=== PATIENT | male | born 1940 | race Caucasian/White ===

== ENCOUNTER → 2017-01-03 | Outpatient (CLI) | payer MEDICARE ==
[2017-01-03 15:43] LABS: ALT 28 U/L (21-72); AST 29 U/L (17-59); Cholesterol 123 mg/dL (<200); HDL Cholesterol 46 mg/dL (40-60); Triglycerides 71 mg/dL (<150)
== END | disposition home or self-care (01) ==
LOC: LABWHC1 15:09
PROVIDERS: ATTEND Internal Medicine Interventional Cardiology
DX: E78.2 Mixed hyperlipidemia (principal)
CPT/HCPCS: 36415; 80061; 84450; 84460

== ENCOUNTER → 2017-07-02 | Outpatient (CLI) | payer MEDICARE ==
[2017-07-02 08:41] LABS: ALT 19 U/L (21-72); AST 21 U/L (17-59); Alkaline Phosphatase 59 U/L (38-126); Anion Gap 7 mmol/L; Blood Urea Nitrogen 7 mg/dL (9-20); Calcium 9.1 mg/dL (8.4-10.2); Carbon Dioxide 28 mmol/L (22-30); Chloride 110 mmol/L (98-107); Cholesterol 116 mg/dL (<200); Glucose 86 mg/dL (74-99); HDL Cholesterol 41 mg/dL (40-60); Non-African American GFR(MDRD) >60 (>60 ml/min/1.73 sqM); Potassium 4.3 mmol/L (3.5-5.1); Sodium 145 mmol/L (137-145); Total Bilirubin 0.9 mg/dL (0.2-1.3); Total Protein 6.5 g/dL (6.3-8.2)
== END | disposition home or self-care (01) ==
LOC: LABWHC1 07:26
PROVIDERS: ATTEND Internal Medicine Interventional Cardiology
DX: E78.2 Mixed hyperlipidemia (principal)
CPT/HCPCS: 36415; 80053; 80061

== ENCOUNTER 2018-05-16 19:11 | Inpatient (IN) | payer MEDICARE ==
[2018-05-16] MEDS ORDERED: SODIUM CHLORIDE 0.9% 1,000 ML IV STA (19:52)
[2018-05-16 20:13] LABS: Basophils # (A) 0.1 k/uL (0-0.2); Basophils % (A) 1 %; Eosinophils # (A) 0.2 k/uL (0-0.7); Eosinophils % (A) 2 %; HCT 48.7 % (39.0-53.0); HGB 16.9 gm/dL (13.0-17.5); Lymphocytes # (A) 1.8 k/uL (1.0-4.8); Lymphocytes % (A) 24 %; MCH 34.2 pg (25.0-35.0); MCHC 34.7 g/dL (31.0-37.0); MCV 98.7 fL (80.0-100.0); Mean Platelet Volume 8.8; Monocytes # (A) 0.3 k/uL (0-1.0); Monocytes % (A) 4 %; Neutrophils # (A) 5.1 k/uL (1.3-7.7); Neutrophils % (A) 68 %; Platelet Count 114 k/uL (150-450); RBC 4.94 m/uL (4.30-5.90); RDW 13.6 % (11.5-15.5); WBC 7.5 k/uL (3.8-10.6)
[2018-05-16 20:22] LABS: Albumin 4.4 g/dL (3.5-5.0); Calcium 9.4 mg/dL (8.4-10.2); Potassium 4.3 mmol/L (3.5-5.1); Total Bilirubin 0.6 mg/dL (0.2-1.3); Total Protein 6.8 g/dL (6.3-8.2)
[2018-05-16 20:25] LABS: Creatine Kinase 65 U/L (55-170)
[2018-05-16 20:27] LABS: INR 1.1 (<1.2); Partial Thromboplastin Time 23.6 sec (22.0-30.0); Prothrombin Time 10.5 sec (9.0-12.0)
[2018-05-16 20:38] LABS: Troponin I <0.012 ng/mL (0.000-0.034)
--- NOTE | 2018-05-16 20:51 | XR ---
EXAMINATION TYPE: XR chest 2V DATE OF EXAM: 05/16/2018 COMPARISON: 07/20/2016 HISTORY: Difficulty breathing TECHNIQUE: Frontal and lateral views of the chest are obtained. FINDINGS: Heart and mediastinum are normal. Lungs are clear. Diaphragm is normal. There is left axil roberto pacemaker with the lead tips in the right ventricle. IMPRESSION: Normal chest. No change.
--- NOTE | 2018-05-16 20:53 | CT ---
EXAMINATION TYPE: CT brain wo con DATE OF EXAM: 05/16/2018 COMPARISON: NONE HISTORY: Headache and dizziness. CT DLP: 1130 mGycm Automated exposure control for dose reduction was used. FINDINGS: There is cerebral cortical atrophy. There is no mass effect nor midline shift. There is no sign of in tracranial hemorrhage. The calvarium is intact. IMPRESSION: CEREBRAL ATROPHY. NO ACUTE INTRACRANIAL ABNORMALITY.
[2018-05-16] MEDS ORDERED: NITROGLYCERIN SL TABS 0.4 MG TAB SUBLINGUAL PRN (23:38)
[2018-05-16] MEDS ORDERED: MORPHINE SULFATE 2 MG/ML SYRINGE IVP PRN (23:38)
--- NOTE | 2018-05-16 23:38 | ED ---
General Adult HPI - General Chief complaint: Shortness of Breath Stated complaint: pacemaker issue Time Seen by Provider: 05/16/18 19:28 Source: patient Mode of arrival: wheelchair Limitations: no limitations - History of Present Illness Initial comments: 27 years old male has a history of heart disease has a pacemaker in place he presents with the low pulse rate 20 and he said he states he fell couple times over the last week he denies any head injury or loss of consciousness or any injury from the fall but he added that he is unable to walk straight line and very dizzy. He denies any headaches right now no neck stiffness no chest pain has some shortness of breath no abdominal pain no frequency urgency dysuria no symptoms of TIA or CVA - Related Data Home Medications Medication Instructions Recorded Confirmed Carvedilol [Coreg] 3.125 mg PO BID 07/15/16 05/16/18 LORazepam [Ativan] 1 mg PO TID 07/15/16 05/16/18 Lisinopril [Zestril] 10 mg PO HS 07/15/16 05/16/18 Mometasone/Formoterol [Dulera 200 2 puff INHALATION RT-BID 07/15/16 05/16/18 Mcg/5 Mcg Inhaler] Pantoprazole Sodium [Protonix] 40 mg PO BID 07/15/16 05/16/18 Simvastatin [Zocor] 80 mg PO HS 07/15/16 05/16/18 traZODone HCL [Desyrel] 100 mg PO HS 07/15/16 05/16/18 Aspirin 325 mg PO DAILY 11/07/17 05/16/18 Allergies Allergy/AdvReac Type Severity Reaction Status Date / Time No Known Allergies Allergy Verified 05/16/18 19:46 Review of Systems ROS Statement: Those systems with pertinent positive or pertinent negative responses have been documented in the HPI. ROS Other: All systems not noted in ROS Statement are negative. Past Medical History Past Medical History: COPD, Hearing Disorder / Deafness, Hyperlipidemia, Hypertension, Myocardial Infarction ([place]) Last Myocardial Infarction Date:: 2005 History of Any Multi-Drug Resistant Organisms: None Reported Past Surgical History: Heart Catheterization With Stent, Orthopedic Surgery, Pacemaker Additional Past Surgical History / Comment(s): RIGHT SHOULDER Past Anesthesia/Blood Transfusion Reactions: No Reported Reaction Date of Last Stent Placement:: 11/2005 Type of Cardiac Device: Permanent Pacemaker Device Placement Date:: 11/2005 Past Psychological History: Anxiety Smoking Status: Former smoker Past Alcohol Use History: Rare Past Drug Use History: None Reported - Past Family History Sister(s) Family Medical History: Cancer Mother Family Medical History: No Reported History General Exam - General Exam Comments Initial Comments: General: The patient is awake and alert, in no distress, and does not appear acutely ill. Skin: Skin is warm and dry and no rashes or lesions are noted. Eye: Pupils are equal, round and reactive to light, extra-ocular movements are intact; there is normal conjunctiva bilaterally. Ears, nose, mouth and throat: There are moist mucous membranes and no oral lesions. Neck: The neck is supple, there is no tenderness or JVD. Cardiovascular: There is a regular rate and rhythm. No murmur, rub or gallop is appreciated. Respiratory: To auscultation bilateral, no wheezing no rhonchi no distress respiratory dewey noticed Gastrointestinal: Soft, non-distended, non-tender abdomen without masses or organomegaly noted. There is no rebound or guarding present. Bowel sounds are unremarkable. Back: There is no tenderness to palpation in the midline. There is no obvious deformity. Musculoskeletal: Normal ROM, no tenderness, There is no pedal edema. There is no calf tenderness or swelling. No cords were appreciated. Neurological: CN II-XII intact, Cranial nerves III through XII are intact. There are no obvious motor or sensory deficits. Coordination appears grossly intact. Speech is normal. Psychiatric: Cooperative, appropriate mood & affect, normal judgment. Limitations: no limitations Course Vital Signs 05/16/18 05/16/18 19:14 21:59 Temperature 98.6 F Pulse Rate 65 65 Respiratory 16 19 Rate Blood Pressure 134/73 129/60 O2 Sat by Pulse 97 95 Oximetry Review of labs and imaging revealed normal CBC normal INR, compressive metabolic panel is remarkable EKG is paced troponin is negative head CT is normal chest x-ray ruled out any infiltrate or congestive heart failure. Patient still continued to be dizzy and especially when he ambulates he gets very dizzy considering that and also noticed that his heart rate dropped some acute high 40s and low 50s considering that I plan to admit the patient also cardiology I believe maybe bradycardia is making him dizzy EKG Findings - EKG Comments: EKG Findings:: I am EKG is ventricular paced rhythm with occasional premature ventricular complexes ventricular rate is 68 QRS duration is 162 QT/QTc is 452/ 480 Medical Decision Making - Lab Data Result diagrams: 05/16/18 19:40 05/16/18 19:40 Lab Results 05/16/18 05/16/18 05/16/18 Range/Units 19:40 19:40 19:40 WBC 7.5 (3.8-10.6) k/uL RBC 4.94 (4.30-5.90) m/uL Hgb 16.9 (13.0-17.5) gm/dL Hct 48.7 (39.0-53.0) % MCV 98.7 (80.0-100.0) fL MCH 34.2 (25.0-35.0) pg MCHC 34.7 (31.0-37.0) g/dL RDW 13.6 (11.5-15.5) % Plt Count 114 L (150-450) k/uL Neutrophils % 68 % Lymphocytes % 24 % Monocytes % 4 % Eosinophils % 2 % Basophils % 1 % Neutrophils # 5.1 (1.3-7.7) k/uL Lymphocytes # 1.8 (1.0-4.8) k/uL Monocytes # 0.3 (0-1.0) k/uL Eosinophils # 0.2 (0-0.7) k/uL Basophils # 0.1 (0-0.2) k/uL PT (9.0-12.0) sec INR (<1.2) APTT (22.0-30.0) sec Sodium 143 (137-145) mmol/L Potassium 4.3 (3.5-5.1) mmol/L Chloride 109 H (98-107) mmol/L Carbon Dioxide 21 L (22-30) mmol/L Anion Gap 13 mmol/L BUN 9 (9-20) mg/dL Creatinine 1.10 (0.66-1.25) mg/dL Est GFR (CKD-EPI)AfAm 74 (>60 ml/min/1.73 sqM) Est GFR (CKD-EPI)NonAf 64 (>60 ml/min/1.73 sqM) Glucose 100 H (74-99) mg/dL Calcium 9.4 (8.4-10.2) mg/dL Total Bilirubin 0.6 (0.2-1.3) mg/dL AST 23 (17-59) U/L ALT 25 (21-72) U/L Alkaline Phosphatase 58 (38-126) U/L Total Creatine Kinase 65 (55-170) U/L CK-MB (CK-2) 1.0 (0.0-2.4) ng/mL CK-MB (CK-2) Rel Index 1.5 Troponin I <0.012 (0.000-0.034) ng/mL NT-Pro-B Natriuret Pep pg/mL Total Protein 6.8 (6.3-8.2) g/dL Albumin 4.4 (3.5-5.0) g/dL 05/16/18 05/16/18 Range/Units 19:40 19:40 WBC (3.8-10.6) k/uL RBC (4.30-5.90) m/uL Hgb (13.0-17.5) gm/dL Hct (39.0-53.0) % MCV (80.0-100.0) fL MCH (25.0-35.0) pg MCHC (31.0-37.0) g/dL RDW (11.5-15.5) % Plt Count (150-450) k/uL Neutrophils % % Lymphocytes % % Monocytes % % Eosinophils % % Basophils % % Neutrophils # (1.3-7.7) k/uL Lymphocytes # (1.0-4.8) k/uL Monocytes # (0-1.0) k/uL Eosinophils # (0-0.7) k/uL Basophils # (0-0.2) k/uL PT 10.5 (9.0-12.0) sec INR 1.1 (<1.2) APTT 23.6 (22.0-30.0) sec Sodium (137-145) mmol/L Potassium (3.5-5.1) mmol/L Chloride (98-107) mmol/L Carbon Dioxide (22-30) mmol/L Anion Gap mmol/L BUN (9-20) mg/dL Creatinine (0.66-1.25) mg/dL Est GFR (CKD-EPI)AfAm (>60 ml/min/1.73 sqM) Est GFR (CKD-EPI)NonAf (>60 ml/min/1.73 sqM) Glucose (74-99) mg/dL Calcium (8.4-10.2) mg/dL Total Bilirubin (0.2-1.3) mg/dL AST (17-59) U/L ALT (21-72) U/L Alkaline Phosphatase (38-126) U/L Total Creatine Kinase (55-170) U/L CK-MB (CK-2) (0.0-2.4) ng/mL CK-MB (CK-2) Rel Index Troponin I (0.000-0.034) ng/mL NT-Pro-B Natriuret Pep 542 pg/mL Total Protein (6.3-8.2) g/dL Albumin (3.5-5.0) g/dL Disposition Clinical Impression: Dizziness Disposition: ADMITTED IP TO THIS HOSP Condition: Good Referrals: Alexey Chen MD [Primary Care Provider] - 1-2 days
[2018-05-17 01:01] VITALS: BMI 26.9
[2018-05-17 03:13] LABS: Cholesterol 93 mg/dL (<200); HDL Cholesterol 31 mg/dL (40-60); LDL Cholesterol,Calculated 45 mg/dL (0-99); Triglycerides 84 mg/dL (<150)
[2018-05-17 03:21] LABS: Creatine Kinase 44 U/L (55-170)
[2018-05-17 03:34] LABS: Creatine Kinase MB 0.7 ng/mL (0.0-2.4); Troponin I <0.012 ng/mL (0.000-0.034)
--- NOTE | 2018-05-17 09:03 | P.HPIM ---
History of Present Illness H&P Date: 05/17/18 Chief Complaint: dizziness Patient is a 77-year-old past medical history of artery disease, hypertension, dyslipidemia who presented to the emergency department complaints of dizziness and shortness of breath. In the ER he underwent extensive evaluation. His vital signs on presentation were within normal limits. Initial laboratory analysis was unremarkable. CT head showed age-related atrophy but no acute process, chest x-ray showed no acute process, an EKG showed a paced rhythm. He was minimally as observation with concern for possible pacemaker malfunction versus symptomatic bradycardia. Patient seen and examined at bedside. He states that his symptoms started approximately 10 days ago. Initially he was having dizziness when ambulating, and it was better with rest. It has progressed to the point that he gets dizzy when up and moving around, and then gets dizziness again when lying flat. This is associated with shortness of breath on exertion and a persistent feeling of nausea and upset stomach. 4 days ago he started having a headache. He has fallen twice. He denies any syncopal episodes but states that his head was going in one direction his feet and another. He denies any lower extremity weakness or numbness. He denies any abdominal pain, diarrhea, constipation, or dysuria. He has not had any fever or chills. He has not had any wheezing or coughing. He feels as though his COPD is well controlled at this point. He typically sees Dr. Whitaker and has been in contact with Hien who checked his pacemaker. He went and saw her in the office last week and was told he didn't need his pacemaker adjusted at that point in time. He has been checking his pulse at home and has been maintaining around 65 per patient. He was attempting to seen in the cardiology office but his symptoms progressed and he presented to the emergency department. He states that it has been months since any of his medications have been changed. Review of Systems Positives: dizziness, shortness of breath on exertion, Falls Pertinent positives and negatives as discussed in HPI, a complete review of systems was performed and all other systems are negative. Past Medical History Past Medical History: COPD, GERD/Reflux, Hearing Disorder / Deafness, Hyperlipidemia, Hypertension, Myocardial Infarction ([place]) Additional Past Medical History / Comment(s): B 12 deficiency, hx of neuropathy Last Myocardial Infarction Date:: 2005 History of Any Multi-Drug Resistant Organisms: None Reported Past Surgical History: Heart Catheterization With Stent, Orthopedic Surgery, Pacemaker Additional Past Surgical History / Comment(s): RIGHT SHOULDER scope, left knee scope, cardiac stent X 3, PPM 2005 Past Anesthesia/Blood Transfusion Reactions: No Reported Reaction Date of Last Stent Placement:: 11/2005 Type of Cardiac Device: Permanent Pacemaker Device Placement Date:: 11/2005 Past Psychological History: Anxiety Smoking Status: Former smoker Past Alcohol Use History: Rare Additional Past Alcohol Use History / Comment(s): STARTED SMOKING AT AGE 16 QUIT SMOKING IN 2001 (QUIT FOR 5 YEARS) PRIOR ON AND OFF -SMOKED 1 11/29 PPD Past Drug Use History: None Reported Additional History: Lives with his , no assistive devices - Past Family History Sister(s) Family Medical History: Cancer Mother Family Medical History: No Reported History Medications and Allergies Home Medications Medication Instructions Recorded Confirmed Type Carvedilol [Coreg] 3.125 mg PO BID 07/15/16 05/16/18 History LORazepam [Ativan] 1 mg PO TID 07/15/16 05/16/18 History Lisinopril [Zestril] 10 mg PO HS 07/15/16 05/16/18 History Mometasone/Formoterol [Dulera 200 2 puff INHALATION RT-BID 07/15/16 05/16/18 History Mcg/5 Mcg Inhaler] Pantoprazole Sodium [Protonix] 40 mg PO BID 07/15/16 05/16/18 History Simvastatin [Zocor] 80 mg PO HS 07/15/16 05/16/18 History traZODone HCL [Desyrel] 100 mg PO HS 07/15/16 05/16/18 History Aspirin 325 mg PO DAILY 11/07/17 05/16/18 History Allergies Allergy/AdvReac Type Severity Reaction Status Date / Time No Known Allergies Allergy Verified 05/16/18 19:46 Physical Exam Osteopathic Statement: *. No significant issues noted on an osteopathic structural exam other than those noted in the History and Physical/Consult. Vitals: Vital Signs Temp Pulse Pulse Resp BP BP BP 05/17/18 07:25 97.4 F L 64 18 86/67 05/17/18 04:34 97.5 F L 59 L 16 108/55 05/17/18 02:00 16 05/17/18 00:41 97.8 F 65 16 142/74 05/17/18 00:27 97.7 F 65 16 156/69 05/16/18 21:59 65 19 129/60 05/16/18 19:14 98.6 F 65 16 134/73 Pulse Ox 05/17/18 07:25 98 05/17/18 04:34 94 L 05/17/18 02:00 05/17/18 00:41 96 05/17/18 00:27 97 05/16/18 21:59 95 05/16/18 19:14 97 Intake and Output 05/16/18 05/17/18 05/17/18 22:59 06:59 14:59 Other: # Voids 1 Weight 80.286 kg 80.286 kg General: non toxic, no distress, appears at stated age, normal weight Derm: no unusual rashes/lesions no unusual ecchymoses, warm, dry Head: atraumatic, normocephalic, symmetric Eyes: EOMI, no lid lag, anicteric sclera, pupils equal round reactive to light ENT: Nose and ears atraumatic, no thrush, no pharyngeal erythema, negative [place]- [place], heart of hearing Neck: No thyromegaly, no cervical lymphadenopathy, trachea midline, supple Mouth: no lip lesion, mucus membranes moist Cardiovascular: S1S2 reg, no murmur, positive posterior tibial pulse bilateral, no edema, capillary refill less than 2 seconds Lungs: CTA bilateral, no rhonchi, no rales , no accessory muscle use Abdominal: soft, nontender to palpation, no guarding, no appreciable organomegaly, normal bowel sounds Ext: no gross muscle atrophy, muscle strength 5 out of 5 in all 4 extremities grossly, no contractures, Neuro: CN II-XI grossly intact, light touch intact all 4 extremities, finger to nose within normal limits, Psych: Alert, oriented, appropriate affect Results CBC & Chem 7: 05/16/18 19:40 05/16/18 19:40 Labs: Abnormal Lab Results - Last 24 Hours (Table) 05/16/18 05/16/18 05/17/18 Range/Units 19:40 19:40 02:34 Plt Count 114 L (150-450) k/uL Chloride 109 H (98-107) mmol/L Carbon Dioxide 21 L (22-30) mmol/L Glucose 100 H (74-99) mg/dL Total Creatine Kinase 44 L (55-170) U/L HDL Cholesterol (40-60) mg/dL 05/17/18 Range/Units 02:34 Plt Count (150-450) k/uL Chloride (98-107) mmol/L Carbon Dioxide (22-30) mmol/L Glucose (74-99) mg/dL Total Creatine Kinase (55-170) U/L HDL Cholesterol 31 L (40-60) mg/dL Comments: EKG is reviewed by myself reveals a paced rhythm at 68 bpm, QTC 480, QRS 162. Thrombosis Risk Factor Assmnt - DVT/VTE Prophylaxis DVT/VTE Prophylaxis: Low risk, early ambulation encouraged - Choose All That Apply Each Risk Factor Represents 3 Points: Age 75 years or older Thrombosis Risk Factor Assessment Total Risk Factor Score: 3 Thrombosis Risk Factor Assessment Level: Moderate Risk Assessment and Plan Assessment: Dizziness with associated exertional dyspnea -Possible anginal equivalent, troponin cycled and negative 2 -Check orthostatic vital signs, repeat morning blood pressure as it was low -Add parameters to blood pressure medications -Telemetry -Cardiology consultation -Check B12 and TSH -Negative [place]-Hallpike 2 recent falls -PT consultation -Assessment of dizziness as outlined above Hypertension, now with borderline low blood pressures -Parameters added to his Coreg and lisinopril. Wondering if patient needs to discontinue lisinopril at night as they appears that his morning blood pressures are low. Coronary artery disease -Continue with aspirin, statin, and beta bandar Dyslipidemia -Cholesterol profile within normal limits -Continue statin Thrombocytopenia, chronic -Appears at or near baseline -Continue outpatient follow-up Surrogate decision-maker: -Mayte CODE STATUS: Full DVT prophylaxis: Early ambulation Discussed with: Patient, nursing, granddaughter Anticipated discharge: [address]: Home A total of 65 minutes was spent on the care of this complex patient more than 50 % of the time was spent in counseling and care coordination.
[2018-05-17 09:21] LABS: Creatine Kinase 40 U/L (55-170)
[2018-05-17 09:33] LABS: Creatine Kinase MB 0.6 ng/mL (0.0-2.4); Troponin I <0.012 ng/mL (0.000-0.034)
[2018-05-17] MEDS ORDERED: MECLIZINE 25 MG TAB PO PRN (10:37)
--- NOTE | 2018-05-17 11:16 | P.CRDCN ---
History of Present Illness History of present illness: Mr. Fierro is a pleasant 77-year-old male past medical history significant for coronary artery disease s/p angioplasty of the mid RCA and proximal OM in 2005, COPD, dyslipidemia, hypertension and complete heart block s /p permanent pacemaker implantation. He follows with Dr. Whitaker in the office. We have been asked to see him in consultation for dizziness. He states for the previous couple of weeks he has been feeling symptoms of dizziness. When he lays down it feels like the room is spinning. If he sits up his symptoms are resolved. Then when he stands up he starts to feel lightheaded and unsteady on his feet. He states it feels as though his legs aren't doing what he wants them to do. CT of the brain was performed on admission reveals cerebral atrophy with no acute intracranial abnormality. He went to the office last week on and had his pacemaker interrogated and was unremarkable for an acute event. His symptoms have persisted over the weekend so he came in for evaluation. Blood pressures have been low and he is orthostatic positive with blood pressure supine 109/64, sitting 101/61 and standing 95/61. He denies any symptoms of chest pain, shortness of breath, palpitations, diaphoresis, PND or orthopnea. EKG reveals paced rhythm. Chest x-ray is negative for an acute cardiopulmonary process. Laboratory data reviewed, hemoglobin 16.9, platelets 114, sodium 143, potassium 4.3, creatinine 1.1, cardiac enzymes negative 3, TSH 2.31, LDL 45, HDL 31, proBNP 542. Current cardiac medications include simvastatin 80 mg daily, lisinopril 10 mg at bedtime, carvedilol 3.125 mg daily and aspirin 325 mg daily. He also takes Singulair, Ativan, Protonix and Desyrel. Most recent echocardiogram done 05/2017 reveals preserved LV systolic function with EF 50%. Review of Systems At the time of my exam: CONSTITUTIONAL: Denies fever. Denies chills. EYES: Denies blurred vision. Denies vision changes. Denies eye pain. EARS, NOSE, MOUTH & THROAT: Denies headache. Denies sore throat. Denies ear pain. CARDIOVASCULAR: Denies chest pain. Denies shortness of breath. Denies orthopnea. Denies PND. Denies palpitations. RESPIRATORY: Denies cough. GASTROINTESTINAL: Denies abdominal pain. Denies diarrhea. Denies constipation. Denies nausea. Denies vomiting. MUSCULOSKELETAL: Denies myalgias. INTEGUMENTARY: Denies pruitis. Denies rash. NEUROLOGIC: Denies numbness. Denies tingling. Denies weakness. Complains of dizziness with position changes. PSYCHIATRIC: Denies anxiety. Denies depression. ENDOCRINE: Denies fatigue. Denies weight change. Denies polydipsia. Denies polyurina. GENITOURINARY: Denies burning, hematuria or urgency with micturation. HEMATOLOGIC: Denies history of anemia. Denies bleeding. Past Medical History Past Medical History: COPD, GERD/Reflux, Hearing Disorder / Deafness, Hyperlipidemia, Hypertension, Myocardial Infarction (CO) Additional Past Medical History / Comment(s): B 12 deficiency, hx of neuropathy Last Myocardial Infarction Date:: 2005 History of Any Multi-Drug Resistant Organisms: None Reported Past Surgical History: Heart Catheterization With Stent, Orthopedic Surgery, Pacemaker Additional Past Surgical History / Comment(s): RIGHT SHOULDER scope, left knee scope, cardiac stent X 3, PPM 2005 Past Anesthesia/Blood Transfusion Reactions: No Reported Reaction Date of Last Stent Placement:: 11/2005 Type of Cardiac Device: Permanent Pacemaker Device Placement Date:: 11/2005 Past Psychological History: Anxiety Smoking Status: Former smoker Past Alcohol Use History: Rare Additional Past Alcohol Use History / Comment(s): STARTED SMOKING AT AGE 16 QUIT SMOKING IN 2001 (QUIT FOR 5 YEARS) PRIOR ON AND OFF -SMOKED 1 1/2 PPD Past Drug Use History: None Reported - Past Family History Sister(s) Family Medical History: Cancer Mother Family Medical History: No Reported History Medications and Allergies Home Medications Medication Instructions Recorded Confirmed Type Carvedilol [Coreg] 3.125 mg PO BID 07/15/16 05/16/18 History LORazepam [Ativan] 1 mg PO TID 07/15/16 05/16/18 History Lisinopril [Zestril] 10 mg PO HS 07/15/16 05/16/18 History Mometasone/Formoterol [Dulera 200 2 puff INHALATION RT-BID 07/15/16 05/16/18 History Mcg/5 Mcg Inhaler] Pantoprazole Sodium [Protonix] 40 mg PO BID 07/15/16 05/16/18 History Simvastatin [Zocor] 80 mg PO HS 07/15/16 05/16/18 History traZODone HCL [Desyrel] 100 mg PO HS 07/15/16 05/16/18 History Aspirin 325 mg PO DAILY 11/07/17 05/16/18 History Allergies Allergy/AdvReac Type Severity Reaction Status Date / Time No Known Allergies Allergy Verified 05/16/18 19:46 Physical Exam Vitals: Vital Signs Temp Pulse Pulse Pulse Pulse Pulse Resp 05/17/18 08:45 65 65 67 18 05/17/18 08:00 64 65 65 67 18 05/17/18 07:25 97.4 F L 64 18 05/17/18 04:34 97.5 F L 59 L 16 05/17/18 02:00 16 05/17/18 00:41 97.8 F 65 16 05/17/18 00:27 97.7 F 65 16 05/16/18 21:59 65 19 05/16/18 19:14 98.6 F 65 16 BP BP BP BP BP BP Pulse Ox 05/17/18 08:45 101/61 95/61 109/64 96 05/17/18 08:00 05/17/18 07:25 86/67 98 05/17/18 04:34 108/55 94 L 05/17/18 02:00 05/17/18 00:41 142/74 96 05/17/18 00:27 156/69 97 05/16/18 21:59 129/60 95 05/16/18 19:14 134/73 97 Intake and Output 05/16/18 05/17/18 05/17/18 22:59 06:59 14:59 Other: Voiding Method Toilet # Voids 1 Weight 80.286 kg 80.286 kg Blood pressure 86/67 heart rate 64 afebrile maintaining oxygen saturation on room air GENERAL: This is a 77-year-old occasion male in no apparent distress at the time of my examination. HEENT: Head is atraumatic, normocephalic. Pupils are equal, round. Sclerae anicteric. Conjunctivae are clear. Mucous membranes of the mouth are moist. Neck is supple. There is no jugular venous distention. No carotid bruit is heard. LUNGS: Clear to auscultation no wheezes, rales or rhonchi. No chest wall tenderness is noted on palpation or with deep breathing. HEART: Regular rate and rhythm without murmurs, rubs or gallops. S1 and S2 heard. ABDOMEN: Soft, nontender. Bowel sounds are heard. No organomegaly noted. EXTREMITIES: No evidence of peripheral edema and no calf tenderness noted. VASCULAR: Radial and dorsalis pedis pulses palpated, no evidence of clubbing. NEUROLOGIC: Patient is awake, alert and oriented x3. Results 05/16/18 19:40 05/16/18 19:40 Cardiac Enzymes 05/16/18 05/16/18 05/17/18 Range/Units 19:40 19:40 02:34 AST 23 (17-59) U/L CK-MB (CK-2) 1.0 0.7 (0.0-2.4) ng/mL Troponin I <0.012 <0.012 (0.000-0.034) ng/mL 05/17/18 Range/Units 07:51 AST (17-59) U/L CK-MB (CK-2) 0.6 (0.0-2.4) ng/mL Troponin I <0.012 (0.000-0.034) ng/mL Coagulation 05/16/18 Range/Units 19:40 PT 10.5 (9.0-12.0) sec APTT 23.6 (22.0-30.0) sec Lipids 05/17/18 Range/Units 02:34 Triglycerides 84 (<150) mg/dL Cholesterol 93 (<200) mg/dL HDL Cholesterol 31 L (40-60) mg/dL CBC 05/16/18 Range/Units 19:40 WBC 7.5 (3.8-10.6) k/uL RBC 4.94 (4.30-5.90) m/uL Hgb 16.9 (13.0-17.5) gm/dL Hct 48.7 (39.0-53.0) % Plt Count 114 L (150-450) k/uL Comprehensive Metabolic Panel 05/16/18 Range/Units 19:40 Sodium 143 (137-145) mmol/L Potassium 4.3 (3.5-5.1) mmol/L Chloride 109 H (98-107) mmol/L Carbon Dioxide 21 L (22-30) mmol/L BUN 9 (9-20) mg/dL Creatinine 1.10 (0.66-1.25) mg/dL Glucose 100 H (74-99) mg/dL Calcium 9.4 (8.4-10.2) mg/dL AST 23 (17-59) U/L ALT 25 (21-72) U/L Alkaline Phosphatase 58 (38-126) U/L Total Protein 6.8 (6.3-8.2) g/dL Albumin 4.4 (3.5-5.0) g/dL Current Medications Generic Name Dose Route Start Last Admin Trade Name Freq PRN Reason Stop Dose Admin Aspirin 325 mg 05/17/18 09:00 Aspirin PO DAILY ON LICENSE OF [facility] Atorvastatin Calcium 40 mg 05/17/18 21:00 Lipitor PO HS ON LICENSE OF [facility] Budesonide/Formoterol Fumarate 2 puff 05/17/18 08:00 Symbicort 160-4.5 Mcg Inhaler INHALATION RT-BID ON LICENSE OF [facility] Carvedilol 3.125 mg 05/17/18 07:30 Coreg PO BID-W/MEALS ON LICENSE OF [facility] Sodium Chloride 1,000 mls @ 50 mls/hr 05/16/18 19:52 05/16/18 20:13 Saline 0.9% IV 05/17/18 15:51 50 mls/hr .Q20H STA Administration Lisinopril 5 mg 05/17/18 21:00 Zestril PO HS ON LICENSE OF [facility] Lorazepam 1 mg 05/17/18 09:00 Ativan PO TID ON LICENSE OF [facility] Meclizine HCl 25 mg 05/17/18 10:37 Antivert PO BID PRN Vertigo Morphine Sulfate 2 mg 05/16/18 23:38 Morphine Sulfate (Inj) IVP Q5M PRN Chest Pain Nitroglycerin 0.4 mg 05/16/18 23:38 Nitrostat SUBLINGUAL Q5M PRN Chest Pain Pantoprazole Sodium 40 mg 05/17/18 09:00 Protonix PO BID ON LICENSE OF [facility] Trazodone HCl 100 mg 05/17/18 21:00 Desyrel PO HS ON LICENSE OF [facility] Intake and Output 05/16/18 05/17/18 05/17/18 22:59 06:59 14:59 Other: Voiding Method Toilet # Voids 1 Weight 80.286 kg 80.286 kg 05/16/18 19:40 05/16/18 19:40 Assessment and Plan Assessment: ASSESSMENT 1. Dizziness with positive orthostatic changes and vertigo like presentation. An acute coronary event has been ruled out. 2. Hypertension with recent orthostatic hypotension 3. History of coronary artery disease s/p angioplasty in 2005 4. Dyslipidemia 5. History of complete heart block s/p permanent pacemaker implantation 6. COPD PLAN Obtain 2D echocardiogram and doppler study to assess cardiac structure and function. Interrogate pacemaker. Decrease lisinopril to 5 mg daily at HS. Add antivert 25 mg BID PRN. Thank you kindly for this consultation. Nurse Practitioner note has been reviewed, I agree with a documented findings and plan of care. Patient was seen and examined.
[2018-05-17] MEDS: PANTOPRAZOLE 40 MG TABLET PO SCH ×2 (11:31→20:22)
[2018-05-17] MEDS: ASPIRIN 325 MG TAB PO SCH (11:31)
[2018-05-17] MEDS: LORazepam 1 MG TAB PO SCH ×3 (11:32→23:27)
--- NOTE | 2018-05-17 12:05 | ECHOF ---
Referral Reason:sob MEASUREMENTS -------- HEIGHT: 172.7 cm WEIGHT: 80.3 kg BP: 108/55 RVIDd: 3.4 cm (< 3.3) IVSd: 1.3 cm (0.6 - 1.1) LVIDd: 4.3 cm (3.9 - 5.3) LVPWd: 1.4 cm (0.6 - 1.1) IVSs: 1.6 cm LVIDs: 4.2 cm LVPWs: 1.2 cm LA Diam: 3.2 cm (2.7 - 3.8) LAESV Index (A-L): 22.36 ml/m Ao Diam: 3.4 cm (2.0 - 3.7) AV Cusp: 1.2 cm (1.5 - 2.6) LA Diam: 3.4 cm (2.7 - 3.8) MV EXCURSION: 20.824 mm (> 18.000) MV EF SLOPE: 77 mm/s (70 - 150) EPSS: 0.8 cm MV E Jett: 1.02 m/s MV DecT: 157 ms MV A Jett: 0.37 m/s MV E/A Ratio: 2.76 RAP: 5.00 mmHg RVSP: 25.78 mmHg FINDINGS -------- Paced rhythm. This was a technically adequate study. There is mild concentric left ventricular hypertrophy. Overall left ventricular systolic function i s moderate-severely impaired with, an EF between 30 - 35 %. Septal wall motion is delayed, and cons istent with ventricular pacing. Mid anterior LV wall motion is hypokinetic. Apical anterior LV w all motion is normal. Apical lateral LV wall motion is normal. Apical inferior LV wall motion is normal. Apical septum LV wall motion is normal. The right ventricle is mildly enlarged. The left atrial size is normal. Normal LA size by volume 22+/-6 ml/m2. The right atrial size is normal. There is mild aortic valve sclerosis. There is no evidence of aortic regurgitation. Mild mitral annular calcification present. Mild mitral regurgitation is present. Mild tricuspid regurgitation present. There is no evidence of pulmonary hypertension. The right v entricular systolic pressure, as measured by Doppler, is 25.78mmHg. There is no pulmonic regurgitation present. The aortic root size is normal. Echo free space represents a pericardial fat pad. CONCLUSIONS -------- 1. There is mild concentric left ventricular hypertrophy. 2. Overall left ventricular systolic function is moderate-severely impaired with, an EF between 30 - 35 %. 3. Septal wall motion is delayed, and consistent with ventricular pacing. 4. Apical anterior LV wall motion is normal. 5. Apical lateral LV wall motion is normal. 6. Apical inferior LV wall motion is normal. 7. Apical septum LV wall motion is normal. 8. The right ventricle is mildly enlarged. 9. The left atrial size is normal. 10. There is mild aortic valve sclerosis. 11. Mild mitral annular calcification present. 12. Mild mitral regurgitation is present. 13. Mild tricuspid regurgitation present. 14. There is no evidence of pulmonary hypertension. 15. The right ventricular systolic pressure, as measured by Doppler, is 25.78mmHg. 16. There is no pulmonic regurgitation present. 17. The aortic root size is normal. 18. Echo free space represents a pericardial fat pad. DRONE PILOT: Mckayla Infante RDCS
[2018-05-17] MEDS: CARVEDILOL 3.125 MG TAB PO SCH ×2 (12:27→18:49)
[2018-05-17] MEDS: SYMBICORT 160-4.5 MCG INHALER INHALATION SCH ×2 (19:45→23:23)
[2018-05-17] MEDS: traZODone HCL 100 MG TAB PO SCH (20:22)
[2018-05-17] MEDS: ATORVASTATIN 40 MG TAB PO SCH (20:22)
[2018-05-17] MEDS: LISINOPRIL 5 MG TAB PO SCH (20:22)
[2018-05-17] MEDS ORDERED: LISINOPRIL 10 MG TAB PO SCH (21:00)
[2018-05-18] MEDS: MECLIZINE 25 MG TAB PO SCH (11:47)
[2018-05-18] MEDS: CARVEDILOL 3.125 MG TAB PO SCH ×2 (11:47→16:50)
[2018-05-18] MEDS: PANTOPRAZOLE 40 MG TABLET PO SCH ×2 (11:47→19:57)
[2018-05-18] MEDS: ASPIRIN 325 MG TAB PO SCH (11:47)
[2018-05-18] MEDS: LORazepam 1 MG TAB PO SCH ×3 (11:47→19:57)
--- NOTE | 2018-05-18 13:12 | P.PN ---
Subjective Progress Note Date: 05/18/18 Patient is feeling better today, denies any lightheadedness or dizziness or chest pain. Patient hasn't ambulated much today. No acute events Objective - Vital Signs Vital signs: Vital Signs Temp 97.6 F 05/18/18 12:00 Pulse 63 05/18/18 12:00 Resp 16 05/18/18 12:00 BP 119/60 05/18/18 12:00 Pulse Ox 98 05/18/18 12:00 Intake & Output 05/17/18 05/18/18 05/18/18 18:59 06:59 18:59 Intake Total 400 200 Balance 400 200 Intake: Oral 400 200 Other: Voiding Method Toilet Toilet Toilet # Voids 3 1 - Exam Constitutional: No acute distress, conversant, pleasant Eyes: Anicteric sclerae, moist conjunctiva, no lid-lag, PERRLA ENMT: NC/AT,Oropharynx clear, no erythema, exudates Neck:Supple, FROM, no masses, or JVD, No carotid bruits; No thyromegaly Lungs: Clear to auscultation, Clear to percussion, Normal respiratory effort, no accessory muscle use Cardiovascular: Heart regular in rate and rhythm, No murmurs, gallops, or rubs no peripheral edema Abdominal: Soft Nontender, nom distended, no guarding, no rebound or rigidity, Normoactive bowel sounds No hepatomegaly, No splenomegaly, No palpable mass No abdominal wall hernia noted Skin: Normal temperature, tone, texture, turgor, No induration No subcutaneous nodules, No rash, lesions, No ulcers Extremities:No digital cyanosis No clubbing, Pedal pulses intact and symmetrical Radial pulses intact and symmetrical Normal gait and station, No calf tenderness Psychiatric: Alert and oriented to person, place and time, Appropriate affect Intact judgement Neuro: Muscles Strength 5/5 in all 4 extremities, Sensation to light touch grossly present throughout, Cranial nerves II-XII grossly intact. 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 Irene plans to interrogate pacemaker * Continue lisinopril 5 mg by mouth daily and Coreg * Consider a heart cath Dizziness with associated exertional dyspnea -Possible anginal equivalent, troponin cycled and negative 2 -Orthostatics vitals negative -Negative Tricia-Hallpike unlikely to be Vertigo 2 recent falls -PT consultation -Assessment of dizziness as outlined above Hypertension, now with borderline low blood pressures -Parameters added to his Coreg and lisinopril. Wondering if patient needs to discontinue lisinopril at night as they appears that his morning blood pressures are low. Coronary artery disease -Continue with aspirin, statin, and beta bandar Dyslipidemia -Cholesterol profile within normal limits -Continue statin Thrombocytopenia, chronic -Appears at or near baseline -Continue outpatient follow-up Surrogate decision-maker: -Mayte CODE STATUS: Full DVT prophylaxis: Early ambulation Discussed with: Patient, nursing, granddaughter Anticipated discharge: [address]: Home A total of 65 minutes was spent on the care of this complex patient more than 50 % of the time was spent in counseling and care coordination.
--- NOTE | 2018-05-18 14:52 | P.PN ---
Subjective Mr. Fierro is a pleasant 77-year-old male past medical history significant for coronary artery disease s/p angioplasty of the mid RCA and proximal OM in 2005, COPD, dyslipidemia, hypertension and complete heart block s /p permanent pacemaker implantation. He follows with Dr. Whitaker in the office. We have been asked to see him in consultation for dizziness. He states for the previous couple of weeks he has been feeling symptoms of dizziness. When he lays down it feels like the room is spinning. If he sits up his symptoms are resolved. Then when he stands up he starts to feel lightheaded and unsteady on his feet. He states it feels as though his legs aren't doing what he wants them to do. CT of the brain was performed on admission reveals cerebral atrophy with no acute intracranial abnormality. He went to the office last week on and had his pacemaker interrogated and was unremarkable for an acute event. His symptoms have persisted over the weekend so he came in for evaluation. Blood pressures have been low and he is orthostatic positive with blood pressure supine 109/64, sitting 101/61 and standing 95/61. He denies any symptoms of chest pain, shortness of breath, palpitations, diaphoresis, PND or orthopnea. EKG reveals paced rhythm. Chest x-ray is negative for an acute cardiopulmonary process. Laboratory data reviewed, hemoglobin 16.9, platelets 114, sodium 143, potassium 4.3, creatinine 1.1, cardiac enzymes negative 3, TSH 2.31, LDL 45, HDL 31, proBNP 542. Current cardiac medications include simvastatin 80 mg daily, lisinopril 10 mg at bedtime, carvedilol 3.125 mg daily and aspirin 325 mg daily. He also takes Singulair, Ativan, Protonix and Desyrel. Most recent echocardiogram done 05/2017 reveals preserved LV systolic function with EF 50%. 05/18/2018 Patient was seen and examined sitting up in bed. He continues to complain of similar symptoms of dizziness with exertion. Blood pressure this morning 102/71 heart rate 60 6 repeat this afternoon 119/60 heart rate 63. Lisinopril was decreased yesterday and blood pressures have improved. No Antivert was given yesterday. Repeat echocardiogram done yesterday reveals moderate to severely impaired ejection fraction 30-35%, septal wall motion delay. 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 We will repeat the echocardiogram is in contrast to further assess. The plan of care has been discussed with the patient in detail as well as his was at the bedside. Questions have been answered appropriately. Pacemaker interrogation reveals 100 % paced with no acute events noted. Objective - Vital Signs Vital signs: Vital Signs Temp 97.6 F 05/18/18 12:00 Pulse 63 05/18/18 12:00 Resp 16 05/18/18 12:00 BP 119/60 05/18/18 12:00 Pulse Ox 98 05/18/18 12:00 Intake & Output 05/17/18 05/18/18 05/18/18 18:59 06:59 18:59 Intake Total 400 200 Balance 400 200 Intake: Oral 400 200 Other: Voiding Method Toilet Toilet Toilet # Voids 3 1 3 - Exam GENERAL: Well-appearing, well-nourished and in no acute distress. NECK: Supple without JVD or thyromegaly. LUNGS: Breath sounds clear to auscultation bilaterally. Respiration equal and unlabored. No wheezes, rales or rhonchi. HEART: Regular rate and rhythm without murmurs, rubs or gallops. S1 and S2 heard. EXTREMITIES: Normal range of motion, no edema. No clubbing or cyanosis. Peripheral pulses intact and strong. - Labs CBC & Chem 7: 05/16/18 19:40 05/16/18 19:40 Assessment and Plan Assessment: ASSESSMENT 1. Dizziness with positive orthostatic changes and vertigo like presentation. An acute coronary event has been ruled out. Blood pressures have stabilized with decreasing dose of lisinopril. He continues to be dizzy with exertion. Suggest neurology evaluation. 2. Hypertension with recent orthostatic hypotension 3. History of coronary artery disease s/p angioplasty in 2005 4. Dyslipidemia 5. History of complete heart block s/p permanent pacemaker implantation 6. COPD PLAN Change antivert to daily dosing instead of PRN. Recommend neurology evaluation. Repeat echocardiogram using contrast. We will discuss this with Dr. Robertson for possible upgrade to biventricular pacemaker. Continue with MICHAEL inhibitor and beta blockers for systolic heart failure as tolerated. We can decrease lisinopril more if needed although he seems to be tolerating this decreased dose. Further recommendations to follow based on clinical course. Patient and family have been updated as to plan of care thus far. Nurse Practitioner note has been reviewed, I agree with a documented findings and plan of care. Patient was seen and examined.
[2018-05-18] MEDS: SYMBICORT 160-4.5 MCG INHALER INHALATION SCH (19:31)
[2018-05-18] MEDS: LISINOPRIL 5 MG TAB PO SCH (19:57)
[2018-05-18] MEDS: traZODone HCL 100 MG TAB PO SCH (19:57)
[2018-05-18] MEDS: ATORVASTATIN 40 MG TAB PO SCH (19:57)
[2018-05-19] MEDS: SYMBICORT 160-4.5 MCG INHALER INHALATION SCH (00:27)
[2018-05-19] MEDS: MECLIZINE 25 MG TAB PO SCH (08:31)
[2018-05-19] MEDS: PANTOPRAZOLE 40 MG TABLET PO SCH ×2 (08:31→20:55)
[2018-05-19] MEDS: ASPIRIN 325 MG TAB PO SCH (08:31)
[2018-05-19] MEDS: LORazepam 1 MG TAB PO SCH ×3 (08:32→20:55)
[2018-05-19] MEDS ORDERED: SODIUM CHLORIDE 0.9% 1,000 ML in EMPTY BAG 1 BAG IV ONE (08:47)
[2018-05-19] MEDS ORDERED: HEPARIN SODIUM 1,000 UN/ML (10ML VL) ONE (10:02)
[2018-05-19] MEDS ORDERED: fentaNYL (PF) 50 MCG/ML 2 ML AMP ONE (10:02)
[2018-05-19] MEDS ORDERED: VERAPAMIL 2.5 MG/ML 2 ML AMP ONE (10:02)
[2018-05-19] MEDS ORDERED: SODIUM CHLORIDE 0.9% 1,000 ML IV ONE (10:18)
[2018-05-19] MEDS ORDERED: fentaNYL (PF) 50 MCG/ML 2 ML AMP IVP ONE (10:23)
[2018-05-19] MEDS ORDERED: LIDOCAINE 2% INJ 20 MG/ML SQ ONE (10:27)
[2018-05-19] MEDS ORDERED: HEPARIN SODIUM 1,000 UN/ML (10ML VL) IV ONE ×2 (10:40)
[2018-05-19] MEDS ORDERED: NITROGLYCERIN 1000MCG/10ML SYRINGE INTRACORON ONE (10:54)
[2018-05-19] MEDS ORDERED: ADENOSINE 90 MG in SODIUM CHLORIDE 0.9% 60 ML IVP ONE (10:58)
--- NOTE | 2018-05-19 11:06 | P.PN ---
Subjective Progress Note Date: 05/19/18 Patient is feeling better today, denies any lightheadedness or dizziness or chest pain. Patient scheduled for left heart cath today. Objective - Vital Signs Vital signs: Vital Signs Temp 97.7 F 05/19/18 07:30 Pulse 64 05/19/18 07:30 Resp 18 05/19/18 07:40 BP 90/60 05/19/18 07:30 Pulse Ox 96 05/19/18 07:30 Intake & Output 05/18/18 05/19/18 05/19/18 18:59 06:59 18:59 Intake Total 200 263.5 Balance 200 263.5 Intake: IV 23.5 Oral 200 240 Other: Voiding Method Toilet Toilet Toilet # Voids 3 1 - Exam Constitutional: No acute distress, conversant, pleasant Eyes: Anicteric sclerae, moist conjunctiva, no lid-lag, PERRLA ENMT: NC/AT,Oropharynx clear, no erythema, exudates Neck:Supple, FROM, no masses, or JVD, No carotid bruits; No thyromegaly Lungs: Clear to auscultation, Clear to percussion, Normal respiratory effort, no accessory muscle use Cardiovascular: Heart regular in rate and rhythm, No murmurs, gallops, or rubs no peripheral edema Abdominal: Soft Nontender, nom distended, no guarding, no rebound or rigidity, Normoactive bowel sounds No hepatomegaly, No splenomegaly, No palpable mass No abdominal wall hernia noted Skin: Normal temperature, tone, texture, turgor, No induration No subcutaneous nodules, No rash, lesions, No ulcers Extremities:No digital cyanosis No clubbing, Pedal pulses intact and symmetrical Radial pulses intact and symmetrical Normal gait and station, No calf tenderness Psychiatric: Alert and oriented to person, place and time, Appropriate affect Intact judgement Neuro: Muscles Strength 5/5 in all 4 extremities, Sensation to light touch grossly present throughout, Cranial nerves II-XII grossly intact. 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 Irene plans to interrogate pacemaker * Continue lisinopril 5 mg by mouth daily and Coreg * Patient scheduled to have a heart cath today if there is no coronary disease patient will likely have a biventricular pacer placed Dizziness with associated exertional dyspnea -Possible anginal equivalent, troponin cycled and negative 2 -Orthostatics vitals negative -Negative Edison-Hallpike unlikely to be Vertigo 2 recent falls -PT consultation -Assessment of dizziness as outlined above Hypertension, now with borderline low blood pressures -Parameters added to his Coreg and lisinopril. Wondering if patient needs to discontinue lisinopril at night as they appears that his morning blood pressures are low. Coronary artery disease -Continue with aspirin, statin, and beta bandar Dyslipidemia -Cholesterol profile within normal limits -Continue statin Thrombocytopenia, chronic -Appears at or near baseline -Continue outpatient follow-up Surrogate decision-maker: -Mayte CODE STATUS: Full DVT prophylaxis: Early ambulation Discussed with: Patient, nursing, granddaughter Anticipated discharge: [address]: Home A total of 65 minutes was spent on the care of this complex patient more than 50 % of the time was spent in counseling and care coordination.
[2018-05-19] MEDS ORDERED: IOPAMIDOL-370 50ML BTL INJ ONE (11:12)
[2018-05-19] MEDS ORDERED: IOPAMIDOL-370 125ML BTL INJ ONE (11:12)
[2018-05-19] MEDS: CARVEDILOL 3.125 MG TAB PO SCH ×2 (11:41→17:14)
[2018-05-19] MEDS ORDERED: RX INFO: IV CONTRAST WAS GIVEN 1 EACH MISC MISCELLANE PRN (11:42)
[2018-05-19] MEDS ORDERED: SODIUM CHLORIDE 0.9% 1,000 ML IV SCH (11:45)
--- NOTE | 2018-05-19 13:47 | CC ---
CARDIAC CATHETERIZATION REPORT Mr. Fierro is a 77-year-old male with known history of coronary artery disease, status post stenting of the left circumflex and right coronary artery in 2005, history of permanent pacemaker implantation who presented with symptoms of dizziness and was found to have end of life generator. He had an echocardiogram that revealed a drop in his ejection fraction and because of that and to further evaluate his status recommendation was made regarding cardiac catheterization. The procedure as well as the risks and the complications were discussed with the patient and in full understanding and agreement. 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 Using Xylocaine anesthesia in the Seldinger technique, a a 6-Bermudian sheath was introduced right radial artery. Selective right and left coronary angiography performed using 5-Bermudian 3.5 bend right and left Sam catheter. Multiple views of the coronary artery including hemiaxial views were obtained. Following that a Doppler flow wire volcano was advanced through the left Sam catheter and iFR and FFR were measured in the LAD per protocol and after infusion of adenosine. After that catheters were removed and a 6-Bermudian tight pigtail catheter was introduced in the left ventricle and a 30-degree PRETTY view of the left ventricle was obtained. Following that, a left subclavian venous angiogram was performed for placement of a new pacemaker wire. At the end procedure, the right radial sheath was removed. Hemostasis was obtained with deployment of a TR band. There was no immediate complication. The patient was returned to his room in stable condition. Of note, the patient received 5000 units of intravenous heparin as well as intra-arterial verapamil. FINDINGS: FLUOROSCOPY: There was severe calcification involving the left main, left anterior descending artery and the right coronary artery. LEFT MAIN: This is a large-sized vessel bifurcating into left circumflex, left anterior descending artery. Left main coronary artery has a calcified segment distally with area of stenosis of about 30%. The rest of the vessel has no high-grade stenosis. LEFT ANTERIOR DESCENDING ARTERY: This is a large-sized vessel reaching toward the apex, janine down in distal third, gives rise to a diagonal branch in the mid segment of moderate caliber. The takeoff of the diagonal branch has 70% to 80% stenosis. The LAD in the ostium has an area of stenosis visualized on 2 views up to 60% to 70% eccentric. There is a 30% plaque in the mid LAD. LEFT CIRCUMFLEX: This is a nondominant vessel giving rise to 3 obtuse marginal branches. The stented segment in the second obtuse marginal branch is patent. There is intimal disease throughout the course of the AV groove left circumflex and the third obtuse marginal branch with no high-grade stenosis. RIGHT CORONARY ARTERY: This is a dominant vessel large in caliber bifurcating distally PDA and posterolateral segment and branches. The right coronary artery in the mid segment has an area of stenosis of 40% to 50% without any high-grade stenosis. The rest of the vessel has no high-grade stenosis. The right PDA reaches toward the inferoapical wall. LEFT VENTRICULOGRAM: Left ventriculogram is performed in 30-degree PRETTY view and revealed an anteroapical hypokinesis. The estimated ejection fraction is 45% with no significant mitral regurgitation. HEMODYNAMICS: There was no gradient across the aortic valve. The ventricular end - diastolic pressure is 8 to 10 mmHg. FRACTIONAL FLOW RESERVE: Fractional flow reserve into the LAD is 0.87% and iFR is 90%. LEFT venous angiogram: Revealed no obstruction. RESULTS: 1. Calcified coronary arteries. 2. Mild to moderate disease in the right coronary artery and the left circumflex. 3. Mild disease in the distal left main. 4. Angiographically borderline significant disease in the ostium of the left anterior descending artery and non-hemodynamically significant on the fraction flow reserve and the iFR. 5. Mildly impaired left ventricular systolic function. RECOMMENDATION: In view of finding anatomy, I will continue medical therapy. We will re- evaluate the proximal left anterior descending artery and obtain a surgical opinion. He will undergo a replacement of his generator and depending on his progress, further recommendation will be made. Those findings and recommendation were discussed with the patient and his family and are in full understanding and agreement. Duration of procedure is 47 minutes. MMODL / IJN: [id number] / MARICARMEN
[2018-05-19] MEDS: traZODone HCL 100 MG TAB PO SCH (20:55)
[2018-05-19] MEDS: ATORVASTATIN 40 MG TAB PO SCH (20:55)
[2018-05-19] MEDS: LISINOPRIL 5 MG TAB PO SCH (20:55)
[2018-05-20] MEDS: SYMBICORT 160-4.5 MCG INHALER INHALATION SCH (06:07)
[2018-05-20 06:41] LABS: Calcium 8.6 mg/dL (8.4-10.2); Potassium 4.3 mmol/L (3.5-5.1)
[2018-05-20] MEDS: CARVEDILOL 3.125 MG TAB PO SCH ×2 (06:47→16:42)
[2018-05-20] MEDS: MECLIZINE 25 MG TAB PO SCH (07:50)
[2018-05-20] MEDS: PANTOPRAZOLE 40 MG TABLET PO SCH ×2 (07:50→21:35)
[2018-05-20] MEDS: ASPIRIN 325 MG TAB PO SCH (07:50)
[2018-05-20] MEDS: LORazepam 1 MG TAB PO SCH ×3 (07:52→21:36)
--- NOTE | 2018-05-20 10:45 | P.PN ---
Subjective Progress Note Date: 05/20/18 Patient is feeling better today resting comfortably in bed, denies any lightheadedness or dizziness or chest pain. he Had heart cath yesterday. Objective - Vital Signs Vital signs: Vital Signs Temp 96.8 F L 05/20/18 07:59 Pulse 64 05/20/18 07:59 Resp 18 05/20/18 07:59 BP 113/59 05/20/18 07:59 Pulse Ox 96 05/20/18 07:59 Intake & Output 05/19/18 05/20/18 05/20/18 18:59 06:59 18:59 Intake Total 1403.5 240 Output Total 300 Balance 1403.5 -300 240 Weight 80.2 kg Intake: IV 323.5 Intake, IV Titration 300 Amount Sodium Chloride 0.9% 1, 300 000 ml @ 100 mls/hr IV . Q10H [facility], [facility] Rx#:[id number] Oral 780 240 Output: Urine 300 Other: Voiding Method Urinal Urinal # Voids 1 - Exam Constitutional: No acute distress, conversant, pleasant Eyes: Anicteric sclerae, moist conjunctiva, no lid-lag, PERRLA ENMT: NC/AT,Oropharynx clear, no erythema, exudates Neck:Supple, FROM, no masses, or JVD, No carotid bruits; No thyromegaly Lungs: Clear to auscultation, Clear to percussion, Normal respiratory effort, no accessory muscle use Cardiovascular: Heart regular in rate and rhythm, No murmurs, gallops, or rubs no peripheral edema Abdominal: Soft Nontender, nom distended, no guarding, no rebound or rigidity, Normoactive bowel sounds No hepatomegaly, No splenomegaly, No palpable mass No abdominal wall hernia noted Skin: Normal temperature, tone, texture, turgor, No induration No subcutaneous nodules, No rash, lesions, No ulcers Extremities:No digital cyanosis No clubbing, Pedal pulses intact and symmetrical Radial pulses intact and symmetrical Normal gait and station, No calf tenderness Psychiatric: Alert and oriented to person, place and time, Appropriate affect Intact judgement Neuro: Muscles Strength 5/5 in all 4 extremities, Sensation to light touch grossly present throughout, Cranial nerves II-XII grossly intact. No focal sensory deficits - Labs CBC & Chem 7: 05/16/18 19:40 05/20/18 05:41 Labs: Abnormal Lab Results - Last 24 Hours (Table) 05/20/18 Range/Units 05:41 Chloride 109 H (98-107) mmol/L Assessment and Plan Plan: Cardiomyopathy * Possibly pacemaker induced ejection fraction 30-35% * Cardiology following Dr. Irene plans to interrogate pacemaker * Continue lisinopril 5 mg by mouth daily and Coreg * Possibly ischemic in nature, left heart cath consistent with moderate to severe coronary artery disease in the RCA and LAD * We'll also need replacement of his end-of-life generator Coronary artery disease * left heart cath consistent with mild to moderate coronary artery disease in the RCA and left circumflex and borderline severe disease in the proximal LAD * Patient may need stenting versus bypass Dizziness with associated exertional dyspnea -Possible anginal equivalent, troponin cycled and negative 2 -Orthostatics vitals negative -Negative [place]-Hallpike unlikely to be Vertigo will discontinue Antivert 2 recent falls -PT consultation -Assessment of dizziness as outlined above Hypertension, now with borderline low blood pressures -Parameters added to his Coreg and lisinopril. Wondering if patient needs to discontinue lisinopril at night as they appears that his morning blood pressures are low. Coronary artery disease -Continue with aspirin, statin, and beta bandar Dyslipidemia -Cholesterol profile within normal limits -Continue statin Thrombocytopenia, chronic -Appears at or near baseline -Continue outpatient follow-up Surrogate decision-maker: -Mayte CODE STATUS: Full DVT prophylaxis: Early ambulation Discussed with: Patient, nursing, granddaughter Anticipated discharge: 2-3 days
--- NOTE | 2018-05-20 13:36 | CONS ---
CONSULTATION Mr. Fierro is a patient of Dr. Whitaker who has complete heart block status post permanent pacemaker implantation. He is tired, weak and dizzy but no clear-cut neurologic abnormalities were noted. However, he has permanent pacemaker which is now at [employer] and this was switched to the VVI mode and therefore there is AV dissociation. His 2D echo suggested reduced LV systolic function. He underwent coronary angiography EST with Dr. Whitaker and on the LV. I spoke to Dr. Whitaker. According to Dr. Whitaker, the LV function is about 45%, which it was many years back when his pacemaker was implanted. There was no significant progression of coronary artery disease. He did have a LAD lesion and but the FFR did not suggest intervention. He is doing well. He is lying flat in bed and he is comfortable. Vitals are stable. Afebrile,97 degrees Fahrenheit, pulse rate in the 60s, respirations normal, blood pressure 113/59 mmHg. Head and neck examination normal. Heart sounds S1, S2 normal. No murmurs or gallops no rub. Abdomen is soft, nontender. Extremities are warm. No edema. IMPRESSION: 1. Complete heart block status post permanent pacemaker implantation. The pacemaker is at [employer] and has switched to VVI mode at 65 beats per minute with AV dissociation, which is most likely the cause of his symptoms. 2. Known coronary artery disease. 3. 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 SUGGEST: Dual chamber pacemaker generator change on Tuesday to restore AV synchrony. MMODL / IJN: [id number] /
[2018-05-20] MEDS: LISINOPRIL 5 MG TAB PO SCH (21:35)
[2018-05-20] MEDS: ATORVASTATIN 40 MG TAB PO SCH (21:35)
[2018-05-20] MEDS: traZODone HCL 100 MG TAB PO SCH (21:36)
[2018-05-21] MEDS: CARVEDILOL 3.125 MG TAB PO SCH ×2 (06:24→15:32)
[2018-05-21] MEDS: SYMBICORT 160-4.5 MCG INHALER INHALATION SCH ×3 (07:30→21:30)
[2018-05-21] MEDS: ASPIRIN 325 MG TAB PO SCH (07:40)
[2018-05-21] MEDS: PANTOPRAZOLE 40 MG TABLET PO SCH ×2 (07:40→19:45)
[2018-05-21] MEDS: LORazepam 1 MG TAB PO SCH ×3 (07:42→21:29)
--- NOTE | 2018-05-21 11:08 | P.PN ---
Subjective Progress Note Date: 05/21/18 Patient is feeling better today resting comfortably in bed, denies any lightheadedness or dizziness or chest pain. Denies any blurry vision, no acute events overnight Objective - Vital Signs Vital signs: Vital Signs Temp 97 F L 05/21/18 10:52 Pulse 62 05/21/18 10:53 Resp 18 05/21/18 10:52 BP 91/54 05/21/18 10:52 Pulse Ox 94 L 05/21/18 10:52 Intake & Output 05/20/18 05/21/18 05/21/18 18:59 06:59 18:59 Intake Total 340 240 Output Total 500 Balance -160 240 Weight 80.8 kg Intake: Oral 340 240 Output: Urine 500 Other: Voiding Method Urinal # Voids 1 - Exam Constitutional: No acute distress, conversant, pleasant Eyes: Anicteric sclerae, moist conjunctiva, no lid-lag, PERRLA ENMT: NC/AT,Oropharynx clear, no erythema, exudates Neck:Supple, FROM, no masses, or JVD, No carotid bruits; No thyromegaly Lungs: Clear to auscultation, Clear to percussion, Normal respiratory effort, no accessory muscle use Cardiovascular: Heart regular in rate and rhythm, No murmurs, gallops, or rubs no peripheral edema Abdominal: Soft Nontender, nom distended, no guarding, no rebound or rigidity, Normoactive bowel sounds No hepatomegaly, No splenomegaly, No palpable mass No abdominal wall hernia noted Skin: Normal temperature, tone, texture, turgor, No induration No subcutaneous nodules, No rash, lesions, No ulcers Extremities:No digital cyanosis No clubbing, Pedal pulses intact and symmetrical Radial pulses intact and symmetrical Normal gait and station, No calf tenderness Psychiatric: Alert and oriented to person, place and time, Appropriate affect Intact judgement Neuro: Muscles Strength 5/5 in all 4 extremities, Sensation to light touch grossly present throughout, Cranial nerves II-XII grossly intact. No focal sensory deficits - Labs CBC & Chem 7: 05/16/18 19:40 05/20/18 05:41 Assessment and Plan Plan: Cardiomyopathy * Possibly pacemaker induced ejection fraction 30-35% * Cardiology following Dr. Irene plans to interrogate pacemaker * Continue lisinopril 5 mg by mouth daily and Coreg * Possibly ischemic in nature, left heart cath consistent with moderate to severe coronary artery disease in the RCA and LAD * We'll also need replacement of his end-of-life generator Coronary artery disease * left heart cath consistent with mild to moderate coronary artery disease in the RCA and left circumflex and borderline severe disease in the proximal LAD * Patient may need stenting versus bypass Dizziness with associated exertional dyspnea -Possible anginal equivalent, troponin cycled and negative 2 -Orthostatics vitals negative -Negative [place]-Hallpike unlikely to be Vertigo will discontinue Antivert 2 recent falls -PT consultation -Assessment of dizziness as outlined above Hypertension, now with borderline low blood pressures -Parameters added to his Coreg and lisinopril. Wondering if patient needs to discontinue lisinopril at night as they appears that his morning blood pressures are low. Coronary artery disease -Continue with aspirin, statin, and beta bandar Dyslipidemia -Cholesterol profile within normal limits -Continue statin Thrombocytopenia, chronic -Appears at or near baseline -Continue outpatient follow-up Surrogate decision-maker: -Mayte CODE STATUS: Full DVT prophylaxis: Early ambulation Discussed with: Patient, nursing, granddaughter Anticipated discharge: 2-3 days
--- NOTE | 2018-05-21 11:28 | P.PN ---
Subjective Progress Note Date: 05/21/18 Mr. Fierro is a pleasant 77-year-old male past medical history significant for coronary artery disease s/p angioplasty of the mid RCA and proximal OM in 2005, COPD, dyslipidemia, hypertension and complete heart block s /p permanent pacemaker implantation. He follows with Dr. Whitaker in the office. We have been asked to see him in consultation for dizziness. He states for the previous couple of weeks he has been feeling symptoms of dizziness. When he lays down it feels like the room is spinning. If he sits up his symptoms are resolved. Then when he stands up he starts to feel lightheaded and unsteady on his feet. He states it feels as though his legs aren't doing what he wants them to do. CT of the brain was performed on admission reveals cerebral atrophy with no acute intracranial abnormality. He went to the office last week on and had his pacemaker interrogated and was unremarkable for an acute event. His symptoms have persisted over the weekend so he came in for evaluation. Blood pressures have been low and he is orthostatic positive with blood pressure supine 109/64, sitting 101/61 and standing 95/61. He denies any symptoms of chest pain, shortness of breath, palpitations, diaphoresis, PND or orthopnea. EKG reveals paced rhythm. Chest x-ray is negative for an acute cardiopulmonary process.Laboratory data reviewed, hemoglobin 16.9, platelets 114, sodium 143, potassium 4.3, creatinine 1.1, cardiac enzymes negative 3, TSH 2.31, LDL 45, HDL 31, proBNP 542.Current cardiac medications include simvastatin 80 mg daily, lisinopril 10 mg at bedtime , carvedilol 3.125 mg daily and aspirin 325 mg daily. He also takes Singulair, Ativan, Protonix and Desyrel.Most recent echocardiogram done 05/2017 reveals preserved LV systolic function with EF 50%. 05/21/2018 Patient was seen and examined this morning, feels well overall, no complaints. He is scheduled for a generator change tomorrow. Blood pressure 106/43 with heart rate in the 60s, afebrile. Objective - Vital Signs Vital signs: Vital Signs Temp 97 F L 05/21/18 10:52 Pulse 62 05/21/18 10:53 Resp 18 05/21/18 10:52 BP 91/54 05/21/18 10:52 Pulse Ox 94 L 05/21/18 10:52 Intake & Output 05/20/18 05/21/18 05/21/18 18:59 06:59 18:59 Intake Total 340 240 Output Total 500 Balance -160 240 Weight 80.8 kg Intake: Oral 340 240 Output: Urine 500 Other: Voiding Method Urinal # Voids 1 - Exam Blood pressure 86/67 heart rate 64 afebrile maintaining oxygen saturation on room air GENERAL: This is a 77-year-old occasion male in no apparent distress at the time of my examination. HEENT: Head is atraumatic, normocephalic. Pupils are equal, round. Sclerae anicteric. Conjunctivae are clear. Mucous membranes of the mouth are moist. Neck is supple. There is no jugular venous distention. No carotid bruit is heard. LUNGS: Clear to auscultation no wheezes, rales or rhonchi. No chest wall tenderness is noted on palpation or with deep breathing. HEART: Regular rate and rhythm without murmurs, rubs or gallops. S1 and S2 heard. ABDOMEN: Soft, nontender. Bowel sounds are heard. No organomegaly noted. EXTREMITIES: No evidence of peripheral edema and no calf tenderness noted. VASCULAR: Radial and dorsalis pedis pulses palpated, no evidence of clubbing. NEUROLOGIC: Patient is awake, alert and oriented x3. - Labs CBC & Chem 7: 05/16/18 19:40 05/20/18 05:41 Assessment and Plan Plan: ASSESSMENT 1. Dizziness with positive orthostatic changes and vertigo like presentation. An acute coronary event has been ruled out. Patient did undergo cardiac catheterization which revealed calcified coronary arteries, mild to moderate disease in the right coronary artery and left circumflex. Mild disease in the distal left main. Angiographically border line significant disease in the ostium of the LAD and nonhemodynamically significant on FFR. Mildly impaired left ventricular systolic function. Medical therapy advised. 2. Hypertension with recent orthostatic hypotension 3. History of coronary artery disease s/p angioplasty in 2005 4. Dyslipidemia 5. History of complete heart block s/p permanent pacemaker implantation 6. COPD Plan Patient is scheduled to undergo generator change tomorrow with implantation of a temporary pacemaker. The risks and benefits were explained to the patient in detail and he is willing to proceed. DNP note has been reviewed, I agree with a documented findings and plan of care. Patient was seen and examined.
[2018-05-21] MEDS: LISINOPRIL 5 MG TAB PO SCH (19:45)
[2018-05-21] MEDS: ATORVASTATIN 40 MG TAB PO SCH (19:45)
[2018-05-21] MEDS: traZODone HCL 100 MG TAB PO SCH (21:29)
[2018-05-22] MEDS: SYMBICORT 160-4.5 MCG INHALER INHALATION SCH (04:49)
[2018-05-22] MEDS ORDERED: ceFAZolin 1,000 MG in SODIUM CHLORIDE 0.9% IRRIGATIO 250 ML IRRIGATION ONE (05:00)
[2018-05-22] MEDS ORDERED: ceFAZolin IN SWFI 2 GM/20 ML SYRINGE IVP ONE (05:00)
[2018-05-22] MEDS: SODIUM CHLORIDE 0.9% 1,000 ML IV SCH ×2 (05:41)
[2018-05-22] MEDS: CARVEDILOL 3.125 MG TAB PO SCH ×2 (06:42→17:37)
[2018-05-22] MEDS: PANTOPRAZOLE 40 MG TABLET PO SCH ×2 (06:42→22:40)
[2018-05-22] MEDS: ASPIRIN 325 MG TAB PO SCH (06:42)
[2018-05-22] MEDS: LORazepam 1 MG TAB PO SCH ×3 (06:43→22:47)
--- NOTE | 2018-05-22 09:25 | P.PN ---
Subjective Progress Note Date: 05/22/18 Principal diagnosis: dizziness Patient is a 77-year-old past medical history of artery disease, hypertension, dyslipidemia who presented to the emergency department complaints of dizziness and shortness of breath. In the ER he underwent extensive evaluation. His vital signs on presentation were within normal limits. Initial laboratory analysis was unremarkable. CT head showed age-related atrophy but no acute process, chest x-ray showed no acute process, an EKG showed a paced rhythm. He was placed in observation with concern for possible pacemaker malfunction versus symptomatic bradycardia. He was seen by cardiology and echocardiogram was ordered. His ejection fraction was felt to this 30-35% and he was transitioned to inpatient for further evaluation of his newly discovered systolic cardiomyopathy. They recommended cardiac catheterization which was completed on to have diffuse coronary artery disease. His EF on cath was 45% Cardiology recommended medical management and possible surgical opinion. They also recommended replacement of his pacemaker generator. He was seen by electrophysiology who noted complete heart block status post permanent pacemaker it was noted that his pacer had switched to ventricle ventricle pacing with AV disassociation which was felt to be the likely cause of his symptoms. They recommended pacemaker generator changed to restore AV synchrony. Patient seen and examined at bedside. He denies any chest pain or shortness of breath. He states that his dizzy episodes are less frequent. She denies any nausea or vomiting. He is anxious to get his pacemaker change. Objective - Vital Signs Vital signs: Vital Signs Temp 96.7 F L 05/22/18 08:00 Pulse 65 05/22/18 08:00 Resp 17 05/22/18 04:00 BP 94/61 05/22/18 08:00 Pulse Ox 97 05/22/18 08:00 Intake & Output 05/21/18 05/22/18 05/22/18 18:59 06:59 18:59 Intake Total 470 10 Output Total 200 Balance 470 -190 Weight 79.4 kg Intake: IV 10 Invasive Line 2 10 Oral 470 0 Output: Urine 200 Other: Voiding Method Urinal - Exam General: non toxic, no distress, appears generally than stated age, normal weight Derm: warm, dry, multiple ecchymoses in various stages of healing Head: atraumatic, normocephalic, symmetric, hard of hearing Eyes: EOMI, no lid lag, anicteric sclera Mouth: no lip lesion, mucus membranes moist Cardiovascular: S1S2 reg, no murmur, positive posterior tibial pulse bilateral, Lungs: CTA bilateral, no rhonchi, no rales , no accessory muscle use Abdominal: soft, nontender to palpation, no guarding, no appreciable organomegaly Ext: no gross muscle atrophy, ice edema bilateral lower extremities, no contractures Neuro: CN II-XI grossly intact, no focal neuro deficits Psych: Alert, oriented, appropriate affect - Labs CBC & Chem 7: 05/16/18 19:40 05/20/18 05:41 Assessment and Plan Assessment: Dizziness with positive orthostatics - acute coronary event ruled out - Lisinopril decreased 05/17 appears improved - 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 Mild coroncary atery disease - conitnue medication therapy with coreg and lisinopril, ASA, Statin - continued follow-up Complete heart block with PPM - felt to be the cause of his symptoms be EP - plan if for generator change today 2 recent falls -PT consultation -Assessment of dizziness as outlined above Hypertension, now with borderline low blood pressures -Coreg - lisinopril dose descresed 05/17 Dyslipidemia -Cholesterol profile within normal limits -Continue statin Thrombocytopenia, chronic -Appears at or near baseline -Continue outpatient follow-up Surrogate decision-maker: -Mayte CODE STATUS: Full DVT prophylaxis: SCDs Discussed with: Patient, nursing Anticipated discharge: [address]: Home A total of 35 minutes was spent on the care of this complex patient more than 50 % of the time was spent in counseling and care coordination.
[2018-05-22] MEDS ORDERED: LIDOCAINE 1% INJ 10MG/ML (20 ML MDV) ONE (18:08)
[2018-05-22] MEDS ORDERED: MIDAZOLAM 2 MG/2 ML VIAL ONE (18:08)
[2018-05-22] MEDS ORDERED: fentaNYL (PF) 50 MCG/ML 2 ML AMP ONE (18:08)
[2018-05-22] MEDS ORDERED: MIDAZOLAM 2 MG/2 ML VIAL IVP ONE (18:35)
[2018-05-22] MEDS ORDERED: fentaNYL (PF) 50 MCG/ML 2 ML AMP IV ONE (18:35)
[2018-05-22] MEDS ORDERED: IV FLUID CONTINUATION 800 ML IV ONE (18:42)
[2018-05-22] MEDS ORDERED: IV FLUID CONTINUATION 450 ML IV ONE (18:42)
[2018-05-22] MEDS ORDERED: LIDOCAINE 1% INJ 10MG/ML (20 ML MDV) SQ ONE (18:45)
[2018-05-22] MEDS ORDERED: IOPAMIDOL-250 50ML BTL IV ONE (18:53)
[2018-05-22] MEDS ORDERED: LIDOCAINE 1% INJ 10MG/ML (10 ML MDV) SQ ONE ×2 (19:06)
[2018-05-22] MEDS: ATORVASTATIN 40 MG TAB PO SCH (22:40)
[2018-05-22] MEDS: LISINOPRIL 5 MG TAB PO SCH (22:40)
[2018-05-22] MEDS: traZODone HCL 100 MG TAB PO SCH (22:41)
[2018-05-23 01:17] VITALS: RESP 18
[2018-05-23] MEDS: SODIUM CHLORIDE 0.9% 1,000 ML IV SCH ×2 (06:09)
[2018-05-23] MEDS: CARVEDILOL 3.125 MG TAB PO SCH (06:10)
[2018-05-23 08:15] LABS: HCT 41.9 % (39.0-53.0); HGB 14.8 gm/dL (13.0-17.5); MCH 35.7 pg (25.0-35.0); MCHC 35.3 g/dL (31.0-37.0); MCV 101.1 fL (80.0-100.0); Macrocytosis Slight; Mean Platelet Volume 8.5; RBC 4.15 m/uL (4.30-5.90); RDW 14.1 % (11.5-15.5); WBC 5.7 k/uL (3.8-10.6)
[2018-05-23 08:30] LABS: Platelet Count 93 k/uL (150-450)
[2018-05-23 08:34] LABS: Calcium 8.6 mg/dL (8.4-10.2); Potassium 4.1 mmol/L (3.5-5.1)
[2018-05-23] MEDS: PANTOPRAZOLE 40 MG TABLET PO SCH (09:00)
[2018-05-23] MEDS: LORazepam 1 MG TAB PO SCH (09:00)
[2018-05-23] MEDS: ASPIRIN 325 MG TAB PO SCH (09:01)
--- NOTE | 2018-05-23 11:00 | P.PN ---
Subjective Progress Note Date: 05/23/18 Mr. Fierro is a pleasant 77-year-old male past medical history significant for coronary artery disease s/p angioplasty of the mid RCA and proximal OM in 2005, COPD, dyslipidemia, hypertension and complete heart block s /p permanent pacemaker implantation. He follows with Dr. Whitaker in the office. We have been asked to see him in consultation for dizziness. He states for the previous couple of weeks he has been feeling symptoms of dizziness. When he lays down it feels like the room is spinning. If he sits up his symptoms are resolved. Then when he stands up he starts to feel lightheaded and unsteady on his feet. He states it feels as though his legs aren't doing what he wants them to do. CT of the brain was performed on admission reveals cerebral atrophy with no acute intracranial abnormality. He went to the office last week on and had his pacemaker interrogated and was unremarkable for an acute event. His symptoms have persisted over the weekend so he came in for evaluation. Blood pressures have been low and he is orthostatic positive with blood pressure supine 109/64, sitting 101/61 and standing 95/61. He denies any symptoms of chest pain, shortness of breath, palpitations, diaphoresis, PND or orthopnea. EKG reveals paced rhythm. Chest x-ray is negative for an acute cardiopulmonary process.Laboratory data reviewed, hemoglobin 16.9, platelets 114, sodium 143, potassium 4.3, creatinine 1.1, cardiac enzymes negative 3, TSH 2.31, LDL 45, HDL 31, proBNP 542.Current cardiac medications include simvastatin 80 mg daily, lisinopril 10 mg at bedtime , carvedilol 3.125 mg daily and aspirin 325 mg daily. He also takes Singulair, Ativan, Protonix and Desyrel.Most recent echocardiogram done 05/2017 reveals preserved LV systolic function with EF 50%. 05/21/2018 Patient was seen and examined this morning, feels well overall, no complaints. He is scheduled for a generator change tomorrow. Blood pressure 106/43 with heart rate in the 60s, afebrile. 05/23/2018 Patient seen and examined this morning, status post generator change of yesterday. He feels well, denies any dizziness or lightheadedness, he's been up ambulating without any difficulty. White blood cell count 5.7, hemoglobin 14.8, platelet count 93. Sodium 141, potassium 4.1, BUN 11, creatinine 1.1. Objective - Vital Signs Vital signs: Vital Signs Temp 97.8 F 05/23/18 03:53 Pulse 62 05/23/18 03:53 Resp 18 05/23/18 03:53 BP 114/60 05/23/18 03:53 Pulse Ox 94 L 05/23/18 03:53 Intake & Output 05/22/18 05/23/18 05/23/18 18:59 06:59 18:59 Intake Total 600 250 Output Total 400 Balance 600 -150 Weight 80.7 kg Intake: IV 450 Intake, IV Titration 150 Amount Sodium Chloride 0.9% 1, 150 000 ml @ 50 mls/hr IV . Q20H MITA Rx#:[id number] Oral 250 Output: Urine 400 Other: Voiding Method Urinal # Voids 1 - Exam Blood pressure 86/67 heart rate 64 afebrile maintaining oxygen saturation on room air GENERAL: This is a 77-year-old occasion male in no apparent distress at the time of my examination. HEENT: Head is atraumatic, normocephalic. Pupils are equal, round. Sclerae anicteric. Conjunctivae are clear. Mucous membranes of the mouth are moist. Neck is supple. There is no jugular venous distention. No carotid bruit is heard. LUNGS: Clear to auscultation no wheezes, rales or rhonchi. No chest wall tenderness is noted on palpation or with deep breathing. HEART: Regular rate and rhythm without murmurs, rubs or gallops. S1 and S2 heard. ABDOMEN: Soft, nontender. Bowel sounds are heard. No organomegaly noted. EXTREMITIES: No evidence of peripheral edema and no calf tenderness noted. VASCULAR: Radial and dorsalis pedis pulses palpated, no evidence of clubbing. NEUROLOGIC: Patient is awake, alert and oriented x3. - Labs CBC & Chem 7: 05/23/18 07:47 05/23/18 07:47 Labs: Abnormal Lab Results - Last 24 Hours (Table) 05/23/18 05/23/18 Range/Units 07:47 07:47 RBC 4.15 L (4.30-5.90) m/uL MCV 101.1 H (80.0-100.0) fL MCH 35.7 H (25.0-35.0) pg Plt Count 93 L (150-450) k/uL Chloride 109 H (98-107) mmol/L Assessment and Plan Plan: ASSESSMENT 1. Dizziness with positive orthostatic changes and vertigo like presentation. An acute coronary event has been ruled out. Patient did undergo cardiac catheterization which revealed calcified coronary arteries, mild to moderate disease in the right coronary artery and left circumflex. Mild disease in the distal left main. Angiographically borderline significant disease in the ostium of the LAD and nonhemodynamically significant on FFR. Mildly impaired left ventricular systolic function. Medical therapy advised. 2. Hypertension with recent orthostatic hypotension 3. History of coronary artery disease s/p angioplasty in 2005 4. Dyslipidemia 5. History of complete heart block s/p permanent pacemaker implantation 6. COPD Plan Patient is status post a generator change of yesterday. From cardiology's perspective, he may be able to be discharged home once cleared by primary. We will make him a follow-up appointment with the device clinic and with Dr. Whitaker post discharge. DNP note has been reviewed, I agree with a documented findings and plan of care. Patient was seen and examined.
--- NOTE | 2018-05-23 11:13 | P.DS ---
Providers Date of admission: 05/19/18 16:45 Expected date of discharge: 05/23/18 Attending physician: Jimena Martinez DO Consults: 05/16/18 23:38 Consult Physician Urgent Consulting Provider: Thomas Madera Consult Reason/Comments: dizziness Do you want consulting provider notified?: Yes Primary care physician: Alexey Chen - Discharge Diagnosis(es) (1) Pacemaker at end of battery life Status: Acute (2) Orthostatic dizziness Status: Acute (3) Cardiomyopathy Status: Acute (4) CAD (coronary artery disease) Status: Acute (5) History of recent fall Status: Acute (6) HTN (hypertension) Status: Acute (7) HLD (hyperlipidemia) Status: Acute (8) Complete heart block as underlying rhythm when pacemaker interrogated Status: Acute (9) Thrombocytopenia Status: Chronic Hospital Course: Patient is a 77-year-old male with a past medical history of artery disease, hypertension, and dyslipidemia who presented to the emergency department with complaints of dizziness and shortness of breath. In the ER he underwent extensive evaluation. His vital signs on presentation were within normal limits. Initial laboratory analysis was unremarkable. CT head showed age-related atrophy but no acute process, chest x-ray showed no acute process, an EKG showed a paced rhythm. He was placed in observation with concern for possible pacemaker malfunction versus symptomatic bradycardia. He was seen by cardiology and echocardiogram was ordered. His ejection fraction was found to be 30-35% and he was transitioned to inpatient for further evaluation of his newly discovered systolic cardiomyopathy. They recommended cardiac catheterization which was completed on 05/19 minutes to have diffuse coronary artery disease. He was also foun d t havemildly positive orthostatic vital signs and his lisinopril was decreased. He underwent cardiac cath on 05/19. His EF on cath was 45% Cardiology recommended medical management and possible surgical opinion. He was seen by electrophysiology who noted complete heart block status post permanent pacemaker it was noted that his pacer had switched to ventricle ventricle pacing with AV disassociation which was felt to be the likely cause of his symptoms. They recommended pacemaker generator changed to restore AV synchrony. He had a generator changed completed on 05/22. THe next morning his dizziness was almost completely resolved. He was determined stable for discharge home. He will contonie on coreg and his decreased dose of Lisinopril 5 mg at night. He will follow in the device clinic on 05/[address] Whitaker on 06/15. e will see Dr. Chen on 05/26. He was determined stable for discharge home. Patient seen and examined at bedside. Dizziness is improving daily. No chest pain or shortness of breath. Minimal chest wall pain after pacemaker insertion. No other complaints currently. Vital signs reviewed and stable. General: non toxic, no distress, appears at stated age Derm: warm, dry Head: atraumatic, normocephalic, symmetric, heart of hearing Eyes: EOMI, no lid lag, anicteric sclera Mouth: no lip lesion, mucus membranes moist Cardiovascular: S1S2 reg, no murmur, positive posterior tibial pulse bilateral, Lungs: CTA bilateral, no rhonchi, no rales , no accessory muscle use Abdominal: soft, nontender to palpation, no guarding, no appreciable organomegaly Ext: no gross muscle atrophy, no edema, no contractures Neuro: CN II-XI grossly intact, no focal neuro deficits Psych: Alert, oriented, appropriate affect A total of 35 minutes of time were spent preparing this complex discharge summary . Pertinent Studies: Echocardiogram-ejection fraction 30-35%, mild concentric LVH, LV wall motion normal, mild mitral radiated regurg and tricuspid regurg Procedures: Cardiac catheterization-ejection fraction 45% with no CVA significant mitral regurgitation, mild to moderate disease in the RCA and left circumflex, angiographically borderline significant disease in the ostium of the LAD and nonhemodynamically significant on the fraction flow reversed and the IiFR Patient Condition at Discharge: Good Plan - Discharge Summary New Discharge Prescriptions: New Lisinopril [Zestril] 5 mg PO HS #30 tab Continue Simvastatin [Zocor] 80 mg PO HS LORazepam [Ativan] 1 mg PO TID Mometasone/Formoterol [Dulera 200 Mcg/5 Mcg Inhaler] 2 puff INHALATION RT-BID Carvedilol [Coreg] 3.125 mg PO BID traZODone HCL [Desyrel] 100 mg PO HS Pantoprazole Sodium [Protonix] 40 mg PO BID Aspirin 325 mg PO DAILY Discontinued Lisinopril [Zestril] 10 mg PO HS Discharge Medication List Carvedilol [Coreg] 3.125 mg PO BID 07/15/16 [History] LORazepam [Ativan] 1 mg PO TID 07/15/16 [History] Mometasone/Formoterol [Dulera 200 Mcg/5 Mcg Inhaler] 2 puff INHALATION RT-BID [History] Pantoprazole Sodium [Protonix] 40 mg PO BID 07/15/16 [History] Simvastatin [Zocor] 80 mg PO HS 07/15/16 [History] traZODone HCL [Desyrel] 100 mg PO HS 07/15/16 [History] Aspirin 325 mg PO DAILY 11/07/17 [History] Lisinopril [Zestril] 5 mg PO HS #30 tab 05/23/18 [Rx] Follow up Appointment(s)/Referral(s): [facility] [Provider Group] - 05/29/18 3:30 pm (Device clinic) Chrissie Whitaker MD [STAFF PHYSICIAN] - 06/15/18 8:30 am Alexey Chen MD [Primary Care Provider] - 05/26/18 4:30 pm Patient Instructions/Handouts: Left Heart Catheterization (DC), Heart Healthy Diet (DC), Pacemaker Generator Change (DC) Activity/Diet/Wound Care/Special Instructions: heart healthy diet, activity as tolerated Discharge Disposition: HOME SELF-CARE
[2018-05-23 12:36] VITALS: BP 122/57; PULSE 60; TEMP 97.5
--- NOTE | 2018-05-25 12:49 | ECHOF ---
Referral Reason:repeat MEASUREMENTS -------- HEIGHT: 172.7 cm WEIGHT: 80.3 kg BP: FINDINGS -------- Paced rhythm. Limited Study to Follow up with [facility]. There is mild concentric left ventricular hypertrophy. Overall left ventricular systolic function i s moderate-severely impaired with, an EF between 30 - 35 %. Anterseptal Hypokinesis Septal Hypoki nesis [place] Hypokinesis. CONCLUSIONS -------- 1. Paced rhythm. 2. Limited Study to Follow up with [facility]. 3. There is mild concentric left ventricular hypertrophy. 4. Overall left ventricular systolic function is moderate-severely impaired with, an EF between 30 - 35 %. 5. Anterseptal Hypokinesis 6. Septal Hypokinesis 7. [place] Hypokinesis. HYDROELECTRIC STATION CHIEF: Mckayla Infante RDCS
== END 2018-05-23 12:31 | disposition home or self-care (01) | DRG 259 ==
LOC: EC 19:11 → 3OBS 23:38 → 6SEL 05-19 11:30 → OBSVTOIN 05-19 16:45
PROVIDERS: ADMIT Internal Medicine; ATTEND Internal Medicine
PROC: 4A023N7 Measurement of Cardiac Sampling and Pressure, Left Heart, Percutaneous Approach (ICD-10-PCS; 2018-05-19)
PROC: B2111ZZ Fluoroscopy of Multiple Coronary Arteries using Low Osmolar Contrast (ICD-10-PCS; 2018-05-19)
PROC: B2151ZZ Fluoroscopy of Left Heart using Low Osmolar Contrast (ICD-10-PCS; 2018-05-19)
PROC: 4A033BC Measurement of Arterial Pressure, Coronary, Percutaneous Approach (ICD-10-PCS; 2018-05-19)
PROC: 0JH606Z Insertion of Pacemaker, Dual Chamber into Chest Subcutaneous Tissue and Fascia, Open Approach (ICD-10-PCS; principal; 2018-05-22 18:10)
PROC: 0JPT0PZ Removal of Cardiac Rhythm Related Device from Trunk Subcutaneous Tissue and Fascia, Open Approach (ICD-10-PCS; 2018-05-22 18:10)
DX: I95.1 Orthostatic hypotension (principal); D69.6 Thrombocytopenia, unspecified; J44.9 Chronic obstructive pulmonary disease, unspecified; I25.5 Ischemic cardiomyopathy; I11.9 Hypertensive heart disease without heart failure; H91.90 Unspecified hearing loss, unspecified ear; F41.9 Anxiety disorder, unspecified; I25.10 Atherosclerotic heart disease of native coronary artery without angina pectoris; I25.2 Old myocardial infarction; E78.5 Hyperlipidemia, unspecified; Z45.010 Encounter for checking and testing of cardiac pacemaker pulse generator [battery]; K21.9 Gastro-esophageal reflux disease without esophagitis; R29.6 Repeated falls; E53.8 Deficiency of other specified B group vitamins; Z79.82 Long term (current) use of aspirin; Z79.899 Other long term (current) drug therapy; Z87.891 Personal history of nicotine dependence; Z95.5 Presence of coronary angioplasty implant and graft; Z45.018 Encounter for adjustment and management of other part of cardiac pacemaker
CPT/HCPCS: 33228; 36415; 70450; 71046; 80048; 80053; 80061; 82550; 82553; 82607; 83735; 83880; 84443; 84484; 85025; 85027; 85610; 85730; 93005; 93306; 93308; 93458; 93571; 99285

== ENCOUNTER → 2018-11-17 | Outpatient (CLI) | payer MEDICARE ==
[2018-11-17 16:11] LABS: Albumin 4.3 g/dL (3.80-4.90); Albumin/Globulin Ratio 2.26 (1.20-2.10); Anion Gap 4.7 mmol/L (4.00-12.00); Calcium 9.3 mg/dL (8.7-10.3); Carbon Dioxide 29.3 mmol/L (21.6-31.8); Globulin 1.9 g/dL (1.6-3.3); LDL Cholesterol,Calculated 63.8 mg/dL (0.0-131.0); Potassium 4.2 mmol/L (3.5-5.5); Total Protein 6.2 g/dL (6.2-8.2); VLDL Calculation 19.2 mg/dL (5.00-40.00)
== END | disposition home or self-care (01) ==
LOC: LABWHC1 07:17
PROVIDERS: ATTEND Internal Medicine Interventional Cardiology
DX: E78.2 Mixed hyperlipidemia (principal)
CPT/HCPCS: 36415; 80053; 80061

== ENCOUNTER → 2019-03-13 | Outpatient (CLI) | payer MEDICARE ==
[2019-03-13 10:50] LABS: LDL Cholesterol,Calculated 56.6 mg/dL (0.0-131.0); VLDL Calculation 21.4 mg/dL (5.00-40.00)
== END | disposition home or self-care (01) ==
LOC: LABWHC1 06:52
PROVIDERS: ATTEND Nurse Practitioner Adult Health
DX: E78.2 Mixed hyperlipidemia (principal)
CPT/HCPCS: 36415; 80061; 84450; 84460

== ENCOUNTER → 2019-03-27 | Outpatient (CLI) | payer MEDICARE ==
--- NOTE | 2019-03-27 16:39 | CT ---
EXAMINATION TYPE: CT brain w con DATE OF EXAM: 03/27/2019 COMPARISON: 05/16/2018 HISTORY: Dizziness x [address] DLP: 1094.1 mGycm Automated exposure control for dose reduction was used. CONTRAST: CT scan of the head is performed with IV Contrast, patient injected with 100 mL of Isovue M300. FINDINGS: There is no abnormal enhancing mass or midline shift identified. Generalized degenerative change is s table relative to the previous exam. Calvarium remains intact. Low-attenuation the white matter is no nspecific but suggestive of remote microvascular ischemia. IMPRESSION: Degenerative and nonspecific white matter changes most typical remote microvascular ischemia. Correla te with MRI as clinically warranted.
== END ==
LOC: RADCTMAIN 12:46
PROVIDERS: ATTEND Internal Medicine
DX: R90.89 Other abnormal findings on diagnostic imaging of central nervous system (principal)
CPT/HCPCS: 82565; 84520; 70460; 36415; Q9967

== ENCOUNTER 2019-11-26 16:29 | Observation (INO) | payer MEDICARE ==
--- NOTE | 2019-11-26 17:17 | ED ---
Chest Pain HPI - General Source: patient Mode of arrival: wheelchair Limitations: physical limitation <Mayte Sweet - Last Filed: 11/26/19 17:18> - General Source: RN notes reviewed <Armin Carr - Last Filed: 11/26/19 21:51> - General Stated Complaint: Abn Ekg/sob/ high blood pressure Time Seen by Provider: 11/26/19 17:04 - History of Present Illness Initial Comments: Briefly seen in triage, CP, SOB x 1 day chest pain orders in (Mayte Sweet) 79-year-old male presents emergency Department with chief complaint of chest pain, shortness of breath, generalized not feeling well. Patient states pain started 2 days ago she is to the right side of his chest was very sharp intense pain. Since that he's felt very weak, he said increasing shortness of breath and difficulty controlling his blood pressure. Patient states his blood pressures been extremely elevated. Patient states that he had a heart cath 18 months ago which showed 75% blockage. Patient was seen by her PCP today and which she contacted cardiology recommended to the emergency department for evaluation. Patient denies any fevers or chills denies any current abdominal pain. (Armin Carr) - Related Data Home Medications Medication Instructions Recorded Confirmed Carvedilol [Coreg] 3.125 mg PO BID 07/15/16 11/26/19 LORazepam [Ativan] 1 puff INHALATION RT-BID 07/15/16 11/26/19 Mometasone/Formoterol [Dulera 200 2 puff INHALATION RT-BID 07/15/16 11/26/19 Mcg/5 Mcg Inhaler] Pantoprazole Sodium [Protonix] 40 mg PO BID 07/15/16 11/26/19 Simvastatin [Zocor] 80 mg PO HS 07/15/16 11/26/19 traZODone HCL [Desyrel] 100 mg PO HS 07/15/16 11/26/19 Aspirin 325 mg PO DAILY 11/07/17 11/26/19 Cephalexin [Keflex] 500 mg PO BID 11/26/19 11/26/19 Ipratropium/Albuterol Sulfate 1 puff INHALATION QID 11/26/19 11/26/19 [Combivent Respimat Inhaler] Guggbrhd-Sibdqpllw-Ewqdnshn 1 applic LEFT EYE BID 11/26/19 11/26/19 [Maxitrol Ophth Oint] Nitroglycerin Sl Tabs [Nitrostat] 0.4 mg SUBLINGUAL DIRECTED 11/26/19 11/26/19 Sertraline HCl [Zoloft] 25 mg PO DAILY 11/26/19 11/26/19 Previous Rx's Medication Instructions Recorded Lisinopril [Zestril] 5 mg PO HS #30 tab 05/23/18 Allergies Allergy/AdvReac Type Severity Reaction Status Date / Time No Known Allergies Allergy Verified 11/26/19 21:08 Review of Systems ROS Other: All systems not noted in ROS Statement are negative. <Mayte Sweet - Last Filed: 11/26/19 17:18> ROS Other: All systems not noted in ROS Statement are negative. <Armin Carr - Last Filed: 11/26/19 21:51> ROS Statement: Those systems with pertinent positive or pertinent negative responses have been documented in the HPI. EKG Findings - EKG Comments: EKG Findings:: EKG shows ventricular paced rhythm rate of 67 QRS 180 QTC is QTC 42/509 <Armin Carr - Last Filed: 11/26/19 21:51> Past Medical History Past Medical History: COPD, GERD/Reflux, Hearing Disorder / Deafness, Hyperlipidemia, Hypertension, Myocardial Infarction (NH) Additional Past Medical History / Comment(s): B 12 deficiency, hx of neuropathy Last Myocardial Infarction Date:: 2005 History of Any Multi-Drug Resistant Organisms: None Reported Past Surgical History: Heart Catheterization With Stent, Orthopedic Surgery, Pacemaker Additional Past Surgical History / Comment(s): RIGHT SHOULDER scope, left knee scope, cardiac stent X 3, PPM 2005 Past Anesthesia/Blood Transfusion Reactions: No Reported Reaction Date of Last Stent Placement:: 11/2005 Type of Cardiac Device: Permanent Pacemaker Device Placement Date:: 11/2005 Past Psychological History: Anxiety Smoking Status: Former smoker Past Alcohol Use History: Rare Past Drug Use History: None Reported - Past Family History Sister(s) Family Medical History: Cancer Mother Family Medical History: No Reported History <Mayte Sweet - Last Filed: 11/26/19 17:18> General Exam Limitations: physical limitation <Mayte Sweet - Last Filed: 11/26/19 17:18> General appearance: alert, in no apparent distress Head exam: Present: atraumatic, normocephalic, normal inspection Eye exam: Present: normal appearance, PERRL, EOMI. Absent: scleral icterus, conjunctival injection, periorbital swelling ENT exam: Present: normal exam, normal oropharynx, mucous membranes moist Neck exam: Present: normal inspection, full ROM. Absent: tenderness, meningismus, lymphadenopathy Respiratory exam: Present: normal lung sounds bilaterally. Absent: respiratory distress, wheezes, rales, rhonchi, stridor, chest wall tenderness Cardiovascular Exam: Present: regular rate, normal rhythm, normal heart sounds. Absent: systolic murmur, diastolic murmur, rubs, gallop, clicks GI/Abdominal exam: Present: soft, normal bowel sounds. Absent: distended, tenderness, guarding, rebound, rigid <Armin Carr - Last Filed: 11/26/19 21:51> Course Vital Signs 11/26/19 17:02 Temperature 97.7 F Pulse Rate 67 Respiratory 18 Rate Blood Pressure 149/80 O2 Sat by Pulse 96 Oximetry Disposition <Mayte Sweet - Last Filed: 11/26/19 17:18> <Armin Carr - Last Filed: 11/26/19 21:51> Clinical Impression: CAD (coronary artery disease), Chest pain, Dyspnea Disposition: ADMITTED IP TO THIS [facility] Condition: Fair Referrals: Alexey Chen MD [Primary Care Provider] - 1-2 days
[2019-11-26 17:47] LABS: Basophils # (A) 0.1 k/uL (0-0.2); Basophils % (A) 1 %; Eosinophils # (A) 0.2 k/uL (0-0.7); Eosinophils % (A) 2 %; HCT 47.7 % (39.0-53.0); HGB 15.9 gm/dL (13.0-17.5); Lymphocytes # (A) 1.4 k/uL (1.0-4.8); Lymphocytes % (A) 21 %; MCH 33.5 pg (25.0-35.0); MCHC 33.2 g/dL (31.0-37.0); MCV 100.8 fL (80.0-100.0); Mean Platelet Volume 8.3; Monocytes # (A) 0.4 k/uL (0-1.0); Monocytes % (A) 5 %; Neutrophils # (A) 4.6 k/uL (1.3-7.7); Neutrophils % (A) 69 %; Platelet Count 131 k/uL (150-450); RBC 4.73 m/uL (4.30-5.90); RDW 13.1 % (11.5-15.5); WBC 6.6 k/uL (3.8-10.6)
[2019-11-26 17:53] LABS: Appearance,Urine Clear (Clear); Bilirubin,Urine Negative (Negative); Blood,Urine Trace (Negative); Color,Urine Yellow; Glucose,Urine (UA) Negative (Negative); Ketones,Urine Negative (Negative); Leukocyte Esterase,Urine Negative (Negative); Nitrite,Urine Negative (Negative); PH, Urine 5.5 (5.0-8.0); Protein,Urine Negative (Negative); RBC,Urine 2 /hpf (0-5); Specific Gravity,Urine 1.011 (1.001-1.035); Squamous Epithelial Cell,Urine <1 /hpf (0-4); WBC,Urine <1 /hpf (0-5)
[2019-11-26 17:54] LABS: Partial Thromboplastin Time 25.5 sec (22.0-30.0); Prothrombin Time 10.8 sec (9.0-12.0)
[2019-11-26 18:11] LABS: Albumin 4.4 g/dL (3.5-5.0); Calcium 9.3 mg/dL (8.4-10.2); Total Bilirubin 1.6 mg/dL (0.2-1.3); Total Protein 7.3 g/dL (6.3-8.2)
[2019-11-26 18:14] LABS: Potassium 5.4 mmol/L (3.5-5.1)
--- NOTE | 2019-11-26 19:08 | XR ---
EXAMINATION TYPE: XR chest 2V DATE OF EXAM: 11/26/2019 COMPARISON: 05/23/2018 HISTORY: Chest pain TECHNIQUE: FINDINGS: There is minimal linear density at the lung bases. Heart size is normal. There is a left ax illary pacemaker. There is no pleural effusion. Bony thorax is intact. IMPRESSION: There is mild subsegmental atelectasis at the lung bases that is new compared to old exam . Normal heart. No heart failure.
[2019-11-26] MEDS ORDERED: SODIUM CHLORIDE 0.9% 1,000 ML IV ONE (19:58)
--- NOTE | 2019-11-26 20:48 | CT ---
EXAMINATION TYPE: CT chest angio for PE DATE OF EXAM: 11/26/2019 COMPARISON: None HISTORY: chest pain SOB abd EKG CT DLP: 507 mGycm Automated exposure control for dose reduction was used. CONTRAST: Performed with IV Contrast, patient injected with 100 mL of Isovue 370. Multiple axial sections were obtained from the thoracic inlet to the diaphragm with intravenous contr ast and 3-D post processed images. There is mild pulmonary emphysema. There is increased interstitial density at the posterior lung base s consistent with scarring and subsegmental atelectasis. There is no pericardial effusion. There is normal contrast opacification of the pulmonary arteries. There is no mediastinal adenopathy. There are no hilar masses. There is normal contrast opacification of the thoracic aorta. There is no aneurysm or dissection. Thoracic spine is intact. Bony thorax is intact. IMPRESSION: No evidence of pulmonary embolism. Mild pulmonary emphysema.
[2019-11-26] MEDS ORDERED: ASPIRIN 81 MG PO STA (21:51)
[2019-11-26] MEDS ORDERED: NITROGLYCERIN SL TABS 0.4 MG TAB SUBLINGUAL PRN (21:51)
[2019-11-26] MEDS ORDERED: HEPARIN SODIUM,PORCINE 5,000 UNIT/ML 1 ML VIAL SQ STA (22:45)
[2019-11-26] MEDS ORDERED: amLODIPine 10 MG TAB PO STA (22:45)
--- NOTE | 2019-11-26 22:46 | P.HPIM ---
History of Present Illness H&P Date: 11/26/19 The patient is an 79 yo M with a PMH of coronary artery disease (s/p 3 stents), heart block s/p pacemaker, HTN, and hyperlipidemia presented to the ED with complaints of shortness of breath. The patient notes that 2 days ago, he had a sudden onset of sharp right lower chest pain, which lasted a few seconds, was 10 out of 10, and resolved spontaneously. He reports never having such pain in the past and that it has not recurred since then. He notes that since that time, he has been feeling more winded and has a significantly decreased exercise tolerance. This was what prompted him to come to the emergency room since he was concerned about his previous catheterization which revealed multiple borderline vessels. He reports that his BP had also been uncontrolled at home. At time of the interview, he reported feeling well and denied any active complaints. He reports only exertional dyspnea and no complaints at rest. He denied chest pain, nausea, vomiting, diaphoresis, dizziness, palpitations, abdominal pain, fever, chills, cough. The patient underwent an extensive evaluation in the emergency room with chest CTA showing mild pulmonary emphysema with no pulmonary embolism and a chest x-ray showing no heart failure. EKG revealed a V-paced rhythm at 67 bpm. Laboratory evaluation revealed a troponin level of less than 0.012, WBC 6.6, hemoglobin 15.9, platelets 131, sodium 143, p otassium 5.4 (hemolyzed), chloride 112, CO2 22, BUN 9, creatinine 1.07, and glucose 94. Review of Systems Pertinent positives and negatives as discussed in HPI, a complete review of systems was performed and all other systems are negative. Past Medical History Past Medical History: COPD, GERD/Reflux, Hearing Disorder / Deafness, H yperlipidemia, Hypertension, Myocardial Infarction ([place]) Additional Past Medical History / Comment(s): B 12 deficiency, hx of neuropathy Last Myocardial Infarction Date:: 2005 History of Any Multi-Drug Resistant Organisms: None Reported Past Surgical History: Heart Catheterization With Stent, Orthopedic Surgery, Pacemaker Additional Past Surgical History / Comment(s): RIGHT SHOULDER scope, left knee scope, cardiac stent X 3, PPM 2005 Past Anesthesia/Blood Transfusion Reactions: No Reported Reaction Date of Last Stent Placement:: 11/2005 Type of Cardiac Device: Permanent Pacemaker Device Placement Date:: 11/2005 Past Psychological History: Anxiety Smoking Status: Former smoker Past Alcohol Use History: Rare Past Drug Use History: None Reported - Past Family History Sister(s) Family Medical History: Cancer Mother Family Medical History: No Reported History Medications and Allergies Home Medications Medication Instructions Recorded Confirmed Type Carvedilol [Coreg] 3.125 mg PO BID 07/15/16 11/26/19 History LORazepam [Ativan] 1 puff INHALATION RT-BID 07/15/16 11/26/19 History Mometasone/Formoterol [Dulera 200 2 puff INHALATION RT-BID 07/15/16 11/26/19 History Mcg/5 Mcg Inhaler] Pantoprazole Sodium [Protonix] 40 mg PO BID 07/15/16 11/26/19 History Simvastatin [Zocor] 80 mg PO HS 07/15/16 11/26/19 History traZODone HCL [Desyrel] 100 mg PO HS 07/15/16 11/26/19 History Aspirin 325 mg PO DAILY 11/07/17 11/26/19 History Lisinopril [Zestril] 5 mg PO HS #30 tab 05/23/18 11/26/19 Rx Cephalexin [Keflex] 500 mg PO BID 11/26/19 11/26/19 History Ipratropium/Albuterol Sulfate 1 puff INHALATION QID 11/26/19 11/26/19 History [Combivent Respimat Inhaler] Mdtnnbzl-Xlcqrrfyr-Wbgcxrlb 1 applic LEFT EYE BID 11/26/19 11/26/19 History [Maxitrol Ophth Oint] Nitroglycerin Sl Tabs [Nitrostat] 0.4 mg SUBLINGUAL DIRECTED 11/26/19 11/26/19 History Sertraline HCl [Zoloft] 25 mg PO DAILY 11/26/19 11/26/19 History Allergies Allergy/AdvReac Type Severity Reaction Status Date / Time No Known Allergies Allergy Verified 11/26/19 21:08 Physical Exam Vitals: Vital Signs Temp Pulse Resp BP Pulse Ox 11/26/19 17:02 97.7 F 67 18 149/80 96 Intake and Output 11/26/19 11/26/19 11/26/19 06:59 14:59 22:59 Other: Weight 87.09 kg General: non toxic, no distress, appears at stated age, normal weight Derm: no unusual rashes/lesions no unusual ecchymoses, warm, dry Head: atraumatic, normocephalic, symmetric Eyes: EOMI, no lid lag, anicteric sclera, pupils equal round reactive to light ENT: Nose and ears atraumatic, no thrush, no pharyngeal erythema Neck: No thyromegaly, no cervical lymphadenopathy, trachea midline, supple Mouth: no lip lesion, mucus membranes moist Cardiovascular: S1S2 reg, no murmur, positive posterior tibial pulse bilateral, no edema, capillary refill less than 2 seconds Lungs: CTA bilateral, no rhonchi, no rales , no accessory muscle use Abdominal: soft, nontender to palpation, no guarding, no appreciable organomegaly, normal bowel sounds Ext: no gross muscle atrophy, muscle strength 5 out of 5 in all 4 extremities grossly, no contractures, Neuro: CN II-XI grossly intact, light touch intact all 4 extremities, finger to nose within normal limits, Psych: Alert, oriented, appropriate affect Results CBC & Chem 7: 11/26/19 17:16 11/26/19 17:16 Labs: Abnormal Lab Results - Last 24 Hours (Table) 11/26/19 11/26/19 11/26/19 Range/Units 17:16 17:16 17:18 MCV 100.8 H (80.0-100.0) fL Plt Count 131 L (150-450) k/uL Potassium 5.4 H (3.5-5.1) mmol/L Chloride 112 H (98-107) mmol/L Total Bilirubin 1.6 H (0.2-1.3) mg/dL Urine Blood Trace H (Negative) Assessment and Plan Plan: Shortness of breath, decreased exercise tolerance -Cardiology consulted by ED -Cardiac monitoring -Trend troponin -C/w ASA HTN, uncontrolled -C/w home meds Lisinopril and Coreg -Will add Norvasc 10 mg Chronic conditions: HLD -C/w home meds DVT prophylaxis -Heparin subq The patient is admitted with an anticipated less than 2 midnight stay for evaluation of SOB CODE STATUS: Full Code Discussed with: Patient Anticipated discharge date: 1-[address]: Home A total of 35 minutes was spent on the care of this complex patient more than 50% of the time was spent in counseling and care coordination.
[2019-11-27] MEDS: HEPARIN SODIUM,PORCINE 5,000 UNIT/ML 1 ML VIAL SQ SCH ×2 (00:26→08:25)
[2019-11-27 06:05] VITALS: TEMP 98.6
[2019-11-27 07:14] LABS: Cholesterol 108 mg/dL (<200); HDL Cholesterol 30 mg/dL (40-60); LDL Cholesterol,Calculated 48 mg/dL (0-99); Triglycerides 148 mg/dL (<150)
[2019-11-27] MEDS ORDERED: CARVEDILOL 3.125 MG TAB PO SCH (07:30)
[2019-11-27 07:33] VITALS: BP 144/80; PULSE 61; RESP 16
[2019-11-27] MEDS ORDERED: SYMBICORT 160-4.5 MCG INHALER INHALATION SCH (08:00)
[2019-11-27] MEDS ORDERED: amLODIPine 5 MG TAB PO SCH (09:00)
[2019-11-27] MEDS ORDERED: ASPIRIN 81 MG PO SCH (09:00)
[2019-11-27] MEDS ORDERED: SERTRALINE 25 MG TAB PO SCH (09:00)
[2019-11-27] MEDS ORDERED: amLODIPine 10 MG TAB PO SCH (09:00)
[2019-11-27] MEDS ORDERED: ASPIRIN 325 MG TAB PO SCH ×2 (09:00)
--- NOTE | 2019-11-27 09:05 | CONS ---
CONSULTATION Mr. Fierro is an 79-year-old male with a known history of coronary disease, status post stenting in 2006 of the RCA and the obtuse marginal branch, underwent repeat cardiac catheterization in 2018, was found to have moderate disease. He presented with an episode of discomfort that occurred the day before yesterday on the right side, sharp, lasting for a few seconds and he checked his blood pressure, it was mildly elevated and because of that, he went to the walk-in clinic and referred to the emergency room. The patient has mild dyspnea on exertion without any significant changes. He denies any dizziness or palpitation. No peripheral edema. No PND or orthopnea. He has been active physically without much difficulty. His coronary risk factors are remarkable for hypertension, hyperlipidemia. He is nondiabetic. MEDICATION: His medications at home include sertraline, Ativan, Desyrel, simvastatin, Protonix, Zestril 5 mg daily, Coreg 3.125 mg twice a day, and aspirin once a day. REVIEW OF SYSTEMS: RESPIRATORY SYSTEM: He has no documented history of asthma, emphysema, . GI SYSTEM: No recent GI bleeding. No peptic ulcer disease. SYSTEM: No dysuria or hematuria. NERVOUS SYSTEM: No stroke or seizure. Prior procedures are remarkable for the history of percutaneous revascularization, permanent pacemaker implantation. PHYSICAL EXAMINATION: He is an 79-year-old male, alert, oriented, in no apparent distress. Blood pressure running in the 130s to 140s with the heart rate in the 60s. HEAD: Normocephalic. EYES: Sclerae anicteric. NECK: Good carotid upstroke. No bruit. No jugular venous distention. LUNGS: Clear to auscultation. HEART: Regular rate and rhythm. S1, S2. No S3 with systolic murmur heard at the base. No diastolic murmur. No rub. ABDOMEN: Soft, nontender. Positive bowel sounds. No organomegaly. EXTREMITIES: No edema. Intact distal pulses. LAB DATA: Lab data revealed troponin of less than 0.012 for 3 samples. BUN and creatinine of 9 and 1.07. Hemoglobin of 15.9. Cholesterol 108, LDL of 48. EKG reveals sinus mechanism with paced rhythm. CT angiogram revealed no evidence of embolism. Chest x-ray revealed no evidence of heart failure. IMPRESSION: 1. Chest discomfort atypical for ischemic heart disease probably noncardiac. 2. History of coronary artery disease with no evidence of significant obstructive disease by cardiac catheterization in April 2018. 3. Hypertension. 4. Hyperlipidemia. 5. Permanent pacemaker implantation. RECOMMENDATION: From the cardiac standpoint, no further cardiac workup is needed at this time. Patient should be able to be discharged home today and follow up as an outpatient in 2 weeks. He will follow his blood pressure at home and depending on the trend, further recommendation will be made. Thank you for this consult. We will follow with you. BYRON / LOUISAN: [id number] /
--- NOTE | 2019-11-27 10:48 | ECHOF ---
Referral Reason:SOB MEASUREMENTS -------- HEIGHT: 172.7 cm WEIGHT: 87.1 kg BP: RVIDd: 3.8 cm (< 3.3) IVSd: 1.6 cm (0.6 - 1.1) LVIDd: 4.6 cm (3.9 - 5.3) LVPWd: 1.4 cm (0.6 - 1.1) IVSs: 2.1 cm LVIDs: 3.5 cm LVPWs: 1.7 cm LAESV Index (A-L): 18.73 ml/m Ao Diam: 3.7 cm (2.0 - 3.7) AV Cusp: 1.7 cm (1.5 - 2.6) LA Diam: 3.9 cm (2.7 - 3.8) MV EXCURSION: 18.807 mm (> 18.000) MV EF SLOPE: 60 mm/s (70 - 150) EPSS: 0.3 cm MV E Jett: 0.39 m/s MV DecT: 288 ms MV A Jett: 0.65 m/s MV E/A Ratio: 0.60 RAP: 5.00 mmHg FINDINGS -------- Sinus rhythm. Pacerwire seen in RV and RA. This was a technically adequate study. The left ventricular size is normal. There is moderate concentric left ventricular hypertrophy. O verall left ventricular systolic function is mildly impaired with, an EF between 45 - 50 %. The theresa stolic filling pattern is normal for the age of the patient 7.97. The right ventricle is normal in size. Normal LA size by volume 22+/-6 ml/m2. The right atrial size is normal. There is mild aortic valve sclerosis. There is no evidence of aortic regurgitation. Mild mitral annular calcification present. Mild mitral regurgitation is present. Mild tricuspid regurgitation present. Right ventricular systolic pressure is normal at < 35 mmHg. The right ventricular systolic pressure, as measured by Doppler, is {RVSP}. There is no pulmonic regurgitation present. The aortic root size is normal. There is no pericardial effusion. CONCLUSIONS -------- 1. Sinus rhythm. 2. Pacerwire seen in RV and RA. 3. This was a technically adequate study. 4. The left ventricular size is normal. 5. There is moderate concentric left ventricular hypertrophy. 6. Overall left ventricular systolic function is mildly impaired with, an EF between 45 - 50 %. 7. The diastolic filling pattern is normal for the age of the patient 7.97 8. Normal LA size by volume 22+/-6 ml/m2. 9. There is mild aortic valve sclerosis. 10. Mild mitral annular calcification present. 11. Mild mitral regurgitation is present. 12. Mild tricuspid regurgitation present. 13. Right ventricular systolic pressure is normal at < 35 mmHg. 14. There is no pulmonic regurgitation present. 15. There is no pericardial effusion. SURGERY ATTENDANT: Mckayla Infante RDCS
--- NOTE | 2019-11-27 13:11 | P.DS ---
Providers Date of admission: T Expected date of discharge: 11/27/19 Consults: 11/26/19 21:52 Consult Physician Urgent Consulting Provider: Chrissie Whitaker Consult Reason/Comments: chest pain Do you want consulting provider notified?: Yes, Notify in am [facility]: 79 yo M with a PMH of coronary artery disease (s/p 3 stents), heart block s/p pacemaker, HTN, and hyperlipidemia presented to the ED with complaints of shortness of breath. The patient notes that 2 days ago, he had a sudden onset of sharp right lower chest pain, which lasted a few seconds, was 10 out of 10, and resolved spontaneously. He reports never having such pain in the past and that it has not recurred since then. He notes that since that time, he has been feeling more winded and has a significantly decreased exercise tolerance. This was what prompted him to come to the emergency room since he was concerned about his previous catheterization which revealed multiple borderline vessels. Troponins was less than 0.0123 with EKG showing ventricular paced rhythm. Echocardiogram showed EF 45-50% with moderate concentric LVH which was actually improved from 2018 echocardiogram. CTA chest ruled out PE. Chest x-ray showed subsegmental atelectasis at the lung bases. Cardiology evaluated the patient and cleared the patient for discharge with outpatient follow-up. Patient was seen and examined. No acute events overnight. Patient reports complete resolution of his chest pain. He denies any chest pain, shortness of breath or palpitations. No nausea or vomiting. No fever or chills. General: [non toxic], [no distress], [appears at stated age] Derm: [warm], [dry] Head: [atraumatic], [normocephalic], [symmetric] Eyes: [EOMI], [no lid lag], [anicteric sclera] Mouth: [no lip lesion], [mucus membranes moist] Cardiovascular: [S1S2 reg], [no murmur], [positive DP pulse bilateral] Lungs: [CTA bilateral], [no rhonchi, no rales] , [no accessory muscle use] Ext: [no gross muscle atrophy], [no edema], [no contractures] Neuro: [no focal neuro deficits] Psych: [Alert], [oriented], [appropriate affect] Chest pain and shortness of breath with history of CAD Hypertension Macrocytosis Hyperkalemia Dyslipidemia Troponins have been less than 0.0123 with EKG showing ventricular paced rhythm. Acute coronary syndrome has been ruled out. Echocardiogram shows moderate concentric LVH with EF 45-50% which has improved from his 2018 echocardiogram. Plans: Cleared by cardiology for discharge with outpatient follow-up. Continue aspirin, beta bandar, statin. BP 144/80. Plans: Continue lisinopril, carvedilol. Monitor vitals, adjust medications as necessary. MCV 100.8. Plans: Unknown significance. Needs adequate follow-up in the outpatient setting. Potassium 5.4. Sample hemolyzed. Plans: Nothing further to do. Total cholesterol 108, LDL 48, HDL 30. Plans: Continue Lipitor. [Patient admitted for chest pain. ACS ruled out. Cardiology cleared. DC today.] Pertinent Studies: Chest x-ray, chest CTA, echocardiogram Patient Condition at Discharge: Stable Plan - Discharge Summary New Discharge Prescriptions: Continue Simvastatin [Zocor] 80 mg PO HS LORazepam [Ativan] 1 puff INHALATION RT-BID Mometasone/Formoterol [Dulera 200 Mcg/5 Mcg Inhaler] 2 puff INHALATION RT-BID Carvedilol [Coreg] 3.125 mg PO BID traZODone HCL [Desyrel] 100 mg PO HS Pantoprazole Sodium [Protonix] 40 mg PO BID Aspirin 325 mg PO DAILY Lisinopril [Zestril] 5 mg PO HS #30 tab Mbeubmbu-Zuabrpato-Cjwvcohr [Maxitrol Ophth Oint] 1 applic LEFT EYE BID Ipratropium/Albuterol Sulfate [Combivent Respimat Inhaler] 1 puff INHALATION QID Cephalexin [Keflex] 500 mg PO BID Sertraline HCl [Zoloft] 25 mg PO DAILY Nitroglycerin Sl Tabs [Nitrostat] 0.4 mg SUBLINGUAL DIRECTED Discharge Medication List Carvedilol [Coreg] 3.125 mg PO BID 07/15/16 [History] LORazepam [Ativan] 1 puff INHALATION RT-BID 07/15/16 [History] Mometasone/Formoterol [Dulera 200 Mcg/5 Mcg Inhaler] 2 puff INHALATION RT-BID 07/15/16 [History] Pantoprazole Sodium [Protonix] 40 mg PO BID 07/15/16 [History] Simvastatin [Zocor] 80 mg PO HS 07/15/16 [History] traZODone HCL [Desyrel] 100 mg PO HS 07/15/16 [History] Aspirin 325 mg PO DAILY 11/07/17 [History] Lisinopril [Zestril] 5 mg PO HS #30 tab 05/23/18 [Rx] Cephalexin [Keflex] 500 mg PO BID 11/26/19 [History] Ipratropium/Albuterol Sulfate [Combivent Respimat Inhaler] 1 puff INHALATION QID 11/26/19 [History] Orwpvtoo-Jbvffobav-Srvkyonm [Maxitrol Ophth Oint] 1 applic LEFT EYE BID 11/26/19 [History] Nitroglycerin Sl Tabs [Nitrostat] 0.4 mg SUBLINGUAL DIRECTED 11/26/19 [His tory] Sertraline HCl [Zoloft] 25 mg PO DAILY 11/26/19 [History] Follow up Appointment(s)/Referral(s): Chrissie Whitaker MD [STAFF PHYSICIAN] - 2 Weeks (appointment already made per family) Alexey Chen MD [Primary Care Provider] - 1-2 days (appointment already made per family) Activity/Diet/Wound Care/Special Instructions: Diet: Cardiac, low salt FU PCP within 3 days. FU Cardiology with the appointment given to you. Take all medications as advised.l Discharge Disposition: HOME SELF-CARE
[2019-11-27] MEDS ORDERED: LISINOPRIL 5 MG TAB PO SCH (21:00)
[2019-11-27] MEDS ORDERED: traZODone HCL 100 MG TAB PO SCH (21:00)
[2019-11-27] MEDS ORDERED: ATORVASTATIN 40 MG TAB PO SCH (21:00)
[2019-11-28] MEDS ORDERED: amLODIPine 5 MG TAB PO SCH (09:00)
[2019-11-28] MEDS ORDERED: ASPIRIN 81 MG PO SCH (09:00)
== END 2019-11-27 13:23 | disposition home or self-care (01) ==
LOC: EC 16:29 → 1SOBS 23:03 → UNDOADMOB 23:03 → 2CATHESU 11-27 09:15 → EC 11-27 09:24
PROVIDERS: ADMIT Internal Medicine; ATTEND Internal Medicine
DX: R07.9 Chest pain, unspecified (principal); R94.31 Abnormal electrocardiogram [ECG] [EKG]; I25.10 Atherosclerotic heart disease of native coronary artery without angina pectoris; J44.9 Chronic obstructive pulmonary disease, unspecified; I10 Essential (primary) hypertension; E78.5 Hyperlipidemia, unspecified; D75.89 Other specified diseases of blood and blood-forming organs; E87.5 Hyperkalemia; K21.9 Gastro-esophageal reflux disease without esophagitis; H91.90 Unspecified hearing loss, unspecified ear; F41.9 Anxiety disorder, unspecified; I25.2 Old myocardial infarction; Z95.0 Presence of cardiac pacemaker; Z95.5 Presence of coronary angioplasty implant and graft; Z79.899 Other long term (current) drug therapy; Z87.891 Personal history of nicotine dependence; Z79.82 Long term (current) use of aspirin; Z79.51 Long term (current) use of inhaled steroids
CPT/HCPCS: 96360; 96361; 96372 ×2; 99285; 36415; 94640; 93005 ×2; 93306; 80061; 80053; 84484 ×2; 85025; 85610; 85730; 81001; 71046; 71275; G0378 ×2; J1644 ×2; Q9967

== ENCOUNTER 2020-04-18 19:54 | Observation (INO) | payer MEDICARE ==
[2020-04-18] MEDS ORDERED: ASPIRIN 81 MG PO STA (20:42)
--- NOTE | 2020-04-18 20:44 | ED ---
General Adult HPI - General Chief complaint: Chest Pain Stated complaint: Chest Pain Time Seen by Provider: 04/18/20 20:00 Source: patient, family Mode of arrival: wheelchair Limitations: physical limitation - History of Present Illness Initial comments: Dictation was produced using [employer] dictation software. please excuse any grammatical, word or spelling errors. This patient was cared for during a federal and state declared state of emergency secondary to Covid 19 Chief Complaint: 79-year-old male past medical history of coronary artery disease presents with chest pain. History of Present Illness: Patient is an 79-year-old male presents today with chest pain. Approximate 4 hours prior to arrival he was mowing the lawn. He ended experiencing shooting pain to his substernal chest. Patient states that it was crushing. Denies any radiation to the jaw or shoulders. There was concern of some diaphoresis although he reports that perhaps it was maybe from mowing the lawn. Patient did take a nitroglycerin without significant improvement. Patient has history of coronary artery disease. He has multiple stents. He also has a pacemaker. Patient states that he feels much better now. Denies any point pain radiating to his back. No numbness or paresthesias to extremities. The ROS documented in this emergency department record has been reviewed and confirmed by me. Those systems with pertinent positive or negative responses have been documented in the HPI. All other systems are other negative and/or noncontributory. PHYSICAL EXAM: General Impression: Alert and oriented x3, not in acute distress HEENT: Normocephalic atraumatic, extra-ocular movements intact, pupils equal and reactive to light bilaterally, mucous membranes moist. Cardiovascular: Heart regular rate and rhythm, no murmurs Chest: Able to complete full sentences, no retractions, no tachypnea, clear to a uscultation bilaterally Abdomen: abdomen soft, non-tender, non-distended, no organomegaly Musculoskeletal: Pulses present and equal in all extremities, no peripheral edema Motor: no focal deficits noted Neurological: CN II-XII grossly intact, no focal motor or sensory deficits noted Skin: Intact with no visualized rashes Psych: Normal affect and mood ED course: 79 yo male presents with chest pain concerning for acute coronary syndrome. Vital signs upon arrival are within acceptable limits. EKG does not suggest infarction. EKG shows paced rhythm without criteria to meet Sgarbossa. Laboratory evaluation obtained. CBC, coag panel, metabolic panel is unremarkable. Troponin level is negative. Chest x-ray is nonacute. Patient reevaluated at bedside. He still does have some mild pain. He still describes it as atypical however he has multiple risk factors. Patient and family member agreeable for observation admission. Did receive an aspirin. Patient be admitted to [facility] under the care of Dr. Suazo. EKG interpretation: Ventricular rate 62, paced rhythm, ND interval 186, QRS 178, QTC 499. No ND prolongation, no QTC prolongation, no ST or T-wave changes noted. EKG compared to 11/26/2019 showing no changes. Overall, this EKG is unremarkable - Related Data Home Medications Medication Instructions Recorded Confirmed Carvedilol [Coreg] 3.125 mg PO BID 07/15/16 04/18/20 LORazepam [Ativan] 2 mg PO HS 07/15/16 04/18/20 Mometasone/Formoterol [Dulera 200 1 puff INHALATION RT-DAILY 07/15/16 04/18/20 Mcg/5 Mcg Inhaler] Pantoprazole Sodium [Protonix] 40 mg PO BID 07/15/16 04/18/20 Simvastatin [Zocor] 80 mg PO HS 07/15/16 04/18/20 traZODone HCL [Desyrel] 100 mg PO HS 07/15/16 04/18/20 Ipratropium/Albuterol Sulfate 1 puff INHALATION RT-DAILY 11/26/19 04/18/20 [Combivent Respimat Inhaler] Nitroglycerin Sl Tabs [Nitrostat] 0.4 mg SUBLINGUAL Q5M PRN 11/26/19 04/18/20 Aspirin EC [Ecotrin] 325 mg PO DAILY 04/18/20 04/18/20 LORazepam [Ativan] 1 mg PO DAILY PRN 04/18/20 04/18/20 Sertraline HCl [Zoloft] 50 mg PO DAILY 04/18/20 04/18/20 Allergies Allergy/AdvReac Type Severity Reaction Status Date / Time No Known Allergies Allergy Verified 04/18/20 20:38 Review of Systems ROS Statement: Those systems with pertinent positive or pertinent negative responses have been documented in the HPI. ROS Other: All systems not noted in ROS Statement are negative. Past Medical History Past Medical History: COPD, GERD/Reflux, Hearing Disorder / Deafness, Hyperlipidemia, Hypertension, Myocardial Infarction ([place]) Additional Past Medical History / Comment(s): B 12 deficiency, hx of neuropathy Last Myocardial Infarction Date:: 2005 History of Any Multi-Drug Resistant Organisms: None Reported Past Surgical History: Heart Catheterization With Stent, Orthopedic Surgery, Pacemaker Additional Past Surgical History / Comment(s): RIGHT SHOULDER scope, left knee scope, cardiac stent X 3, PPM 2005 Past Anesthesia/Blood Transfusion Reactions: No Reported Reaction Date of Last Stent Placement:: 11/2005 Type of Cardiac Device: Permanent Pacemaker Device Placement Date:: 11/2005 Past Psychological History: Anxiety Smoking Status: Former smoker Past Alcohol Use History: Rare Past Drug Use History: None Reported - Past Family History Sister(s) Family Medical History: Cancer Mother Family Medical History: No Reported History General Exam Limitations: physical limitation Course Vital Signs 04/18/20 04/18/20 19:57 20:54 Temperature 98.3 F Pulse Rate 72 63 Respiratory 20 18 Rate Blood Pressure 139/78 122/64 O2 Sat by Pulse 94 L 95 Oximetry Medical Decision Making - Lab Data Result diagrams: 04/18/20 20:40 04/18/20 20:40 Lab Results 04/18/20 04/18/20 04/18/20 Range/Units 20:40 20:40 20:40 WBC 8.2 (3.8-10.6) k/uL RBC 4.87 (4.30-5.90) m/uL Hgb 15.7 (13.0-17.5) gm/dL Hct 48.5 (39.0-53.0) % MCV 99.6 (80.0-100.0) fL MCH 32.2 (25.0-35.0) pg MCHC 32.3 (31.0-37.0) g/dL RDW 12.9 (11.5-15.5) % Plt Count 133 L (150-450) k/uL Neutrophils % 65 % Lymphocytes % 22 % Monocytes % 7 % Eosinophils % 3 % Basophils % 1 % Neutrophils # 5.4 (1.3-7.7) k/uL Lymphocytes # 1.8 (1.0-4.8) k/uL Monocytes # 0.6 (0-1.0) k/uL Eosinophils # 0.3 (0-0.7) k/uL Basophils # 0.1 (0-0.2) k/uL PT 10.5 (9.0-12.0) sec INR 1.0 (<1.2) APTT 23.8 (22.0-30.0) sec Sodium 140 (137-145) mmol/L Potassium 4.6 (3.5-5.1) mmol/L Chloride 108 H (98-107) mmol/L Carbon Dioxide 25 (22-30) mmol/L Anion Gap 7 mmol/L BUN 12 (9-20) mg/dL Creatinine 1.27 H (0.66-1.25) mg/dL Est GFR (CKD-EPI)AfAm 61 (>60 ml/min/1.73 sqM) Est GFR (CKD-EPI)NonAf 53 (>60 ml/min/1.73 sqM) Glucose 84 (74-99) mg/dL Calcium 9.3 (8.4-10.2) mg/dL Troponin I (0.000-0.034) ng/mL 04/18/20 Range/Units 20:40 WBC (3.8-10.6) k/uL RBC (4.30-5.90) m/uL Hgb (13.0-17.5) gm/dL Hct (39.0-53.0) % MCV (80.0-100.0) fL MCH (25.0-35.0) pg MCHC (31.0-37.0) g/dL RDW (11.5-15.5) % Plt Count (150-450) k/uL Neutrophils % % Lymphocytes % % Monocytes % % Eosinophils % % Basophils % % Neutrophils # (1.3-7.7) k/uL Lymphocytes # (1.0-4.8) k/uL Monocytes # (0-1.0) k/uL Eosinophils # (0-0.7) k/uL Basophils # (0-0.2) k/uL PT (9.0-12.0) sec INR (<1.2) APTT (22.0-30.0) sec Sodium (137-145) mmol/L Potassium (3.5-5.1) mmol/L Chloride (98-107) mmol/L Carbon Dioxide (22-30) mmol/L Anion Gap mmol/L BUN (9-20) mg/dL Creatinine (0.66-1.25) mg/dL Est GFR (CKD-EPI)AfAm (>60 ml/min/1.73 sqM) Est GFR (CKD-EPI)NonAf (>60 ml/min/1.73 sqM) Glucose (74-99) mg/dL Calcium (8.4-10.2) mg/dL Troponin I <0.012 (0.000-0.034) ng/mL Disposition Clinical Impression: Chest pain Disposition: ADMITTED IP TO THIS HOSP Condition: Fair Referrals: Alexey Chen MD [Primary Care Provider] - 1-2 days Decision Time: 22:11
[2020-04-18 20:55] LABS: Basophils # (A) 0.1 k/uL (0-0.2); Basophils % (A) 1 %; Eosinophils # (A) 0.3 k/uL (0-0.7); Eosinophils % (A) 3 %; HCT 48.5 % (39.0-53.0); HGB 15.7 gm/dL (13.0-17.5); Lymphocytes # (A) 1.8 k/uL (1.0-4.8); Lymphocytes % (A) 22 %; MCH 32.2 pg (25.0-35.0); MCHC 32.3 g/dL (31.0-37.0); MCV 99.6 fL (80.0-100.0); Mean Platelet Volume 8.4; Monocytes # (A) 0.6 k/uL (0-1.0); Monocytes % (A) 7 %; Neutrophils # (A) 5.4 k/uL (1.3-7.7); Neutrophils % (A) 65 %; Platelet Count 133 k/uL (150-450); RBC 4.87 m/uL (4.30-5.90); RDW 12.9 % (11.5-15.5); WBC 8.2 k/uL (3.8-10.6)
--- NOTE | 2020-04-18 20:58 | XR ---
EXAMINATION TYPE: XR chest 1V portable DATE OF EXAM: 04/18/2020 COMPARISON: 11/26/2019 HISTORY: Chest pain TECHNIQUE: Single frontal view of the chest is obtained. FINDINGS: Platelike atelectasis at the right lung base. There is no focal air space opacity, pleural effusion, or pneumothorax seen. The cardiac silhouette size is upper limits of normal with dual sheeba d left-sided cardiac device. The osseous structures are intact. IMPRESSION: Chronic right basilar atelectasis. No acute cardiopulmonary process.
[2020-04-18 21:03] LABS: Partial Thromboplastin Time 23.8 sec (22.0-30.0); Prothrombin Time 10.5 sec (9.0-12.0)
[2020-04-18 21:11] LABS: Calcium 9.3 mg/dL (8.4-10.2); Potassium 4.6 mmol/L (3.5-5.1)
[2020-04-18] MEDS ORDERED: MORPHINE SULFATE 4 MG/ML SYRINGE IV STA (21:16)
[2020-04-18] MEDS ORDERED: NITROGLYCERIN SL TABS 0.4 MG TAB SUBLINGUAL STA (21:16)
[2020-04-18] MEDS ORDERED: NITROGLYCERIN SL TABS 0.4 MG TAB SUBLINGUAL PRN (22:06)
[2020-04-18] MEDS ORDERED: KETOROLAC 30 MG/ML 1 ML VIAL IVP STA (22:26)
[2020-04-18] MEDS ORDERED: LIDOCAINE 5% PATCH TOPICAL STA (22:27)
--- NOTE | 2020-04-19 02:36 | P.HPIM ---
History of Present Illness H&P Date: 04/19/20 The patient is an 79-year-old male with a PMH of CAD status post multiple stents, pacemaker placement, hypertension, and hyperlipidemia who presented to the ED with a sudden onset of left sided sharp chest pain. The patient notes that he was in his usual state of health and was mowing his lawn when he developed a sharp, 7 out of 10 left sided intermittent chest pain. The pain was occurring for 5-6 seconds every few minutes, with no clear alleviating or exacerbating features, and was nonradiating. The patient notes that this pain was different from his previous MIs when he usually had substernal pressure-like discomfort. He reports no associated symptoms with this pain. He denied diaphoresis, palpitations, shortness of breath, cough, fever, chills, lower extremity swelling, lower extremity pain, or recent travel. He also denied any additional complaints including abdominal pain, diarrhea, headaches, or dizziness. At time of interview, he notes that his pain has gradually improved though continues to be a 4 out of 10. He underwent an extensive evaluation in the emergency room with troponin less than 0.012, sodium 140, potassium 4.6, chloride 108, BUN 12, creatinine 1.7, WBC count 8.2, hemoglobin 15.7, and platelets 133. Review of Systems Pertinent positives and negatives as discussed in HPI, a complete review of systems was performed and all other systems are negative. Past Medical History Past Medical History: COPD, GERD/Reflux, Hearing Disorder / Deafness, Hyperlipidemia, Hypertension, Myocardial Infarction ([place]) Additional Past Medical History / Comment(s): B 12 deficiency, hx of neuropathy Last Myocardial Infarction Date:: 2005 History of Any Multi-Drug Resistant Organisms: None Reported Past Surgical History: Heart Catheterization With Stent, Orthopedic Surgery, Pacemaker Additional Past Surgical History / Comment(s): RIGHT SHOULDER scope, left knee scope, cardiac stent X 3, PPM 2005 Past Anesthesia/Blood Transfusion Reactions: No Reported Reaction Date of Last Stent Placement:: 11/2005 Type of Cardiac Device: Permanent Pacemaker Device Placement Date:: 11/2005 Past Psychological History: Anxiety Smoking Status: Former smoker Past Alcohol Use History: Rare Past Drug Use History: None Reported - Past Family History Sister(s) Family Medical History: Cancer Mother Family Medical History: No Reported History Medications and Allergies Home Medications Medication Instructions Recorded Confirmed Type Carvedilol [Coreg] 3.125 mg PO BID 07/15/16 04/18/20 History LORazepam [Ativan] 2 mg PO HS 07/15/16 04/18/20 History Mometasone/Formoterol [Dulera 200 1 puff INHALATION RT-DAILY 07/15/16 04/18/20 History Mcg/5 Mcg Inhaler] Pantoprazole Sodium [Protonix] 40 mg PO BID 07/15/16 04/18/20 History Simvastatin [Zocor] 80 mg PO HS 07/15/16 04/18/20 History traZODone HCL [Desyrel] 100 mg PO HS 07/15/16 04/18/20 History Ipratropium/Albuterol Sulfate 1 puff INHALATION RT-DAILY 11/26/19 04/18/20 History [Combivent Respimat Inhaler] Nitroglycerin Sl Tabs [Nitrostat] 0.4 mg SUBLINGUAL Q5M PRN 11/26/19 04/18/20 History Aspirin EC [Ecotrin] 325 mg PO DAILY 04/18/20 04/18/20 History LORazepam [Ativan] 1 mg PO DAILY PRN 04/18/20 04/18/20 History Sertraline HCl [Zoloft] 50 mg PO DAILY 04/18/20 04/18/20 History Allergies Allergy/AdvReac Type Severity Reaction Status Date / Time No Known Allergies Allergy Verified 04/18/20 20:38 Physical Exam Vitals: Vital Signs Temp Pulse Resp BP Pulse Ox 04/18/20 22:24 60 18 121/72 96 04/18/20 20:54 63 18 122/64 95 04/18/20 19:57 98.3 F 72 20 139/78 94 L Intake and Output 04/18/20 04/18/20 04/19/20 14:59 22:59 06:59 Other: Weight 88.451 kg General: non toxic, no distress, appears at stated age, normal weight Derm: no unusual rashes/lesions no unusual ecchymoses, warm, dry Head: atraumatic, normocephalic, symmetric Eyes: EOMI, no lid lag, anicteric sclera, pupils equal round reactive to light ENT: Nose and ears atraumatic, no thrush, no pharyngeal erythema Neck: No thyromegaly, no cervical lymphadenopathy, trachea midline, supple Mouth: no lip lesion, mucus membranes moist Cardiovascular: S1S2 reg, no murmur, positive posterior tibial pulse bilateral, no edema, capillary refill less than 2 seconds Lungs: CTA bilateral, no rhonchi, no rales , no accessory muscle use Abdominal: soft, nontender to palpation, no guarding, no appreciable organomegaly, normal bowel sounds Ext: no gross muscle atrophy, muscle strength 5 out of 5 in all 4 extremities grossly, no contractures, Neuro: CN II-XI grossly intact, light touch intact all 4 extremities, finger to nose within normal limits, Psych: Alert, oriented, appropriate affect Results CBC & Chem 7: 04/18/20 20:40 04/18/20 20:40 Labs: Abnormal Lab Results - Last 24 Hours (Table) 04/18/20 04/18/20 Range/Units 20:40 20:40 Plt Count 133 L (150-450) k/uL Chloride 108 H (98-107) mmol/L Creatinine 1.27 H (0.66-1.25) mg/dL Assessment and Plan Plan: Atypical chest pain in setting of significant coronary artery disease history -Trend troponin -Cardiac monitoring -Continue with aspirin -Cardiology consult -Obtain d-dimer WANDA on chronic kidney disease -Monitor BMP Thrombocytopenia -At baseline -Monitor CBC Chronic conditions: Hypertension, hyperlipidemia -Continue with home meds DVT prophylaxis -IPCDs The patient is admitted with an anticipated less than 2 midnight stay for evaluation of chest pain CODE STATUS: Full Code Discussed with: Patient Anticipated discharge date: 1-[address]: Home A total of 40 minutes was spent on the care of this complex patient more than 50% of the time was spent in counseling and care coordination.
[2020-04-19 02:47] LABS: Cholesterol 115 mg/dL (<200); HDL Cholesterol 36 mg/dL (40-60); LDL Cholesterol,Calculated 57 mg/dL (0-99); Triglycerides 110 mg/dL (<150)
[2020-04-19] MEDS ORDERED: LORazepam 1 MG TAB PO PRN (03:07)
[2020-04-19 03:42] LABS: HCT 43.3 % (39.0-53.0); HGB 14.4 gm/dL (13.0-17.5); MCH 33.4 pg (25.0-35.0); MCHC 33.3 g/dL (31.0-37.0); MCV 100.2 fL (80.0-100.0); Mean Platelet Volume 8.9; Platelet Count 116 k/uL (150-450); RBC 4.32 m/uL (4.30-5.90)
[2020-04-19 04:03] VITALS: RESP 16
[2020-04-19 04:09] LABS: Calcium 8.6 mg/dL (8.4-10.2); Potassium 3.9 mmol/L (3.5-5.1)
[2020-04-19] MEDS ORDERED: CARVEDILOL 3.125 MG TAB PO SCH (07:30)
[2020-04-19] MEDS ORDERED: SYMBICORT 160-4.5 MCG INHALER INHALATION SCH (08:00)
[2020-04-19] MEDS ORDERED: IPRATROPIUM-ALBUTEROL 3 ML NEB INHALATION SCH (08:00)
[2020-04-19] MEDS ORDERED: SERTRALINE 50 MG TAB PO SCH (09:00)
[2020-04-19] MEDS ORDERED: ASPIRIN 325 MG TAB PO SCH (09:00)
--- NOTE | 2020-04-19 12:07 | P.CRDCN ---
History of Present Illness History of present illness: Patient Kike Fierro This is Dr. Robertosn dictating a consult on this patient The patient was interviewed and examined by me IMPRESSION / ASSESSMENT: Patient presents with chest discomfort, substernal with 3 normal cardiac and signs RV paced rhythm on ECG Known coronary artery disease status post coronary stenting LDL 57 on simvastatin The patient states that this is very atypical chest discomfort very different from his heart attack. This feels like a sharp shooting pain fairly localized (heart attack pain is more like a heaviness pressure and heaviness and arm Cardiac enzymes are normal PLAN: Ambulate in the room and she has no symptoms then she should go home He may eat today I would like him to see Dr. Whitaker on Tuesday next week in follow-up No changes in medications HPI 79-year-old male patient presenting with 4 hours of chest discomfort Substernal discomfort crushing. He was mowing the lawn prior to that. No radiation He took a nitroglycerin but it did not help He has a history of coronary artery disease and coronary stenting He is a permanent pacemaker His twelve-lead ECG shows normal RV paced rhythm His blood pressure has been well controlled ROS: No fever chills or rigors, no cough, phlegm or expectoration, no nausea, vomiting or diarrhea, no hematuria, dysuria, no musculoskeletal complaints, no strokes or seizures, no skin lesions. EXAMINATION: On examination he is afebrile 97.6, pulse rate in the 60s and 70s normal respirations nonlabored Blood pressure 126/70 mmHg REVIEW OF LABS, ECG & MEDICAL DATA White count 6, hemoglobin 14.4 Sodium 139, potassium 3.9, BUN 12 creatinine 1.2 3 troponins are normal LDL 57 Past Medical History Past Medical History: COPD, GERD/Reflux, Hearing Disorder / Deafness, Hyperlipidemia, Hypertension, Myocardial Infarction ([place]) Additional Past Medical History / Comment(s): B 12 deficiency, hx of neuropathy Last Myocardial Infarction Date:: 2005 History of Any Multi-Drug Resistant Organisms: None Reported Past Surgical History: Heart Catheterization With Stent, Orthopedic Surgery, Pacemaker Additional Past Surgical History / Comment(s): RIGHT SHOULDER scope, left knee scope, cardiac stent X 3, PPM 2005 Past Anesthesia/Blood Transfusion Reactions: No Reported Reaction Date of Last Stent Placement:: 11/2005 Type of Cardiac Device: Permanent Pacemaker Device Placement Date:: 11/2005 Past Psychological History: Anxiety Smoking Status: Former smoker Past Alcohol Use History: Rare Past Drug Use History: None Reported - Past Family History Sister(s) Family Medical History: Cancer Mother Family Medical History: No Reported History Medications and Allergies Home Medications Medication Instructions Recorded Confirmed Type Carvedilol [Coreg] 3.125 mg PO BID 07/15/16 04/18/20 History LORazepam [Ativan] 2 mg PO HS 07/15/16 04/18/20 History Mometasone/Formoterol [Dulera 200 1 puff INHALATION RT-DAILY 07/15/16 04/18/20 History Mcg/5 Mcg Inhaler] Pantoprazole Sodium [Protonix] 40 mg PO BID 07/15/16 04/18/20 History Simvastatin [Zocor] 80 mg PO HS 07/15/16 04/18/20 History traZODone HCL [Desyrel] 100 mg PO HS 07/15/16 04/18/20 History Ipratropium/Albuterol Sulfate 1 puff INHALATION RT-DAILY 11/26/19 04/18/20 History [Combivent Respimat Inhaler] Nitroglycerin Sl Tabs [Nitrostat] 0.4 mg SUBLINGUAL Q5M PRN 11/26/19 04/18/20 History Aspirin EC [Ecotrin] 325 mg PO DAILY 04/18/20 04/18/20 History LORazepam [Ativan] 1 mg PO DAILY PRN 04/18/20 04/18/20 History Sertraline HCl [Zoloft] 50 mg PO DAILY 04/18/20 04/18/20 History Allergies Allergy/AdvReac Type Severity Reaction Status Date / Time No Known Allergies Allergy Verified 04/18/20 20:38 Physical Exam Vitals: Vital Signs Temp Pulse Pulse Resp BP BP Pulse Ox 04/19/20 08:20 97.6 F 63 16 126/70 92 L 04/19/20 08:00 72 04/19/20 07:50 68 04/19/20 04:00 97.9 F 66 16 103/53 94 L 04/18/20 23:29 97.5 F L 95 18 129/65 95 04/18/20 22:24 60 18 121/72 96 04/18/20 20:54 63 18 122/64 95 04/18/20 19:57 98.3 F 72 20 139/78 94 L Intake and Output 04/18/20 04/19/20 04/19/20 22:59 06:59 14:59 Other: Voiding Method Toilet # Voids 1 Weight 88.451 kg 84.5 kg Results 04/19/20 03:25 04/19/20 03:25 Cardiac Enzymes 04/18/20 04/19/20 04/19/20 Range/Units 20:40 02:17 08:59 Troponin I <0.012 <0.012 <0.012 (0.000-0.034) ng/mL Coagulation 04/18/20 Range/Units 20:40 PT 10.5 (9.0-12.0) sec APTT 23.8 (22.0-30.0) sec Lipids 04/19/20 Range/Units 02:17 Triglycerides 110 (<150) mg/dL Cholesterol 115 (<200) mg/dL HDL Cholesterol 36 L (40-60) mg/dL CBC 04/18/20 04/19/20 Range/Units 20:40 03:25 WBC 8.2 6.0 (3.8-10.6) k/uL RBC 4.87 4.32 (4.30-5.90) m/uL Hgb 15.7 14.4 (13.0-17.5) gm/dL Hct 48.5 43.3 (39.0-53.0) % Plt Count 133 L 116 L (150-450) k/uL Comprehensive Metabolic Panel 04/18/20 04/19/20 Range/Units 20:40 03:25 Sodium 140 139 (137-145) mmol/L Potassium 4.6 3.9 (3.5-5.1) mmol/L Chloride 108 H 108 H (98-107) mmol/L Carbon Dioxide 25 26 (22-30) mmol/L BUN 12 12 (9-20) mg/dL Creatinine 1.27 H 1.20 (0.66-1.25) mg/dL Glucose 84 90 (74-99) mg/dL Calcium 9.3 8.6 (8.4-10.2) mg/dL Current Medications Generic Name Dose Route Start Last Admin Trade Name Freq PRN Reason Stop Dose Admin Albuterol/Ipratropium 3 ml 04/19/20 08:00 05/23/20 07:47 Duoneb 0.5 Mg-3 Mg/3 Ml Soln INHALATION 3 ml RT-DAILY MITA Administration Aspirin 325 mg 04/19/20 09:00 04/19/20 08:22 Aspirin PO 325 mg DAILY MITA Administration Atorvastatin Calcium 40 mg 04/19/20 21:00 Lipitor PO HS MITA Budesonide/Formoterol Fumarate 1 puff 04/19/20 08:00 04/19/20 07:47 Symbicort 160-4.5 Mcg Inhaler INHALATION 1 puff RT-DAILY MITA Administration Carvedilol 3.125 mg 04/19/20 07:30 04/19/20 06:31 Coreg PO 3.125 mg AC-BID MITA Administration Lorazepam 1 mg 04/19/20 03:07 Ativan PO DAILY PRN Anxiety Lorazepam 2 mg 04/19/20 21:00 Ativan PO HS MITA Nitroglycerin 0.4 mg 04/18/20 22:06 Nitrostat SUBLINGUAL Q5M PRN Chest Pain Sertraline HCl 50 mg 04/19/20 09:00 04/19/20 08:22 Zoloft PO 50 mg DAILY MITA Administration Trazodone HCl 100 mg 04/19/20 21:00 Desyrel PO HS [facility] Intake and Output 04/18/20 04/19/20 04/19/20 22:59 06:59 14:59 Other: Voiding Method Toilet # Voids 1 Weight 88.451 kg 84.5 kg 04/19/20 03:25 04/19/20 03:25
[2020-04-19 12:57] VITALS: BP 155/73; PULSE 60; TEMP 97.8
--- NOTE | 2020-04-19 14:33 | P.DS ---
Providers Date of admission: 04/18/20 22:06 Expected date of discharge: 04/19/20 Attending physician: Yessica Suazo MD Consults: 04/18/20 22:06 Consult Physician Urgent Consulting Provider: Arnulfo Dasilva Consult Reason/Comments: chest pain Do you want consulting provider notified?: Yes Primary care physician: [facility] Course: The patient is an 79-year-old male with a PMH of CAD status post multiple stents, pacemaker placement, hypertension, and hyperlipidemia who presented to the ED with a sudden onset of left sided sharp chest pain. The patient notes that he was in his usual state of health and was mowing his lawn when he developed a sharp, 7 out of 10 left sided intermittent chest pain. The pain was occurring for 5-6 seconds every few minutes, with no clear alleviating or exacerbating features, and was nonradiating. The patient notes that this pain was different from his previous MIs when he usually had substernal pressure-like discomfort. He reports no associated symptoms with this pain. He denied diaphoresis, palpitations, shortness of breath, cough, fever, chills, lower extremity swelling, lower extremity pain, or recent travel. He also denied any additional complaints including abdominal pain, diarrhea, headaches, or dizziness. At time of interview, he notes that his pain has gradually improved though continues to be a 4 out of 10. He underwent an extensive evaluation in the emergency room with troponin less than 0.012, sodium 140, potassium 4.6, chloride 108, BUN 12, creatinine 1.7, WBC count 8.2, hemoglobin 15.7, and platelets 133. His d-dimer was negative. His troponin was also 0.0123 with EKG showing AV dual paced rhythm. Cardiology was consulted and echocardiogram was obtained. Cardiology cleared the patient for discharge home with follow-up with Dr. Whitaker on Tuesday. Patient was seen and examined. No acute events overnight. Patient reports complete resolution of his chest pain this morning. He denies any chest pain, shortness breath or palpitations. No nausea or vomiting. No fever or chills. General: [non toxic], [no distress], [appears at stated age] Derm: [warm], [dry] Head: [atraumatic], [normocephalic], [symmetric] Eyes: [EOMI], [no lid lag], [anicteric sclera] Mouth: [no lip lesion], [mucus membranes moist] Cardiovascular: [S1S2 reg], [no murmur], [positive posterior tibial pulse bilateral], Lungs: [CTA bilateral], [no rhonchi, no rales] , [no accessory muscle use] Abdominal: [soft], [ nontender to palpation], [no guarding], [no appreciable organomegaly] Ext: [no gross muscle atrophy], [no edema], [no contractures] Neuro: [ CN II-XI grossly intact], [no focal neuro deficits] Psych: [Alert], [oriented], [appropriate affect] Atypical chest pain in setting of significant coronary artery disease history -Troponins have been negative 3 and ACS has been ruled out -Cardiac monitoring -Continue with aspirin -Cardiology consulted, echocardiogram obtained, cleared patient for discharge with follow-up Dr. Whitaker on Tuesday -D-dimer negative with low concerns for PE Thrombocytopenia -At baseline -Monitor CBC Chronic conditions: Hypertension, hyperlipidemia -Continue with home meds DVT prophylaxis -IPCDs [Patient admitted for chest pain. Symptoms have completely resolved. Troponins negative 3. ACS ruled out. Echocardiogram obtained and patient cleared for discharge from cardiology standpoint. DC today with close follow-up with Dr. Whitaker on Tuesday.] Pertinent Studies: Chest x-ray, echocardiogram Patient Condition at Discharge: Stable Plan - Discharge Summary Discharge Rx Participant: No New Discharge Prescriptions: Continue Simvastatin [Zocor] 80 mg PO HS LORazepam [Ativan] 2 mg PO HS Mometasone/Formoterol [Dulera 200 Mcg/5 Mcg Inhaler] 1 puff INHALATION RT- DAILY Carvedilol [Coreg] 3.125 mg PO BID traZODone HCL [Desyrel] 100 mg PO HS Pantoprazole Sodium [Protonix] 40 mg PO BID Ipratropium/Albuterol Sulfate [Combivent Respimat Inhaler] 1 puff INHALATION RT-DAILY Nitroglycerin Sl Tabs [Nitrostat] 0.4 mg SUBLINGUAL Q5M PRN PRN Reason: Chest Pain Aspirin EC [Ecotrin] 325 mg PO DAILY Sertraline HCl [Zoloft] 50 mg PO DAILY LORazepam [Ativan] 1 mg PO DAILY PRN PRN Reason: Anxiety Discharge Medication List Carvedilol [Coreg] 3.125 mg PO BID 07/15/16 [History] LORazepam [Ativan] 2 mg PO HS 07/15/16 [History] Mometasone/Formoterol [Dulera 200 Mcg/5 Mcg Inhaler] 1 puff INHALATION RT-DAILY 07/15/16 [History] Pantoprazole Sodium [Protonix] 40 mg PO BID 07/15/16 [History] Simvastatin [Zocor] 80 mg PO HS 07/15/16 [History] traZODone HCL [Desyrel] 100 mg PO HS 07/15/16 [History] Ipratropium/Albuterol Sulfate [Combivent Respimat Inhaler] 1 puff INHALATION RT- DAILY 11/26/19 [History] Nitroglycerin Sl Tabs [Nitrostat] 0.4 mg SUBLINGUAL Q5M PRN 11/26/19 [History] Aspirin EC [Ecotrin] 325 mg PO DAILY 04/18/20 [History] LORazepam [Ativan] 1 mg PO DAILY PRN 04/18/20 [History] Sertraline HCl [Zoloft] 50 mg PO DAILY 04/18/20 [History] Follow up Appointment(s)/Referral(s): Jacoby Robertson MD [STAFF PHYSICIAN] - 1 Week Alexey Chen MD [Primary Care Provider] - 1-2 days Patient Instructions/Handouts: Chest Pain (DC) Activity/Diet/Wound Care/Special Instructions: Diet: Cardiac FU PCP within 3 days. FU Cardiology within 1 week. Take all medications as advised. Come back to ED for worsening Chest pain, SOB, palpitations, dizziness Discharge Disposition: HOME SELF-CARE
[2020-04-19] MEDS ORDERED: LORazepam 1 MG TAB PO SCH (21:00)
[2020-04-19] MEDS ORDERED: traZODone HCL 100 MG TAB PO SCH (21:00)
[2020-04-19] MEDS ORDERED: ATORVASTATIN 40 MG TAB PO SCH (21:00)
--- NOTE | 2020-04-20 14:00 | ECHOF ---
Referral Reason: MEASUREMENTS -------- HEIGHT: 172.7 cm WEIGHT: 84.4 kg BP: 126/70 IVSd: 1.9 cm (0.6 - 1.1) LVIDd: 3.8 cm (3.9 - 5.3) LVPWd: 2.0 cm (0.6 - 1.1) IVSs: 2.0 cm LVIDs: 2.9 cm LVPWs: 2.5 cm RVIDd: 4.4 cm (< 3.3) LAESV Index (A-L): 18.56 ml/m Ao Diam: 3.7 cm (2.0 - 3.7) AV Cusp: 1.7 cm (1.5 - 2.6) EPSS: 1.1 cm MV E Jett: 0.50 m/s MV DecT: 226 ms MV A Jett: 0.59 m/s MV E/A Ratio: 0.85 RAP: 5.00 mmHg RVSP: 23.14 mmHg MV EF SLOPE: 62.23 mm/s (70 - 150) MV EXCURSION: 12.10 mm (> 18.000) FINDINGS -------- Sinus rhythm. This was a technically adequate study. The left ventricular size is normal. There is severe concentric left ventricular hypertrophy. Ove rall left ventricular systolic function is mildly impaired with, an EF between 45 - 50 %. Mitral Do ppler inflow pattern suggests diastolic filling abnormality 12.08. Mid Basal Septal Hypokinesis. The right ventricle is moderately enlarged. Normal LA size by volume 22+/-6 ml/m2. The right atrium was not well visualized. Interatrial and interventricular septum intact. There is no evidence of aortic regurgitation. There is no evidence of aortic stenosis. Mild mitral regurgitation is present. Mild tricuspid regurgitation present. There is no evidence of pulmonary hypertension. The right v entricular systolic pressure, as measured by Doppler, is 23.14mmHg. There is no pulmonic regurgitation present. The aortic root size is normal. IVC Not well visulized. There is no pericardial effusion. CONCLUSIONS -------- 1. Sinus rhythm. 2. This was a technically adequate study. 3. The left ventricular size is normal. 4. There is severe concentric left ventricular hypertrophy. 5. Overall left ventricular systolic function is mildly impaired with, an EF between 45 - 50 %. 6. Mitral Doppler inflow pattern suggest diastolic filling abnormality 12.08. 7. Mid Basal Septal Hypokinesis. 8. The right ventricle is moderately enlarged. 9. Normal LA size by volume 22+/-6 ml/m2. 10. The right atrium was not well visualized. 11. Interatrial and interventricular septum intact. 12. There is no evidence of aortic regurgitation. 13. There is no evidence of aortic stenosis. 14. Mild mitral regurgitation is present. 15. Mild tricuspid regurgitation present. 16. There is no evidence of pulmonary hypertension. 17. The right ventricular systolic pressure, as measured by Doppler, is 23.14mmHg. 18. There is no pulmonic regurgitation present. 19. The aortic root size is normal. 20. IVC Not well visulized. 21. There is no pericardial effusion. DOCUMENTATION BILLING CLERK: Jenelle Gotti RDCS
== END 2020-04-19 13:41 | disposition home or self-care (01) ==
LOC: EC 19:54 → 3SCARD 22:06
PROVIDERS: ADMIT Internal Medicine; ATTEND Internal Medicine
DX: R07.89 Other chest pain (principal); I25.10 Atherosclerotic heart disease of native coronary artery without angina pectoris; J44.9 Chronic obstructive pulmonary disease, unspecified; K21.9 Gastro-esophageal reflux disease without esophagitis; D69.6 Thrombocytopenia, unspecified; H91.90 Unspecified hearing loss, unspecified ear; E78.5 Hyperlipidemia, unspecified; I12.9 Hypertensive chronic kidney disease with stage 1 through stage 4 chronic kidney disease, or unspecified chronic kidney disease; N17.9 Acute kidney failure, unspecified; N18.9 Chronic kidney disease, unspecified; I25.2 Old myocardial infarction; G62.9 Polyneuropathy, unspecified; F41.9 Anxiety disorder, unspecified; E53.8 Deficiency of other specified B group vitamins; Z87.891 Personal history of nicotine dependence; Z95.5 Presence of coronary angioplasty implant and graft; Z98.890 Other specified postprocedural states; Z95.0 Presence of cardiac pacemaker; Z79.51 Long term (current) use of inhaled steroids; Z79.899 Other long term (current) drug therapy
CPT/HCPCS: 96374; 96375; 99285; 36415; 94640 ×2; 93005; 93306; 85379; 80061; 80048 ×2; 84484 ×2; 85025; 85027; 85610; 85730; 87635; 71045; G0378 ×2; J2270; J1885

== ENCOUNTER → 2020-05-19 | Outpatient (CLI) | payer MEDICARE | END | disposition home or self-care (01) | LOC: CPPFTMAIN 07:16 | PROVIDERS: ATTEND Internal Medicine | DX: J44.9 Chronic obstructive pulmonary disease, unspecified (principal); R94.2 Abnormal results of pulmonary function studies | CPT/HCPCS: 94060; 94726; 94729 ==

== ENCOUNTER 2020-07-09 12:14 | Emergency (ER) | payer MEDICARE ==
[2020-07-09 12:28] VITALS: RESP 16; TEMP 97.8
[2020-07-09] MEDS ORDERED: SODIUM CHLORIDE 0.9% 500 ML 500 ML IV STA (12:50)
[2020-07-09] MEDS ORDERED: SODIUM CHLORIDE 0.9% 1,000 ML IV STA (12:50)
[2020-07-09] MEDS ORDERED: DIPHENOX-ATROP 2.5-0.025 MG 1 EACH TAB PO STA (12:50)
--- NOTE | 2020-07-09 13:11 | ED ---
General Adult HPI - General Chief complaint: Nausea/Vomiting/Diarrhea Stated complaint: fall, diarrhea, wants covid test Time Seen by Provider: 07/09/20 12:25 Source: patient, RN notes reviewed, old records reviewed Mode of arrival: ambulatory Limitations: no limitations - History of Present Illness Initial comments: This is an 79-year-old male who presents to the emergency department stating that he has had a five-day history of diarrhea. Patient states she's had no recent antibiotic use. Patient denies any fever chills per patient denies any significant abdominal pain. Patient denies any nausea vomiting. Patient states she spoke with and the doctor wanted him to come in to the emergency department. Patient denies any chest pain difficulty breathing first breath. Patient has any back pain. Patient dysuria Hematuria urinary frequency. Patient has no other symptoms at this time. Patient states he also followed bed. Patient go hit the side of his head he did not lose consciousness she was not dazed be did have a headache that they. Patient states since then he's had no neurological deficit and no headache. - Related Data Home Medications Medication Instructions Recorded Confirmed LORazepam [Ativan] 2 mg PO HS 07/15/16 07/09/20 Pantoprazole Sodium [Protonix] 40 mg PO BID 07/15/16 07/09/20 Simvastatin [Zocor] 80 mg PO HS 07/15/16 07/09/20 carvediloL [Coreg] 3.125 mg PO BID 07/15/16 07/09/20 traZODone HCL [Desyrel] 200 mg PO HS 07/15/16 07/09/20 Nitroglycerin Sl Tabs [Nitrostat] 0.4 mg SUBLINGUAL Q5M PRN 11/26/19 07/09/20 Aspirin EC [Ecotrin] 325 mg PO DAILY 04/18/20 07/09/20 LORazepam [Ativan] 1 mg PO DAILY PRN 04/18/20 07/09/20 Sertraline HCl [Zoloft] 50 mg PO DAILY 04/18/20 07/09/20 Aclidinium [place] [Tudorza 1 puff INHALATION RT-BID 07/09/20 07/09/20 Pressair] Levalbuterol Tartrate 2 puff INHALATION RT-TID PRN 08/12/20 08/12/20 [Levalbuterol Tartrate 45 MCG Hfa] Tagqqpbl-Kmhdhmgip-Nhlqfbyi 1 applic BOTH EYES HS 07/09/20 07/09/20 [Maxitrol Ophth Oint] Allergies Allergy/AdvReac Type Severity Reaction Status Date / Time No Known Allergies Allergy Verified 07/09/20 14:10 Review of Systems ROS Statement: Those systems with pertinent positive or pertinent negative responses have been documented in the HPI. ROS Other: All systems not noted in ROS Statement are negative. Past Medical History Past Medical History: COPD, GERD/Reflux, Hearing Disorder / Deafness, Hyperlipidemia, Hypertension, Myocardial Infarction ([place]) Additional Past Medical History / Comment(s): B 12 deficiency, hx of neuropathy Last Myocardial Infarction Date:: 2005 History of Any Multi-Drug Resistant Organisms: None Reported Past Surgical History: Heart Catheterization With Stent, Orthopedic Surgery, Pacemaker Additional Past Surgical History / Comment(s): RIGHT SHOULDER scope, left knee scope, cardiac stent X 3, PPM 2005 Past Anesthesia/Blood Transfusion Reactions: No Reported Reaction Date of Last Stent Placement:: 11/2005 Type of Cardiac Device: Permanent Pacemaker Device Placement Date:: 11/2005 Past Psychological History: Anxiety Smoking Status: Light tobacco smoker Past Alcohol Use History: Rare Past Drug Use History: None Reported - Past Family History Sister(s) Family Medical History: Cancer Mother Family Medical History: No Reported History General Exam - General Exam Comments Initial Comments: GENERAL: Patient is well-developed and well-nourished. Patient is nontoxic and well- hydrated and is in mild distress. ENT: Neck is soft and supple. No significant lymphadenopathy is noted. Oropharynx is clear. Moist mucous membranes. Neck has full range of motion without eliciting any pain. EYES: The sclera were anicteric and conjunctiva were pink and moist. Extraocular movements were intact and pupils were equal round and reactive to light. Eyelids were unremarkable. PULMONARY: Unlabored respirations. Good breath sounds bilaterally. No audible rales rhonchi or wheezing was noted. CARDIOVASCULAR: There is a regular rate and rhythm without any murmurs gallops or rubs. ABDOMEN: Soft and nontender with normal bowel sounds. No palpable organomegaly was noted. There is no palpable pulsatile mass. SKIN: Skin is clear with no lesions or rashes and otherwise unremarkable. NEUROLOGIC: Patient is alert and oriented x3. Cranial nerves II through XII are grossly intact. Motor and sensory are also intact. Normal speech, volume and content. Symmetrical smile. MUSCULOSKELETAL: Normal extremities with adequate strength and full range of motion. No lower extremity swelling or edema. No calf tenderness. LYMPHATICS: No significant lymphadenopathy is noted PSYCHIATRIC: Normal psychiatric evaluation. Limitations: no limitations Course Vital Signs 07/09/20 07/09/20 12:24 14:38 Temperature 97.8 F Pulse Rate 66 62 Respiratory 16 16 Rate Blood Pressure 107/68 116/68 O2 Sat by Pulse 95 99 Oximetry Medical Decision Making - Medical Decision Making Patient received a liter and half of fluid. I went back into the room to reevaluate the patient he stated he felt much improved. Patient has had no diarrhea since she's been emergency department. Patient also had 2 Lomotil pills while he was here. - Lab Data Result diagrams: 07/09/20 12:53 07/09/20 12:53 Lab Results 07/09/20 07/09/20 07/09/20 Range/Units 12:53 12:53 12:53 WBC 5.2 (3.8-10.6) k/uL RBC 5.31 (4.30-5.90) m/uL Hgb 17.7 H (13.0-17.5) gm/dL Hct 53.2 H (39.0-53.0) % MCV 100.2 H (80.0-100.0) fL MCH 33.4 (25.0-35.0) pg MCHC 33.3 (31.0-37.0) g/dL RDW 13.1 (11.5-15.5) % Plt Count 111 L (150-450) k/uL Neutrophils % 61 % Lymphocytes % 22 % Monocytes % 9 % Eosinophils % 3 % Basophils % 1 % Neutrophils # 3.2 (1.3-7.7) k/uL Lymphocytes # 1.2 (1.0-4.8) k/uL Monocytes # 0.5 (0-1.0) k/uL Eosinophils # 0.1 (0-0.7) k/uL Basophils # 0.0 (0-0.2) k/uL Sodium 137 (137-145) mmol/L Potassium 4.4 (3.5-5.1) mmol/L Chloride 107 (98-107) mmol/L Carbon Dioxide 21 L (22-30) mmol/L Anion Gap 9 mmol/L BUN 12 (9-20) mg/dL Creatinine 1.44 H (0.66-1.25) mg/dL Est GFR (CKD-EPI)AfAm 53 (>60 ml/min/1.73 sqM) Est GFR (CKD-EPI)NonAf 46 (>60 ml/min/1.73 sqM) Glucose 113 H (74-99) mg/dL Plasma Lactic Acid Lucas 1.7 (0.7-2.0) mmol/L Calcium 8.9 (8.4-10.2) mg/dL Total Bilirubin 0.8 (0.2-1.3) mg/dL AST 31 (17-59) U/L ALT 12 (4-49) U/L Alkaline Phosphatase 73 (38-126) U/L Total Protein 6.5 (6.3-8.2) g/dL Albumin 3.9 (3.5-5.0) g/dL Amylase <30 L (30-110) U/L Lipase 219 (23-300) U/L Urine Color Urine Appearance (Clear) Urine pH (5.0-8.0) Ur Specific Mcintosh (1.001-1.035) Urine Protein (Negative) Urine Glucose (UA) (Negative) Urine Ketones (Negative) Urine Blood (Negative) Urine Nitrite (Negative) Urine Bilirubin (Negative) Urine Urobilinogen (<2.0) mg/dL Ur Leukocyte Esterase (Negative) Urine RBC (0-5) /hpf Urine WBC (0-5) /hpf Hyaline Casts (0-2) /lpf Urine Mucus (None) /hpf Coronavirus (PCR) (Not Detected) 07/09/20 07/09/20 Range/Units 13:58 14:42 WBC (3.8-10.6) k/uL RBC (4.30-5.90) m/uL Hgb (13.0-17.5) gm/dL Hct (39.0-53.0) % MCV (80.0-100.0) fL MCH (25.0-35.0) pg MCHC (31.0-37.0) g/dL RDW (11.5-15.5) % Plt Count (150-450) k/uL Neutrophils % % Lymphocytes % % Monocytes % % Eosinophils % % Basophils % % Neutrophils # (1.3-7.7) k/uL Lymphocytes # (1.0-4.8) k/uL Monocytes # (0-1.0) k/uL Eosinophils # (0-0.7) k/uL Basophils # (0-0.2) k/uL Sodium (137-145) mmol/L Potassium (3.5-5.1) mmol/L Chloride (98-107) mmol/L Carbon Dioxide (22-30) mmol/L Anion Gap mmol/L BUN (9-20) mg/dL Creatinine (0.66-1.25) mg/dL Est GFR (CKD-EPI)AfAm (>60 ml/min/1.73 sqM) Est GFR (CKD-EPI)NonAf (>60 ml/min/1.73 sqM) Glucose (74-99) mg/dL Plasma Lactic Acid Lucas (0.7-2.0) mmol/L Calcium (8.4-10.2) mg/dL Total Bilirubin (0.2-1.3) mg/dL AST (17-59) U/L ALT (4-49) U/L Alkaline Phosphatase (38-126) U/L Total Protein (6.3-8.2) g/dL Albumin (3.5-5.0) g/dL Amylase (30-110) U/L Lipase (23-300) U/L Urine Color Yellow Urine Appearance Clear (Clear) Urine pH 5.5 (5.0-8.0) Ur Specific Mcintosh 1.012 (1.001-1.035) Urine Protein Trace H (Negative) Urine Glucose (UA) Negative (Negative) Urine Ketones Negative (Negative) Urine Blood Trace H (Negative) Urine Nitrite Negative (Negative) Urine Bilirubin Negative (Negative) Urine Urobilinogen <2.0 (<2.0) mg/dL Ur Leukocyte Esterase Negative (Negative) Urine RBC 2 (0-5) /hpf Urine WBC 2 (0-5) /hpf Hyaline Casts 127 H (0-2) /lpf Urine Mucus Occasional H (None) /hpf Coronavirus (PCR) Not Detected (Not Detected) Disposition Clinical Impression: Acute diarrhea Disposition: HOME SELF-CARE Instructions (If sedation given, give patient instructions): Acute Diarrhea (ED) Is patient prescribed a controlled substance at d/c from ED?: No Referrals: Alexey Chen MD [Primary Care Provider] - 1-2 days Time of Disposition: 15:22
[2020-07-09 13:53] LABS: Basophils % (A) 1 %; Eosinophils # (A) 0.1 k/uL (0-0.7); Eosinophils % (A) 3 %; HCT 53.2 % (39.0-53.0); HGB 17.7 gm/dL (13.0-17.5); Lymphocytes # (A) 1.2 k/uL (1.0-4.8); Lymphocytes % (A) 22 %; MCH 33.4 pg (25.0-35.0); MCHC 33.3 g/dL (31.0-37.0); MCV 100.2 fL (80.0-100.0); Mean Platelet Volume 9.4; Monocytes # (A) 0.5 k/uL (0-1.0); Monocytes % (A) 9 %; Neutrophils # (A) 3.2 k/uL (1.3-7.7); Neutrophils % (A) 61 %; Platelet Count 111 k/uL (150-450); RBC 5.31 m/uL (4.30-5.90); RDW 13.1 % (11.5-15.5); WBC 5.2 k/uL (3.8-10.6)
[2020-07-09 13:59] LABS: ALT 12 U/L (4-49); AST 31 U/L (17-59); African American GFR (CKD) 53 (>60 ml/min/1.73 sqM); Albumin 3.9 g/dL (3.5-5.0); Alkaline Phosphatase 73 U/L (38-126); Amylase <30 U/L (30-110); Anion Gap 9 mmol/L; Blood Urea Nitrogen 12 mg/dL (9-20); Calcium 8.9 mg/dL (8.4-10.2); Carbon Dioxide 21 mmol/L (22-30); Chloride 107 mmol/L (98-107); Glucose 113 mg/dL (74-99); Non-African American GFR(CKD) 46 (>60 ml/min/1.73 sqM); Potassium 4.4 mmol/L (3.5-5.1); Sodium 137 mmol/L (137-145); Total Bilirubin 0.8 mg/dL (0.2-1.3); Total Protein 6.5 g/dL (6.3-8.2)
--- NOTE | 2020-07-09 14:06 | CT ---
EXAMINATION TYPE: CT brain wo con DATE OF EXAM: 07/09/2020 COMPARISON: Prior CT 03/27/2019 HISTORY: headache post fall CT DLP: 1099.4 mGycm Automated exposure control for dose reduction was used. Helical imaging through the brain. FINDINGS: There is cortical atrophy present. No hemorrhage or hydrocephalus. There are cerebral vascular calcif ications present. Periventricular white matter shows patchy low attenuation. Calvarium is intact. Par anasal sinuses and mastoid air cells as visualized are normal. IMPRESSION: NO ACUTE ABNORMALITY. AGE-RELATED CHANGES OF ATROPHY AND PROBABLE CHRONIC SMALL VESSEL ISCHEMIA.
[2020-07-09 14:38] VITALS: BP 116/68; PULSE 62
[2020-07-09 15:12] LABS: Appearance,Urine Clear (Clear); Bilirubin,Urine Negative (Negative); Blood,Urine Trace (Negative); Color,Urine Yellow; Glucose,Urine (UA) Negative (Negative); Hyaline Casts,Urine 127 /lpf (0-2); Ketones,Urine Negative (Negative); Leukocyte Esterase,Urine Negative (Negative); Mucus,Urine Occasional /hpf; Nitrite,Urine Negative (Negative); PH, Urine 5.5 (5.0-8.0); Protein,Urine Trace (Negative); RBC,Urine 2 /hpf (0-5); Specific Gravity,Urine 1.012 (1.001-1.035); Urobilinogen,Urine <2.0 mg/dL (<2.0); WBC,Urine 2 /hpf (0-5)
[2020-07-09] MEDS ORDERED: DIPHENOX-ATROP STARTER PACK 8 TAB BTL PO STA (15:23)
== END 2020-07-09 15:38 | disposition home or self-care (01) ==
LOC: EC 12:14
DX: Z03.818 Encounter for observation for suspected exposure to other biological agents ruled out (principal); R19.7 Diarrhea, unspecified; F41.9 Anxiety disorder, unspecified; J44.9 Chronic obstructive pulmonary disease, unspecified; K21.9 Gastro-esophageal reflux disease without esophagitis; E78.5 Hyperlipidemia, unspecified; I10 Essential (primary) hypertension; M54.9 Dorsalgia, unspecified; R30.0 Dysuria; R31.9 Hematuria, unspecified; R35.0 Frequency of micturition; F17.210 Nicotine dependence, cigarettes, uncomplicated; I25.2 Old myocardial infarction; E53.8 Deficiency of other specified B group vitamins; Z79.82 Long term (current) use of aspirin; Z79.899 Other long term (current) drug therapy; Z79.51 Long term (current) use of inhaled steroids; Z95.0 Presence of cardiac pacemaker; Z95.5 Presence of coronary angioplasty implant and graft
CPT/HCPCS: 51798; 36415; 80053; 82150; 83605; 83690; 85025; 81001; 70450; 99284; 96360; 96361 ×2; U0003; 96374; 96375

== ENCOUNTER → 2020-12-30 | Outpatient (CLI) | payer MEDICARE ==
[2020-12-30 10:53] LABS: African American GFR (CKD) 65.3 (60.0-200.0); Albumin 4.3 g/dL (3.80-4.90); Albumin/Globulin Ratio 2.26 (1.60-3.17); Anion Gap 7.7 mmol/L (4.00-12.00); BUN/Creat Ratio 7.5 Ratio (12.00-20.00); Calcium 9.2 mg/dL (8.7-10.3); Carbon Dioxide 28.3 mmol/L (21.6-31.8); Chol/HDL Ratio 2.95; Globulin 1.9 g/dL (1.6-3.3); LDL Cholesterol,Calculated 49.4 mg/dL (0.0-131.0); Non-African American GFR(CKD) 56.4 (60.0-200.0); Potassium 4.1 mmol/L (3.5-5.5); Total Bilirubin 0.8 mg/dL (0.3-1.2); Total Protein 6.2 g/dL (6.2-8.2); VLDL Calculation 22.6 mg/dL (5.00-40.00)
== END | disposition home or self-care (01) ==
LOC: LABWHC1 07:06
PROVIDERS: ATTEND Internal Medicine Interventional Cardiology
DX: E78.2 Mixed hyperlipidemia (principal)
CPT/HCPCS: 36415; 80053; 80061

== ENCOUNTER 2021-02-11 13:10 | Inpatient (IN) | payer MEDICARE ==
--- NOTE | 2021-02-11 13:50 | ED ---
Chest Pain HPI - General Chief Complaint: Chest Pain Stated Complaint: Chest Pain, SOB, Dizziness Time Seen by Provider: 02/11/21 13:10 Source: patient Mode of arrival: ambulatory Limitations: no limitations - History of Present Illness Initial Comments: Patient is an 80-year-old male with past history of coronary artery disease status post stent placement, COPD and high blood pressure presents emergency Department with reported chest pain. Reports she's had chest pain, exertional dyspnea for the past 2 days which is progressively getting worse. Pain is located over the left side of his chest and radiates to the right side as well as through to his back. Pain is intermittent and denies any provocative factors. No associated cough, fevers or chills. Does admit to nausea without vomiting. Last catheterization was 3 years ago. Reports that the patient did have some coronary disease which required stent placement however was never performed. [facility] were 12-lead EKG was performed. Pacemaker was capturing appropriately. He was sent in from their office for further evaluation. Patient denies taking any anticoagulants. No numbness or weakness. No other alleviating, precipitating or modifying factors - Related Data Home Medications Medication Instructions Recorded Confirmed Simvastatin [Zocor] 80 mg PO HS 07/15/16 02/11/21 carvediloL [Coreg] 3.125 mg PO BID 07/15/16 02/11/21 traZODone HCL [Desyrel] 200 mg PO HS 07/15/16 02/11/21 Nitroglycerin Sl Tabs [Nitrostat] 0.4 mg SUBLINGUAL Q5M PRN 11/26/19 02/11/21 LORazepam [Ativan] 1 mg PO TID PRN 04/18/20 02/11/21 Sertraline HCl [Zoloft] 50 mg PO DAILY 04/18/20 02/11/21 Aclidinium [place] [Tudorza 1 puff INHALATION RT-BID 07/09/20 02/11/21 Pressair] Auhzdzox-Ufkaibinr-Yukmaqio 1 applic BOTH EYES HS 07/09/20 02/11/21 [Maxitrol Ophth Oint] Acyclovir 5% Oint [Zovirax Oint] 1 applic TOPICAL TID 02/11/21 02/11/21 Isosorbide Mononitrate ER [Imdur] 15 mg PO DAILY 02/11/21 02/11/21 Previous Rx's Medication Instructions Recorded Aspirin 81 mg PO DAILY chew 02/14/21 Ipratropium-Albuterol Nebulize 3 ml INHALATION Q4HR PRN 30 Days 02/14/21 [Duoneb 0.5 mg-3 mg/3 ml Soln] #1 box predniSONE [Deltasone] 40 mg PO DAILY 3 Days #3 tab 02/14/21 Allergies Allergy/AdvReac Type Severity Reaction Status Date / Time No Known Allergies Allergy Verified 02/11/21 16:00 Review of Systems ROS Statement: Those systems with pertinent positive or pertinent negative responses have been documented in the HPI. ROS Other: All systems not noted in ROS Statement are negative. EKG Findings - EKG Comments: EKG Findings:: EKG demonstrates a paced rhythm with a ventricular rate of 66. ME interval 204. QRS 162. QTC of 496. Negative for Sgarbossa criteria. Past Medical History Past Medical History: COPD, GERD/Reflux, Hearing Disorder / Deafness, Hyperlipidemia, Hypertension, Myocardial Infarction ([place]) Additional Past Medical History / Comment(s): B 12 deficiency, hx of neuropathy, Last Myocardial Infarction Date:: 2005 History of Any Multi-Drug Resistant Organisms: None Reported Past Surgical History: Heart Catheterization With Stent, Orthopedic Surgery, Pacemaker Additional Past Surgical History / Comment(s): RIGHT SHOULDER scope, left knee scope, cardiac stent X 3, PPM 2005 Past Anesthesia/Blood Transfusion Reactions: No Reported Reaction Date of Last Stent Placement:: 11/2005 Type of Cardiac Device: Permanent Pacemaker Device Placement Date:: 11/2005 Past Psychological History: Anxiety Smoking Status: Light tobacco smoker Past Alcohol Use History: Rare Past Drug Use History: None Reported - Past Family History Sister(s) Family Medical History: Cancer Mother Family Medical History: No Reported History General Exam Limitations: no limitations General appearance: alert, in no apparent distress Head exam: Present: atraumatic, normocephalic, normal inspection Eye exam: Present: normal appearance, PERRL, EOMI. Absent: scleral icterus, conjunctival injection, periorbital swelling ENT exam: Present: normal exam, mucous membranes moist Neck exam: Present: normal inspection. Absent: tenderness, meningismus, lymphadenopathy Respiratory exam: Present: normal lung sounds bilaterally. Absent: respiratory distress, wheezes, rales, rhonchi, stridor Cardiovascular Exam: Present: regular rate, normal rhythm, normal heart sounds. Absent: systolic murmur, diastolic murmur, rubs, gallop, clicks GI/Abdominal exam: Present: soft, normal bowel sounds. Absent: distended, tenderness, guarding, rebound, rigid Extremities exam: Present: normal inspection, full ROM, normal capillary refill. Absent: tenderness, pedal edema, joint swelling, calf tenderness Back exam: Present: normal inspection Neurological exam: Present: alert, oriented X3, CN II-XII intact Psychiatric exam: Present: normal affect, normal mood Skin exam: Present: warm, dry, intact, normal color. Absent: rash Course Vital Signs 02/11/21 02/11/21 02/11/21 13:11 13:34 17:06 Temperature 97.8 F 97.9 F Pulse Rate 74 61 Pulse Rate [ Pulse Oximetery ] Respiratory 20 18 16 Rate Blood Pressure 131/63 151/70 Blood Pressure [Left Arm] O2 Sat by Pulse 98 95 Oximetry 02/11/21 02/11/21 02/11/21 18:57 20:27 20:45 Temperature Pulse Rate 65 62 64 Pulse Rate [ Pulse Oximetery ] Respiratory 16 Rate Blood Pressure 121/65 Blood Pressure [Left Arm] O2 Sat by Pulse 95 Oximetry 02/11/21 02/11/21 02/11/21 21:00 21:54 23:00 Temperature Pulse Rate 67 66 Pulse Rate [ Pulse Oximetery ] Respiratory 18 18 Rate Blood Pressure 120/81 143/64 Blood Pressure [Left Arm] O2 Sat by Pulse 97 96 Oximetry 02/12/21 02/12/21 02/12/21 04:00 07:10 07:40 Temperature 97.7 F Pulse Rate 65 74 71 Pulse Rate [ Pulse Oximetery ] Respiratory 21 18 Rate Blood Pressure 134/73 123/70 Blood Pressure [Left Arm] O2 Sat by Pulse 100 98 Oximetry 02/12/21 02/12/21 02/12/21 07:51 15:24 15:29 Temperature Pulse Rate 72 68 70 Pulse Rate [ Pulse Oximetery ] Respiratory Rate Blood Pressure Blood Pressure [Left Arm] O2 Sat by Pulse Oximetry 02/12/21 02/12/21 02/12/21 16:00 19:52 19:56 Temperature Pulse Rate 67 87 78 Pulse Rate [ Pulse Oximetery ] Respiratory 18 16 Rate Blood Pressure 139/61 112/66 Blood Pressure [Left Arm] O2 Sat by Pulse 97 96 95 Oximetry 02/12/21 02/12/21 20:00 20:03 Temperature 97.8 F Pulse Rate 70 Pulse Rate [ 66 Pulse Oximetery ] Respiratory 18 Rate Blood Pressure Blood Pressure 110/60 [Left Arm] O2 Sat by Pulse 92 L Oximetry Chest Pain MDM - MDM Upon arrival patient is placed into room 17. A thorough history and physical exam was performed. IV is established. Laboratories is were conducted and a chest x-ray was performed. 12-lead EKG demonstrates a left bundle branch block which is due to the patient's pacemaker which is capturing appropriately. Laboratory studies are reviewed and troponin is 0.026. Chest x-ray demonstrates chronic emphysematous and pulmonary fibrotic changes with tiny right pleural effusion. I did speak with Dr. Martinez who accepted admission. Patient was given an aspirin and started on heparin due to his previous cardiac history. Patient agreed to the treatment plan and is awaiting a bed on the floor Critical Care Time Critical Care Time: Yes Critical Care Time: 32 minutes Disposition Clinical Impression: Chest pain Disposition: ADMITTED IP TO THIS HOSP Condition: Stable Is patient prescribed a controlled substance at d/c from ED?: No Decision to Admit Reason: Admit from EC Decision Date: 02/11/21 Decision Time: 16:23
[2021-02-11 14:07] LABS: Basophils % (A) 1 %; Eosinophils # (A) 0.2 k/uL (0-0.7); Eosinophils % (A) 3 %; HCT 45.9 % (39.0-53.0); HGB 15.7 gm/dL (13.0-17.5); Lymphocytes # (A) 1.3 k/uL (1.0-4.8); Lymphocytes % (A) 23 %; MCH 34.3 pg (25.0-35.0); MCHC 34.2 g/dL (31.0-37.0); MCV 100.2 fL (80.0-100.0); Mean Platelet Volume 8.6; Monocytes # (A) 0.3 k/uL (0-1.0); Monocytes % (A) 5 %; Neutrophils # (A) 3.8 k/uL (1.3-7.7); Neutrophils % (A) 67 %; Platelet Count 100 k/uL (150-450); RBC 4.58 m/uL (4.30-5.90); RDW 13.7 % (11.5-15.5); WBC 5.7 k/uL (3.8-10.6)
[2021-02-11 14:16] LABS: Albumin 3.9 g/dL (3.5-5.0); Calcium 8.8 mg/dL (8.4-10.2); Magnesium 1.8 mg/dL (1.6-2.3); Potassium 3.9 mmol/L (3.5-5.1); Total Bilirubin 0.8 mg/dL (0.2-1.3); Total Protein 6.6 g/dL (6.3-8.2)
[2021-02-11 14:17] LABS: Partial Thromboplastin Time 24.5 sec (22.0-30.0); Prothrombin Time 10.7 sec (9.0-12.0)
--- NOTE | 2021-02-11 14:40 | XR ---
EXAMINATION TYPE: XR chest 2V DATE OF EXAM: 02/11/2021 COMPARISON: Chest x-ray April 18, 2020 HISTORY: Dizziness, chest pain, and shortness of breath for 2 days TECHNIQUE: Frontal and lateral views of the chest are obtained. FINDINGS: There is chronic emphysematous and parenchymal changes bilaterally without suspicious new focal air space opacity or pneumothorax seen. Tiny right pleural effusion seen best on lateral view. The cardiac silhouette size is stable and upper limits of normal with dual-lead pacemaker. The osse ous structures are intact. IMPRESSION: Chronic emphysematous and pulmonary fibrotic changes with tiny right pleural effusion on current study. No new acute infiltrate clearly seen.
[2021-02-11] MEDS ORDERED: NALOXONE 0.4 MG/ML 1 ML VIAL IV PRN ×2 (16:24→17:05)
[2021-02-11] MEDS ORDERED: ASPIRIN 81 MG PO STA (16:26)
[2021-02-11] MEDS ORDERED: HEPARIN SODIUM,PORCINE 5,000 UNIT/ML 1 ML VIAL IV PRN (16:26)
[2021-02-11] MEDS ORDERED: HEPARIN SODIUM,PORCINE 5,000 UNIT/ML 1 ML VIAL IV ONE (16:26)
[2021-02-11] MEDS ORDERED: HEPARIN SOD,PORK IN 0.45% NACL 25,000 UNIT in 0.45% NACL 1 250ML.BAG IV SCH (16:30)
[2021-02-11] MEDS ORDERED: HYDROcodone/APAP 5-325MG 1 EACH TAB PO PRN (17:05)
[2021-02-11] MEDS ORDERED: ACETAMINOPHEN TAB 325 MG TAB PO PRN (17:05)
[2021-02-11] MEDS ORDERED: MELATONIN 3 MG TABLET PO PRN (17:05)
[2021-02-11] MEDS ORDERED: LORazepam 1 MG TAB PO PRN (17:12)
[2021-02-11] MEDS ORDERED: NITROGLYCERIN SL TABS 0.4 MG TAB SUBLINGUAL PRN (17:12)
[2021-02-11] MEDS ORDERED: IPRATROPIUM-ALBUTEROL 3 ML NEB INHALATION PRN (17:16)
--- NOTE | 2021-02-11 17:58 | P.HPIM ---
<Daljit Mccloud - Last Filed: 02/11/21 17:17> History of Present Illness H&P Date: 02/11/21 Chief Complaint: Chest pain and shortness of breath Mr. Fierro is a patient of Dr. Chen and family requesting admission to [facility]. History of presenting illness: Patient is a very pleasant 80-year-old male with a past medical history including CAD with previous OR x2 and stent placement 3, dual-lead pacemaker placement, hypertension, hyperlipidemia, COPD not on home oxygen dependent, and GERD. Patient presented to the hospital with a chief complaint of chest pain and exertional dyspnea beginning 3-4 days ago and progressively worsening. He was seen and fully evaluated in the emergency department. Labs obtained revealing CBC and BMP unremarkable with the exception of thrombocytopenia with platelet count of 100 (chronic in nature and currently at baseline levels). Troponin 0.026. EKG revealing ventricular paced rhythm at 66 bpm. No significant changes noted when compared to previous EKG obtained on 04/19/20. Chest x-ray revealing chronic emphysematous and pulmonary fibrotic changes with tiny right pleural effusion reported on lateral view. HEART score of 6. Patient was given Aspirin 324 mg accompanied by heparin bolus followed by infusion per ACS protocol for unstable angina and admitted under our services with consult to cardiology for continued close medical management. Upon bedside examination, patient reported that over the past 3-4 days he has been getting extremely short of breath with minimal exertion stating, for example "simply by bending over or walking to the bathroom, I have to stop and can't catch my breath". Patient states in addition to this he has been having intermittent episodes of substernal chest pain radiating into his left anterior chest coming on both at rest and with exertion. Patient states initially this pain felt like a tightness or like his gastric reflux, but then the pain became worse and felt more like a heaviness. Patient states since arrival to hospital, his chest pain has resided and his shortness of breath has improved. He is currently on 2 L O2 via nasal cannula with SpO2 of 95%. Patient denies having any other complaints at this time including recent illness or exposure to known ill contacts, fever, chills, headache, lightheadedness, dizziness, changes in his vision or hearing, palpitations, abdominal pain, changes in appetite, nausea, vomiting, experiencing any changes in or difficulties with his urinary or bowel function, or noticing any swelling/numbness/tingling/weakness in his extremities. Most recent cardiac catheterization and stent placement was completed on 05/19/[address] Whitaker and Echocardiogram completed 04/19/20 revealed a severe concentric left ventricular hypertrophy, mildly impaired EF of 45-50%, mid basal septal hypokinesis, moderately enlarged right ventricle and mild mitral and tricuspid regurgitation. Review of systems: Pertinent positives and negatives as discussed in HPI, a complete review of systems was performed and all other systems are negative. Physical exam: General: non toxic, no distress, appears at stated age Derm: warm, dry Head: atraumatic, normocephalic, symmetric, very hard of hearing hearing aids bilaterally. Eyes: EOMI, no lid lag, anicteric sclera Mouth: no lip lesion, mucus membranes moist Cardiovascular: S1S2 reg, no murmur, no gallop, and no rub. Positive posterior tibial pulses bilaterally, no lower extremity edema. Pacemaker left anterior chest. Lungs: Respirations even, regular, and unlabored on 2 L O2 via nasal cannula. Patient positive for diffuse expiratory wheezes bilaterally. No rhonchi, rales, or crackles noted. Abdominal: Soft, nontender to palpation, no guarding, no appreciable organomegaly Ext: no gross muscle atrophy, no edema, no contractures Neuro: GCS 15. Speech clear, no focal neuro deficits noted. Psych: Alert and oriented to person, place, time, and situation. Pleasant and appropriate affect Assessment and Plan of Care: Unstable Angina -Initial Troponin 0.026 -EKG revealing ventricular paced rhythm at 66 bpm. No significant changes noted when compared to previous EKG obtained on 04/19/20. -Patient given heparin bolus followed by infusion in ED, we will continue with Heparin infusion per ACS protocol for unstable angina, pharmacy to dose -Cardiology consulted, appreciate further recommendations. -Telemetry monitoring -Trend troponins every 3 hours 2 -Cardiac/heart healthy diet, NPO at midnight for possible cardiac catheteriza tion. -Continue daily Aspirin, simvastatin, and carvedilol. -Continuation of daily medications including: -Lipid profile with a.m. labs. COPD exacerbation -Chest x-ray revealing chronic emphysematous and pulmonary fibrotic changes with tiny right pleural effusion reported on lateral view. -Consult to Pulmonology -Oxygenation to be administered and titrated as needed to maintain SPO2 equal to or greater than 92% -Telemetry monitoring. -Continuous Pulse-oximetry -Continue Aclidinium [place] with Duonebs as needed for SOB and/or wheezing -Incentive Spirometry, encourage use 10-15 times hourly while awake. -Steroids: Prednisone 40 mg daily. Idiopathic Chronic Thrombocytopenia -Platelets 100,000, chronic and currently at baseline levels. Hypertension -Monitor vital signs and continue daily medication management. Hyperlipidemia -Continue daily medication management. -Lipid profile with a.m. labs Patient being placed in observation for an anticipated less than 2 night stay for unstable angina and COPD exaerbation. CODE STATUS: Full code DVT prophylaxis: Heparin Discussed with: Patient Anticipated discharge date: 1-2 days, clinical course to determine Anticipated discharge place: Home A total of 45 minutes was spent on the care of this complex patient more than 50% of the time was spent in counseling and care coordination. Past Medical History Past Medical History: COPD, GERD/Reflux, Hearing Disorder / Deafness, Hyperlipidemia, Hypertension, Myocardial Infarction (OR) Additional Past Medical History / Comment(s): B 12 deficiency, hx of neuropathy, Last Myocardial Infarction Date:: 2005 History of Any Multi-Drug Resistant Organisms: None Reported Past Surgical History: Heart Catheterization With Stent, Orthopedic Surgery, Pacemaker Additional Past Surgical History / Comment(s): RIGHT SHOULDER scope, left knee scope, cardiac stent X 3, PPM 2005 Past Anesthesia/Blood Transfusion Reactions: No Reported Reaction Date of Last Stent Placement:: 11/2005 Type of Cardiac Device: Permanent Pacemaker Device Placement Date:: 11/2005 Past Psychological History: Anxiety Smoking Status: Light tobacco smoker Past Alcohol Use History: Rare Past Drug Use History: None Reported - Past Family History Sister(s) Family Medical History: Cancer Mother Family Medical History: No Reported History Medications and Allergies Home Medications Medication Instructions Recorded Confirmed Type Simvastatin [Zocor] 80 mg PO HS 07/15/16 02/11/21 History carvediloL [Coreg] 3.125 mg PO BID 07/15/16 02/11/21 History traZODone HCL [Desyrel] 200 mg PO HS 07/15/16 02/11/21 History Nitroglycerin Sl Tabs [Nitrostat] 0.4 mg SUBLINGUAL Q5M PRN 11/26/19 02/11/21 History LORazepam [Ativan] 1 mg PO TID PRN 04/18/20 02/11/21 History Sertraline HCl [Zoloft] 50 mg PO DAILY 04/18/20 02/11/21 History Aclidinium [place] [Tudorza 1 puff INHALATION RT-BID 07/09/20 02/11/21 History Pressair] Zbnbriwe-Tfbmgxxpc-Jaolzvtr 1 applic BOTH EYES HS 07/09/20 02/11/21 History [Maxitrol Ophth Oint] Acyclovir 5% Oint [Zovirax Oint] 1 applic TOPICAL TID 02/11/21 02/11/21 History Isosorbide Mononitrate ER [Imdur] 15 mg PO DAILY 02/11/21 02/11/21 History Allergies Allergy/AdvReac Type Severity Reaction Status Date / Time No Known Allergies Allergy Verified 02/11/21 16:00 Physical Exam Vitals: Vital Signs Temp Pulse Resp BP Pulse Ox 02/11/21 13:34 18 02/11/21 13:11 97.8 F 74 20 131/63 98 Intake and Output 02/11/21 02/11/21 02/11/21 06:59 14:59 22:59 Other: Weight 87.997 kg Results CBC & Chem 7: 02/11/21 13:31 02/11/21 13:31 Labs: Abnormal Lab Results - Last 24 Hours (Table) 02/11/21 02/11/21 Range/Units 13:31 13:31 MCV 100.2 H (80.0-100.0) fL Plt Count 100 L (150-450) k/uL Glucose 108 H (74-99) mg/dL <Jimena Martinez - Last Filed: 02/11/21 18:38> Physical Exam Osteopathic Statement: *. No significant issues noted on an osteopathic structural exam other than those noted in the History and Physical/Consult. Vitals: Vital Signs Temp Pulse Resp BP Pulse Ox 02/11/21 17:06 97.9 F 61 16 151/70 95 02/11/21 13:34 18 02/11/21 13:11 97.8 F 74 20 131/63 98 Intake and Output 02/11/21 02/11/21 02/11/21 06:59 14:59 22:59 Other: Weight 87.997 kg Results CBC & Chem 7: 02/11/21 13:31 02/11/21 13:31 Labs: Abnormal Lab Results - Last 24 Hours (Table) 02/11/21 02/11/21 Range/Units 13:31 13:31 MCV 100.2 H (80.0-100.0) fL Plt Count 100 L (150-450) k/uL Glucose 108 H (74-99) mg/dL Assessment and Plan Assessment: Patient seen and examined independently. Patient was also seen by Daljit Mccloud NP and case was discussed. I am in agreement with subjective, physical exam, assessment and plan as written above and amended below. Reports that he feels fine while laying flat. States he last saw Dr. Jackson yesterday and Dr. Whitaker today. No additional questions. General: non toxic, no distress, appears at stated age Derm: warm, dry Head: atraumatic, normocephalic, symmetric Eyes: EOMI, no lid lag, anicteric sclera Mouth: no lip lesion, mucus membranes moist Cardiovascular: S1S2 reg, no murmur, positive posterior tibial pulse bilateral, Lungs: Faint wheezes bilateral bases , no accessory muscle use Abdominal: soft, nontender to palpation, no guarding, no appreciable organomegaly Ext: no gross muscle atrophy, no edema, no contractures Neuro: CN II-XI grossly intact, no focal neuro deficits Psych: Alert, oriented, appropriate affect Acute exacerbation of COPD -Scheduled bronchodilators, prednisone, we'll hold off on pulmonary consultation unless reading worsens. No need for continuous pulse oximetry at this point in time and can be checked with routine vitals.
[2021-02-11] MEDS ORDERED: IPRATROPIUM 0.5 MG/2.5 ML NEBU INHALATION SCH (20:00)
[2021-02-11] MEDS: IPRATROPIUM-ALBUTEROL 3 ML NEB INHALATION SCH (20:26)
[2021-02-11] MEDS: predniSONE 20 MG TAB PO SCH (21:52)
[2021-02-11] MEDS ORDERED: valACYclovir HCL 1,000 MG TABLET PO PRN (22:00)
[2021-02-11] MEDS: traZODone HCL 100 MG TAB PO SCH (22:59)
[2021-02-11] MEDS: ATORVASTATIN 40 MG TAB PO SCH (22:59)
[2021-02-12] MEDS: NEOMYCIN-POLYMYXIN-DEXAMETH OINT 3.5 GM TUBE BOTH EYES SCH ×2 (03:36→21:17)
[2021-02-12] MEDS: carvediloL 3.125 MG TAB PO SCH ×3 (03:36→19:54)
[2021-02-12 06:43] LABS: Partial Thromboplastin Time 92.5 sec (22.0-30.0); Prothrombin Time 10.9 sec (9.0-12.0)
[2021-02-12] MEDS: IPRATROPIUM-ALBUTEROL 3 ML NEB INHALATION SCH ×4 (07:39→19:56)
[2021-02-12] MEDS ORDERED: ASPIRIN 81 MG PO SCH (09:00)
[2021-02-12] MEDS: SERTRALINE 50 MG TAB PO SCH (09:25)
[2021-02-12] MEDS: predniSONE 20 MG TAB PO SCH (09:25)
[2021-02-12] MEDS ORDERED: REGADENOSON 0.4 MG/5 ML SYRINGE IV PRN (09:34)
[2021-02-12] MEDS ORDERED: CAFFEINE CITRATE 60 MG/3 ML VIAL IV PRN (09:34)
[2021-02-12] MEDS ORDERED: AMINOPHYLLINE 500 MG/20 ML VIAL IV PRN (09:34)
[2021-02-12 10:29] LABS: Basophils # (A) 0.02 X 10*3/uL (0.00-0.10); Basophils % (A) 0.3 %; Eosinophils # (A) 0.02 X 10*3/uL (0.04-0.35); Eosinophils % (A) 0.3 %; HCT 45.6 % (39.6-50.0); HGB 15.8 g/dL (13.0-17.0); Lymphocytes # (A) 0.57 X 10*3/uL (0.90-5.00); Lymphocytes % (A) 9.9 %; MCH 34.6 pg (27.0-32.0); MCHC 34.6 g/dL (32.0-37.0); Mean Platelet Volume 11.3 fL (9.5-12.2); Monocytes # (A) 0.14 X 10*3/uL (0.20-1.00); Monocytes % (A) 2.4 %; Neutrophils # (A) 4.99 X 10*3/uL (1.80-7.70); Neutrophils % (A) 86.8 %; Platelet Count 111 X 10*3/uL (140-440); RBC 4.56 X 10*6/uL (4.40-5.60); WBC 5.76 X 10*3/uL (4.50-10.00)
[2021-02-12 10:51] LABS: African American GFR (CKD) 59.3 (60.0-200.0); Anion Gap 9.6 mmol/L (4.00-12.00); BUN/Creat Ratio 8.46 Ratio (12.00-20.00); Calcium 9.2 mg/dL (8.7-10.3); Carbon Dioxide 20.4 mmol/L (21.6-31.8); Chol/HDL Ratio 3.17; LDL Cholesterol,Calculated 66.6 mg/dL (0.0-131.0); Non-African American GFR(CKD) 51.2 (60.0-200.0); Potassium 4.7 mmol/L (3.5-5.5); VLDL Calculation 11.4 mg/dL (5.00-40.00)
--- NOTE | 2021-02-12 11:22 | P.CRDCN ---
History of Present Illness History of present illness: HISTORY OF PRESENTING ILLNESS This is a pleasant 80-year-old male past medical history significant for coronary artery disease s/p PCI to the proximal OM 2005, mid RCA 2005. FFR of the LAD in 2018 was nonischemic, hypertension, dyslipidemia, left bundle branch block and permanent pacemaker implantation. He follows in the office with Dr. Whitaker. We have been asked to see in consultation for chest pain. He states for the previous week he has been experiencing multiple symptoms. He has noticed a burning sensation in the mid-sternal region that at times radiates to the right anterior chest, left anterior chest and right scapula. The pain is brief in nature when it happens and lasts only for a few minutes then subsides on its own. The pain is not associated with exertion or activity. He is also feeling short of breath with exertion. This has been going on and getting progressively worse over the previous few months. He saw his PCP last week for dizziness and lose of balance. He feels like he knows where he is supposed to walk but when he attempts to walk a straight line he is drifting to the left and feels dizzy. He denies feeling chest pain or shortness of breath when he is dizzy. The symptoms seem to occur independent of each other. He went to the office and saw Amena yesterday. She did note that his blood pressure went from 140 systolic to 126 and he was symptomatic. He most recently had a stress test in April 2020 revealing a predominantly fixed inferior, inferior apical and inferoseptal defect with no evidence of stress-induced ischemia. Heart catheterization that was performed in 2017 revealed mildly impaired LV systolic function with ejection fraction 45% with septal hypokinesia noted, a 60% ostial LAD lesion that was nonischemic by FFR, a 50% mid RCA lesion and a patent circumflex that was previously stented in 2005. most recent echocardiogram obtained in March 2020 revealed mildly impaired LV systolic function with ejection fraction 45-50%, mid basal septal hypokinesia noted,mild mitral regurgitation and mild tricuspid regurgitation. DIAGNOSTICS EKG reveals sinus mechanism with left bundle branch block, chronic compared to old EKG's. Chest xray reveals chronic emphysematous changes with tiny right pleural effusion noted. Laboratory reviewed, WBC 5.7, hemoglobin 15.8, platelets 111, sodium 142, potassium 4.7, creatinine 1.3, cardiac enzymes negative 3, magnesium 1.8, proBNP 110, LDL 66 and HDL 36. Current cardiac medications include Coreg 3.125 mg twice a day, Imdur 15 mg daily, simvastatin 80 mg daily and aspirin 81 mg daily.. REVIEW OF SYSTEMS At the time of my exam: CONSTITUTIONAL: Denies fever or chills. CARDIOVASCULAR: Denies chest pain, shortness of breath, orthopnea, PND or palpitations. RESPIRATORY: Denies cough. GASTROINTESTINAL: Denies abdominal pain, diarrhea, constipation, nausea or vomiting. MUSCULOSKELETAL: Denies myalgias. NEUROLOGIC: Denies numbness, tingling, headacbe or weakness. ENDOCRINE: Denies fatigue, weight change, polydipsia or polyurina. GENITOURINARY: Denies burning, hematuria or urgency with micturation. HEMATOLOGIC: Denies history of anemia or bleeding. PHYSICAL EXAMINATION Blood pressure 123/70 heart rate 72 afebrile and maintaining oxygen saturation on nasal cannula. CONSTITUTIONAL: No apparent distress. HEENT: Head is normocephalic. Pupils are equal, round. Sclerae anicteric. Mucous membranes of the mouth are moist. No JVD. No carotid bruit. CHEST EXAMINATION: No chest wall tenderness is noted on palpation or with deep breathing. Diminished bilaterally with faint crackes. No wheezes or rhonchi. HEART EXAMINATION: Regular rate and rhythm. S1, S2 heard. Systolic ejection murmur at the base, no gallops or rub. ABDOMEN: Soft, nontender. Positive bowel sounds. EXTREMITIES: 2+ peripheral pulses, no lower extremity edema and no calf tenderness. NEUROLOGIC EXAMINATION: Patient is awake, alert and oriented x3. ASSESSMENT Chest pain, atypical. Exertional shortness of breath Dizziness Coronary artery disease s/p PCI Hypertension Dyslipidemia Sleep apnea Permanent pacemaker implantation Chronic cigar smoker COPD PLAN An acute coronary event has been ruled out. Discontinue heparin infusion. Obtain 2D echocardiogram and doppler study to assess cardiac structure and function. Perform lexiscan stress test to assess for reversibility in the LAD territory. If stress test is normal he can be discharged home to follow up with Dr. Whitaker in the office. Exertional shortness of breath possibly related to underlying pulmonary disease. In terms of his dizziness, his pacemaker interrogation performed yesterday in the office was unremarkable with no evidence of an arrhythmia. Thank you kindly for this consultation. Nurse Practitioner note has been reviewed, I agree with a documented findings and plan of care. Patient was seen and examined. Past Medical History Past Medical History: COPD, GERD/Reflux, Hearing Disorder / Deafness, Hyperlipidemia, Hypertension, Myocardial Infarction (CT) Additional Past Medical History / Comment(s): B 12 deficiency, hx of neuropathy, Last Myocardial Infarction Date:: 2005 History of Any Multi-Drug Resistant Organisms: None Reported Past Surgical History: Heart Catheterization With Stent, Orthopedic Surgery, Pacemaker Additional Past Surgical History / Comment(s): RIGHT SHOULDER scope, left knee scope, cardiac stent X 3, PPM 2005 Past Anesthesia/Blood Transfusion Reactions: No Reported Reaction Date of Last Stent Placement:: 11/2005 Type of Cardiac Device: Permanent Pacemaker Device Placement Date:: 11/2005 Past Psychological History: Anxiety Smoking Status: Light tobacco smoker Past Alcohol Use History: Rare Past Drug Use History: None Reported - Past Family History Sister(s) Family Medical History: Cancer Mother Family Medical History: No Reported History Medications and Allergies Home Medications Medication Instructions Recorded Confirmed Type RX: Simvastatin [Zocor] 80 mg PO HS 07/15/16 02/11/21 History RX: carvediloL [Coreg] 3.125 mg PO BID 07/15/16 02/11/21 History RX: traZODone HCL [Desyrel] 200 mg PO HS 07/15/16 02/11/21 History RX: Nitroglycerin Sl Tabs 0.4 mg SUBLINGUAL Q5M PRN 11/26/19 02/11/21 History [Nitrostat] RX: LORazepam [Ativan] 1 mg PO TID PRN 04/18/20 02/11/21 History RX: Sertraline HCl [Zoloft] 50 mg PO DAILY 04/18/20 02/11/21 History Aclidinium [place] [Tudorza 1 puff INHALATION RT-BID 07/09/20 02/11/21 History Pressair] Echufzty-Hraczfara-Etrfpfib 1 applic BOTH EYES HS 07/09/20 02/11/21 History [Maxitrol Ophth Oint] Acyclovir 5% Oint [Zovirax Oint] 1 applic TOPICAL TID 02/11/21 02/11/21 History Isosorbide Mononitrate ER [Imdur] 15 mg PO DAILY 02/11/21 02/11/21 History Allergies Allergy/AdvReac Type Severity Reaction Status Date / Time No Known Allergies Allergy Verified 02/11/21 16:00 Physical Exam Vitals: Vital Signs Temp Pulse Resp BP Pulse Ox 02/12/21 07:51 72 02/12/21 07:40 71 02/12/21 07:10 97.7 F 74 18 123/70 98 02/12/21 04:00 65 21 134/73 100 02/11/21 23:00 66 18 143/64 96 02/11/21 21:54 120/81 02/11/21 21:00 67 18 97 02/11/21 20:45 64 02/11/21 20:27 62 02/11/21 18:57 65 16 121/65 95 02/11/21 17:06 97.9 F 61 16 151/70 95 02/11/21 13:34 18 02/11/21 13:11 97.8 F 74 20 131/63 98 Intake and Output 02/11/21 02/12/21 02/12/21 22:59 06:59 14:59 Intake Total 141.833 Balance 141.833 Intake: Intake, IV Titration 141.833 Amount Heparin Sod,Pork in 0.45% 141.833 NaCl 25,000 unit In 0.45 % NaCl 1 250ml.bag @ 11. 364 UNITS/KG/HR 10 mls/hr IV .Q24H [facility] Rx#: [id number] Results 02/12/21 05:22 02/12/21 05:22 Cardiac Enzymes 02/11/21 02/11/21 02/11/21 Range/Units 13:31 13:31 19:17 AST 26 (17-59) U/L Troponin I 0.026 0.025 (0.000-0.034) ng/mL 02/11/21 Range/Units 22:28 AST (17-59) U/L Troponin I 0.021 (0.000-0.034) ng/mL Coagulation 02/11/21 02/11/21 02/12/21 Range/Units 13:31 22:28 05:22 PT 10.7 10.9 (9.0-12.0) sec APTT 24.5 98.5 H 92.5 H (22.0-30.0) sec Lipids 02/12/21 Range/Units 05:22 Triglycerides 57.0 (0.0-149.0) mg/dL Cholesterol 114 (0-200) mg/dL HDL Cholesterol 36.0 L (40.0-60.0) mg/dL Cholesterol/HDL Ratio 3.17 CBC 02/11/21 02/12/21 Range/Units 13:31 05:22 WBC 5.7 5.76 (3.8-10.6) k/uL RBC 4.58 4.56 (4.30-5.90) m/uL Hgb 15.7 15.8 (13.0-17.5) gm/dL Hct 45.9 45.6 (39.0-53.0) % Plt Count 100 L 111 L (150-450) k/uL Comprehensive Metabolic Panel 02/11/21 02/12/21 Range/Units 13:31 05:22 Sodium 137 142 (137-145) mmol/L Potassium 3.9 4.7 (3.5-5.1) mmol/L Chloride 104 112 H (98-107) mmol/L Carbon Dioxide 27 20.4 L (22-30) mmol/L BUN 9 11.0 (9-20) mg/dL Creatinine 1.10 1.3 (0.66-1.25) mg/dL Glucose 108 H 159 H (74-99) mg/dL Calcium 8.8 9.2 (8.4-10.2) mg/dL AST 26 (17-59) U/L ALT 11 (4-49) U/L Alkaline Phosphatase 69 (38-126) U/L Total Protein 6.6 (6.3-8.2) g/dL Albumin 3.9 (3.5-5.0) g/dL Current Medications Generic Name Dose Route Start Last Admin Trade Name Freq PRN Reason Stop Dose Admin Acetaminophen 650 mg 02/11/21 17:05 Acetaminophen Tab 325 Mg Tab PO Q6HR PRN Mild Pain or Fever > 100.5 Hydrocodone Bitart/Acetaminophen 1 each 02/11/21 17:05 Hydrocodone/Apap 5-325mg 1 Each Tab PO Q4HR PRN Moderate to Severe Pain Albuterol/Ipratropium 3 ml 02/11/21 17:16 Ipratropium-Albuterol 3 Ml Neb INHALATION RT-QID PRN Shortness Of Breath Or Wheezing Albuterol/Ipratropium 3 ml 02/11/21 20:00 02/12/21 07:39 Ipratropium-Albuterol 3 Ml Neb INHALATION 3 ml RT-QID MITA Administration Aminophylline 100 mg 02/12/21 09:34 Aminophylline 500 Mg/20 Ml Vial IV 02/12/21 13:35 ONCE PRN Patient Response Aspirin 81 mg 02/12/21 09:00 02/12/21 09:25 Aspirin 81 Mg PO 81 mg DAILY MITA Administration Atorvastatin Calcium 40 mg 02/11/21 21:00 02/11/21 22:59 Atorvastatin 40 Mg Tab PO 40 mg HS MITA Administration Caffeine Citrate 60 mg 02/12/21 09:34 Caffeine Citrate 60 Mg/3 Ml Vial IV 02/12/21 13:35 ONCE PRN Patient Response Carvedilol 3.125 mg 02/11/21 17:45 02/12/21 09:25 Carvedilol 3.125 Mg Tab PO 3.125 mg BID-W/MEALS MITA Administration Heparin Sodium (Porcine) 0 unit 02/11/21 16:26 Heparin Sodium,Porcine 5,000 Unit/Ml 1 Ml Vial IV PER PROTOCOL PRN Low PTT Protocol Isosorbide Mononitrate 15 mg 02/12/21 09:00 Isosorbide Mononitrate Er 15 Mg Tab PO DAILY MITA Lorazepam 1 mg 02/11/21 17:12 02/11/21 21:53 Lorazepam 1 Mg Tab PO 1 mg TID PRN Administration Anxiety Melatonin 3 mg 02/11/21 17:05 02/11/21 22:59 Melatonin 3 Mg Tablet PO 3 mg HS PRN Administration Insomnia Naloxone HCl 0.2 mg 02/11/21 16:24 Naloxone 0.4 Mg/Ml 1 Ml Vial IV Q2M PRN Opioid Reversal Neomycin/Polymyxin/Dexamethasone 1 applic 02/11/21 21:00 02/12/21 03:36 Yeuhzgdi-Erbgmdrrf-Tgkzemdq Oint 3.5 Gm Tube BOTH EYES Not Given HS MITA Nitroglycerin 0.4 mg 02/11/21 17:12 Nitroglycerin Sl Tabs 0.4 Mg Tab SUBLINGUAL Q5M PRN Chest Pain Prednisone 40 mg 02/11/21 17:45 02/12/21 09:25 Prednisone 20 Mg Tab PO 40 mg DAILY MITA Administration Regadenoson 0.4 mg 02/12/21 09:34 Regadenoson 0.4 Mg/5 Ml Syringe IV 02/12/21 13:35 ONCE PRN Per Protocol Sertraline HCl 50 mg 02/12/21 09:00 02/12/21 09:25 Sertraline 50 Mg Tab PO 50 mg DAILY MITA Administration Trazodone HCl 200 mg 02/11/21 21:00 02/11/21 22:59 Trazodone Hcl 100 Mg Tab PO 200 mg HS MITA Administration Valacyclovir HCl 2,000 mg 02/11/21 22:00 Valacyclovir Hcl 1,000 Mg Tablet PO 02/21/21 22:01 BID PRN COLD SORE Intake and Output 02/11/21 02/12/21 02/12/21 22:59 06:59 14:59 Intake Total 141.833 Balance 141.833 Intake: Intake, IV Titration 141.833 Amount Heparin Sod,Pork in 0.45% 141.833 NaCl 25,000 unit In 0.45 % NaCl 1 250ml.bag @ 11. 364 UNITS/KG/HR 10 mls/hr IV .Q24H [facility] Rx#: [id number] 02/12/21 05:22 02/12/21 05:22
--- NOTE | 2021-02-12 13:52 | ECHOF ---
Referral Reason:cp MEASUREMENTS -------- HEIGHT: 172.7 cm WEIGHT: 88.0 kg BP: 123/70 RVIDd: 3.9 cm (< 3.3) IVSd: 1.8 cm (0.6 - 1.1) LVIDd: 4.2 cm (3.9 - 5.3) LVPWd: 1.7 cm (0.6 - 1.1) IVSs: 1.8 cm LVIDs: 3.3 cm LVPWs: 2.1 cm LAESV Index (A-L): 16.25 ml/m Ao Diam: 3.7 cm (2.0 - 3.7) AV Cusp: 1.8 cm (1.5 - 2.6) LA Diam: 4.2 cm (2.7 - 3.8) MV EXCURSION: 15.119 mm (> 18.000) MV EF SLOPE: 100 mm/s (70 - 150) EPSS: 1.0 cm MV E Jett: 0.48 m/s MV DecT: 217 ms MV A Jett: 0.75 m/s MV E/A Ratio: 0.63 RAP: 5.00 mmHg RVSP: 29.29 mmHg FINDINGS -------- Sinus rhythm. This was a technically difficult study with suboptimal apical views. The left ventricular size is normal. There is severe concentric left ventricular hypertrophy. Ove rall left ventricular systolic function is mild-moderately impaired with, an EF between 40 - 45 %. There is paradoxical septal motion. The right ventricle is moderately enlarged. Normal LA size by volume 22+/-6 ml/m2. The right atrium was not well visualized. Lumason used Interatrial and interventricular septum intact. There is no evidence of aortic regurgitation. There is no evidence of aortic stenosis. Mild mitral regurgitation is present. Mild tricuspid regurgitation present. There is no evidence of pulmonary hypertension. The right v entricular systolic pressure, as measured by Doppler, is 29.29mmHg. There is no pulmonic regurgitation present. The aortic root size is normal. There is a trivial pericardial effusion present. CONCLUSIONS -------- 1. The left ventricular size is normal. 2. There is severe concentric left ventricular hypertrophy. 3. Overall left ventricular systolic function is mild-moderately impaired with, an EF between 40 - 45 %. 4. The right ventricle is moderately enlarged. 5. Mild mitral regurgitation is present. 6. Mild tricuspid regurgitation present. CERTIFIED CREDIT COUNSELOR: Jenelle Gotti RDCS
--- NOTE | 2021-02-12 15:12 | NM ---
EXAMINATION TYPE: NM stress lexiscan cardiolite DATE OF EXAM: 02/12/2021 COMPARISON: NONE HISTORY: chest pain TECHNIQUE: After the intravenous administration of 10.3 mCi Tc 99m Sestamibi - Cardiolite resting SP ECT images acquired 45 minutes post injection. The patient received 0.4mg Lexiscan, 25.7 mCi Tc 99m Sestamibi - Stress images obtained [address] injection FINDINGS: Review of stress and rest SPECT images demonstrates mild defect involving the apical and inferior wal l the apex of the myocardium. There is a matched defect involving myocardial septum. Could not exclud e an area of stress-induced reversibility involving the inferior and inferior apical myocardium. Repo rt called to emergency room nurse. Gated analysis shows normal wall motion with an estimated left ventricular ejection fraction of 44 %. IMPRESSION: 1. Fixed defect involving the anterior, inferior, apical and septal wall. However, findings are suspi cious for small areas of stress-induced reversibility involving the inferior and inferoapical myocard ium..
--- NOTE | 2021-02-12 16:47 | P.PN ---
<Daljit Mccloud - Last Filed: 02/12/21 17:50> Subjective Progress Note Date: 02/12/21 Principal diagnosis: Unstable angina Mr. Fierro is a patient of Dr. Chen and family requesting admission to [facility]. Hospital course: Patient is a very pleasant 80-year-old male with a past medical history including CAD with previous [place] x2 and stent placement 3, dual-lead pacemaker placement, hypertension, hyperlipidemia, COPD not on home oxygen dependent, and GERD. Patient presented to the hospital with a chief complaint of chest pain and exertional dyspnea beginning 3-4 days ago and progressively worsening. He was seen and fully evaluated in the emergency department. Labs obtained revealing CBC and BMP unremarkable with the exception of thrombocytopenia with platelet count of 100 (chronic in nature and currently at baseline levels). Troponin 0.026. EKG revealing ventricular paced rhythm at 66 bpm. No significant changes noted when compared to previous EKG obtained on 04/19/20. Chest x-ray revealing chronic emphysematous and pulmonary fibrotic changes with tiny right pleural effusion reported on lateral view. HEART score of 6. Patient was given Aspirin 324 mg accompanied by heparin bolus followed by infusion per ACS protocol for unstable angina and admitted under our services with consult to cardiology for continued close medical management. Patient currently on 2 L O2 via nasal cannula maintaining SpO2 at 95%. He continues to report resolution of chest pain since arrival to hospital but continues to report shortness of breath worsening with any exertion. Patient states he had a difficult time walking to the restroom and has since been using the urinal at the bedside. Covid 19 PCR was negative. Troponins were trended and remained stable at 0.026, 0.025, and 0.021. Echocardiogram revealed a mild to moderately impaired ejection fraction of 40-45% with severe concentric left ventricular hypertrophy and mild mitral and tricuspid regurgitation. Patient's Lexiscan cardiac stress test was positive for small areas of stress-induced reversibility involving the inferior and inferioapical myocardium. Dr. Leal, Maintenance Equipment Operator was notified of results and states plan for cardiac catheterization tomorrow morning. Lipid profile revealed a low HDL of 36 otherwise normal findings. Patient and his updated on these results and changes to his plan of care. Physical exam: Patient seen and evaluated at the bedside. Reports continued resolution of chest pain but continues to have shortness of breath increasing with any exertion. Patient also reports an episode of dizziness/lightheadedness with this shortness of breath upon returning from restroom. Currently patient is denying having a headache, lightheadedness, dizziness, chest pain or palpitations, abdominal pain, nausea, vomiting, or any other complaints. General: non toxic, no distress, appears at stated age Derm: warm, dry Head: atraumatic, normocephalic, symmetric, very hard of hearing hearing aids bilaterally. Eyes: EOMI, no lid lag, anicteric sclera Mouth: no lip lesion, mucus membranes moist Cardiovascular: S1S2 reg, no murmur, no gallop, and no rub. Positive posterior tibial pulses bilaterally, no lower extremity edema. Pacemaker left anterior chest. Lungs: Respirations even, regular, and unlabored on 2 L O2 via nasal cannula. Lungs sounds have improved from yesterday but patient does continue to have noted soft diffuse expiratory wheezes bilaterally. No rhonchi, rales, or crackles noted. Abdominal: Soft, nontender to palpation, no guarding, no appreciable organom egaly Ext: no gross muscle atrophy, no edema, no contractures Neuro: GCS 15. Speech clear, no focal neuro deficits noted. Psych: Alert and oriented to person, place, time, and situation. Pleasant and appropriate affect Assessment and Plan of Care: Unstable Angina, stress test positive for areas of stress-induced reversibility involving the inferior and inferioapical myocardium. -Troponins were trended and remained stable at 0.026, 0.025, and 0.021. -Echocardiogram revealed a mild to moderately impaired ejection fraction of 40- 45% with severe concentric left ventricular hypertrophy and mild mitral and tricuspid regurgitation. -Patient's Lexiscan cardiac stress test was positive for small areas of stress- induced reversibility involving the inferior and inferioapical myocardium. -Lipid profile revealed a low HDL of 36 otherwise normal findings. -EKG revealing ventricular paced rhythm at 66 bpm. No significant changes noted when compared to previous EKG obtained on 04/19/20. -Heparin discontinued by cardiology. -Cardiology following, plans for cardiac catheterization tomorrow morning. -Continue telemetry monitoring -Cardiac/heart healthy diet, NPO at midnight for cardiac catheterization. -Continue daily Aspirin, simvastatin, and carvedilol. COPD in acute exacerbation -Chest x-ray revealing chronic emphysematous and pulmonary fibrotic changes with tiny right pleural effusion reported on lateral view. -Oxygenation to be administered and titrated as needed to maintain SPO2 equal to or greater than 92%. -Telemetry monitoring. -Continue Aclidinium [place] with Duonebs as needed for SOB and/or wheezing -Incentive Spirometry, encourage use 10-15 times hourly while awake. -Steroids: Prednisone 40 mg daily. Idiopathic Chronic Thrombocytopenia -Platelets 111,000, chronic and currently at baseline levels. Hypertension -Monitor vital signs and continue daily medication management. Hyperlipidemia -Continue daily medication management. -Lipid profile with a.m. labs Patient transferred from observation status to full admission on cardiac step down unit. CODE STATUS: Full code DVT prophylaxis: Heparin Discussed with: Patient and his Anticipated discharge date: 1-2 days, clinical course to determine Anticipated discharge place: Home A total of 45 minutes was spent on the care of this complex patient more than 50% of the time was spent in counseling and care coordination. Objective - Vital Signs Vital signs: Vital Signs Temp 97.7 F 02/12/21 07:10 Pulse 72 02/12/21 07:51 Resp 18 02/12/21 07:10 BP 123/70 02/12/21 07:10 Pulse Ox 98 02/12/21 07:10 Intake & Output 02/11/21 02/12/21 02/12/21 18:59 06:59 18:59 Intake Total 141.833 Balance 141.833 Weight 87.997 kg Intake: Intake, IV Titration 141.833 Amount Heparin Sod,Pork in 0.45% 141.833 NaCl 25,000 unit In 0.45 % NaCl 1 250ml.bag @ 11. 364 UNITS/KG/HR 10 mls/hr IV .Q24H [facility] Rx#: [id number] - Labs CBC & Chem 7: 02/12/21 05:22 02/12/21 05:22 Labs: Abnormal Lab Results - Last 24 Hours (Table) 02/11/21 02/11/21 02/11/21 Range/Units 13:31 13:31 22:28 MCV 100.2 H (80.0-100.0) fL Plt Count 100 L (150-450) k/uL APTT 98.5 H (22.0-30.0) sec Glucose 108 H (74-99) mg/dL 02/12/21 Range/Units 05:22 MCV (80.0-100.0) fL Plt Count (150-450) k/uL APTT 92.5 H (22.0-30.0) sec Glucose (74-99) mg/dL <JuanJimena Alicia - Last Filed: 02/12/21 17:57> Objective - Vital Signs Vital signs: Vital Signs Temp 97.7 F 02/12/21 07:10 Pulse 70 02/12/21 15:29 Resp 18 02/12/21 07:10 BP 123/70 02/12/21 07:10 Pulse Ox 98 02/12/21 07:10 Intake & Output 02/11/21 02/12/21 02/12/21 18:59 06:59 18:59 Intake Total 141.833 Balance 141.833 Weight 87.997 kg 88 kg Intake: Intake, IV Titration 141.833 Amount Heparin Sod,Pork in 0.45% 141.833 NaCl 25,000 unit In 0.45 % NaCl 1 250ml.bag @ 11. 364 UNITS/KG/HR 10 mls/hr IV .Q24H [facility] Rx#: [id number] - Labs CBC & Chem 7: 02/12/21 05:22 02/12/21 05:22 Labs: Abnormal Lab Results - Last 24 Hours (Table) 02/11/21 02/12/21 02/12/21 Range/Units 22:28 05:22 05:22 MCV 100.0 H (80.0-97.0) fL MCH 34.6 H (27.0-32.0) pg Plt Count 111 L (140-440) X 10*3/uL Lymphocytes # 0.57 L (0.90-5.00) X 10*3/uL Monocytes # 0.14 L (0.20-1.00) X 10*3/uL Eosinophils # 0.02 L (0.04-0.35) X 10*3/uL APTT 98.5 H (22.0-30.0) sec Chloride 112 H (96-109) mmol/L Carbon Dioxide 20.4 L (21.6-31.8) mmol/L Est GFR (CKD-EPI)AfAm 59.3 L (60.0-200.0) Est GFR (CKD-EPI)NonAf 51.2 L (60.0-200.0) BUN/Creatinine Ratio 8.46 L (12.00-20.00) Ratio Glucose 159 H (70-110) mg/dL HDL Cholesterol 36.0 L (40.0-60.0) mg/dL 02/12/21 Range/Units 05:22 MCV (80.0-97.0) fL MCH (27.0-32.0) pg Plt Count (140-440) X 10*3/uL Lymphocytes # (0.90-5.00) X 10*3/uL Monocytes # (0.20-1.00) X 10*3/uL Eosinophils # (0.04-0.35) X 10*3/uL APTT 92.5 H (22.0-30.0) sec Chloride (96-109) mmol/L Carbon Dioxide (21.6-31.8) mmol/L Est GFR (CKD-EPI)AfAm (60.0-200.0) Est GFR (CKD-EPI)NonAf (60.0-200.0) BUN/Creatinine Ratio (12.00-20.00) Ratio Glucose (70-110) mg/dL HDL Cholesterol (40.0-60.0) mg/dL Assessment and Plan Assessment: Patient seen and examined independently. Patient was also seen by Daljit Mccloud NP and case was discussed. I am in agreement with subjective, physical exam, assessment and plan as written above and amended below. present at bedside. All questions answered and updated. Denies any current chest pain or shortness of breath. General: non toxic, no distress, appears at stated age Derm: warm, dry Head: atraumatic, normocephalic, symmetric Eyes: EOMI, no lid lag, anicteric sclera Mouth: no lip lesion, mucus membranes moist Cardiovascular: S1S2 reg, no murmur, positive posterior tibial pulse bilateral, Lungs: Decreased breath sounds bilateral, no rhonchi, no rales , no accessory muscle use Abdominal: soft, nontender to palpation, no guarding, no appreciable organomegaly Ext: no gross muscle atrophy, no edema, no contractures Neuro: CN II-XI grossly intact, no focal neuro deficits Psych: Alert, oriented, appropriate affect Patient failed observation treatment of his unastable angina and copd exacerbation. His has had intermittent continued weehzing and a postiive stress test with continue dyspnea on exerction. He will transitioned to inpatient status. Risk of discharge at this time include myocardial infraction possible leading to . Case discussed with Dr. Leal and plan will be for cardiac catheterization in a.m.
--- NOTE | 2021-02-12 18:04 | P.STRESS ---
- Stress Test Note Stress Test Results/Findings: Exam Performed: NM stress lexiscan cardiolite Exam Date: 02/12/21 Reason for Exam: Chest Pain Height: 5 ft 8 in Weight: 88 kg Protocol: Lexiscan Stage: na Duration of Exercise: na Resting Heart Rate: 65 Resting Blood Pressure: 136/70 Maximum Achieved Heart Rate: 85 Maximum Achieved Blood Pressure: 136/70 85% PMHR: 118 100% PMHR: 139 METS: na Technologist Comment: Stress Test Results/Findings:
[2021-02-12] MEDS: ISOSORBIDE MONONITRATE ER 15 MG TAB PO SCH (19:54)
[2021-02-12 20:20] LABS: Glucose,Whole Blood 337 mg/dL (75-99)
[2021-02-12] MEDS: INSULIN ASPART (NovoLOG) 100 UNIT/ML VIAL SQ SCH (20:47)
[2021-02-12] MEDS: traZODone HCL 100 MG TAB PO SCH (20:47)
[2021-02-12] MEDS: ATORVASTATIN 40 MG TAB PO SCH (20:47)
[2021-02-13 06:08] LABS: Glucose,Whole Blood 103 mg/dL (75-99)
[2021-02-13] MEDS: INSULIN ASPART (NovoLOG) 100 UNIT/ML VIAL SQ SCH ×4 (06:26→20:46)
[2021-02-13] MEDS: carvediloL 3.125 MG TAB PO SCH ×2 (06:38→18:16)
[2021-02-13] MEDS ORDERED: HEPARIN SODIUM,PORCINE 10,000 UNIT in SODIUM CHLORIDE 0.9% 1,000 ML IRRIGATION PRN (07:00)
[2021-02-13] MEDS ORDERED: HEPARIN SODIUM,PORCINE 2,500 UNIT in SODIUM CHLORIDE 0.9% 250 ML IRRIGATION PRN (07:00)
[2021-02-13] MEDS: IPRATROPIUM-ALBUTEROL 3 ML NEB INHALATION SCH ×4 (07:07→21:28)
[2021-02-13] MEDS ORDERED: SODIUM CHLORIDE 0.9% 1,000 ML in EMPTY BAG 1 BAG IV ONE (07:16)
[2021-02-13] MEDS ORDERED: ALPRAZolam 0.5 MG TAB PO PRN (07:16)
[2021-02-13] MEDS ORDERED: ASPIRIN 325 MG TAB PO STA (07:16)
[2021-02-13] MEDS: ISOSORBIDE MONONITRATE ER 15 MG TAB PO SCH (08:04)
[2021-02-13] MEDS: SERTRALINE 50 MG TAB PO SCH (08:04)
[2021-02-13] MEDS: predniSONE 20 MG TAB PO SCH (08:04)
[2021-02-13 08:07] LABS: Prothrombin Time 10.6 sec (9.0-12.0)
[2021-02-13 08:08] LABS: HCT 42.5 % (39.0-53.0); HGB 14.6 gm/dL (13.0-17.5); MCH 35.2 pg (25.0-35.0); MCHC 34.5 g/dL (31.0-37.0); MCV 102.2 fL (80.0-100.0); Macrocytosis Slight; Mean Platelet Volume 8.9; Platelet Count 107 k/uL (150-450); RBC 4.15 m/uL (4.30-5.90)
[2021-02-13 08:18] LABS: Calcium 8.6 mg/dL (8.4-10.2); Potassium 3.9 mmol/L (3.5-5.1)
[2021-02-13] MEDS ORDERED: SODIUM CHLORIDE 0.9% 1,000 ML IV ONE (09:18)
[2021-02-13] MEDS ORDERED: fentaNYL (PF) 50 MCG/ML 2 ML AMP IV ONE (09:40)
[2021-02-13] MEDS ORDERED: MIDAZOLAM 2 MG/2 ML VIAL IV ONE (09:40)
[2021-02-13] MEDS ORDERED: LIDOCAINE 1% INJ 10MG/ML (20 ML MDV) SQ ONE (09:43)
[2021-02-13] MEDS: VERAPAMIL SYRINGE (5 MG/10 ML) INTRAARTER ONE ×2 (09:45→10:20)
--- NOTE | 2021-02-13 10:07 | P.PN ---
<Daljit Mccloud - Last Filed: 02/13/21 09:56> Subjective Progress Note Date: 02/13/21 Principal diagnosis: Unstable angina Mr. Fierro is a patient of Dr. Chen and family requesting admission to [facility]. Hospital course: Patient is a very pleasant 80-year-old male with a past medical history including CAD with previous [place] x2 and stent placement 3, dual-lead pacemaker placement, hypertension, hyperlipidemia, COPD not on home oxygen dependent, and GERD. Patient presented to the hospital with a chief complaint of chest pain and exertional dyspnea beginning 3-4 days ago and progressively worsening. He was seen and fully evaluated in the emergency department. Labs obtained revealing CBC and BMP unremarkable with the exception of thrombocytopenia with platelet count of 100 (chronic in nature and currently at baseline levels). Troponin 0.026. EKG revealing ventricular paced rhythm at 66 bpm. No significant changes noted when compared to previous EKG obtained on 04/19/20. Chest x-ray revealing chronic emphysematous and pulmonary fibrotic changes with tiny right pleural effusion reported on lateral view. HEART score of 6. Patient was given Aspirin 324 mg accompanied by heparin bolus followed by infusion per ACS protocol for unstable angina and admitted under our services with consult to cardiology for continued close medical management. Patient currently on 2 L O2 via nasal cannula maintaining SpO2 at 95%. He continues to report resolution of chest pain since arrival to hospital but continues to report shortness of breath worsening with any exertion. Patient states he had a difficult time walking to the restroom and has since been using the urinal at the bedside. Covid 19 PCR was negative. Troponins were trended and remained stable at 0.026, 0.025, and 0.021. Echocardiogram revealed a mild to moderately impaired ejection fraction of 40-45% with severe concentric left ventricular hypertrophy and mild mitral and tricuspid regurgitation. Patient's Lexiscan cardiac stress test was positive for small areas of stress-induced reversibility involving the inferior and inferioapical myocardium. Dr. Leal, Laser Technician was notified of results and pt is scheduled for cardiac catheterization this morning. Physical exam: Patient seen and evaluated at the bedside. He was resting comfortably with his at bedside. He reports that he had a good night, denies having any episodes of chest, however he states that he continues to feel significantly short of breath with any exertion. Patient reports shortness of breath with just turning over or sitting up in bed. He denies having any further episodes of dizziness/lightheadedness and denies feeling any headache, chest pain or palpitations, abdominal pain, nausea, vomiting, or experiencing any numbness/swelling/weakness/tingling in extremities. Patient scheduled to be taken down for cardiac cath this morning. CBC reveals mild leukocytosis at 13.0, likely secondary to initiation of steroids for COPD exacerbation. Chronic Thrombocytopenia stable with platelet count of 107,000. Labs otherwise unremarkable. Vital signs reviewed and stable. General: non toxic, no distress, appears at stated age Derm: warm, dry Head: atraumatic, normocephalic, symmetric, very hard of hearing hearing aids bilaterally. Eyes: EOMI, no lid lag, anicteric sclera Mouth: no lip lesion, mucus membranes moist Cardiovascular: S1S2 normal with regular rate and rhythm. No murmur, no gallop, and no rub noted. Positive posterior tibial pulses bilaterally, no lower extremity edema. Pacemaker left anterior chest. Lungs: Respirations even, regular, and unlabored on room air with SpO2 of 96%. Lungs sounds diminished with soft diffuse expiratory wheezes bilaterally. No rhonchi, rales, or crackles noted. Abdominal: Soft, nontender to palpation, no guarding, no appreciable organomegaly Ext: no gross muscle atrophy, no edema, no contractures. Neuro: GCS 15. Speech clear, no focal neuro deficits noted. Psych: Alert and oriented to person, place, time, and situation. Pleasant and appropriate affect. Assessment and Plan of Care: Unstable Angina, stress test positive for areas of stress-induced reversibility involving the inferior and inferioapical myocardium. -Troponins were trended and remained stable at 0.026, 0.025, and 0.021. -Echocardiogram revealed a mild to moderately impaired ejection fraction of 40- 45% with severe concentric left ventricular hypertrophy and mild mitral and tricuspid regurgitation. -Patient's Lexiscan cardiac stress test was positive for small areas of stress- induced reversibility involving the inferior and inferioapical myocardium. -Patient scheduled to be taken down for cardiac catheterization with Dr. Leal this morning. -Lipid profile revealed a low HDL of 36 otherwise normal findings. -EKG revealing ventricular paced rhythm at 66 bpm. No significant changes noted when compared to previous EKG obtained on 04/19/20. -Heparin discontinued by cardiology. -Continue telemetry monitoring -Continue daily Aspirin, simvastatin, and carvedilol. COPD in acute exacerbation -Chest x-ray revealed chronic emphysematous and pulmonary fibrotic changes with tiny right pleural effusion reported on lateral view. -Oxygenation to be administered and titrated as needed to maintain SPO2 equal to or greater than 92%. Patient currently on room air with SpO2 of 96% -Continue Aclidinium [place] with Duonebs as needed for SOB and/or wheezing -Incentive Spirometry, encourage use 10-15 times hourly while awake. -Continue Steroids: Prednisone 40 mg daily. Idiopathic Chronic Thrombocytopenia, stable -Platelets 107,000, chronic and currently at baseline levels. Hypertension -Monitor vital signs and continue daily medication management. Hyperlipidemia -Continue daily medication management. -Lipid profile unremarkable with the exception of low HDL of 36. CODE STATUS: Full code DVT prophylaxis: Heparin Discussed with: Patient and his Anticipated discharge date: Clinical course to determine Anticipated discharge place: Home A total of 45 minutes was spent on the care of this complex patient more than 50% of the time was spent in counseling and care coordination. Objective - Vital Signs Vital signs: Vital Signs Temp 97.9 F 02/13/21 08:03 Pulse 68 02/13/21 08:03 Resp 18 02/13/21 08:03 BP 135/61 02/13/21 08:03 Pulse Ox 96 02/13/21 08:03 Intake & Output 02/12/21 02/13/21 02/13/21 18:59 06:59 18:59 Intake Total 141.833 Balance 141.833 Weight 88 kg 88.1 kg Intake: Intake, IV Titration 141.833 Amount Heparin Sod,Pork in 0.45% 141.833 NaCl 25,000 unit In 0.45 % NaCl 1 250ml.bag @ 11. 364 UNITS/KG/HR 10 mls/hr IV .Q24H [facility] Rx#: [id number] Other: # Voids 1 - Labs CBC & Chem 7: 02/13/21 07:43 02/13/21 07:43 Labs: Abnormal Lab Results - Last 24 Hours (Table) 02/12/21 02/12/21 02/12/21 Range/Units 05:22 05:22 20:19 WBC (3.8-10.6) k/uL RBC (4.30-5.90) m/uL MCV 100.0 H (80.0-97.0) fL MCH 34.6 H (27.0-32.0) pg Plt Count 111 L (140-440) X 10*3/uL Lymphocytes # 0.57 L (0.90-5.00) X 10*3/uL Monocytes # 0.14 L (0.20-1.00) X 10*3/uL Eosinophils # 0.02 L (0.04-0.35) X 10*3/uL Chloride 112 H (96-109) mmol/L Carbon Dioxide 20.4 L (21.6-31.8) mmol/L Est GFR (CKD-EPI)AfAm 59.3 L (60.0-200.0) Est GFR (CKD-EPI)NonAf 51.2 L (60.0-200.0) BUN/Creatinine Ratio 8.46 L (12.00-20.00) Ratio Glucose 159 H (70-110) mg/dL POC Glucose (mg/dL) 337 H (75-99) mg/dL HDL Cholesterol 36.0 L (40.0-60.0) mg/dL 02/13/21 02/13/21 02/13/21 Range/Units 06:07 07:43 07:43 WBC 13.0 H (3.8-10.6) k/uL RBC 4.15 L (4.30-5.90) m/uL MCV 102.2 H (80.0-97.0) fL MCH 35.2 H (27.0-32.0) pg Plt Count 107 L (140-440) X 10*3/uL Lymphocytes # (0.90-5.00) X 10*3/uL Monocytes # (0.20-1.00) X 10*3/uL Eosinophils # (0.04-0.35) X 10*3/uL Chloride 112 H (96-109) mmol/L Carbon Dioxide (21.6-31.8) mmol/L Est GFR (CKD-EPI)AfAm (60.0-200.0) Est GFR (CKD-EPI)NonAf (60.0-200.0) BUN/Creatinine Ratio (12.00-20.00) Ratio Glucose 111 H (70-110) mg/dL POC Glucose (mg/dL) 103 H (75-99) mg/dL HDL Cholesterol (40.0-60.0) mg/dL <JuanJimena Alicia - Last Filed: 02/13/21 16:44> Objective - Vital Signs Vital signs: Vital Signs Temp 97.7 F 02/13/21 11:40 Pulse 62 02/13/21 14:00 Resp 18 02/13/21 14:00 BP 99/50 02/13/21 11:40 Pulse Ox 94 L 02/13/21 11:40 Intake & Output 02/12/21 02/13/21 02/13/21 18:59 06:59 18:59 Intake Total 141.833 200 Balance 141.833 200 Weight 88 kg 88.1 kg Intake: IV 200 Intake, IV Titration 141.833 Amount Heparin Sod,Pork in 0.45% 141.833 NaCl 25,000 unit In 0.45 % NaCl 1 250ml.bag @ 11. 364 UNITS/KG/HR 10 mls/hr IV .Q24H [facility] Rx#: [id number] Other: # Voids 1 - Labs CBC & Chem 7: 02/13/21 07:43 02/13/21 07:43 Labs: Abnormal Lab Results - Last 24 Hours (Table) 02/12/21 02/13/21 02/13/21 Range/Units 20:19 06:07 07:43 WBC 13.0 H (3.8-10.6) k/uL RBC 4.15 L (4.30-5.90) m/uL MCV 102.2 H (80.0-100.0) fL MCH 35.2 H (25.0-35.0) pg Plt Count 107 L (150-450) k/uL Chloride (98-107) mmol/L Glucose (74-99) mg/dL POC Glucose (mg/dL) 337 H 103 H (75-99) mg/dL 02/13/21 02/13/21 Range/Units 07:43 11:45 WBC (3.8-10.6) k/uL RBC (4.30-5.90) m/uL MCV (80.0-100.0) fL MCH (25.0-35.0) pg Plt Count (150-450) k/uL Chloride 112 H (98-107) mmol/L Glucose 111 H (74-99) mg/dL POC Glucose (mg/dL) 158 H (75-99) mg/dL Assessment and Plan Assessment: Patient seen and examined independently. Patient was also seen by Daljit Mccloud NP and case was discussed. I am in agreement with subjective, physical exam, assessment and plan as written above and amended below. He deneis pain at the cath site, no chest pain, no shrotness of breath currently. with questions for Dr. Leal, who graciously andwered her questions over the phone. General: non toxic, no distress, appears at stated age Derm: warm, dry Head: atraumatic, normocephalic, symmetric, hard of hearing Cardiovascular: S1S2 reg, no murmur, positive posterior tibial pulse bilateral, Lungs: CTA bilateral, no rhonchi, no rales , no accessory muscle use Ext: no gross muscle atrophy, no edema, no contractures Neuro: CN II-XI grossly intact, no focal neuro deficits Psych: Alert, oriented, appropriate affect Cath with multiple lesions, none of which required intervention and maximal medi roopa therapy was suggested.
[2021-02-13] MEDS ORDERED: IOPAMIDOL-370 125ML BTL INJ ONE (10:39)
[2021-02-13 11:59] LABS: Glucose,Whole Blood 158 mg/dL (75-99)
[2021-02-13 14:46] LABS: Hemoglobin A1C 5.5 % (4.0-6.0)
[2021-02-13 17:10] LABS: Glucose,Whole Blood 138 mg/dL (75-99)
[2021-02-13 20:38] LABS: Glucose,Whole Blood 151 mg/dL (75-99)
[2021-02-13] MEDS: NEOMYCIN-POLYMYXIN-DEXAMETH OINT 3.5 GM TUBE BOTH EYES SCH (20:46)
[2021-02-13] MEDS: ATORVASTATIN 40 MG TAB PO SCH (20:47)
[2021-02-13] MEDS: traZODone HCL 100 MG TAB PO SCH (20:47)
--- NOTE | 2021-02-13 21:25 | P.CARDCATH ---
Description of Procedure: PROCEDURES PERFORMED: Left heart catheterization, bilateral coronary angiography, iFR of LAD, circumflex and RCA INDICATION: CAD, abnormal stress test, [place] and chest pain concerning for unstable angina HISTORY: Patient is a pleasant 80-year-old male with history of coronary artery disease status post PCI to the OM in 2005 and RCA in 2006, hypertension, hyperlipidemia, but bundle-branch block and permanent pacemaker who presented secondary to worsening shortness of breath with fairly minimal activity over last few months. He has been having some dizziness and also has been having some atypical chest pain. Due to symptoms a stress test was performed which showed fixed defects involving the anterior, inferior, apical and septal wall with suspicion of small areas of stress-induced reversibility involving the inferior and inferior apical myocardium. Therefore recommendation was for heart catheterization. Patient normally follows with Dr Whitaker however was not available and therefore I was asked to performed procedure. CONSENT:I have discussed the risks, benefits and alternative therapies for the above-mentioned procedure and for both sedation/analgesia as well as necessary blood product administration, if indicated, as they pertain to this patient. The patient has indicated understanding and acceptance of the risks and procedures discussed. PROCEDURE: After the risks, benefits and alternatives of the above mentioned procedure explained in detail with the patient, informed consent was obtained. Patient was taken to the catheterization lab and prepped and draped in usual fashion. 1% lidocaine was used to anesthetize the right radial artery. A 6- Dominican sheath was placed in the right radial artery using modified Seldinger technique. Left coronary angiography was performed with a 5-Dominican JL 3.5 catheter and right coronary angiography was performed with a 5-Dominican AR2 catheter in various views. A 5-Dominican FR5 catheter was inserted into the left ventricle and pressure measurements were obtained. Images appeared predominantly similar to catheterization in 2018 however secondary to symptoms and abnormal stress test the decision was made to perform iFR. Therefore the left main was engaged with a CLS 3.5 guide and a 0.014 pressure guide wire was inserted into the left main and normalized. The wire was then advanced into the mid to distal LAD, 2 cm past the lesion. This was normal at 0.91. Wire was advanced into the distal circumflex past the 50% circumflex lesion and iFR was performed and noted to be normal at 0.95. Finally, there was moderate disease of the RCA which was also evaluated. A 6 Dominican AL 0.75 guide was used to engage the RCA. The 0.014 pressure guide wire was advanced into the mid to distal RCA and iFR was performed and noted to be normal at 0.94. The right radial sheath was removed and a TR band was placed with hemostasis achieved. The patient tolerated the procedure well. Patient was transported back to the post catheterization holding area in stable condition. Conscious Sedation: Patient was monitored under the direct supervision of vision of myself for conscious sedation using Versed and fentanyl for a total duration of 50 minutes HEMODYNAMICS: Ao: 111/71 LV: 105/18, LVEDP 14 SELECTIVE CORONARY ARTERIOGRAPHY: LEFT MAIN: The left main is a large caliber vessel which bifurcates into the LAD and circumflex. There is no significant stenosis. LEFT ANTERIOR DESCENDING CORONARY ARTERY: LAD is a large caliber vessel which wraps around to the apex. There is mild proximal 30% LAD stenosis and then diffuse 50-60% mid LAD stenosis at the level of a small caliber diagonal 1 branch. iFR of the LAD was normal at 0.91. There was a 60-70% stenosis at the origin of the small caliber diagonal 1 branch which appeared heavily calcified and appeared unchanged from 2018. LEFT CIRCUMFLEX CORONARY ARTERY: Left circumflex is a moderate caliber vessel. OM1 has mild luminal irregularities. The distal circumflex has a mid to distal 50-60% stenosis (iFR normal at 0.95). There is a very small caliber OM3 branch which has a 90% stenosis however feeds very small territory. RIGHT CORONARY ARTERY: The right coronary artery is a large caliber vessel which gives off a PDA and PLV branch and is the dominant vessel. There is a proximal 50% RCA stenosis with iFR normal at 0.94. There is a mid PLV 60% stenosis and noted to be small caliber. FINAL IMPRESSION: 1. Diffuse CAD appearing relatively unchanged from 2018 including mid LAD 50-6 0%, small calcified diagonal 1 ostial 60-70% stenosis, mid to distal circumflex 50-60% stenosis, proximal RCA 50%, and mid PLV 60% with iFR of LAD, circumflex and proximal RCA being normal. 2. Normal left sided pressures PLAN: 1. Aggressive risk factor modification per most recent ACC/AHA guidelines. 2. Would treat LAD, circumflex and RCA medically as well as small caliber OM, diagonal and PLV. 3. Workup of other reasons of dyspnea and fatigue.
[2021-02-14 06:19] LABS: Glucose,Whole Blood 94 mg/dL (75-99)
[2021-02-14] MEDS: INSULIN ASPART (NovoLOG) 100 UNIT/ML VIAL SQ SCH ×2 (06:23→14:00)
[2021-02-14] MEDS: carvediloL 3.125 MG TAB PO SCH (06:26)
[2021-02-14] MEDS: IPRATROPIUM-ALBUTEROL 3 ML NEB INHALATION SCH ×2 (08:23→11:54)
[2021-02-14] MEDS ORDERED: ASPIRIN 81 MG PO SCH (09:00)
[2021-02-14] MEDS: SERTRALINE 50 MG TAB PO SCH (09:18)
[2021-02-14] MEDS: predniSONE 20 MG TAB PO SCH (09:18)
[2021-02-14] MEDS: ISOSORBIDE MONONITRATE ER 15 MG TAB PO SCH (09:19)
[2021-02-14 09:22] VITALS: BP 139/64; RESP 20; TEMP 97.9
[2021-02-14 09:45] LABS: Basophils % (A) 0 %; Eosinophils % (A) 0 %; HCT 46.1 % (39.0-53.0); Lymphocytes # (A) 1.8 k/uL (1.0-4.8); Lymphocytes % (A) 17 %; MCH 33.4 pg (25.0-35.0); MCHC 32.5 g/dL (31.0-37.0); MCV 102.8 fL (80.0-100.0); Macrocytosis Slight; Mean Platelet Volume 8.4; Monocytes # (A) 0.5 k/uL (0-1.0); Monocytes % (A) 5 %; Neutrophils # (A) 8.3 k/uL (1.3-7.7); Neutrophils % (A) 77 %; Platelet Count 109 k/uL (150-450); RBC 4.49 m/uL (4.30-5.90); RDW 13.8 % (11.5-15.5); WBC 10.7 k/uL (3.8-10.6)
[2021-02-14 09:53] LABS: Magnesium 1.9 mg/dL (1.6-2.3)
[2021-02-14 09:57] LABS: Prothrombin Time 10.7 sec (9.0-12.0)
[2021-02-14 11:53] LABS: Glucose,Whole Blood 120 mg/dL (75-99)
[2021-02-14 11:58] VITALS: PULSE 76
--- NOTE | 2021-02-14 12:42 | P.DS ---
<Daljit Mccloud - Last Filed: 02/14/21 12:08> Providers Expected date of discharge: 02/14/21 Hospital Course: Discharge Diagnoses: COPD in acute exacerbation Chest pain secondary to pleurisy, unstable angina/cardiac etiology ruled out Idiopathic Chronic Thrombocytopenia, stable Hypertension Hyperlipidemia Hospital course: Patient is a very pleasant 80-year-old male with a past medical history including CAD with previous TN x2 and stent placement 3, dual-lead pacemaker placement, hypertension, hyperlipidemia, COPD not on home oxygen dependent, and GERD. Patient presented to the hospital with a chief complaint of chest pain and exertional dyspnea beginning 3-4 days ago and progressively worsening. He was seen and fully evaluated in the emergency department. Labs obtained revealing CBC and BMP unremarkable with the exception of thrombocytopenia with platelet count of 100 (chronic in nature and currently at baseline levels). Troponin 0.026. EKG revealing ventricular paced rhythm at 66 bpm. No significant changes noted when compared to previous EKG obtained on 04/19/20. Chest x-ray revealing chronic emphysematous and pulmonary fibrotic changes with tiny right pleural effusion reported on lateral view. HEART score of 6. Patient was given Aspirin 324 mg accompanied by heparin bolus followed by infusion per ACS protocol for unstable angina and admitted under our services with consult to cardiology for continued close medical management. Patient currently on 2 L O2 via nasal cannula maintaining SpO2 at 95%. He continues to report resolution of chest pain since arrival to hospital but continues to report shortness of breath worsening with any exertion. Patient states he had a difficult time walking to the restroom and has since been using the urinal at the bedside. Covid 19 PCR was negative. Troponins were trended and remained stable at 0.026, 0.025, and 0.021. Echocardiogram revealed a mild to moderately impaired ejection fraction of 40-45% with severe concentric left ventricular hypertrophy and mild mitral and tricuspid regurgitation. Patient's Lexiscan cardiac stress test was positive for small areas of stress-induced reversibility involving the inferior and inferioapical myocardium. Dr. Leal, Biometrics Technician completed cardiac catheterization which reportedly revealed diffuse CAD appearing relatively unchanged from 2018 including mid LAD 50-60%, small calcified diagonal 1 ostial 60-70% stenosis, mid to distal circumflex 50-60% stenosis, proximal RCA 50%, and mid PLV 60% with iFR of LAD, circumflex, and proximal RCA being normal with normal left-sided pressures. Cardiology recommended to treat LAD, circumflex, RCA, small caliber OM, diagonal, and PLV medically. Patient to continue simvastatin 80 mg nightly, carvedilol 3.125 mg twice daily, Imdur 15 mg daily, Patient was started on nebulizer treatments and steroids for his acute exacerbation of COPD. Pt's condition is stable at this time and he is being discharged home on Prednisone for 3 more days to total 7 days of steroid treatment along with duoneb treatments and a home nebulizer machine. Pt instructed that he will need to follow up with railroad maintenance clerk to establish continued intermediate card tender medical managment of his COPD and will need further pulmonary function testing. Physical exam: Patient seen and evaluated at the bedside. He reports that he feels as though he is breathing much better and has been walking back and forth to the restroom without any difficulties. He denies having any dizziness, lightheadedness, chest pain or palpitations. Patient reports he is ready to go home and denies any further needs at this time. Vital signs reviewed and stable. Patient stable for discharge at this time. General: non toxic, no distress, appears at stated age Derm: warm, dry Head: atraumatic, normocephalic, symmetric, very hard of hearing hearing aids bilaterally. Eyes: EOMI, no lid lag, anicteric sclera Mouth: no lip lesion, mucus membranes moist Cardiovascular: S1S2 normal with regular rate and rhythm. No murmur, no gallop, and no rub noted. Positive posterior tibial pulses bilaterally, no lower extremity edema. Pacemaker left anterior chest. Lungs: Respirations even, regular, and unlabored on room air with SpO2 of 96%. Lungs sounds diminished with soft diffuse expiratory wheezes bilaterally. No rhonchi, rales, or crackles noted. Abdominal: Soft, nontender to palpation, no guarding, no appreciable organomegaly Ext: no gross muscle atrophy, no edema, no contractures. Neuro: GCS 15. Speech clear, no focal neuro deficits noted. Psych: Alert and oriented to person, place, time, and situation. Pleasant and appropriate affect. A total of 45 minutes of time were spent preparing this complex discharge summary. Patient Condition at Discharge: Stable Plan - Discharge Summary New Discharge Prescriptions: New predniSONE [Deltasone] 40 mg PO DAILY 3 Days #3 tab Aspirin 81 mg PO DAILY chew Ipratropium-Albuterol Nebulize [Duoneb 0.5 mg-3 mg/3 ml Soln] 3 ml INHALATION Q4HR PRN 30 Days #1 box PRN Reason: Wheezing Continue Simvastatin [Zocor] 80 mg PO HS carvediloL [Coreg] 3.125 mg PO BID traZODone HCL [Desyrel] 200 mg PO HS Nitroglycerin Sl Tabs [Nitrostat] 0.4 mg SUBLINGUAL Q5M PRN PRN Reason: Chest Pain Sertraline HCl [Zoloft] 50 mg PO DAILY LORazepam [Ativan] 1 mg PO TID PRN PRN Reason: Anxiety Xelkxjgm-Uxtrmrehq-Fvtneofk [Maxitrol Ophth Oint] 1 applic BOTH EYES HS Aclidinium Ruth [Tudorza Pressair] 1 puff INHALATION RT-BID Isosorbide Mononitrate ER [Imdur] 15 mg PO DAILY Acyclovir 5% Oint [Zovirax Oint] 1 applic TOPICAL TID Discharge Medication List Simvastatin [Zocor] 80 mg PO HS 07/15/16 [History] carvediloL [Coreg] 3.125 mg PO BID 07/15/16 [History] traZODone HCL [Desyrel] 200 mg PO HS 07/15/16 [History] Nitroglycerin Sl Tabs [Nitrostat] 0.4 mg SUBLINGUAL Q5M PRN 11/26/19 [History] LORazepam [Ativan] 1 mg PO TID PRN 04/18/20 [History] Sertraline HCl [Zoloft] 50 mg PO DAILY 04/18/20 [History] Aclidinium Ruth [Tudorza Pressair] 1 puff INHALATION RT-BID 07/09/20 [History] Lxmdbsfa-Qhkkvybdb-Ifjmwjyp [Maxitrol Ophth Oint] 1 applic BOTH EYES HS 07/09/20 [History] Acyclovir 5% Oint [Zovirax Oint] 1 applic TOPICAL TID 02/11/21 [History] Isosorbide Mononitrate ER [Imdur] 15 mg PO DAILY 02/11/21 [History] Aspirin 81 mg PO DAILY chew 02/14/21 [Rx] Ipratropium-Albuterol Nebulize [Duoneb 0.5 mg-3 mg/3 ml Soln] 3 ml INHALATION Q4HR PRN 30 Days #1 box 02/14/21 [Rx] predniSONE [Deltasone] 40 mg PO DAILY 3 Days #3 tab 02/14/21 [Rx] Follow up Appointment(s)/Referral(s): Chrissie Whitaker MD [STAFF PHYSICIAN] - 2 Weeks [facility],Equipment [NON-STAFF] - As Needed (Supplier of Nebulizer) Alexey Chen MD [Primary Care Provider] - 1-2 days Ethel Love MD [STAFF PHYSICIAN] - 1 Week (will need to establish care with railroad maintenance clerk and set up for PFTs. ) Patient Instructions/Handouts: Coronary Artery Disease (DC), Chest Pain (DC), Left Heart Catheterization (DC) Activity/Diet/Wound Care/Special Instructions: Activity: As tolerated. Remember if you feel short of breath with exertion to stop and take a break. Slow and steady wins the race. Diet: Heart Healthy diet Wound Care: As directed by cardiology. Remember No lifting anything greater than 5 lbs with left hand until reevaluated by supervisor plastering in office. If you notice any swelling or bleeding for cardiac cath site to right wrist apply pressure and notify supervisor plastering office immediately. Special Instructions: You are being sent home with a home nebulizer machine for episodes when you experience your increased shortness of breath or excessive wheezing. At first I would like you to continue treatments scheduled 3 times daily for the next 3 days and then you will use nightly and as needed up to 4x daily until further directed by railroad maintenance clerk, Dr. Love. You are going to continue prednisone 40 mg daily for 3 more days. You have already received your dose for today and the next dose will be due tomorrow morning on (02/15/21). Thank you for allowing me to have the opportunity to participate in your care. It was a pleasure getting to know you and your . Discharge Disposition: HOME SELF-CARE <Jimena Martinez - Last Filed: 02/14/21 17:15> Providers Date of admission: 02/12/21 17:03 Attending physician: Jimena Martinez DO Consults: 02/11/21 16:25 Consult Physician Urgent Consulting Provider: [facility] Consult Reason/Comments: acute chest pain, possible acs, hx ascad Do you want consulting provider notified?: Yes Primary care physician: Alexey [facility] Course: Patient seen and examined independently. Patient was also seen by Daljit Mccloud NP and case was discussed. I am in agreement with discharge diagnosis, hospital course, and physical exam as written above and amended below. Doing well. States he is ambulating to the bathroom without significant shortness breath. Months to be discharged home. General: non toxic, no distress, appears at stated age Derm: warm, dry Head: atraumatic, normocephalic, symmetric Eyes: EOMI, no lid lag, anicteric sclera Mouth: no lip lesion, mucus membranes moist Cardiovascular: S1S2 reg, no murmur, positive posterior tibial pulse bilateral, Lungs: Faint wheeze bilateral, no rhonchi, no rales , no accessory muscle use Abdominal: soft, nontender to palpation, no guarding, no appreciable organomegaly Ext: no gross muscle atrophy, no edema, no contractures Neuro: CN II-XI grossly intact, no focal neuro deficits Psych: Alert, oriented, appropriate affect
--- NOTE | 2021-02-14 14:49 | P.PN ---
Subjective Progress Note Date: 02/14/21 HISTORY OF PRESENT ILLNESS: Patient underwent cardiac catheterization yesterday revealing diffuse coronary artery disease appearing relatively unchanged from 2018 including mid LAD 50- 60%, small calcified diagonal 1 ostial 60-70% stenosis, mid to distal circumflex 50-60% stenosis, proximal RCA 50% and mid PVL 60% with iFR of LAD, circumflex, and proximal RCA being normal. Patient examined this morning at the bedside. He denies chest pain or pressure. Denies shortness of breath. Vital signs are stable. PHYSICAL EXAM: VITAL SIGNS: Reviewed. GENERAL: Well-developed in no acute distress. NECK: Supple. No JVD or thyromegaly LUNGS: Respirations even and unlabored. Lungs essentially clear to auscultation bilaterally. HEART: Regular rate and rhythm. S1 and S2 heard. EXTREMITIES: Normal range of motion. No clubbing or cyanosis. Peripheral pulses intact. No lower extremity edema. Right radial cath site with pulse present. ASSESSMENT: Chest pain, atypical, status post cardiac catheterization with findings as above Exertional shortness of breath Dizziness Coronary artery disease s/p PCI Hypertension Dyslipidemia Sleep apnea Permanent pacemaker implantation Chronic cigar smoker COPD PLAN: Continue current cardiac medications Patient is stable for discharge home today. He is to follow up outpatient Nurse practitioner note has been reviewed by physician. Signing provider agrees with the documented findings, assessment, and plan of care. Objective - Vital Signs Vital signs: Vital Signs Temp 97.9 F 02/14/21 08:00 Pulse 76 02/14/21 12:05 Resp 20 02/14/21 08:00 BP 139/64 02/14/21 08:00 Pulse Ox 93 L 02/14/21 08:00 Intake & Output 02/13/21 02/14/21 02/14/21 18:59 06:59 18:59 Intake Total 440 1020 Balance 440 1020 Weight 88.9 kg Intake: IV 200 Intake, IV Titration 300 Amount Sodium Chloride 0.9% 1, 300 000 ml In Empty Bag 1 bag @ 1 ML/KG/HR 88.1 mls/hr IV .[id number] Rx#: [id number] Oral 240 720 Other: # Voids 2 - Labs CBC & Chem 7: 02/14/21 08:14 02/14/21 08:14 Labs: Abnormal Lab Results - Last 24 Hours (Table) 0302/13/21 02/14/21 Range/Units 16:58 20:36 08:14 WBC 10.7 H (3.8-10.6) k/uL MCV 102.8 H (80.0-100.0) fL Plt Count 109 L (150-450) k/uL Neutrophils # 8.3 H (1.3-7.7) k/uL Chloride (98-107) mmol/L Glucose (74-99) mg/dL POC Glucose (mg/dL) 138 H 151 H (75-99) mg/dL 02/14/21 02/14/21 Range/Units 08:14 11:52 WBC (3.8-10.6) k/uL MCV (80.0-100.0) fL Plt Count (150-450) k/uL Neutrophils # (1.3-7.7) k/uL Chloride 110 H (98-107) mmol/L Glucose 101 H (74-99) mg/dL POC Glucose (mg/dL) 120 H (75-99) mg/dL
--- NOTE | 2021-02-18 14:46 | EST ---
Addendum entered and electronically signed by Ryan Leal DO 02/12/21 18:04: At baseline EKG showed normal sinus rhythm, left bundle branch block with nonspecific ST-T wave abnormalities. Patient recieved IV infusion of Lexiscan 0.4mg and at peak infusion EKG showed no significant change from baseline. Conclusions: 1. Normal EKG response to Lexiscan infusion 2. Nuclear imaging to be reported separately. Original Note: - Stress Test Note Stress Test Results/Findings: Exam Performed: NM stress lexiscan cardiolite Exam Date: 02/12/21 Reason for Exam: Chest Pain Height: 5 ft 8 in Weight: 88 kg Protocol: Lexiscan Stage: na Duration of Exercise: na Resting Heart Rate: 65 Resting Blood Pressure: 136/70 Maximum Achieved Heart Rate: 85 Maximum Achieved Blood Pressure: 136/70 85% PMHR: 118 100% PMHR: 139 METS: na Technologist Comment: Stress Test Results/Findings: MTDD
== END 2021-02-14 14:27 | disposition home or self-care (01) | DRG 194 ==
LOC: EC 13:10 → 6NMEDSUR 16:24 → 1SOBS 02-12 14:27 → 3SCARD 02-12 15:19 → OBSVTOIN 02-12 17:03 → 3SCARD 02-12 19:37
PROVIDERS: ADMIT Internal Medicine; ATTEND Internal Medicine
PROC: 4A023N7 Measurement of Cardiac Sampling and Pressure, Left Heart, Percutaneous Approach (ICD-10-PCS; principal; 2021-02-13 10:50)
PROC: B2111ZZ Fluoroscopy of Multiple Coronary Arteries using Low Osmolar Contrast (ICD-10-PCS; 2021-02-13 10:50)
DX: R09.1 Pleurisy (principal); J44.1 Chronic obstructive pulmonary disease with (acute) exacerbation; D69.6 Thrombocytopenia, unspecified; I11.9 Hypertensive heart disease without heart failure; Z20.822 Contact with and (suspected) exposure to COVID-19; I25.10 Atherosclerotic heart disease of native coronary artery without angina pectoris; K21.9 Gastro-esophageal reflux disease without esophagitis; E78.5 Hyperlipidemia, unspecified; G62.9 Polyneuropathy, unspecified; F41.9 Anxiety disorder, unspecified; I44.7 Left bundle-branch block, unspecified; I08.1 Rheumatic disorders of both mitral and tricuspid valves; H91.93 Unspecified hearing loss, bilateral; F17.290 Nicotine dependence, other tobacco product, uncomplicated; G47.30 Sleep apnea, unspecified; I25.84 Coronary atherosclerosis due to calcified coronary lesion; I25.2 Old myocardial infarction; Z95.5 Presence of coronary angioplasty implant and graft; Z79.899 Other long term (current) drug therapy; Z95.0 Presence of cardiac pacemaker; Z98.890 Other specified postprocedural states; Z80.9 Family history of malignant neoplasm, unspecified
CPT/HCPCS: 36415; 71046; 78452; 80048; 80053; 80061; 83036; 83735; 83880; 84484; 85025; 85027; 85610; 85730; 87635; 93005; 93017; 93306; 93458; 93571; 93572; 94640; 94760; 96374; 96376; 99285

== ENCOUNTER → 2021-06-19 | Outpatient (CLI) | payer MEDICARE ==
[2021-06-19 19:13] LABS: African American GFR (CKD) 65.3 (60.0-200.0); Albumin 4.2 g/dL (3.80-4.90); Albumin/Globulin Ratio 1.91 (1.60-3.17); Anion Gap 8.9 mmol/L (4.00-12.00); BUN/Creat Ratio 8.33 Ratio (12.00-20.00); Calcium 9.1 mg/dL (8.7-10.3); Carbon Dioxide 24.1 mmol/L (21.6-31.8); Chol/HDL Ratio 3.66; Globulin 2.2 g/dL (1.6-3.3); Non-African American GFR(CKD) 56.4 (60.0-200.0); Total Bilirubin 0.5 mg/dL (0.3-1.2); Total Protein 6.4 g/dL (6.2-8.2)
== END | disposition home or self-care (01) ==
LOC: LABWHC1 07:27
PROVIDERS: ATTEND Internal Medicine Interventional Cardiology
DX: E78.2 Mixed hyperlipidemia (principal)
CPT/HCPCS: 36415; 80053; 80061

== ENCOUNTER → 2022-01-08 | Outpatient (CLI) | payer MEDICARE ==
[2022-01-08 14:40] LABS: ALT 12 U/L (10-49); AST 22 U/L (14-35); African American GFR (CKD) 57.3 (60.0-200.0); Albumin 4.1 g/dL (3.8-4.9); Albumin/Globulin Ratio 1.61 (1.60-3.17); Alkaline Phosphatase 70 U/L (41-126); Blood Urea Nitrogen 11.3 mg/dL (9.0-27.0); Calcium 9.1 mg/dL (8.7-10.3); Carbon Dioxide 23.5 mmol/L (20.0-27.5); Chloride 105 mmol/L (96-109); Chol/HDL Ratio 3.05 Ratio; Globulin 2.6 g/dL (1.6-3.3); Glucose 95 mg/dL (70-110); LDL Cholesterol,Calculated 58.8 mg/dL (0.0-131.0); Non-African American GFR(CKD) 49.4 (60.0-200.0); Potassium 4.3 mmol/L (3.5-5.5); Sodium 141 mmol/L (135-145); Total Protein 6.7 g/dL (6.2-8.2)
[2022-01-08 15:41] LABS: Basophils # (A) 0.09 X 10*3/uL (0.00-0.10); Basophils % (A) 1.1 %; Eosinophils # (A) 0.27 X 10*3/uL (0.04-0.35); Eosinophils % (A) 3.4 %; HCT 50.3 % (39.6-50.0); HGB 16.9 g/dL (13.0-17.0); Immature Grans, Automated 1.4 %; Immature Platelet Fraction 9.9 % (1.1-6.1); Lymphocytes # (A) 1.96 X 10*3/uL (0.90-5.00); Lymphocytes % (A) 24.4 %; MCH 33.7 pg (27.0-32.0); MCHC 33.6 g/dL (32.0-37.0); MCV 100.2 fL (80.0-97.0); Mean Platelet Volume 11.3 fL (9.5-12.2); Monocytes # (A) 0.68 X 10*3/uL (0.20-1.00); Monocytes % (A) 8.5 %; NRBC Per 100 WBC 0 /100 WBCS (0.0-0.0); Neutrophils # (A) 4.91 X 10*3/uL (1.80-7.70); Neutrophils % (A) 61.2 %; Platelet Count 73 X 10*3/uL (140-440); RBC 5.02 X 10*6/uL (4.40-5.60); RDW 13.3 % (11.5-14.5); WBC 8.02 X 10*3/uL (4.50-10.00)
== END | disposition home or self-care (01) ==
LOC: LABWHC1 09:26
PROVIDERS: ATTEND Family Medicine
DX: Z12.5 Encounter for screening for malignant neoplasm of prostate (principal); I42.9 Cardiomyopathy, unspecified; D69.6 Thrombocytopenia, unspecified
CPT/HCPCS: 36415; 80053; 80061; 83880; 84153; 85025

== ENCOUNTER → 2022-01-25 | Outpatient (CLI) | payer MEDICARE ==
--- NOTE | 2022-01-25 21:33 | CT ---
EXAMINATION TYPE: CT chest wo con DATE OF EXAM: 01/25/2022 INDICATION: nodules CT DLP: 698 mGy.cm Automated Exposure Control for Dose Reduction was Utilized. TECHNIQUE AND CONTRAST: Multiplanar CT scan of the chest is performed without IV contrast demonstration. COMPARISON: CT dated 11/26/2019 and x-ray dated 01/12/2022 FINDINGS: Suspicious nodule slightly spiculated margin is seen in the left lower lobe image #40, series 4, fani uring 15 x 16 mm, not appreciated in 2019 CT scan. Small left lateral basal pulmonary atelectasis, st able. 6 mm elongated nodule along the right oblique fissure. Peripheral pulmonary reticulations and m inimal fibrotic changes most evident in the right lower lobe. Irregular groundglass opacity/infiltrat ion is seen at the posterior aspect of the right lower lobe measuring 15 mm, nonspecific. Centrilobul ar emphysematous changes mainly seen in the upper lobes and more on the right side. 5 mm dependent filling defect is seen within the posterior aspect of the matt which could represent intraluminal secretions. Large subcarinal mediastinal mass measuring 3 x 5.8 cm. It is inseparable f rom the inferior aspect of the matt with slight obliteration of the right main bronchus and bronchu s intermedius. It is also inseparable from the anterolateral aspect of the esophagus. No evidence of esophageal dilatation or obstruction. There is apparent invasion into the adjacent portion of the rig ht lower lobe superior segment. Suspected posterior right hilar lymph node measuring 14 mm. A retrocardiac lymph node measures 17 mm. No other pathologically enlarged lymph nodes in the chest by this nonenhanced CT scan. No gross card iomegaly. Scattered arterial and coronary atherosclerotic calcifications. Small pericardial fluid. Un remarkable adrenals. 2 mm nonobstructing calculus within the right kidney with suspected right renal cyst, suboptimally assessed. Left upper chest wall dual-lead pacemaker. Degenerative changes of the t horacic spine. No gross aggressive bone lesion. IMPRESSION: Large subcarinal mediastinal mass with apparent invasion into the adjacent portion of the right lower lobe superior segment and inseparable from the inferior aspect of the matt and anterior aspect of the esophagus, with suspicious adjacent lymphadenopathy and suspicious left lower lobe nodule as desc ribed above. This could represent metastatic lung cancer however metastatic esophageal cancer or metastasis from o ther unknown primary can't be excluded. Recommend further PET scan assessment, tissue diagnosis and t horacic surgery consultation. Correlation with esophagoscopy results should be also considered. Other incidental findings as described above.
== END | disposition home or self-care (01) ==
LOC: RADCTMAIN 12:53
PROVIDERS: ATTEND Family Medicine
DX: R91.8 Other nonspecific abnormal finding of lung field (principal)
CPT/HCPCS: 71250

== ENCOUNTER 2022-02-04 10:37 | Day surgery (SDC) | payer MEDICARE ==
[2022-02-03 14:06] VITALS: BMI 28.8
[~2022-02-04 10:37] MED LIST: ALBUTEROL NEB (CONC) 2.5 MG/0.5 ML INHALATION ONE; LACTATED RINGERS 1,000 ML IV SCH; LIDOCAINE 2% (PF) 20 MG/ML 5 ML VIAL INHALATION ONE; LIDOCAINE VISCOUS 300 MG/15 ML CUP MUCOUS MEM ONE; SODIUM CHLORIDE 0.9% 1,000 ML IV SCH
[2022-02-04 10:59] VITALS: TEMP 99.7
[2022-02-04 11:09] LABS: Glucose,Whole Blood 90 mg/dL (75-99)
[2022-02-04] MEDS ORDERED: LACTATED RINGERS 1,000 ML IV ONE ×2 (11:11→13:53)
[2022-02-04] MEDS ORDERED: ONDANSETRON 4 MG/2 ML VIAL ONE (11:23)
[2022-02-04] MEDS ORDERED: ONDANSETRON 4 MG/2 ML VIAL IVP ONE (11:25)
[2022-02-04] MEDS ORDERED: SUCCINYLCHOLINE CHLORIDE 100 MG/5 ML SYR IV ONE (12:30)
[2022-02-04] MEDS ORDERED: PROPOFOL 10 MG/ML 20 ML VIAL IV ONE (12:30)
[2022-02-04] MEDS ORDERED: PHENYLEPHRINE-0.9% NACL SYG 1,000 MCG/10 ML SYRINGE ONE (12:30)
[2022-02-04] MEDS ORDERED: LIDOCAINE 1% INJ 10MG/ML (20 ML MDV) ONE (12:30)
--- NOTE | 2022-02-04 13:15 | P.PCN ---
Date of Procedure: 02/04/22 Preoperative Diagnosis: Mediastinal lymphadenopathy Left lower lobe pulmonary nodule Postoperative Diagnosis: Mediastinal lymphadenopathy Abnormal right mainstem bronchus/bronchus intermedius with endobronchial irregularities and narrowing Procedure(s) Performed: Flexible bronchoscopy EBUS guided transbronchial needle aspirate of subcarinal lymph node/mass Navigation guided transbronchial biopsy of the left lower lobe pulmonary nodule Anesthesia: RUIZA Surgeon: Ethel Love Estimated Blood Loss (ml): 0 Pathology: other Condition: stable Disposition: floor Operative Findings: This procedure was done under general anesthesia. A consent was obtained. A timeout was done. Preoperatively, the Vpads was applied to the patient's chest for navigational purposes. The patient underwent a computed tomography scan of the chest using the Veran protocol. The images were uploaded into the software and the left lower lobe pulmonary nodule was mapped. Following that, the information was uploaded into a USB and then into the navigational tower. After obtaining the consent the patient was taken to the OR suite he was intubated and put on MV by anesthesia then the scope was advanced to the ET tube until the trachea was seen and it was normal and then the matt appears normal then the scope advanced to the left main and NEISHA LB1-LB3 were seen and no endobronchial lesions were seen then the scope advanced to the lingula and the LB4 and LB5 were seen and no endobronchial lesions were seen the scope retracted and advanced to the left lower lobes LB6 to LB12 were seen one by one and no endobronchial lesions, then the scope was retracted back to the matt and advanced to the right main stem bronchus and obvious endobronchial irregularities were seen along the medial wall of the right mainstem bronchus extending into the bronchus intermedius. The area was quite irregular, raised, causing some narrowing at the level of the bronchus intermedius. The bronchoscope was removed and the RUL RB1 and RB2 and RB3 were seen one by one and no endobronchial lesions were seen the scope then retracted and advanced to the BI and RML RB4 and RB5 were seen and no endobronchial lesions were seen then it was retracted and advanced to the RLL RB6 to RB12 were seen one by one and no endobronchial lesions. Then EBUS was used and the lymph nodes were examined. Direct measurement of the mediastinal lymph nodes revealed large subcarinal lymph node/mass measuring 29 x 23 mm in size. Chest bronchial aspirates of the subcarinal mass was done using EBUS guidance and a total of 5 passes were obtained. The adequacy of the samples were confirmed by anesthesia the bedside. The samples were cellular and diagnostic. Rest of the passes were placed in formalin for cell blocks. After completing the past month and aspirates, the flexible bronchoscope was introduced and on the navigational guidance, transbronchial massive left lower lobe pulmonary nodule was performed. Initially, the appropriate calibration was done using the main matt the secondary matt on the left as a reference point. Once the calibrations weren't completed, the bronchoscope was directed to the lateral segment of the left lower lobe and on the navigational guidance, transbronchial biopsies of the left lower lobe pulmonary nodule was done. A total of 5 biopsies were taken and based on the navigational guidance, the forceps was within the lesion and would think the target was accessed appropriately. No bleeding was encountered. The airway was clear. Residual secretions. Bronchoscope was removed. The patient was extubated and the patient was transferred recovery in stable condition. Chest x-rays to follow-up rule out pneumothorax.
[2022-02-04] MEDS ORDERED: IV FLUID CONTINUATION 1,000 ML IV ONE (13:20)
--- NOTE | 2022-02-04 13:26 | CT ---
EXAMINATION TYPE: CT Chest emlony Cantu Protocol DATE OF EXAM: 02/04/2022 COMPARISON: CT chest 01/25/2022 HISTORY: pre-bronch CT DLP: 879 mGycm Automated exposure control for dose reduction was used. Helical imaging obtained through the chest fo r procedure planning purposes FINDINGS: The luminal abnormality seen on prior CT within the distal trachea posteriorly is no longer seen. The re is mass effect, partial encasement of the posterior mainstem bronchus on the right, subcarinal mas s is again seen. Coronary artery calcifications are present. Left lower lobe lung mass shows spiculat ed margin with extensions to the pleura. Interstitial changes are present within the lungs. Emphysema tous change is mild in the upper lobes. No axillary adenopathy is seen. Pacemaker is in place. No ple ural effusion. Small amount of pericardial fluid noted. Lack of contrast could compromise sensitivity. IMPRESSION: PROCEDURE PERFORMED FOR RADIATION PLANNING PURPOSES.
[2022-02-04 13:47] VITALS: RESP 18
[2022-02-04 14:14] VITALS: PULSE 63
--- NOTE | 2022-02-04 14:21 | XR ---
EXAMINATION TYPE: XR chest 1V DATE OF EXAM: 02/04/2022 COMPARISON: Chest x-ray 01/12/2022 HISTORY: Postbiopsy TECHNIQUE: Single frontal view of the chest is obtained. FINDINGS: There is no evident pneumothorax. No evident effusion. Patchy basilar density is present, lung volumes are low. Cardiac mediastinal silhouette within normal limits. Pacemaker is unchanged. IMPRESSION: No evident complication status post biopsy. Expiratory exam.
[2022-02-04 14:51] VITALS: BP 104/52
== END 2022-02-04 15:02 | disposition home or self-care (01) ==
LOC: ORWHC2ENDO 10:37
PROVIDERS: ATTEND Internal Medicine Critical Care Medicine
DX: R59.0 Localized enlarged lymph nodes (principal); R91.1 Solitary pulmonary nodule; J44.9 Chronic obstructive pulmonary disease, unspecified; H91.93 Unspecified hearing loss, bilateral; K21.9 Gastro-esophageal reflux disease without esophagitis; I11.0 Hypertensive heart disease with heart failure; I50.30 Unspecified diastolic (congestive) heart failure; F41.9 Anxiety disorder, unspecified; D69.3 Immune thrombocytopenic purpura; I10 Essential (primary) hypertension; I25.10 Atherosclerotic heart disease of native coronary artery without angina pectoris; E78.5 Hyperlipidemia, unspecified; Z87.891 Personal history of nicotine dependence; I25.2 Old myocardial infarction; Z95.5 Presence of coronary angioplasty implant and graft; Z95.0 Presence of cardiac pacemaker; Z98.890 Other specified postprocedural states; Z97.2 Presence of dental prosthetic device (complete) (partial); Z79.899 Other long term (current) drug therapy; Z79.82 Long term (current) use of aspirin
CPT/HCPCS: 88305; 88173; 88342; 88341; 71045; 71250; 31628; 31627; 31652; J2405; J2001; J2370; J0330; J2704; 31625; 31629

== ENCOUNTER → 2022-02-05 | Outpatient (CLI) | payer MEDICARE ==
--- NOTE | 2022-02-08 06:40 | PE ---
EXAMINATION TYPE: PET CT fusion skull to thigh DATE OF EXAM: 02/05/2022 COMPARISON: Most recent chest CT January 25, 2022 and older study 2019 HISTORY: Abnormal CT, solitary pulmonary nodule TECHNIQUE: Following the intravenous administration of 8.47 mCi of F-18 FDG, whole body images are p erformed from the skull base to the midthigh. Images are reviewed on the computer in the coronal, ax ial, and sagittal planes. Reconstructed rotating images are created on independent workstation and r eviewed on the computer. A localization and attenuation correction CT is performed in conjunction w ith the PET scan. Blood glucose level equals 99. SCAN: Initial Scan FINDINGS: SKULL BASE AND NECK: No areas of abnormal hypermetabolic uptake. CHEST, MEDIASTINUM, AND HILAR REGION: Mild underlying emphysematous change is redemonstrated. Persist ent 1.8 x 1.6 cm suspicious superior left lower lobe nodule axial image 115, max SUV is 3.64. Persistent abnormal hypermetabolic subcarinal 4.3 x 3.0 cm mass or lymph node axial image 107, max DUONG V is 11.47. There is suspected second abnormal right hilar mass or lymph node posterior to right main stem bronchus extending inferiorly versus extension of subcarinal mass and/or adenopathy. Max SUV is 10.68. No additional areas of abnormal hypermetabolic uptake. ABDOMEN AND PELVIS: Normal excretion. No areas of abnormal hypermetabolic uptake. OSSEOUS STRUCTURES: No areas of abnormal hypermetabolic uptake. OTHER CT: [id number] calcified plaque bilateral carotid bulb level. Cardiomegaly with dual lead pacemaker. Tiny pericardial effusion. Severe Three-vessel coronary artery calcification and/or stents. Stomach is poorly distended and thus suboptimally evaluated. Diverticula scattered throughout the lef t and sigmoid colon. Enlarged prostate consistent with BPH. IMPRESSION: Findings consistent with primary left lung carcinoma and abnormal right hilar and subcari nal adenopathy. No distal metastatic disease.
== END | disposition home or self-care (01) ==
LOC: RADPETMAIN 10:20
PROVIDERS: ATTEND Nurse Practitioner Adult Health
DX: R91.1 Solitary pulmonary nodule (principal)
CPT/HCPCS: 78815; A9552

== ENCOUNTER → 2022-02-24 | Outpatient (CLI) | payer MEDICARE ==
--- NOTE | 2022-02-24 09:54 | CT ---
EXAMINATION TYPE: CT brain w con DATE OF EXAM: 02/24/2022 COMPARISON: PET scan dated 02/05/[address] dated 07/09/2020 HISTORY: Lung Cancer CT DLP: 1263 mGycm Automated exposure control for dose reduction was used. TECHNIQUE: CT scan of the brain is performed with IV contrast administration. FINDINGS: Brain volume loss changes, likely age-related. Scattered arterial atherosclerotic calcifications. No gross acute intracranial hemorrhage. No gross acute cortical infarct. No midline shift, herniation or ventriculomegaly. Unremarkable toro-white matter differentiation, basal cisterns, sella and CP angles. No gross space-o ccupying lesion, vasogenic edema or mass effect. No area of abnormal enhancement, meningeal thickenin g or hyperenhancement. Patent major intracranial vessels. Unremarkable orbits. Clear visualized paranasal sinuses and mastoi d air cells. Suspected chronic healed fractures of the mandible bilaterally. No aggressive bone lesio n. IMPRESSION: No evidence of intracranial metastatic disease. Incidental findings as described above.
== END | disposition home or self-care (01) ==
LOC: RADCTMAIN 07:24
PROVIDERS: ATTEND Internal Medicine Hematology & Oncology
DX: C34.92 Malignant neoplasm of unspecified part of left bronchus or lung (principal)
CPT/HCPCS: 82565; 84520; 70460; 36415; Q9967

== ENCOUNTER 2022-04-23 11:52 | Inpatient (IN) | payer MEDICARE ==
[2022-04-23] MEDS ORDERED: IBUPROFEN 600 MG TAB PO STA (12:43)
[2022-04-23] MEDS ORDERED: SODIUM CHLORIDE 0.9% 1,000 ML IV STA ×2 (12:43→12:49)
[2022-04-23] MEDS ORDERED: VANCOMYCIN IV PER PHARMACY 1 EACH MISC MISCELLANE PRN (12:49)
[2022-04-23] MEDS ORDERED: CEFEPIME 2 GM in SODIUM CHLORIDE 0.9% 100 ML IVPB STA (12:55)
[2022-04-23] MEDS ORDERED: ONDANSETRON 4 MG/2 ML VIAL IVP STA (13:09)
--- NOTE | 2022-04-23 13:14 | ED ---
General Adult HPI - General Chief complaint: Recheck/Abnormal Lab/Rx Stated complaint: Neutropenic fever Time Seen by Provider: 04/23/22 12:25 Source: patient, RN notes reviewed, old records reviewed Mode of arrival: ambulatory Limitations: no limitations - History of Present Illness Initial comments: Patient is an 81-year-old male with past medical history remarkable for lung cancer currently on chemo radiation, COPD, hypertension, prior SD who presents emergency department over concern for neutropenic fever. Patient's absolute neutrophil count obtained yesterday is 314. When he presented to the oncology clinic, he had a fever of 100.4. Fevers continued approximately one hour later at 100.4. Patient received NyQuil which has Tylenol in it. He currently endorses a chronic cough productive of green mucous which is unchanged as this is chronic. No chest pain, abdominal pain, vomiting, diarrhea. Endorses nausea. Has no known sick contacts. Was vaccinated for COVID-19 as well as influenza. His no other acute complaints at this time. Was under the impression that he will be admitted to the hospital for further workup and antibiotics. Last received chemo last week. Receives radiation during the week. Patient has lung cancer. His oncologist is Dr. Newell. - Related Data Home Medications Medication Instructions Recorded Confirmed Simvastatin [Zocor] 80 mg PO HS 07/15/16 04/23/22 carvediloL [Coreg] 3.125 mg PO DAILY 07/15/16 04/23/22 traZODone HCL [Desyrel] 200 mg PO HS 07/15/16 04/23/22 Nitroglycerin Sl Tabs [Nitrostat] 0.4 mg SUBLINGUAL Q5M PRN 11/26/19 04/23/22 LORazepam [Ativan] 1 mg PO DAILY 04/18/20 04/23/22 Sertraline HCl [Zoloft] 50 mg PO DAILY 04/18/20 04/23/22 Acetaminophen Tab [Tylenol] 1,000 mg PO Q6HR PRN 03/11/22 04/23/22 Albuterol Nebulized [Ventolin 2.5 mg INHALATION RT-Q6H PRN 03/11/22 04/23/22 Nebulized] Ibuprofen [Motrin Ib] 800 mg PO Q8H PRN 03/11/22 04/23/22 Mometasone/Formoterol [Dulera 200 1 puff INHALATION RT-BID 03/11/22 04/23/22 Mcg-5 Mcg Inhaler] Pantoprazole [Protonix] 40 mg PO BID 03/11/22 04/23/22 ondansetron HCL [Zofran] 8 mg PO Q6H PRN 03/11/22 04/23/22 Dm/Acetaminophen/Doxylamine [Vicks 30 ml PO Q6H 04/23/22 04/23/22 Nyquil Cold-Flu Liquid] LORazepam [Ativan] 2 mg PO HS 04/23/22 04/23/22 Previous Rx's Medication Instructions Recorded Cholecalciferol [Vitamin D3 (125 125 mcg PO DAILY tablet 03/14/22 Mcg = 5000 Iu)] Allergies Allergy/AdvReac Type Severity Reaction Status Date / Time No Known Allergies Allergy Verified 04/23/22 15:29 Review of Systems ROS Statement: Those systems with pertinent positive or pertinent negative responses have been documented in the HPI. Review of Systems: CONST: Endorses fever EYES: Denies blurry vision ENT: Denies nasal congestion C/V: Denies Chest pain RESP: Denies shortness of breath GI: Denies abdominal pain : Denies dysuria SKIN: Denies rash. MSK: Denies joint pain. NEURO: Denies headache ROS Other: All systems not noted in ROS Statement are negative. Past Medical History Past Medical History: Cancer, COPD, GERD/Reflux, Hearing Disorder / Deafness, Hyperlipidemia, Hypertension, Myocardial Infarction (SD) Additional Past Medical History / Comment(s): Vitamin B-12 deficiency, neuropathy legs and feet, very [place], low blood sugar at times, low kidney function, lung cancer Last Myocardial Infarction Date:: 2005 History of Any Multi-Drug Resistant Organisms: None Reported Past Surgical History: Heart Catheterization With Stent, Orthopedic Surgery, Pacemaker Additional Past Surgical History / Comment(s): Right shoulder scope, left knee scope, cardiac stents X3, Pacemaker replaced. Past Anesthesia/Blood Transfusion Reactions: No Reported Reaction Date of Last Stent Placement:: 11/2005 Type of Cardiac Device: Permanent Pacemaker Device Placement Date:: 11/2005 Past Psychological History: Anxiety Smoking Status: Current some day smoker, Light tobacco smoker Past Alcohol Use History: Occasional Past Drug Use History: None Reported - Past Family History Sister(s) Family Medical History: Cancer Mother Family Medical History: No Reported History General Exam - General Exam Comments Initial Comments: General: Appears in no acute distress. Febrile to 100.4. HEAD: Normal with no signs of head trauma. EYES: PERRLA, EOMI, conjunctiva normal, no discharge. ENT: Hearing grossly intact, normal oropharynx. Patient is hard of hearing which is chronic. RESPIRATORY: Clear breath sounds bilaterally. No wheezes, rales, or rhonchi. C/V: Regular rate and rhythm. S1 and S2 auscultated, no edema, peripheral pulses 2+ and intact throughout. No peripheral venous access, no port. ABD: Abd is soft, nontender, nondistended EXT: Normal range of motion, no obvious deformity SKIN: No rashes or lesions observed on exposed skin. NEURO: Alert and oriented x 4. Cranial nerves II-XII intact. No focal sensory or strength deficits. Limitations: no limitations Course Vital Signs 04/23/22 04/23/22 04/23/22 12:04 14:55 16:00 Temperature 100.4 F H 99.3 F Pulse Rate 92 88 69 Respiratory 18 16 18 Rate Blood Pressure 126/67 130/59 O2 Sat by Pulse 97 96 96 Oximetry Medical Decision Making - Medical Decision Making A some patient's presentation and physical exam, does appear that he has initial peak fever. Comes with paperwork that shows his absolute neutrophil count of 314 and has a persistent fever of 100.4 over the last hour at least. He is actively receiving chemoradiation. Therefore we will obtain infectious labs, blood cultures, urine cultures, urine studies. Lactic acid also be obtained in addition to this. We will obtain a chest x-ray looking for the source of the infection. I did speak with the oncology PAChantell who recommended that we also obtain a IgG level. Patient will be started on IV fluids as well as empiric anabolic cefepime and vancomycin. He will receive an additional dose of ibuprofen for his fever. He also received Zofran as he states he is mildly nauseous at this time. Sputum cultures will also be obtained. They were in agreement this plan. Vital signs within normal limits otherwise besides the fever and stable. Laboratory studies remarkable for a leukopenia of 0.3, patient has a thrombocytopenia which has been present, minimal change from a few days ago at 40. Patient has a macrocytic anemia with a hemoglobin of 11.1 just slightly decreased from month ago. Findings are likely secondary to chemo radiation. Patient's mildly elevated bilirubin of 2.4. LFTs within normal limits. Patient is Covid, flu, strep negative. Urine is still pending at this time. Chest x- ray shows no acute cardio pulmonary process. On reevaluation, patient remains stable. We'll continue antibiotics at this time. Patient will be admitted for his neutropenic fever. Fevers improved after Tylenol and Motrin. He was in agreement this plan. I spoke with oncology, was consulted was in agreement this plan. They consulted infectious disease. I spoke with the admitting team under Dr. Krishnan was in agreement this plan. Patient was admitted in serious condition. - Lab Data Result diagrams: 04/23/22 13:22 04/23/22 13: Lab Results 04/23/22 04/23/22 04/23/22 Range/Units 13:22 13:22 13:22 WBC 0.3 L* (3.8-10.6) k/uL RBC 3.23 L (4.30-5.90) m/uL Hgb 11.1 L (13.0-17.5) gm/dL Hct 32.4 L (39.0-53.0) % MCV 100.3 H D (80.0-100.0) fL MCH 34.3 (25.0-35.0) pg MCHC 34.2 (31.0-37.0) g/dL RDW 15.0 (11.5-15.5) % Plt Count 40 L D (150-450) k/uL MPV 9.5 Differential Comment Manual Slide Review Performed Poikilocytosis (manual Present Macrocytosis Slight PT (9.0-12.0) sec INR (<1.2) APTT (22.0-30.0) sec Sodium 137 (137-145) mmol/L Potassium 4.0 (3.5-5.1) mmol/L Chloride 102 (98-107) mmol/L Carbon Dioxide 25 (22-30) mmol/L Anion Gap 10 mmol/L BUN 20 (9-20) mg/dL Creatinine 1.00 (0.66-1.25) mg/dL Est GFR (CKD-EPI)AfAm 81 (>60 ml/min/1.73 sqM) Est GFR (CKD-EPI)NonAf 70 (>60 ml/min/1.73 sqM) Glucose 97 (74-99) mg/dL Plasma Lactic Acid Lucas 1.3 (0.7-2.0) mmol/L Calcium 8.8 (8.4-10.2) mg/dL Total Bilirubin 2.4 H (0.2-1.3) mg/dL AST 24 (17-59) U/L ALT 21 (4-49) U/L Alkaline Phosphatase 64 (38-126) U/L Total Protein 6.5 (6.3-8.2) g/dL Albumin 4.0 (3.5-5.0) g/dL Coronavirus (PCR) (Not Detectd) Influenza Type A RNA (Not Detectd) Influenza Type B (PCR) (Not Detectd) Group A Strep Rapid (Negative) 04/23/22 04/23/22 04/23/22 Range/Units 13:22 13:22 13:22 WBC (3.8-10.6) k/uL RBC (4.30-5.90) m/uL Hgb (13.0-17.5) gm/dL Hct (39.0-53.0) % MCV (80.0-100.0) fL MCH (25.0-35.0) pg MCHC (31.0-37.0) g/dL RDW (11.5-15.5) % Plt Count (150-450) k/uL MPV Differential Comment Manual Slide Review Poikilocytosis (manual Macrocytosis PT (9.0-12.0) sec INR (<1.2) APTT (22.0-30.0) sec Sodium (137-145) mmol/L Potassium (3.5-5.1) mmol/L Chloride (98-107) mmol/L Carbon Dioxide (22-30) mmol/L Anion Gap mmol/L BUN (9-20) mg/dL Creatinine (0.66-1.25) mg/dL Est GFR (CKD-EPI)AfAm (>60 ml/min/1.73 sqM) Est GFR (CKD-EPI)NonAf (>60 ml/min/1.73 sqM) Glucose (74-99) mg/dL Plasma Lactic Acid Lucas (0.7-2.0) mmol/L Calcium (8.4-10.2) mg/dL Total Bilirubin (0.2-1.3) mg/dL AST (17-59) U/L ALT (4-49) U/L Alkaline Phosphatase (38-126) U/L Total Protein (6.3-8.2) g/dL Albumin (3.5-5.0) g/dL Coronavirus (PCR) Not Detected (Not Detectd) Influenza Type A RNA Not Detected (Not Detectd) Influenza Type B (PCR) Not Detected (Not Detectd) Group A Strep Rapid Negative (Negative) 04/23/22 Range/Units 14:53 WBC (3.8-10.6) k/uL RBC (4.30-5.90) m/uL Hgb (13.0-17.5) gm/dL Hct (39.0-53.0) % MCV (80.0-100.0) fL MCH (25.0-35.0) pg MCHC (31.0-37.0) g/dL RDW (11.5-15.5) % Plt Count (150-450) k/uL MPV Differential Comment Manual Slide Review Poikilocytosis (manual Macrocytosis PT 11.2 (9.0-12.0) sec INR 1.0 (<1.2) APTT 25.3 (22.0-30.0) sec Sodium (137-145) mmol/L Potassium (3.5-5.1) mmol/L Chloride (98-107) mmol/L Carbon Dioxide (22-30) mmol/L Anion Gap mmol/L BUN (9-20) mg/dL Creatinine (0.66-1.25) mg/dL Est GFR (CKD-EPI)AfAm (>60 ml/min/1.73 sqM) Est GFR (CKD-EPI)NonAf (>60 ml/min/1.73 sqM) Glucose (74-99) mg/dL Plasma Lactic Acid Lucas (0.7-2.0) mmol/L Calcium (8.4-10.2) mg/dL Total Bilirubin (0.2-1.3) mg/dL AST (17-59) U/L ALT (4-49) U/L Alkaline Phosphatase (38-126) U/L Total Protein (6.3-8.2) g/dL Albumin (3.5-5.0) g/dL Coronavirus (PCR) (Not Detectd) Influenza Type A RNA (Not Detectd) Influenza Type B (PCR) (Not Detectd) Group A Strep Rapid (Negative) Disposition Clinical Impression: Neutropenic fever Disposition: ADMITTED IP TO THIS HOSP Condition: Serious Time of Disposition: 15:20
[2022-04-23] MEDS ORDERED: VANCOMYCIN 1,500 MG in SODIUM CHLORIDE 0.9% 250 ML IVPB ONE (13:30)
[2022-04-23 13:53] LABS: Calcium 8.8 mg/dL (8.4-10.2); HCT 32.4 % (39.0-53.0); HGB 11.1 gm/dL (13.0-17.5); MCH 34.3 pg (25.0-35.0); MCHC 34.2 g/dL (31.0-37.0); MCV 100.3 fL (80.0-100.0); Macrocytosis Slight; Mean Platelet Volume 9.5; RBC 3.23 m/uL (4.30-5.90); Total Bilirubin 2.4 mg/dL (0.2-1.3); Total Protein 6.5 g/dL (6.3-8.2)
[2022-04-23 14:00] LABS: WBC 0.3 k/uL (3.8-10.6)
[2022-04-23 14:09] LABS: Platelet Count 40 k/uL (150-450)
[2022-04-23 14:10] LABS: Poikilocytosis (M) Present
--- NOTE | 2022-04-23 14:48 | XR ---
EXAMINATION TYPE: XR chest 2V DATE OF EXAM: 04/23/2022 COMPARISON: Chest x-ray March 13, 2022 HISTORY: Neutropenic fever. TECHNIQUE: Frontal and lateral views of the chest are obtained. FINDINGS: Mild bibasilar linear scarring and/or atelectasis is redemonstrated. There is no suspiciou s new focal air space opacity, pleural effusion, or pneumothorax seen. The cardiac silhouette size i s stable and mildly enlarged with dual lead pacemaker redemonstrated. Osseous structures are intact. IMPRESSION: Chronic changes without new acute infiltrate.
[2022-04-23 15:16] LABS: Partial Thromboplastin Time 25.3 sec (22.0-30.0); Prothrombin Time 11.2 sec (9.0-12.0)
[2022-04-23] MEDS ORDERED: NALOXONE 0.4 MG/ML 1 ML VIAL IV PRN (15:37)
--- NOTE | 2022-04-23 16:31 | P.HPIM ---
History of Present Illness H&P Date: 04/23/22 Chief Complaint: Fever 81-year-old male with history of lung cancer on chemotherapy and radiation therapy, COPD not on home oxygen, hypertension, coronary artery disease. Marian ent comes to the emergency department today with complaint of fever. Yesterday, his lab work was done and he had low ANC. He also had temperature of 100.4. He follows up regularly at the oncology clinic. Other than fever, he also complains of productive cough, whitish sputum. He reports that he has ongoing intermittent cough and this is not new for him. He denies chest pain, shortness of breath, abdominal pain, vomiting, diarrhea, headaches, urinary symptoms including dysuria or frequency. He denies any new skin rashes. Denies being in contact with any sick person. He does report mild nausea but attributes it to his cancer treatment. In the ED, workup revealed white blood cell count of 0.3 with platelet count of 40. His total bilirubin is 2.4. "PCR was negative. Influenza negative. Group A rapid strep test negative. Chest x-ray was reported as chronic changes with no new acute infiltrate. He received IV cefepime and IV vancomycin in the ED. Blood cultures, UA with reflex culture and sputum cultures were ordered in the ED. ED physician also spoke to the oncology team and IgG was ordered per their recommendations. Review of Systems Constitutional: Fever+, no chills Eyes: Patient reports no double vision, no visual changes ENT: Patient reports no rhinorrhea, no post nasal drip, no sore throat Cardiovascular: Patient reports no chest, no edema, no palpitations, no syncope, no orthopnea, no paroxysmal nocturnal dyspnea. Respiratory: Cough+, no SOB Gastrointestinal: Patient reports no nausea, no vomiting, no constipation, no diarrhea Genitourinary: Patient reports no dysuria, no urinary frequency, no hematuria. Musculoskeletal: Patient reports no unusual joint pain, no joint swelling or weakness. Patient reports no muscular pain. Psychiatric: Patient reports no changes in mood, no sleeping problems. Patient reports no changes in memory. Endocrine: Patient reports no thirst, no polyuria, no cold intolerance, no heat intolerance. Neurological: Patient reports no unusual paresthesias, no seizures, no paresis, no paralysis, no facila droop, no headache. Heme/Lymphatic: Patient reports no easy bruising, no bleeding tendency, no lymphadenopathy. Allergic/ Immunologic: Patient reports no recent allergic reactions or immunologic history. Skin: Patient reports no rashes or unusual lesions. Past Medical History Past Medical History: Cancer, COPD, GERD/Reflux, Hearing Disorder / Deafness, Hyperlipidemia, Hypertension, Myocardial Infarction ([place]) Additional Past Medical History / Comment(s): Vitamin B-12 deficiency, neuropathy legs and feet, very [place], low blood sugar at times, low kidney function, lung cancer Last Myocardial Infarction Date:: 2005 History of Any Multi-Drug Resistant Organisms: None Reported Past Surgical History: Heart Catheterization With Stent, Orthopedic Surgery, Pacemaker Additional Past Surgical History / Comment(s): Right shoulder scope, left knee scope, cardiac stents X3, Pacemaker replaced. Past Anesthesia/Blood Transfusion Reactions: No Reported Reaction Date of Last Stent Placement:: 11/2005 Type of Cardiac Device: Permanent Pacemaker Device Placement Date:: 11/2005 Past Psychological History: Anxiety Smoking Status: Current some day smoker, Light tobacco smoker Past Alcohol Use History: Occasional Past Drug Use History: None Reported - Past Family History Sister(s) Family Medical History: Cancer Mother Family Medical History: No Reported History Medications and Allergies Home Medications Medication Instructions Recorded Confirmed Type Simvastatin [Zocor] 80 mg PO HS 07/15/16 04/23/22 History carvediloL [Coreg] 3.125 mg PO DAILY 07/15/16 04/23/22 History traZODone HCL [Desyrel] 200 mg PO HS 07/15/16 04/23/22 History Nitroglycerin Sl Tabs [Nitrostat] 0.4 mg SUBLINGUAL Q5M PRN 11/26/19 04/23/22 History LORazepam [Ativan] 1 mg PO DAILY 04/18/20 04/23/22 History Sertraline HCl [Zoloft] 50 mg PO DAILY 04/18/20 04/23/22 History Acetaminophen Tab [Tylenol] 1,000 mg PO Q6HR PRN 03/11/22 04/23/22 History Albuterol Nebulized [Ventolin 2.5 mg INHALATION RT-Q6H PRN 03/11/22 04/23/22 History Nebulized] Ibuprofen [Motrin Ib] 800 mg PO Q8H PRN 03/11/22 04/23/22 History Mometasone/Formoterol [Dulera 200 1 puff INHALATION RT-BID 03/11/22 04/23/22 History Mcg-5 Mcg Inhaler] Pantoprazole [Protonix] 40 mg PO BID 03/11/22 04/23/22 History ondansetron HCL [Zofran] 8 mg PO Q6H PRN 03/11/22 04/23/22 History Cholecalciferol [Vitamin D3 (125 125 mcg PO DAILY tablet 03/14/22 04/23/22 Rx Mcg = 5000 Iu)] Dm/Acetaminophen/Doxylamine [Vicks 30 ml PO Q6H 04/23/22 04/23/22 History Nyquil Cold-Flu Liquid] LORazepam [Ativan] 2 mg PO HS 04/23/22 04/23/22 History Allergies Allergy/AdvReac Type Severity Reaction Status Date / Time No Known Allergies Allergy Verified 04/23/22 15:29 Physical Exam Vitals: Vital Signs Temp Pulse Resp BP Pulse Ox 04/23/22 16:00 69 18 130/59 96 04/23/22 14:55 99.3 F 88 16 126/67 96 04/23/22 12:04 100.4 F H 92 18 97 Intake and Output 04/23/22 04/23/22 04/23/22 06:59 14:59 22:59 Other: Weight 85.275 kg Constitutional: No acute distress, conversant, pleasant Eyes: Anicteric sclerae, moist conjunctiva, no lid-lag PERRLA HENMT: Normocephalic / Atraumatic oropharynx clear, no erythema, exudates Neck: Supple, full range of motion, nontender, no masses, or JVD no carotid bruits no thyromegaly no lymphadenopathy Lungs: Coarse breath sounds bilaterally, equal air entry, no wheezing or crackles Cardiovascular: Heart regular in rate and rhythm, no murmur, no peripheral edema Abdominal: Soft, Nontender, no guarding, rebound or rigidity abdomen moving with respiration normoactive bowel sounds no hepatomegaly, No splenomegaly no palpable mass no abdominal wall hernia noted Skin: Normal temperature, tone, texture, turgor no induration no subcutaneous nodules no rash,lesions no ulcers Extremities: No digital cyanosis no clubbing pedal pulses intact and symmetrical radial pulses intact and symmetrical normal gait and station no calf tenderness Psychiatric: Alert and oriented to person, place and time appropriate affect intact judgement Neuro: Muscle Strength 5/5 in all 4 extremities sensation to light touch grossly present throughout cranial nerves II-XII grossly intact no focal sensory deficits Results CBC & Chem 7: 04/23/22 13:22 04/23/22 13:22 Labs: Abnormal Lab Results - Last 24 Hours (Table) 04/23/22 04/23/22 Range/Units 13:22 13:22 WBC 0.3 L* (3.8-10.6) k/uL RBC 3.23 L (4.30-5.90) m/uL Hgb 11.1 L (13.0-17.5) gm/dL Hct 32.4 L (39.0-53.0) % MCV 100.3 H D (80.0-100.0) fL Plt Count 40 L D (150-450) k/uL Total Bilirubin 2.4 H (0.2-1.3) mg/dL Thrombosis Risk Factor Assmnt - DVT/VTE Prophylaxis DVT/VTE Prophylaxis: Mechanical Prophylaxis ordered Assessment and Plan Assessment: Neutropenic fever - Admit to inpatient unit - Blood cultures, UA with reflex cultures, sputum Gram stain and cultures ordered - IV cefepime and IV vancomycin - Consult infectious disease - Consult oncology Hyperbilirubinemia -Likely secondary to drug adverse effect related to chemotherapy -We will check hepatitis panel and ultrasound liver gallbladder to rule out obstruction. Hypertension, CAD -Resume home medications after medication reconciliation is complete GERD - Resume home medication of Protonix DVT prophylaxis with SCDs. No anticoagulation due to low platelets I spent 52 minutes in admitting this patient. Time with Patient: Greater than 30
--- NOTE | 2022-04-23 19:42 | US ---
EXAMINATION TYPE: US liver DATE OF EXAM: 04/23/2022 COMPARISON: NONE CLINICAL HISTORY: hyperbilirubinemia. EXAM MEASUREMENTS: Liver Length: 16.1 cm Gallbladder Wall: 0.4 cm CBD: 0.4 cm Right Kidney: 9.4 x 5.1 x 5.5 cm Severe overlying bowel gas, technically limited and difficult study. Pancreas: Obscured by bowel gas Liver: limited views show no obvious abnormality Gallbladder: wall slightly thickened Evidence for sonographic Castillo's sign: no CBD: wnl Right Kidney: wnl, as seen IMPRESSION: No focal liver defect. No dilated ducts. Gallbladder wall borderline thickened.
[2022-04-23] MEDS ORDERED: ACETAMINOPHEN TAB 325 MG TAB PO STA (19:57)
[2022-04-23 20:22] LABS: Appearance,Urine Clear (Clear); Bilirubin,Urine Negative (Negative); Blood,Urine Negative (Negative); Color,Urine Yellow; Glucose,Urine (UA) Negative (Negative); Ketones,Urine Negative (Negative); Leukocyte Esterase,Urine Negative (Negative); Nitrite,Urine Negative (Negative); Protein,Urine Trace (Negative); Specific Gravity,Urine 1.022 (1.001-1.035); Urobilinogen,Urine <2.0 mg/dL (<2.0)
[2022-04-23] MEDS: ALBUTEROL NEBULIZED 2.5 MG/3 ML INHALATION PRN (20:33)
[2022-04-23] MEDS: SYMBICORT 160-4.5 MCG INHALER INHALATION SCH (20:33)
[2022-04-23] MEDS: PANTOPRAZOLE 40 MG TABLET PO SCH (20:50)
[2022-04-23] MEDS: ATORVASTATIN 40 MG TAB PO SCH (20:50)
[2022-04-23] MEDS: traZODone HCL 100 MG TAB PO SCH (20:50)
--- NOTE | 2022-04-23 21:38 | P.CONS ---
History of Present Illness - Reason for Consult Consult date: 04/23/22 neutropenic Fever Requesting physician: Joss Rose - History of Present Illness PI : This is a very nice patient who presented with peristent cough and dyspnea of about 2 months duration,CT scan of chest done in 12/2021 revealed LLL lung nodule and evidence of mediastinal and hilar nodes,subcarinal mass up to 4.3 cm,PET scan on 02/05/2022 revealed suspicious uptake in LLL mass (1.8cm),uptake in mediastinal,right hilar nodes. EBUS done on 02/04/2022,biopsy of mediastinal node was positive for small cell lung cancer. On 02/24/2022,brain CT scan was negative (could not have MRI). On 02/24/2022,he started carboplatin/etoposide. The plan to add concurrent radiation therapy with cycle#2 He developed neutropenic fever,required short hospital stay,fully recovered. He has exertional dyspnea ,his cough is better,,no hemoptysis,however,his nightmares resolved since he stopped the cough medicine [facility] codein. 04/22/22-patient is here today for follow-up. He is status post 3 cycles of ca rbo pilot point and etoposide for small cell lung cancer. He did require G-CSF with the last cycle for very low neutrophil count. He is unable to get stop because of concurrent radiation. Granddaughter is noticed in last 2 weeks patient has fallen, 3 tmes, not tripped over anything, no syncope or loss of consciousness, his legs get weak, he denies headaches, unilateral deficits, numbness or tingling. He also had one day where he had some diarrhea and some vomiting but that resolved pretty spontaneously stopped okay ever since. No other complaints on a 10 point review of systems. SUKI Brown had seen and assed patient in office on 04/22: Grade 3 neutropenia-ANC 314, grade 2 thrombocytopenia-platelets 47,000, grade 1 anemia-hemoglobin 11.1 CSF has been ordered. Will be given in the office for 2 days. Have sent a prescription so that patient can complete a course of therapy at home-pending co-pay verification CT of the head has been ordered for follow-up on patient falling several times i n the last 2 weeks. He is unable to have an MRI due to pacemaker. Reviewed safety precautions with the patient. At this time he had no symptoms and afebrile Today presented to office for GCSF injection and had fever 100..5 therefore sent to ER for further work up Review of Systems All systems: negative Constitutional: Reports as per HPI Past Medical History Past Medical History: Cancer, COPD, GERD/Reflux, Hearing Disorder / Deafness, Hyperlipidemia, Hypertension, Myocardial Infarction ([place]) Additional Past Medical History / Comment(s): Vitamin B-12 deficiency, n [place] legs and feet, very [place], low blood sugar at times, low kidney function, lung cancer Last Myocardial Infarction Date:: 2005 History of Any Multi-Drug Resistant Organisms: None Reported Past Surgical History: Heart Catheterization With Stent, Orthopedic Surgery, Pacemaker Additional Past Surgical History / Comment(s): Right shoulder scope, left knee scope, cardiac stents X3, Pacemaker replaced. Past Anesthesia/Blood Transfusion Reactions: No Reported Reaction Date of Last Stent Placement:: 11/2005 Type of Cardiac Device: Permanent Pacemaker Device Placement Date:: 11/2005 Past Psychological History: Anxiety Smoking Status: Current some day smoker, Light tobacco smoker Past Alcohol Use History: Occasional Past Drug Use History: None Reported - Past Family History Sister(s) Family Medical History: Cancer Mother Family Medical History: No Reported History Medications and Allergies Home Medications Medication Instructions Recorded Confirmed Type Simvastatin [Zocor] 80 mg PO HS 07/15/16 04/23/22 History carvediloL [Coreg] 3.125 mg PO DAILY 07/15/16 04/23/22 History traZODone HCL [Desyrel] 200 mg PO HS 07/15/16 04/23/22 History Nitroglycerin Sl Tabs [Nitrostat] 0.4 mg SUBLINGUAL Q5M PRN 11/26/19 04/23/22 History LORazepam [Ativan] 1 mg PO DAILY 04/18/20 04/23/22 History Sertraline HCl [Zoloft] 50 mg PO DAILY 04/18/20 04/23/22 History Acetaminophen Tab [Tylenol] 1,000 mg PO Q6HR PRN 03/11/22 04/23/22 History Albuterol Nebulized [Ventolin 2.5 mg INHALATION RT-Q6H PRN 03/11/22 04/23/22 History Nebulized] Ibuprofen [Motrin Ib] 800 mg PO Q8H PRN 03/11/22 04/23/22 History Mometasone/Formoterol [Dulera 200 1 puff INHALATION RT-BID 03/11/22 04/23/22 History Mcg-5 Mcg Inhaler] Pantoprazole [Protonix] 40 mg PO BID 03/11/22 04/23/22 History ondansetron HCL [Zofran] 8 mg PO Q6H PRN 03/11/22 04/23/22 History Cholecalciferol [Vitamin D3 (125 125 mcg PO DAILY tablet 03/14/22 04/23/22 Rx Mcg = 5000 Iu)] Dm/Acetaminophen/Doxylamine [Vicks 30 ml PO Q6H 04/23/22 04/23/22 History Nyquil Cold-Flu Liquid] LORazepam [Ativan] 2 mg PO HS 04/23/22 04/23/22 History Allergies Allergy/AdvReac Type Severity Reaction Status Date / Time No Known Allergies Allergy Verified 04/23/22 15:29 Physical Exam Vitals: Vital Signs Temp Pulse Resp Pulse Ox 04/23/22 12:04 100.4 F H 92 18 97 Intake and Output 04/22/22 04/23/22 04/23/22 22:59 06:59 14:59 Other: Weight 85.275 kg - Constitutional General appearance: cooperative, no acute distress - EENT Eyes: EOMI, PERRLA ENT: hard of hearing, NA/AT - Neck Neck: normal ROM - Respiratory Respiratory: bilateral: rhonchi, wheezing - Cardiovascular Rhythm: regularly irregular - Gastrointestinal General gastrointestinal: soft - Integumentary Integumentary: pale - Neurologic Neurologic: CNII-XII intact - Musculoskeletal Musculoskeletal: generalized weakness - Psychiatric Psychiatric: A&O x's 3, appropriate affect, intact judgment & insight Results CBC & Chem 7: 04/23/22 13:22 04/23/22 13:22 Labs: Abnormal Lab Results - Last 24 Hours (Table) 04/23/22 Range/Units 13:22 Total Bilirubin 2.4 H (0.2-1.3) mg/dL Assessment and Plan (1) Neutropenic fever Narrative/Plan: Infectious work-up and broad spectrum Current Visit: Yes Status: Acute Code(s): D70.9 - NEUTROPENIA, UNSPECIFIED; R50.81 - FEVER PRESENTING WITH CONDITIONS CLASSIFIED ELSEWHERE SNOMED Code(s): 537120005 (2) History of recent fall Narrative/Plan: CT of Brain to assess for metastatic disease Current Visit: No Status: Acute Code(s): Z91.81 - HISTORY OF FALLING SNOMED Code(s): 233645619 (3) Small cell lung cancer Narrative/Plan: Currently receiving chemo and radiation On hold until resolution of acute infection and cytopenias Current Visit: No Status: Acute Code(s): C34.90 - MALIGNANT NEOPLASM OF UNSP PART OF UNSP BRONCHUS OR LUNG SNOMED Code(s): 622155827 Plan: Dr. Urrutia: I have completed the full histoty and physical and developed the above impression and plan, agree with dictation, dictated as a scribe.
[2022-04-23] MEDS: LORazepam 1 MG TAB PO SCH (22:23)
--- NOTE | 2022-04-23 22:42 | P.CONS ---
History of Present Illness - Reason for Consult Consult date: 04/23/22 Neutropenic fever Requesting physician: Warner Gaitan - Chief Complaint Fever 1 day - History of Present Illness Patient is 81-year male with a past medical history significant for COPD history of lung cancer on chemotherapy, patient did have a blood work done yesterday and was noticed to be leukopenic as the patient presented to the oncology clinic today for injection patient was noticed to have a fever of 100.4 F for the patient was advised to go to the ER, patient apparently has been complaining of weakness that has been getting worse for the last few days patient also have a cough moderate intensity with greenish to toro sputum no hemoptysis the patient denies having any pleuritic chest pain patient denies having any nausea or vomiting denies having any abdominal pain no diarrhea patient on presentation to the hospital did have a fever of 100.4 F patient was not hypoxic or need for supplemental oxygen White count was 0.3 differential not performed, BUN/creatinine was normal liver exams are normal urine was negative lindsey and influenza PCR was negative patient did have a chest x-ray chronic changes without new acute infiltrate patient has been admitted to the hospital the patient was started on cefepime and vancomycin infectious disease was consulted for further management of antibiotic therapy, patient currently denies having any abdominal pain no nausea vomiting no urinary symptoms denies having any swelling redness lower extremity no joint swelling patient do not have central line Review of Systems Positive point has been mentioned in the HPI rest of the systems are negative Past Medical History Past Medical History: Cancer, COPD, GERD/Reflux, Hearing Disorder / Deafness, Hyperlipidemia, Hypertension, Myocardial Infarction ([place]) Additional Past Medical History / Comment(s): Vitamin B-12 deficiency, neuropathy legs and feet, very [place], low blood sugar at times, low kidney function, lung cancer Last Myocardial Infarction Date:: 2005 History of Any Multi-Drug Resistant Organisms: None Reported Past Surgical History: Heart Catheterization With Stent, Orthopedic Surgery, Pacemaker Additional Past Surgical History / Comment(s): Right shoulder scope, left knee scope, cardiac stents X3, Pacemaker replaced. Past Anesthesia/Blood Transfusion Reactions: No Reported Reaction Date of Last Stent Placement:: 11/2005 Type of Cardiac Device: Permanent Pacemaker Device Placement Date:: 11/2005 Past Psychological History: Anxiety Smoking Status: Current some day smoker, Light tobacco smoker Past Alcohol Use History: Occasional Past Drug Use History: None Reported - Past Family History Sister(s) Family Medical History: Cancer Mother Family Medical History: No Reported History Medications and Allergies Home Medications Medication Instructions Recorded Confirmed Type Simvastatin [Zocor] 80 mg PO HS 07/15/16 04/23/22 History carvediloL [Coreg] 3.125 mg PO DAILY 07/15/16 04/23/22 History traZODone HCL [Desyrel] 200 mg PO HS 07/15/16 04/23/22 History Nitroglycerin Sl Tabs [Nitrostat] 0.4 mg SUBLINGUAL Q5M PRN 11/26/19 04/23/22 History LORazepam [Ativan] 1 mg PO DAILY 04/18/20 04/23/22 History Sertraline HCl [Zoloft] 50 mg PO DAILY 04/18/20 04/23/22 History Acetaminophen Tab [Tylenol] 1,000 mg PO Q6HR PRN 03/11/22 04/23/22 History Albuterol Nebulized [Ventolin 2.5 mg INHALATION RT-Q6H PRN 03/11/22 04/23/22 History Nebulized] Ibuprofen [Motrin Ib] 800 mg PO Q8H PRN 03/11/22 04/23/22 History Mometasone/Formoterol [Dulera 200 1 puff INHALATION RT-BID 03/11/22 04/23/22 History Mcg-5 Mcg Inhaler] Pantoprazole [Protonix] 40 mg PO BID 03/11/22 04/23/22 History ondansetron HCL [Zofran] 8 mg PO Q6H PRN 03/11/22 04/23/22 History Cholecalciferol [Vitamin D3 (125 125 mcg PO DAILY tablet 03/14/22 04/23/22 Rx Mcg = 5000 Iu)] Dm/Acetaminophen/Doxylamine [Vicks 30 ml PO Q6H 04/23/22 04/23/22 History Nyquil Cold-Flu Liquid] LORazepam [Ativan] 2 mg PO HS 04/23/22 04/23/22 History Allergies Allergy/AdvReac Type Severity Reaction Status Date / Time No Known Allergies Allergy Verified 04/23/22 15:29 Physical Exam Vitals: Vital Signs Temp Pulse Resp BP Pulse Ox 04/23/22 16:00 69 18 130/59 96 04/23/22 14:55 99.3 F 88 16 126/67 96 04/23/22 12:04 100.4 F H 92 18 97 Intake and Output 04/23/22 04/23/22 04/23/22 06:59 14:59 22:59 Other: Weight 85.275 kg GENERAL DESCRIPTION: An elderly male lying in bed, no distress. No tachypnea or accessory muscle of respiration use. HEENT: Shows Pallor , no scleral icterus. Oral mucous membrane is dry. No pharyngeal erythema or thrush NECK: Trachea central, no thyromegaly. LUNGS: Unlabored breathing. Decreased breath sound the bases. No wheeze or aircraft engine dismantler ckle. HEART: S1, S2, regular rate and rhythm. No loud murmur ABDOMEN: Soft, no tenderness , guarding or rigidity, no organomegaly EXTREMITIES: No edema of feet. SKIN: No rash, no masses palpable. NEUROLOGICAL: The patient is awake, alert, oriented x3, mood and affect normal. Results CBC & Chem 7: 04/24/22 06:14 04/24/22 06:14 Labs: Abnormal Lab Results - Last 24 Hours (Table) 04/23/22 04/23/22 Range/Units 13:22 13:22 WBC 0.3 L* (3.8-10.6) k/uL RBC 3.23 L (4.30-5.90) m/uL Hgb 11.1 L (13.0-17.5) gm/dL Hct 32.4 L (39.0-53.0) % MCV 100.3 H D (80.0-100.0) fL Plt Count 40 L D (150-450) k/uL Total Bilirubin 2.4 H (0.2-1.3) mg/dL Assessment and Plan (1) Neutropenic fever Current Visit: Yes Status: Acute Code(s): D70.9 - NEUTROPENIA, UNSPECIFIED; R50.81 - FEVER PRESENTING WITH CONDITIONS CLASSIFIED ELSEWHERE SNOMED Code(s): 440551923 Plan: 1patient presented to hospital with fever and this patient found to have lung cancer on chemotherapy noticed to be leukopenic and neutropenic and a low-grade fever however her initial work-up did not show any obvious focus however the patient do have predominantly respiratory symptoms with a cough and toro sputum could be the component of pneumonia. 2we will obtain a sputum for gram stain and culture. 3obtain a CT of the chest without any contrast admission no evidence of any consolidation suspicious for pneumonia. 4continue cefepime and vancomycin while waiting for the culture to be finalized. We will follow on clinical condition and cultures to further adjust medication if needed Thank you for this consultation will follow this patient along with you Time with Patient: Greater than 30
[2022-04-24] MEDS: CEFEPIME 2 GM in SODIUM CHLORIDE 0.9% 100 ML IVPB SCH ×2 (01:17→14:02)
[2022-04-24] MEDS: VANCOMYCIN 1,500 MG in SODIUM CHLORIDE 0.9% 250 ML IVPB SCH ×2 (05:34→22:05)
[2022-04-24] MEDS: SERTRALINE 50 MG TAB PO SCH (07:38)
[2022-04-24] MEDS: LORazepam 1 MG TAB PO SCH ×2 (07:38→20:43)
[2022-04-24] MEDS: CHOLECALCIFEROL 125 MCG (5000 IU) TABLET PO SCH (07:38)
[2022-04-24] MEDS: PANTOPRAZOLE 40 MG TABLET PO SCH ×2 (07:38→20:42)
[2022-04-24] MEDS: carvediloL 3.125 MG TAB PO SCH (07:39)
[2022-04-24] MEDS: SYMBICORT 160-4.5 MCG INHALER INHALATION SCH ×2 (09:55→19:50)
[2022-04-24 10:45] LABS: Basophils # (M) 0 X 10*3/uL (0.00-0.10); Eosinophils # (M) 0 X 10*3/uL (0.04-0.35); HCT 23.6 % (39.6-50.0); HGB 8.2 g/dL (13.0-17.0); Immature Platelet Fraction 8.8 % (1.1-6.1); Lymphocytes # (M) 0.06 X 10*3/uL (0.90-5.00); MCH 34.7 pg (27.0-32.0); MCHC 34.7 g/dL (32.0-37.0); Mean Platelet Volume 12.2 fL (9.5-12.2); Monocytes # (M) 0.01 X 10*3/uL (0.20-1.00); Neutrophils # (M) 0.08 X 10*3/uL (2.00-8.90); Neutrophils % (M) 52 %; Platelet Count 23 X 10*3/uL (140-440); RBC 2.36 X 10*6/uL (4.40-5.60); RDW 14.3 % (11.5-14.5); WBC 0.15 X 10*3/uL (4.50-10.00)
[2022-04-24 11:31] LABS: C Reactive Protein 3.1 mg/dL (0.00-0.80)
[2022-04-24 11:42] LABS: African American GFR (CKD) 85.1 (60.0-200.0); Albumin 3.1 g/dL (3.8-4.9); Albumin/Globulin Ratio 1.86 (1.60-3.17); Anion Gap 8.7 mmol/L (10.00-18.00); Blood Urea Nitrogen 16.3 mg/dL (9.0-27.0); Carbon Dioxide 21.3 mmol/L (20.0-27.5); Globulin 1.7 g/dL (1.6-3.3); Non-African American GFR(CKD) 73.4 (60.0-200.0); Potassium 3.8 mmol/L (3.5-5.5); Total Bilirubin 1.1 mg/dL (0.30-1.20); Total Protein 4.8 g/dL (6.2-8.2)
--- NOTE | 2022-04-24 13:31 | CT ---
EXAMINATION TYPE: CT brain wo/w con DATE OF EXAM: 04/24/2022 COMPARISON: 02/24/2022 HISTORY: Assess metastatic disease, recent falls CT DLP: 2446 mGycm, Automated exposure control for dose reduction was used. CONTRAST: Patient injected with 100 ml mL of Isovue 300. CT of the brain is performed utilizing 3 mm thick sections through the posterior fossa and 3 mm thick sections through the remaining calvarium. Study is performed within 24 hours of arrival to the hospital. No abnormal hyperdensity is present to suggest an acute intracranial hemorrhage. No mass lesion is evident. No acute infarcts are evident. Ventricles and sulci are prominent for the patient age. No abnormal enhancement is evident. Paranasal sinuses and mastoid air cells within the [id number] are clear. Calvarium appears intact. No lytic or sclerotic lesions are evident. IMPRESSIONS: 1. No acute intracranial process Pre-or Postcontrast CT brain. No suspicious change to suggest intrac ranial metastatic changes.
--- NOTE | 2022-04-24 14:16 | CT ---
EXAMINATION TYPE: CT chest wo con DATE OF EXAM: 04/24/2022 COMPARISON: 03/03/2022 HISTORY: Fever and pneumonia CT DLP: 789 mGycm, Automated exposure control for dose reduction was used. CONTRAST: Performed injected with 0 mL of Isovue 370. TECHNIQUE: Axial images were obtained at 5 mm thick sections. Reconstructed images are reviewed on [employer] computer in the coronal plane. FINDINGS: Portion of the thyroid visualized is normal. There is some minimal compressive atelectasis within the dependent portions of the lung bases. No enlarged mediastinal or hilar adenopathy is evident. The ascending aorta diameter at the level o f the main pulmonary artery is 3.3 cm. The main pulmonary artery diameter at the bifurcation is 2.6 cm. Coronary artery calcification is present. Limited CT sections are obtained through the upper abdomen. Abdomen is essentially unremarkable. IMPRESSIONS: 1. No suspicious acute pulmonary process. Minimal compressive atelectasis is within the dependent corwin g bases.
--- NOTE | 2022-04-24 14:37 | P.PN ---
Subjective Progress Note Date: 04/24/22 Principal diagnosis: neutropenia Fever Interval history: 81-year-old male with history of lung cancer on chemotherapy and radiation therapy, COPD not on home oxygen, hypertension, coronary artery disease. Patient comes to the emergency department today with complaint of fever. Patient admitted with neutropenic fever. 04/24: Patient seen and examined. He denies any complaints of cough, congestion. He denies any new fever. Objective - Vital Signs Vital signs: Vital Signs Temp 98.6 F 04/24/22 08:53 Pulse 90 04/24/22 08:53 Resp 17 04/24/22 08:53 BP 111/49 04/24/22 08:53 Pulse Ox 95 04/24/22 08:53 FiO2 Intake & Output 04/23/22 04/24/22 04/24/22 18:59 06:59 18:59 Intake Total 700 Balance 700 Weight 85.275 kg 85.275 kg Intake: Intake, IV Titration 700 Amount Cefepime 2 gm In Sodium 100 Chloride 0.9% 100 ml @ 200 mls/hr IVPB ONCE [facility] Rx#:[id number] Sodium Chloride 0.9% 1, 600 000 ml @ 100 mls/hr IV . Q10H [facility] Rx#:[id number] Other: Voiding Method Toilet Urinal # Voids 2 - Exam Constitutional: Fever+, no chills Eyes: Patient reports no double vision, no visual changes ENT: Patient reports no rhinorrhea, no post nasal drip, no sore throat Cardiovascular: Patient reports no chest, no edema, no palpitations, no syncope, no orthopnea, no paroxysmal nocturnal dyspnea. Respiratory: Cough+, no SOB Gastrointestinal: Patient reports no nausea, no vomiting, no constipation, no diarrhea Genitourinary: Patient reports no dysuria, no urinary frequency, no hematuria. Musculoskeletal: Patient reports no unusual joint pain, no joint swelling or weakness. Patient reports no muscular pain. Psychiatric: Patient reports no changes in mood, no sleeping problems. Patient reports no changes in memory. Endocrine: Patient reports no thirst, no polyuria, no cold intolerance, no heat intolerance. Neurological: Patient reports no unusual paresthesias, no seizures, no paresis, no paralysis, no facila droop, no headache. Heme/Lymphatic: Patient reports no easy bruising, no bleeding tendency, no lymphadenopathy. Allergic/ Immunologic: Patient reports no recent allergic reactions or immunologic history. Skin: Patient reports no rashes or unusual lesions. - Labs CBC & Chem 7: 04/24/22 06:14 04/24/22 06:14 Labs: Abnormal Lab Results - Last 24 Hours (Table) 04/23/22 04/24/22 04/24/22 Range/Units 13:22 06:14 06:14 WBC 0.15 L* (4.50-10.00) X 10*3/uL RBC 2.36 L (4.40-5.60) X 10*6/uL Hgb 8.2 L (13.0-17.0) g/dL Hct 23.6 L (39.6-50.0) % MCV 100.0 H (80.0-97.0) fL MCH 34.7 H (27.0-32.0) pg Plt Count 23 L (140-440) X 10*3/uL Plt Count Comment A Neutrophils # (Manual) 0.08 L* (2.00-8.90) X 10*3/uL Lymphocytes # (Manual) 0.06 L (0.90-5.00) X 10*3/uL Monocytes # (Manual) 0.01 L (0.20-1.00) X 10*3/uL Eosinophils # (Manual) 0 L (0.04-0.35) X 10*3/uL Immature Plt Fraction 8.8 H (1.1-6.1) % Anion Gap 8.70 L (10.00-18.00) mmol/L Calcium 8.0 L (8.7-10.3) mg/dL C-Reactive Protein 3.10 H (0.00-0.80) mg/dL Total Protein 4.8 L (6.2-8.2) g/dL Albumin 3.1 L (3.8-4.9) g/dL Urine Protein Trace H (Negative) Microbiology - Last 24 Hours (Table) 04/23/22 13:22 Group A Strep Throat Culture - Preliminary Throat Assessment and Plan (1) Neutropenic fever Current Visit: Yes Status: Acute Code(s): D70.9 - NEUTROPENIA, UNSPECIFIED; R50.81 - FEVER PRESENTING WITH CONDITIONS CLASSIFIED ELSEWHERE SNOMED Code(s): 639035737 Plan: Neutropenic fever - Sepsis workup - Blood cultures pending, UA neg, sputum Gram stain and cultures pending - IV cefepime and IV vancomycin - ID team following. - Oncology consulted Hyperbilirubinemia -Improved -Liver ultrasound within normal limits Hypertension, CAD -Today with carvedilol GERD Protonix DVT prophylaxis with SCDs. No anticoagulation due to low platelets
[2022-04-24] MEDS: FILGRASTIM-SNDZ 480 MCG/0.8 ML SYRINGE SQ SCH (17:01)
[2022-04-24] MEDS: FLUCONAZOLE 100 MG TAB PO SCH (17:01)
[2022-04-24] MEDS: MAG HYDROX/AL HYDROX/SIMETH 30 ML, LIDOCAINE VISCOUS 2% 30 ML, diphenhydrAMINE ELIXIR 7... PO SCH ×8 (18:22→22:04)
[2022-04-24] MEDS ORDERED: ACETAMINOPHEN TAB 325 MG TAB PO STA (20:35)
[2022-04-24] MEDS: traZODone HCL 100 MG TAB PO SCH (20:42)
[2022-04-24] MEDS: ACYCLOVIR 200 MG CAP PO SCH (20:42)
[2022-04-24] MEDS: ATORVASTATIN 40 MG TAB PO SCH (20:42)
--- NOTE | 2022-04-24 21:24 | P.PN ---
Subjective Progress Note Date: 04/24/22 Principal diagnosis: Febrile neutropenia Patient is 81-year-old male with a past medical history significant for lung cancer currently on chemotherapy patient was noticed to be febrile in the oncology clinic for the patient was admitted to the hospital for workup. On today's evaluation that is 04/24/2022, patient did have a low-grade fever 100F this afternoon, patient is breathing comfortably on room he denies any chest pain no worsening cough or sputum production no abdominal pain or diarrhea Objective - Vital Signs Vital signs: Vital Signs Temp 100 F H 04/24/22 13:00 Pulse 82 04/24/22 13:00 Resp 16 04/24/22 13:00 BP 107/65 04/24/22 13:00 Pulse Ox 93 L 04/24/22 13:00 FiO2 Intake & Output 04/24/22 04/24/22 04/25/22 06:59 18:59 06:59 Intake Total 700 Output Total 300 Balance 700 -300 Weight 85.275 kg Intake: Intake, IV Titration 700 Amount Cefepime 2 gm In Sodium 100 Chloride 0.9% 100 ml @ 200 mls/hr IVPB ONCE [facility] Rx#:[id number] Sodium Chloride 0.9% 1, 600 000 ml @ 100 mls/hr IV . Q10H [facility] Rx#:[id number] Output: Urine 300 Other: Voiding Method Toilet Urinal # Voids 2 - Exam GENERAL DESCRIPTION: An elderly male lying in bed in no distress RESPIRATORY SYSTEM: Unlabored breathing , decreased breath sounds at bases HEART: S1 S2 regular rate and rhythm , ABDOMEN: Soft , no tenderness EXTREMITIES: No edema feet - Labs CBC & Chem 7: 04/24/22 06:14 04/24/22 06:14 Labs: Abnormal Lab Results - Last 24 Hours (Table) 04/23/22 04/24/22 04/24/22 Range/Units 13:22 06:14 06:14 WBC 0.15 L* (4.50-10.00) X 10*3/uL RBC 2.36 L (4.40-5.60) X 10*6/uL Hgb 8.2 L (13.0-17.0) g/dL Hct 23.6 L (39.6-50.0) % MCV 100.0 H (80.0-97.0) fL MCH 34.7 H (27.0-32.0) pg Plt Count 23 L (140-440) X 10*3/uL Plt Count Comment A Neutrophils # (Manual) 0.08 L* (2.00-8.90) X 10*3/uL Lymphocytes # (Manual) 0.06 L (0.90-5.00) X 10*3/uL Monocytes # (Manual) 0.01 L (0.20-1.00) X 10*3/uL Eosinophils # (Manual) 0 L (0.04-0.35) X 10*3/uL Immature Plt Fraction 8.8 H (1.1-6.1) % Anion Gap 8.70 L (10.00-18.00) mmol/L Calcium 8.0 L (8.7-10.3) mg/dL C-Reactive Protein 3.10 H (0.00-0.80) mg/dL Total Protein 4.8 L (6.2-8.2) g/dL Albumin 3.1 L (3.8-4.9) g/dL Urine Protein Trace H (Negative) Microbiology - Last 24 Hours (Table) 04/23/22 13:22 Blood Culture - Preliminary Blood No Growth after 24 hours 04/23/22 13:22 Blood Culture - Preliminary Blood No Growth after 24 hours 04/23/22 13:22 Group A Strep Throat Culture - Preliminary Throat Assessment and Plan (1) Neutropenic fever Current Visit: Yes Status: Acute Code(s): D70.9 - NEUTROPENIA, UNSPECIFIED; R50.81 - FEVER PRESENTING WITH CONDITIONS CLASSIFIED ELSEWHERE SNOMED Code(s): 339796493 Plan: 1patient presented to hospital with fever and this patient found to have lung cancer on chemotherapy noticed to be leukopenic and neutropenic and a low-grade fever however her initial work-up did not show any obvious focus however the patient do have predominantly respiratory symptoms with a cough and toro sputum could be the component of pneumonia. 2 CT of the chest without any contrast did not show any consolidation suspicious for pneumonia. 3-cultures so far pending 4- patient to continue cefepime and vancomycin while waiting for the culture to be finalized. Time with Patient: Less than 30
[2022-04-25] MEDS: CEFEPIME 2 GM in SODIUM CHLORIDE 0.9% 100 ML IVPB SCH ×2 (01:55→13:15)
[2022-04-25] MEDS: SYMBICORT 160-4.5 MCG INHALER INHALATION SCH ×2 (07:34→19:58)
[2022-04-25] MEDS: LORazepam 1 MG TAB PO SCH ×2 (08:16→21:16)
[2022-04-25] MEDS: PANTOPRAZOLE 40 MG TABLET PO SCH (08:16)
[2022-04-25] MEDS: SERTRALINE 50 MG TAB PO SCH (08:16)
[2022-04-25] MEDS: carvediloL 3.125 MG TAB PO SCH (08:16)
[2022-04-25] MEDS: CHOLECALCIFEROL 125 MCG (5000 IU) TABLET PO SCH (08:16)
[2022-04-25] MEDS: FLUCONAZOLE 100 MG TAB PO SCH (08:17)
[2022-04-25] MEDS: ACYCLOVIR 200 MG CAP PO SCH ×2 (08:17→21:15)
[2022-04-25] MEDS: MAG HYDROX/AL HYDROX/SIMETH 30 ML, LIDOCAINE VISCOUS 2% 30 ML, diphenhydrAMINE ELIXIR 7... PO SCH ×12 (08:17→21:18)
[2022-04-25] MEDS ORDERED: VANCOMYCIN TROUGH DUE 1 EACH MISC MISCELLANE ONE (13:00)
[2022-04-25] MEDS: ACETAMINOPHEN TAB 325 MG TAB PO PRN (13:14)
[2022-04-25] MEDS: ONDANSETRON 4 MG TAB PO PRN (13:15)
[2022-04-25] MEDS: VANCOMYCIN 1,500 MG in SODIUM CHLORIDE 0.9% 250 ML IVPB SCH (13:16)
--- NOTE | 2022-04-25 13:27 | P.PN ---
Subjective Progress Note Date: 04/25/22 Principal diagnosis: neutropenia Fever Interval history: 81-year-old male with history of lung cancer on chemotherapy and radiation therapy, COPD not on home oxygen, hypertension, coronary artery disease. Patient comes to the emergency department today with complaint of fever. Patient admitted with neutropenic fever. 04/25: Patient seen and examined. He is still complaining of some cough, he is also complaining of some dysphagia. He denies any nausea or vomiting he does continue to have some fevers. Objective - Vital Signs Vital signs: Vital Signs Temp 99.3 F 04/25/22 05:00 Pulse 83 04/25/22 08:13 Resp 20 04/25/22 08:13 BP 116/56 04/25/22 08:13 Pulse Ox 93 L 04/25/22 08:13 FiO2 Intake & Output 04/24/22 04/25/22 04/25/22 18:59 06:59 18:59 Intake Total 590 Output Total 300 250 Balance -300 590 -250 Intake: Oral 590 Output: Urine 300 250 Other: # Voids 3 1 - Exam Constitutional: Fever+, no chills Eyes: Patient reports no double vision, no visual changes ENT: Patient reports no rhinorrhea, no post nasal drip, no sore throat Cardiovascular: Patient reports no chest, no edema, no palpitations, no syncope, no orthopnea, no paroxysmal nocturnal dyspnea. Respiratory: Cough+, no SOB Gastrointestinal: Patient reports no nausea, no vomiting, no constipation, no diarrhea Genitourinary: Patient reports no dysuria, no urinary frequency, no hematuria. Musculoskeletal: Patient reports no unusual joint pain, no joint swelling or weakness. Patient reports no muscular pain. Psychiatric: Patient reports no changes in mood, no sleeping problems. Patient reports no changes in memory. Endocrine: Patient reports no thirst, no polyuria, no cold intolerance, no heat intolerance. Neurological: Patient reports no unusual paresthesias, no seizures, no paresis, no paralysis, no facila droop, no headache. Heme/Lymphatic: Patient reports no easy bruising, no bleeding tendency, no lymphadenopathy. Allergic/ Immunologic: Patient reports no recent allergic reactions or immunologic history. Skin: Patient reports no rashes or unusual lesions. - Labs CBC & Chem 7: 04/24/22 06:14 04/24/22 06:14 Labs: Microbiology - Last 24 Hours (Table) 04/24/22 11:00 Gram Stain - Preliminary Sputum Sputum Culture - Preliminary 04/23/22 13:22 Blood Culture - Preliminary Blood No Growth after 24 hours 04/23/22 13:22 Blood Culture - Preliminary Blood No Growth after 24 hours Assessment and Plan (1) Neutropenic fever Current Visit: Yes Status: Acute Code(s): D70.9 - NEUTROPENIA, UNSPECIFIED; R50.81 - FEVER PRESENTING WITH CONDITIONS CLASSIFIED ELSEWHERE SNOMED Code(s): 112993609 Plan: Neutropenic fever - Blood cultures negative to date. Sputum cultures pending -Chest x-ray did not show any evidence of infiltrate, CT chest did not show any evidence of acute process - IV cefepime and IV vancomycin, acyclovir, per ID Small cell lung cancer -Patient is status post 3 cycles of carboplatinum and etoposide and radiation treatment. -Patient follows with hematology oncology outpatient. Hyperbilirubinemia -Improved -Liver ultrasound within normal limits Pancytopenia -Worse today. Patient platelet count 23. -Hematology oncology following. We'll discuss with hematology oncology regarding GSF injection Hypertension, CAD -Today with carvedilol GERD Protonix DVT prophylaxis with SCDs. No anticoagulation due to low platelets
[2022-04-25] MEDS ORDERED: RX INFO: IV CONTRAST WAS GIVEN 1 EACH MISC MISCELLANE PRN (14:53)
--- NOTE | 2022-04-25 16:59 | CT ---
EXAMINATION TYPE: CT chest w con DATE OF EXAM: 04/25/2022 COMPARISON: Yesterday HISTORY: dysphagaia CT DLP: 467.1 mGycm Automated exposure control for dose reduction was used. CONTRAST: Performed with IV Contrast, patient injected with 100 mL of Isovue 300. Images obtained from the thoracic inlet to the diaphragm with IV contrast. There is a 1.5 cm reticular infiltrate left lower lobe posteriorly. There is mild subpleural intersti tial density right lower lobe posteriorly. No pleural effusion. Heart size is normal. No pericardial effusion. There is some increased subcarinal soft tissue density. This measures 2.5 cm. Esophageal ma ss is possible. . There are no hilar masses. There is normal contrast opacification of the pulmonary arteries. No tye ling defect. Thoracic aorta is intact. No aneurysm or dissection. Sternum is intact. Thoracic vertebr a have fairly normal alignment. No compression fracture. Shoulder joints are intact. The ribs appear intact. Upper abdominal soft tissues appear intact. The ascending aorta measures 3.2 cm. IMPRESSION: Increased subcarinal density could be adenopathy or related to esophageal mass and follow-up is recom mended. This area appears improved however compared to the older CT scan of 01/25/2022. Minimal infiltrates at the lung bases are likely inflammatory. There is improvement in the atelectasi s at the lung bases compared to exam yesterday.
[2022-04-25 17:10] LABS: Hepatitis A Antibody IgM Nonreactive (Nonreactive); Hepatitis B Core IgM Nonreactive (Nonreactive); Hepatitis B Surface Antigen Nonreactive (Nonreactive); Hepatitis C IgG Antibody Nonreactive (Nonreactive)
[2022-04-25] MEDS: FILGRASTIM-SNDZ 480 MCG/0.8 ML SYRINGE SQ SCH (17:27)
--- NOTE | 2022-04-25 18:49 | P.PN ---
Subjective Progress Note Date: 04/25/22 CT Brain reveiwed, no evidence to explain increased falls and confusion. He complains of new and "bad" pain in right chest today. Was not present a few days ago. Inflammatory changes, possible infiltrates, and atelectasis although appearing improved from last week. Incentive spirometer to bedside. 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 He is falling a lot, hearing is very bad and seems to be worsening per family. He also started to complain of pressure in right ear. CT brain did not show Metastatic disease. Patient is not anticipated to be discharged in the next 24 hours so will as ENT to evaluate Objective - Vital Signs Vital signs: Vital Signs Temp 99.3 F 04/25/22 05:00 Pulse 83 04/25/22 08:13 Resp 20 04/25/22 08:13 BP 116/56 04/25/22 08:13 Pulse Ox 93 L 04/25/22 08:13 FiO2 Intake & Output 04/24/22 04/25/22 04/25/22 18:59 06:59 18:59 Intake Total 590 Output Total 300 Balance -300 590 Intake: Oral 590 Output: Urine 300 Other: # Voids 3 - Exam - Constitutional General appearance: cooperative, no acute distress - EENT Eyes: EOMI, PERRLA ENT: hard of hearing, NA/AT - Neck Neck: normal ROM - Respiratory Respiratory: bilateral: rhonchi, wheezing - Cardiovascular Rhythm: regularly irregular - Gastrointestinal General gastrointestinal: soft - Integumentary Integumentary: pale - Neurologic Neurologic: CNII-XII intact - Musculoskeletal Musculoskeletal: generalized weakness - Psychiatric Psychiatric: A&O x's 3, appropriate affect, intact judgment & insight - Labs CBC & Chem 7: 04/24/22 06:14 04/25/22 12:48 Labs: Abnormal Lab Results - Last 24 Hours (Table) 04/24/22 04/24/22 Range/Units 06:14 06:14 WBC 0.15 L* (4.50-10.00) X 10*3/uL RBC 2.36 L (4.40-5.60) X 10*6/uL Hgb 8.2 L (13.0-17.0) g/dL Hct 23.6 L (39.6-50.0) % MCV 100.0 H (80.0-97.0) fL MCH 34.7 H (27.0-32.0) pg Plt Count 23 L (140-440) X 10*3/uL Plt Count Comment A Neutrophils # (Manual) 0.08 L* (2.00-8.90) X 10*3/uL Lymphocytes # (Manual) 0.06 L (0.90-5.00) X 10*3/uL Monocytes # (Manual) 0.01 L (0.20-1.00) X 10*3/uL Eosinophils # (Manual) 0 L (0.04-0.35) X 10*3/uL Immature Plt Fraction 8.8 H (1.1-6.1) % Anion Gap 8.70 L (10.00-18.00) mmol/L Calcium 8.0 L (8.7-10.3) mg/dL C-Reactive Protein 3.10 H (0.00-0.80) mg/dL Total Protein 4.8 L (6.2-8.2) g/dL Albumin 3.1 L (3.8-4.9) g/dL Microbiology - Last 24 Hours (Table) 04/24/22 11:00 Sputum Culture - Preliminary Sputum 04/23/22 13:22 Blood Culture - Preliminary Blood No Growth after 24 hours 04/23/22 13:22 Blood Culture - Preliminary Blood No Growth after 24 hours Assessment and Plan (1) Neutropenic fever Narrative/Plan: Infectious work-up and broad spectrum Febrile 100.5 within 24 hours COntinues on cefepine and vanco ID following Current Visit: Yes Status: Acute Code(s): D70.9 - NEUTROPENIA, UNSPECIFIED; R50.81 - FEVER PRESENTING WITH CONDITIONS CLASSIFIED ELSEWHERE SNOMED Code(s): 312757412 (2) History of recent fall Narrative/Plan: CT of Brain to assess for metastatic disease is negative Now with right ear pain We have asked ENT to evaluate Current Visit: No Status: Acute Code(s): Z91.81 - HISTORY OF FALLING SNOMED Code(s): 811510354 (3) Small cell lung cancer Narrative/Plan: Currently receiving chemo and radiation On hold until resolution of acute infection and cytopenias Current Visit: No Status: Acute Code(s): C34.90 - MALIGNANT NEOPLASM OF UNSP PART OF UNSP BRONCHUS OR LUNG SNOMED Code(s): 825974144 (4) Dysphagia Narrative/Plan: unable to swallow mid-epigastric pain. Assuming compoenent of Thrush and radiation esophagitis. PPI Protein powder with Glutamine - will ask dieticien if we have (I believe Micah has) Short course Solu medrol Current Visit: Yes Status: Acute Code(s): R13.10 - DYSPHAGIA, UNSPECIFIED SNOMED Code(s): 45188429 Plan: Will ask PT/OT to assist with strength and stamina
[2022-04-25] MEDS ORDERED: SENNOSIDES-DOCUSATE SODIUM 1 EACH TAB PO STA (18:50)
[2022-04-25] MEDS: traZODone HCL 100 MG TAB PO SCH (21:16)
[2022-04-25] MEDS: methylPREDNISolone SOD SUCCI 125 MG/2 ML VIAL IV SCH (21:16)
[2022-04-25] MEDS: ATORVASTATIN 40 MG TAB PO SCH (21:16)
[2022-04-25] MEDS: PANTOPRAZOLE 40 MG/10 ML VIAL IVP SCH (21:17)
[2022-04-26] MEDS: CEFEPIME 2 GM in SODIUM CHLORIDE 0.9% 100 ML IVPB SCH ×2 (01:53→13:12)
[2022-04-26] MEDS: VANCOMYCIN 1,500 MG in SODIUM CHLORIDE 0.9% 250 ML IVPB SCH ×2 (06:26→20:43)
[2022-04-26 07:20] LABS: African American GFR (CKD) 80 (>60 ml/min/1.73 sqM); Anion Gap 7 mmol/L; Blood Urea Nitrogen 16 mg/dL (9-20); Calcium 7.8 mg/dL (8.4-10.2); Carbon Dioxide 21 mmol/L (22-30); Chloride 107 mmol/L (98-107); Glucose 169 mg/dL (74-99); Non-African American GFR(CKD) 69 (>60 ml/min/1.73 sqM); Potassium 3.7 mmol/L (3.5-5.1); Sodium 135 mmol/L (137-145)
[2022-04-26] MEDS: SYMBICORT 160-4.5 MCG INHALER INHALATION SCH ×2 (09:06→20:42)
[2022-04-26] MEDS: ACYCLOVIR 200 MG CAP PO SCH ×2 (09:24→20:43)
[2022-04-26] MEDS: PANTOPRAZOLE 40 MG/10 ML VIAL IVP SCH ×2 (09:24→20:43)
[2022-04-26] MEDS: ONDANSETRON 4 MG TAB PO PRN ×2 (09:24→17:50)
[2022-04-26] MEDS: LORazepam 1 MG TAB PO SCH (09:25)
[2022-04-26] MEDS: carvediloL 3.125 MG TAB PO SCH (09:25)
[2022-04-26] MEDS: SERTRALINE 50 MG TAB PO SCH (09:25)
[2022-04-26] MEDS: CHOLECALCIFEROL 125 MCG (5000 IU) TABLET PO SCH (09:25)
[2022-04-26] MEDS: methylPREDNISolone SOD SUCCI 125 MG/2 ML VIAL IV SCH (09:25)
[2022-04-26] MEDS: MAG HYDROX/AL HYDROX/SIMETH 30 ML, LIDOCAINE VISCOUS 2% 30 ML, diphenhydrAMINE ELIXIR 7... PO SCH ×12 (09:25→20:43)
[2022-04-26] MEDS: FLUCONAZOLE 100 MG TAB PO SCH (10:20)
--- NOTE | 2022-04-26 11:15 | P.PN ---
Subjective Patient was examined at bedside today not complaining of any new symptomatology. Case discussed with RN. Objective - Vital Signs Vital signs: Vital Signs Temp 97.7 F 04/26/22 04:19 Pulse 93 04/26/22 04:19 Resp 20 04/26/22 04:19 BP 123/67 04/26/22 04:19 Pulse Ox 94 L 04/26/22 04:19 FiO2 Intake & Output 04/25/22 04/26/22 04/26/22 18:59 06:59 18:59 Intake Total 950 100 Output Total 250 Balance 700 100 Intake: Intake, IV Titration 350 100 Amount Cefepime 2 gm In Sodium 100 100 Chloride 0.9% 100 ml @ 25 mls/hr IVPB Q12H [facility] Rx# :[id number] Vancomycin 1,500 mg In 250 Sodium Chloride 0.9% 250 ml @ 125 mls/hr IVPB Q16H [facility] Rx#:[id number] Oral 600 Output: Urine 250 Other: Voiding Method Toilet Urinal # Voids 4 # Bowel Movements 1 - Exam Constitutional: no chills Cardiovascular: Patient reports no chest, no edema, no palpitations, no syncope, no orthopnea, no paroxysmal nocturnal dyspnea. Respiratory: Cough+, no SOB Gastrointestinal: Patient reports no nausea, no vomiting, no constipation, no diarrhea Genitourinary: Patient reports no dysuria, no urinary frequency, no hematuria. Musculoskeletal: Patient reports no unusual joint pain, no joint swelling or weakness. Patient reports no muscular pain. Psychiatric: Patient reports no changes in mood, no sleeping problems. Patient reports no changes in memory. Neurological: Patient reports no unusual paresthesias, no seizures, no paresis, no paralysis, no facila droop, no headache. Skin: Patient reports no rashes or unusual lesions. - Labs CBC & Chem 7: 04/24/22 06:14 04/26/22 06:14 Labs: Abnormal Lab Results - Last 24 Hours (Table) 04/26/22 Range/Units 06:14 Sodium 135 L (137-145) mmol/L Carbon Dioxide 21 L (22-30) mmol/L Glucose 169 H (74-99) mg/dL Calcium 7.8 L (8.4-10.2) mg/dL Microbiology - Last 24 Hours (Table) 04/23/22 13:22 Group A Strep Throat Culture - Final Throat 04/23/22 13:22 Blood Culture - Preliminary Blood No Growth after 48 hours 04/23/22 13:22 Blood Culture - Preliminary Blood No Growth after 48 hours 04/24/22 11:00 Gram Stain - Preliminary Sputum Sputum Culture - Preliminary Assessment and Plan Assessment: Neutropenic fever - Blood cultures negative to date. Sputum cultures pending - Chest x-ray did not show any evidence of infiltrate, CT chest did not show any evidence of acute process - IV cefepime and IV vancomycin, acyclovir, per ID Small cell lung cancer -Patient is status post 3 cycles of carboplatinum and etoposide and radiation treatment. -Patient follows with hematology oncology outpatient. Hyperbilirubinemia -Improved -Liver ultrasound within normal limits Pancytopenia -No CBC still completed. Pending.No active bleeding -Hematology oncology following. Pending further recommendations. Hypertension, CAD -Today with carvedilol GERD Protonix DVT prophylaxis with SCDs. No anticoagulation due to low platelets
[2022-04-26 11:59] LABS: HCT 21.3 % (39.6-50.0); HGB 7.2 g/dL (13.0-17.0); MCH 33.8 pg (27.0-32.0); MCHC 33.8 g/dL (32.0-37.0); NRBC Per 100 WBC 0 /100 WBCS (0.0-0.0); Platelet Count 11 X 10*3/uL (140-440); RBC 2.13 X 10*6/uL (4.40-5.60); RDW 13.9 % (11.5-14.5); WBC 0.12 X 10*3/uL (4.50-10.00)
[2022-04-26] MEDS: ACETAMINOPHEN TAB 325 MG TAB PO PRN (15:09)
[2022-04-26] MEDS: FILGRASTIM-SNDZ 480 MCG/0.8 ML SYRINGE SQ SCH (18:02)
[2022-04-26] MEDS ORDERED: ONDANSETRON 4 MG/2 ML VIAL IVP PRN (19:16)
[2022-04-26] MEDS ORDERED: LORazepam 2 MG/ML INJ IV PRN (19:19)
[2022-04-26] MEDS ORDERED: HYDROcodone/APAP 15 ML SOLUTION PO PRN (19:29)
--- NOTE | 2022-04-26 19:43 | P.PN ---
Subjective Progress Note Date: 04/26/22 Patient continues to complain of right sided pain, CT without evidence to explain discomfort. contacted oncall doctor as she is concerned that he has vomited 3 times, not moved bowels and complaining of painnot relieved with tylenol. Per patients he is unable to swallow without vomiting, has not taken cools? Spoke in detail with nursing. Will add IVF since vomiting and not eating. Will repeat labs platelets decreased further today. Check flat plate abdomen, speech evaluation, Hydrocodone elixir for pain with cools, Dr. Blanton to evaluate for possible radiaiton esophagitis and decrease to clear liquids with neutropenia. Objective - Vital Signs Vital signs: Vital Signs Temp 98.1 F 04/26/22 12:43 Pulse 80 04/26/22 12:43 Resp 18 04/26/22 12:43 BP 115/68 04/26/22 12:43 Pulse Ox 94 L 04/26/22 12:43 FiO2 Intake & Output 04/26/22 04/26/22 04/27/22 06:59 18:59 06:59 Intake Total 100 Output Total 350 Balance 100 -350 Intake: Intake, IV Titration 100 Amount Cefepime 2 gm In Sodium 100 Chloride 0.9% 100 ml @ 25 mls/hr IVPB Q12H [facility] Rx# :[id number] Output: Urine 250 Emesis 100 Other: Voiding Method Toilet Toilet Urinal Urinal # Voids 1 - Exam - Constitutional General appearance: cooperative, no acute distress - EENT Eyes: EOMI, PERRLA ENT: hard of hearing, NA/AT - Neck Neck: normal ROM - Respiratory Respiratory: bilateral: rhonchi, wheezing - Cardiovascular Rhythm: regularly irregular - Gastrointestinal General gastrointestinal: soft - Integumentary Integumentary: pale - Neurologic Neurologic: CNII-XII intact - Musculoskeletal Musculoskeletal: generalized weakness - Psychiatric Psychiatric: A&O x's 3, appropriate affect, intact judgment & insight - Labs CBC & Chem 7: 04/28/22 05:44 04/28/22 05:44 Labs: Abnormal Lab Results - Last 24 Hours (Table) 04/26/22 04/26/22 Range/Units 06:14 06:14 WBC 0.12 L* (4.50-10.00) X 10*3/uL RBC 2.13 L (4.40-5.60) X 10*6/uL Hgb 7.2 L (13.0-17.0) g/dL Hct 21.3 L (39.6-50.0) % MCV 100.0 H (80.0-97.0) fL MCH 33.8 H (27.0-32.0) pg Plt Count 11 L* (140-440) X 10*3/uL Sodium 135 L (137-145) mmol/L Carbon Dioxide 21 L (22-30) mmol/L Glucose 169 H (74-99) mg/dL Calcium 7.8 L (8.4-10.2) mg/dL Microbiology - Last 24 Hours (Table) 04/23/22 13:22 Blood Culture - Preliminary Blood No Growth after 72 hours 04/23/22 13:22 Blood Culture - Preliminary Blood No Growth after 72 hours 04/23/22 13:22 Group A Strep Throat Culture - Final Throat Assessment and Plan (1) Neutropenic fever Narrative/Plan: Infectious work-up and broad spectrum Afebril within 24 hours COntinues on cefepine and vanco ID following Current Visit: Yes Status: Acute Code(s): D70.9 - NEUTROPENIA, UNSPECIFIED; R50.81 - FEVER PRESENTING WITH CONDITIONS CLASSIFIED ELSEWHERE SNOMED Code(s): 975210267 (2) History of recent fall Narrative/Plan: CT of Brain to assess for metastatic disease is negative Now with right ear pain We have asked ENT to evaluate Current Visit: No Status: Acute Code(s): Z91.81 - HISTORY OF FALLING SNOMED Code(s): 667664664 (3) Small cell lung cancer Narrative/Plan: Currently receiving chemo and radiation On hold until resolution of acute infection and cytopenias Current Visit: No Status: Acute Code(s): C34.90 - MALIGNANT NEOPLASM OF UNSP PART OF UNSP BRONCHUS OR LUNG SNOMED Code(s): 599158748 (4) Dysphagia Narrative/Plan: unable to swallow mid-epigastric pain. Assuming compoenent of Thrush and radiation esophagitis. PPI Protein powder with Glutamine - will ask dieticien if we have (I believe Micah has) Elixir Arley and Kools Swallow evsl. Current Visit: Yes Status: Acute Code(s): R13.10 - DYSPHAGIA, UNSPECIFIED SNOMED Code(s): 15942560 Plan: Spoke in detail with nursing. Will add IVF since vomiting and not eating. Will repeat labs platelets decreased further today. Check flat plate abdomen, speech evaluation, Hydrocodone elixir for pain with cools, Dr. Blanton to evaluate for possible radiaiton esophagitis and decrease to clear liquids with neutropenia.
[2022-04-26 20:32] LABS: Glucose,Whole Blood 153 mg/dL (75-99)
[2022-04-26] MEDS: DEXTROSE 5%-0.9% NACL 1,000 ML IV SCH (20:42)
[2022-04-26] MEDS: ATORVASTATIN 40 MG TAB PO SCH (20:43)
[2022-04-26] MEDS: ALBUTEROL NEBULIZED 2.5 MG/3 ML INHALATION PRN (20:43)
[2022-04-26] MEDS: traZODone HCL 100 MG TAB PO SCH (20:43)
[2022-04-26 20:46] LABS: ALT 39 U/L (4-49); AST 40 U/L (17-59); African American GFR (CKD) 78 (>60 ml/min/1.73 sqM); Albumin/Globulin Ratio 1.3; Alkaline Phosphatase 56 U/L (38-126); Anion Gap 6 mmol/L; Blood Urea Nitrogen 20 mg/dL (9-20); Calcium 8.2 mg/dL (8.4-10.2); Carbon Dioxide 21 mmol/L (22-30); Chloride 108 mmol/L (98-107); Globulin 2.3 g/dL; Glucose 144 mg/dL (74-99); Non-African American GFR(CKD) 68 (>60 ml/min/1.73 sqM); Potassium 3.6 mmol/L (3.5-5.1); Sodium 135 mmol/L (137-145); Total Bilirubin 0.8 mg/dL (0.2-1.3); Total Protein 5.3 g/dL (6.3-8.2)
[2022-04-26 21:03] LABS: HCT 22.9 % (39.0-53.0); MCH 36.1 pg (25.0-35.0); MCHC 35.1 g/dL (31.0-37.0); MCV 102.9 fL (80.0-100.0); Macrocytosis Slight; Mean Platelet Volume 10.8; RBC 2.23 m/uL (4.30-5.90); RDW 14.9 % (11.5-15.5)
[2022-04-26 21:07] LABS: WBC 0.3 k/uL (3.8-10.6)
[2022-04-26 21:10] LABS: Platelet Count 18 k/uL (150-450)
--- NOTE | 2022-04-26 21:22 | XR ---
EXAMINATION TYPE: XR abdomen acute w cxr DATE OF EXAM: 04/26/2022 COMPARISON: 04/23/2022 chest x-ray HISTORY: Vomiting. Pain TECHNIQUE: 4 views FINDINGS: There is no sign of intestinal obstruction or pneumoperitoneum. Fecal pattern is normal. No sign of a mass. Heart and mediastinum are normal. Lungs are clear of infiltrate. There are no hilar masses. There is left axillary pacemaker. Costophrenic angles are clear. IMPRESSION: No active cardiopulmonary disease. Nonacute abdomen. There is clearing of the minimal ate lectasis left lung base compared to old chest x-ray exam.
[2022-04-26 21:27] LABS: INR 1.1 (<1.2)
[2022-04-26 21:28] LABS: Partial Thromboplastin Time 24.9 sec (22.0-30.0); Prothrombin Time 11.5 sec (9.0-12.0)
[2022-04-26 22:23] LABS: Anisocytosis (M) Present
[2022-04-26 22:24] LABS: Poikilocytosis (M) Present
[2022-04-27] MEDS: CEFEPIME 2 GM in SODIUM CHLORIDE 0.9% 100 ML IVPB SCH ×2 (02:07→14:40)
[2022-04-27] MEDS: MAG HYDROX/AL HYDROX/SIMETH 30 ML, LIDOCAINE VISCOUS 2% 30 ML, diphenhydrAMINE ELIXIR 7... PO SCH ×12 (07:54→20:13)
[2022-04-27] MEDS: FLUCONAZOLE 100 MG TAB PO SCH (07:55)
[2022-04-27] MEDS: SERTRALINE 50 MG TAB PO SCH (07:56)
[2022-04-27] MEDS: CHOLECALCIFEROL 125 MCG (5000 IU) TABLET PO SCH (07:56)
[2022-04-27] MEDS: LORazepam 1 MG TAB PO SCH (07:56)
[2022-04-27] MEDS: carvediloL 3.125 MG TAB PO SCH (07:56)
[2022-04-27] MEDS: PANTOPRAZOLE 40 MG/10 ML VIAL IVP SCH ×2 (07:56→20:10)
[2022-04-27] MEDS: ACYCLOVIR 200 MG CAP PO SCH ×2 (07:56→20:10)
[2022-04-27 08:17] LABS: ALT 40 U/L (4-49); AST 37 U/L (17-59); African American GFR (CKD) 77 (>60 ml/min/1.73 sqM); Albumin 2.8 g/dL (3.5-5.0); Albumin/Globulin Ratio 1.2; Alkaline Phosphatase 50 U/L (38-126); Anion Gap 4 mmol/L; Blood Urea Nitrogen 18 mg/dL (9-20); Calcium 8.3 mg/dL (8.4-10.2); Carbon Dioxide 25 mmol/L (22-30); Chloride 112 mmol/L (98-107); Globulin 2.3 g/dL; Glucose 131 mg/dL (74-99); Non-African American GFR(CKD) 66 (>60 ml/min/1.73 sqM); Potassium 3.9 mmol/L (3.5-5.1); Sodium 141 mmol/L (137-145); Total Bilirubin 0.6 mg/dL (0.2-1.3); Total Protein 5.1 g/dL (6.3-8.2)
[2022-04-27] MEDS: SYMBICORT 160-4.5 MCG INHALER INHALATION SCH ×3 (08:23→19:54)
[2022-04-27] MEDS: DEXTROSE 5%-0.9% NACL 1,000 ML IV SCH ×2 (11:07→19:30)
[2022-04-27 12:09] LABS: Basophils # (M) 0 X 10*3/uL (0.00-0.10); Eosinophils # (M) 0 X 10*3/uL (0.04-0.35); HCT 21.6 % (39.6-50.0); HGB 7.5 g/dL (13.0-17.0); Immature Platelet Fraction 15.8 % (1.1-6.1); Lymphocytes # (M) 0.15 X 10*3/uL (0.90-5.00); MCH 34.9 pg (27.0-32.0); MCHC 34.7 g/dL (32.0-37.0); MCV 100.5 fL (80.0-97.0); Metamyelocytes % 1 % (0-0); Monocytes # (M) 0.02 X 10*3/uL (0.20-1.00); NRBC Per 100 WBC 0 /100 WBCS (0.0-0.0); Neutrophils # (M) 0.28 X 10*3/uL (2.00-8.90); Neutrophils % (M) 61 %; Platelet Count 11 X 10*3/uL (140-440); RBC 2.15 X 10*6/uL (4.40-5.60); RDW 14.5 % (11.5-14.5); WBC 0.46 X 10*3/uL (4.50-10.00)
--- NOTE | 2022-04-27 12:21 | XR ---
EXAMINATION TYPE: XR chest 1V portable DATE OF EXAM: 04/27/2022 COMPARISON: Chest x-ray 04/23/2022, 04/26/2022 HISTORY: Difficulty swallowing TECHNIQUE: Single frontal view of the chest is obtained. FINDINGS: There is no focal air space opacity, pleural effusion, or pneumothorax seen. The cardiac silhouette size is within normal limits. There is a generator in left pectoral region, leads in right atrium and ventricle are stable. Minimal patchy density at the left costophrenic angle level is stab le and may represent scarring. Cardiomediastinal silhouette is unchanged. The osseous structures are intact. IMPRESSION: No acute process.
[2022-04-27 13:03] VITALS: BMI 28.5
[2022-04-27] MEDS: VANCOMYCIN 1,500 MG in SODIUM CHLORIDE 0.9% 250 ML IVPB SCH (14:43)
--- NOTE | 2022-04-27 15:15 | P.PN ---
Subjective Progress Note Date: 04/27/22 The patient denies any fever or chills. He continues to have lower mid chest discomfort with swallowing anything more than liquids. He states that he continues to have nausea and vomiting with any attempt at oral intake other than clear liquids. No significant diarrhea. He denied any shortness of breath or baseline. No obvious bleeding. Objective - Vital Signs Vital signs: Vital Signs Temp 97.7 F 04/27/22 12:22 Pulse 68 04/27/22 12:22 Resp 17 04/27/22 12:22 BP 106/56 04/27/22 12:22 Pulse Ox 95 04/27/22 12:22 FiO2 Intake & Output 04/26/22 04/27/22 04/27/22 18:59 06:59 18:59 Intake Total 900 Output Total 350 300 Balance -350 900 -300 Weight 85.275 kg Intake: Intake, IV Titration 900 Amount Dextrose 5%-0.9% NaCl 1, 900 000 ml @ 75 mls/hr IV . [id number] [facility] Rx#:[id number] Output: Urine 250 300 Emesis 100 Other: Voiding Method Toilet Toilet Urinal Urinal # Voids 1 4 1 - Constitutional General appearance: Present: no acute distress - EENT Eyes: Present: EOMI ENT: Present: hearing grossly normal, normal oropharynx - Respiratory Respiratory: bilateral: CTA - Cardiovascular Rhythm: regular Heart sounds: normal: S1 - Gastrointestinal General gastrointestinal: Present: soft - Integumentary Integumentary: Present: normal - Neurologic Neurologic: Present: focal deficits (Hard of hearing) - Musculoskeletal Musculoskeletal: Present: generalized weakness, strength equal bilaterally - Psychiatric Psychiatric: Present: A&O x's 3 - Labs CBC & Chem 7: 04/27/22 06:54 04/27/22 06:54 Labs: Abnormal Lab Results - Last 24 Hours (Table) 04/26/22 04/26/22 04/26/22 Range/Units 20:05 20:05 20:05 WBC 0.3 L* (3.8-10.6) k/uL RBC 2.23 L (4.30-5.90) m/uL Hgb 8.0 L D (13.0-17.5) gm/dL Hct 22.9 L (39.0-53.0) % MCV 102.9 H (80.0-100.0) fL MCH 36.1 H (25.0-35.0) pg Plt Count 18 L* D (150-450) k/uL Plt Count Comment Metamyelocytes % (0-0) % Neutrophils # (Manual) (2.00-8.90) X 10*3/uL Lymphocytes # (Manual) (0.90-5.00) X 10*3/uL Monocytes # (Manual) (0.20-1.00) X 10*3/uL Eosinophils # (Manual) (0.04-0.35) X 10*3/uL Immature Plt Fraction (1.1-6.1) % Fibrinogen 572 H (200-500) mg/dL Sodium 135 L (137-145) mmol/L Chloride 108 H (98-107) mmol/L Carbon Dioxide 21 L (22-30) mmol/L Glucose 144 H (74-99) mg/dL POC Glucose (mg/dL) (75-99) mg/dL Calcium 8.2 L (8.4-10.2) mg/dL Total Protein 5.3 L (6.3-8.2) g/dL Albumin 3.0 L (3.5-5.0) g/dL 04/26/22 04/27/22 04/27/22 Range/Units 20:31 06:54 06:54 WBC 0.46 L* (3.8-10.6) k/uL RBC 2.15 L (4.30-5.90) m/uL Hgb 7.5 L (13.0-17.5) gm/dL Hct 21.6 L (39.0-53.0) % MCV 100.5 H (80.0-100.0) fL MCH 34.9 H (25.0-35.0) pg Plt Count 11 L* (150-450) k/uL Plt Count Comment A Metamyelocytes % 1 H (0-0) % Neutrophils # (Manual) 0.28 L* (2.00-8.90) X 10*3/uL Lymphocytes # (Manual) 0.15 L (0.90-5.00) X 10*3/uL Monocytes # (Manual) 0.02 L (0.20-1.00) X 10*3/uL Eosinophils # (Manual) 0 L (0.04-0.35) X 10*3/uL Immature Plt Fraction 15.8 H (1.1-6.1) % Fibrinogen (200-500) mg/dL Sodium (137-145) mmol/L Chloride 112 H (98-107) mmol/L Carbon Dioxide (22-30) mmol/L Glucose 131 H (74-99) mg/dL POC Glucose (mg/dL) 153 H (75-99) mg/dL Calcium 8.3 L (8.4-10.2) mg/dL Total Protein 5.1 L (6.3-8.2) g/dL Albumin 2.8 L (3.5-5.0) g/dL Microbiology - Last 24 Hours (Table) 04/24/22 11:00 Gram Stain - Final Sputum Sputum Culture - Final 04/23/22 13:22 Blood Culture - Preliminary Blood No Growth after 72 hours 04/23/22 13:22 Blood Culture - Preliminary Blood No Growth after 72 hours Assessment and Plan (1) Neutropenic fever Narrative/Plan: The patient's fever has resolved. Cultures are negative so far.Continue broad- spectrum antibiotics. ID following. Continue growth factor still WBC recovers Current Visit: Yes Status: Acute Code(s): D70.9 - NEUTROPENIA, UNSPECIFIED; R50.81 - FEVER PRESENTING WITH CONDITIONS CLASSIFIED ELSEWHERE SNOMED Code(s): 545980030 (2) Dysphagia Narrative/Plan: Patient continues to have lower chest/upper abdominal discomfort, with nausea and vomiting when he tries to swallow. He does appear to be able to tolerate water well. Therefore at this time he will resected clears. He was advised that it is anticipated that swallowing will improve once WBC recovers. Current Visit: Yes Status: Acute Code(s): R13.10 - DYSPHAGIA, UNSPECIFIED SNOMED Code(s): 20871489 (3) Small cell lung cancer Narrative/Plan: Treatment is currently on hold until acute symptoms as well as cytopenias recovered. Current Visit: No Status: Acute Code(s): C34.90 - MALIGNANT NEOPLASM OF UNSP PART OF UNSP BRONCHUS OR LUNG SNOMED Code(s): 709412089
--- NOTE | 2022-04-27 15:23 | P.PN ---
Subjective Patient was examined at bedside today not complaining of any new symptomatology. Have patient does complain of a slight cough chest x-ray has been ordered which has been negative. Hematology/oncology recommendations have been noted as well. Case discussed with RN present at bedside. Objective - Vital Signs Vital signs: Vital Signs Temp 97.7 F 04/27/22 12:22 Pulse 68 04/27/22 12:22 Resp 17 04/27/22 12:22 BP 106/56 04/27/22 12:22 Pulse Ox 95 04/27/22 12:22 FiO2 Intake & Output 04/26/22 04/27/22 04/27/22 18:59 06:59 18:59 Intake Total 900 Output Total 350 300 Balance -350 900 -300 Weight 85.275 kg Intake: Intake, IV Titration 900 Amount Dextrose 5%-0.9% NaCl 1, 900 000 ml @ 75 mls/hr IV . [id number] [facility] Rx#:[id number] Output: Urine 250 300 Emesis 100 Other: Voiding Method Toilet Toilet Urinal Urinal # Voids 1 4 1 - Exam Constitutional: no chills Cardiovascular: Patient reports no chest, no edema, no palpitations, no syncope, no orthopnea, no paroxysmal nocturnal dyspnea. Respiratory: Cough+, no SOB Gastrointestinal: Patient reports no nausea, no vomiting, no constipation, no diarrhea Genitourinary: Patient reports no dysuria, no urinary frequency, no hematuria. Musculoskeletal: Patient reports no unusual joint pain, no joint swelling or weakness. Patient reports no muscular pain. Psychiatric: Patient reports no changes in mood, no sleeping problems. Patient reports no changes in memory. Neurological: Patient reports no unusual paresthesias, no seizures, no paresis, no paralysis, no facila droop, no headache. Skin: Patient reports no rashes or unusual lesions. - Labs CBC & Chem 7: 04/27/22 06:54 04/27/22 06:54 Labs: Abnormal Lab Results - Last 24 Hours (Table) 04/26/22 04/26/22 04/26/22 Range/Units 20:05 20:05 20:05 WBC 0.3 L* (3.8-10.6) k/uL RBC 2.23 L (4.30-5.90) m/uL Hgb 8.0 L D (13.0-17.5) gm/dL Hct 22.9 L (39.0-53.0) % MCV 102.9 H (80.0-100.0) fL MCH 36.1 H (25.0-35.0) pg Plt Count 18 L* D (150-450) k/uL Plt Count Comment Metamyelocytes % (0-0) % Neutrophils # (Manual) (2.00-8.90) X 10*3/uL Lymphocytes # (Manual) (0.90-5.00) X 10*3/uL Monocytes # (Manual) (0.20-1.00) X 10*3/uL Eosinophils # (Manual) (0.04-0.35) X 10*3/uL Immature Plt Fraction (1.1-6.1) % Fibrinogen 572 H (200-500) mg/dL Sodium 135 L (137-145) mmol/L Chloride 108 H (98-107) mmol/L Carbon Dioxide 21 L (22-30) mmol/L Glucose 144 H (74-99) mg/dL POC Glucose (mg/dL) (75-99) mg/dL Calcium 8.2 L (8.4-10.2) mg/dL Total Protein 5.3 L (6.3-8.2) g/dL Albumin 3.0 L (3.5-5.0) g/dL 04/26/22 04/27/22 04/27/22 Range/Units 20:31 06:54 06:54 WBC 0.46 L* (3.8-10.6) k/uL RBC 2.15 L (4.30-5.90) m/uL Hgb 7.5 L (13.0-17.5) gm/dL Hct 21.6 L (39.0-53.0) % MCV 100.5 H (80.0-100.0) fL MCH 34.9 H (25.0-35.0) pg Plt Count 11 L* (150-450) k/uL Plt Count Comment A Metamyelocytes % 1 H (0-0) % Neutrophils # (Manual) 0.28 L* (2.00-8.90) X 10*3/uL Lymphocytes # (Manual) 0.15 L (0.90-5.00) X 10*3/uL Monocytes # (Manual) 0.02 L (0.20-1.00) X 10*3/uL Eosinophils # (Manual) 0 L (0.04-0.35) X 10*3/uL Immature Plt Fraction 15.8 H (1.1-6.1) % Fibrinogen (200-500) mg/dL Sodium (137-145) mmol/L Chloride 112 H (98-107) mmol/L Carbon Dioxide (22-30) mmol/L Glucose 131 H (74-99) mg/dL POC Glucose (mg/dL) 153 H (75-99) mg/dL Calcium 8.3 L (8.4-10.2) mg/dL Total Protein 5.1 L (6.3-8.2) g/dL Albumin 2.8 L (3.5-5.0) g/dL Microbiology - Last 24 Hours (Table) 04/24/22 11:00 Gram Stain - Final Sputum Sputum Culture - Final 04/23/22 13:22 Blood Culture - Preliminary Blood No Growth after 72 hours 04/23/22 13:22 Blood Culture - Preliminary Blood No Growth after 72 hours Assessment and Plan Assessment: Neutropenic fever - Blood cultures negative to date. Sputum cultures pending - Chest x-ray did not show any evidence of infiltrate, CT chest did not show any evidence of acute process - IV cefepime and IV vancomycin, acyclovir, per ID - Chest x-ray ordered negative Small cell lung cancer -Patient is status post 3 cycles of carboplatinum and etoposide and radiation treatment. -Patient follows with hematology oncology outpatient. Hyperbilirubinemia -Improved -Liver ultrasound within normal limits Pancytopenia -No CBC still completed. Pending.No active bleeding -Hematology oncology following. Pending further recommendations. Hypertension, CAD -Today with carvedilol GERD Protonix DVT prophylaxis with SCDs. No anticoagulation due to low platelets
[2022-04-27] MEDS: FILGRASTIM-SNDZ 480 MCG/0.8 ML SYRINGE SQ SCH (17:09)
[2022-04-27] MEDS: traZODone HCL 100 MG TAB PO SCH (20:10)
[2022-04-27] MEDS: ATORVASTATIN 40 MG TAB PO SCH (20:10)
[2022-04-28] MEDS: CEFEPIME 2 GM in SODIUM CHLORIDE 0.9% 100 ML IVPB SCH ×2 (02:20→14:13)
[2022-04-28] MEDS: VANCOMYCIN 1,500 MG in SODIUM CHLORIDE 0.9% 250 ML IVPB SCH (05:52)
[2022-04-28 07:04] LABS: ALT 68 U/L (4-49); AST 54 U/L (17-59); African American GFR (CKD) 75 (>60 ml/min/1.73 sqM); Albumin 2.6 g/dL (3.5-5.0); Albumin/Globulin Ratio 1.2; Alkaline Phosphatase 47 U/L (38-126); Anion Gap 5 mmol/L; Blood Urea Nitrogen 16 mg/dL (9-20); Calcium 8.1 mg/dL (8.4-10.2); Carbon Dioxide 25 mmol/L (22-30); Chloride 113 mmol/L (98-107); Globulin 2.2 g/dL; Glucose 88 mg/dL (74-99); Non-African American GFR(CKD) 65 (>60 ml/min/1.73 sqM); Potassium 3.4 mmol/L (3.5-5.1); Sodium 143 mmol/L (137-145); Total Bilirubin 0.6 mg/dL (0.2-1.3); Total Protein 4.8 g/dL (6.3-8.2)
[2022-04-28 07:21] LABS: Basophils % (A) 0 %; Eosinophils % (A) 0 %; HCT 21.8 % (39.0-53.0); HGB 7.4 gm/dL (13.0-17.5); Lymphocytes # (A) 0.2 k/uL (1.0-4.8); Lymphocytes % (A) 11 %; MCH 34.9 pg (25.0-35.0); MCV 102.6 fL (80.0-100.0); Macrocytosis Slight; Mean Platelet Volume 11.1; Monocytes # (A) 0.1 k/uL (0-1.0); Monocytes % (A) 8 %; Neutrophils # (A) 1.2 k/uL (1.3-7.7); Neutrophils % (A) 77 %; RBC 2.13 m/uL (4.30-5.90); RDW 14.8 % (11.5-15.5); WBC 1.5 k/uL (3.8-10.6)
[2022-04-28 07:24] LABS: Platelet Count 14 k/uL (150-450)
[2022-04-28] MEDS: SYMBICORT 160-4.5 MCG INHALER INHALATION SCH ×2 (07:55→21:48)
--- NOTE | 2022-04-28 07:55 | P.PN ---
Subjective Progress Note Date: 04/25/22 Principal diagnosis: Febrile neutropenia Patient is 81-year-old male with a past medical history significant for lung cancer currently on chemotherapy patient was noticed to be febrile in the oncology clinic for the patient was admitted to the hospital for workup. On today's evaluation that is 04/25/2022, patient is afebrile today, patient is breathing comfortably on room, the patient denies any chest pain no worsening cough or sputum production no abdominal pain or diarrhea Objective - Vital Signs Vital signs: Vital Signs Temp 99.3 F 04/25/22 05:00 Pulse 83 04/25/22 08:13 Resp 20 04/25/22 08:13 BP 116/56 04/25/22 08:13 Pulse Ox 93 L 04/25/22 08:13 FiO2 Intake & Output 04/24/22 04/25/22 04/25/22 18:59 06:59 18:59 Intake Total 590 Output Total 300 250 Balance -300 590 -250 Intake: Oral 590 Output: Urine 300 250 Other: # Voids 3 1 - Exam GENERAL DESCRIPTION: An elderly male lying in bed in no distress RESPIRATORY SYSTEM: Unlabored breathing , decreased breath sounds at bases HEART: S1 S2 regular rate and rhythm , ABDOMEN: Soft , no tenderness EXTREMITIES: No edema feet - Labs CBC & Chem 7: 04/28/22 05:44 04/28/22 05:44 Labs: Microbiology - Last 24 Hours (Table) 04/24/22 11:00 Gram Stain - Preliminary Sputum Sputum Culture - Preliminary 04/23/22 13:22 Blood Culture - Preliminary Blood No Growth after 24 hours 04/23/22 13:22 Blood Culture - Preliminary Blood No Growth after 24 hours Assessment and Plan (1) Neutropenic fever Current Visit: Yes Status: Acute Code(s): D70.9 - NEUTROPENIA, UNSPECIFIED; R50.81 - FEVER PRESENTING WITH CONDITIONS CLASSIFIED ELSEWHERE SNOMED Code(s): 722421590 Plan: 1patient presented to hospital with fever and this patient found to have lung cancer on chemotherapy noticed to be leukopenic and neutropenic and a low-grade fever however her initial work-up did not show any obvious focus however the patient do have predominantly respiratory symptoms with a cough and toro sputum could be the component of pneumonia. 2we will obtain a sputum for gram stain and culture. 3CT of the chest without any contrast did not show any evidence of any consolidation suspicious for pneumonia. 4patient to continue cefepime and vancomycin while waiting for the culture to be finalized. Time with Patient: Less than 30
--- NOTE | 2022-04-28 07:56 | P.PN ---
Subjective Progress Note Date: 04/26/22 Principal diagnosis: Febrile neutropenia Patient is 81-year-old male with a past medical history significant for lung cancer currently on chemotherapy patient was noticed to be febrile in the oncology clinic for the patient was admitted to the hospital for workup. On today's evaluation that is 04/26/2022, patient remains to be afebrile, patient is breathing comfortably on room, the patient denies any chest pain , the patient did have cough but no worsening or sputum production no abdominal pain or diarrhea Objective - Vital Signs Vital signs: Vital Signs Temp 97.7 F 04/26/22 04:19 Pulse 93 04/26/22 04:19 Resp 20 04/26/22 04:19 BP 123/67 04/26/22 04:19 Pulse Ox 94 L 04/26/22 04:19 FiO2 Intake & Output 04/25/22 04/26/22 04/26/22 18:59 06:59 18:59 Intake Total 950 100 Output Total 250 Balance 700 100 Intake: Intake, IV Titration 350 100 Amount Cefepime 2 gm In Sodium 100 100 Chloride 0.9% 100 ml @ 25 mls/hr IVPB Q12H [facility] Rx# :[id number] Vancomycin 1,500 mg In 250 Sodium Chloride 0.9% 250 ml @ 125 mls/hr IVPB Q16H [facility] Rx#:[id number] Oral 600 Output: Urine 250 Other: Voiding Method Toilet Urinal # Voids 4 # Bowel Movements 1 - Exam GENERAL DESCRIPTION: An elderly male lying in bed in no distress RESPIRATORY SYSTEM: Unlabored breathing , decreased breath sounds at bases HEART: S1 S2 regular rate and rhythm , ABDOMEN: Soft , no tenderness EXTREMITIES: No edema feet - Labs CBC & Chem 7: 04/28/22 05:44 04/28/22 05:44 Labs: Abnormal Lab Results - Last 24 Hours (Table) 04/26/22 Range/Units 06:14 Sodium 135 L (137-145) mmol/L Carbon Dioxide 21 L (22-30) mmol/L Glucose 169 H (74-99) mg/dL Calcium 7.8 L (8.4-10.2) mg/dL Microbiology - Last 24 Hours (Table) 04/23/22 13:22 Group A Strep Throat Culture - Final Throat 04/23/22 13:22 Blood Culture - Preliminary Blood No Growth after 48 hours 04/23/22 13:22 Blood Culture - Preliminary Blood No Growth after 48 hours 04/24/22 11:00 Gram Stain - Preliminary Sputum Sputum Culture - Preliminary Assessment and Plan (1) Neutropenic fever Current Visit: Yes Status: Acute Code(s): D70.9 - NEUTROPENIA, UNSPECIFIED; R50.81 - FEVER PRESENTING WITH CONDITIONS CLASSIFIED ELSEWHERE SNOMED Code(s): 843290644 Plan: 1patient presented to hospital with fever and this patient found to have lung cancer on chemotherapy noticed to be leukopenic and neutropenic and a low-grade fever however her initial work-up did not show any obvious focus however the patient do have predominantly respiratory symptoms with a cough and toro sputum could be the component of pneumonia. 2we will obtain a sputum for gram stain and culture. 3CT of the chest without any contrast did not show any evidence of any consolidation suspicious for pneumonia. 4patient fever has resolved, patient to continue cefepime and vancomycin while waiting for the culture to be finalized. Time with Patient: Less than 30
--- NOTE | 2022-04-28 07:57 | P.PN ---
Subjective Progress Note Date: 04/27/22 Principal diagnosis: Febrile neutropenia Patient is 81-year-old male with a past medical history significant for lung cancer currently on chemotherapy patient was noticed to be febrile in the oncology clinic for the patient was admitted to the hospital for workup. On today's evaluation that is 04/27/2022, patient continues to be afebrile, patient is breathing comfortably on room, the patient denies any chest pain , the patient did have dry cough but no worsening, the patient denies abdominal pain or diarrhea Objective - Vital Signs Vital signs: Vital Signs Temp 97.7 F 04/27/22 12:22 Pulse 68 04/27/22 12:22 Resp 17 04/27/22 12:22 BP 106/56 04/27/22 12:22 Pulse Ox 95 04/27/22 12:22 FiO2 Intake & Output 04/26/22 04/27/22 04/27/22 18:59 06:59 18:59 Intake Total 900 Output Total 350 300 Balance -350 900 -300 Intake: Intake, IV Titration 900 Amount Dextrose 5%-0.9% NaCl 1, 900 000 ml @ 75 mls/hr IV . [id number] [facility] Rx#:[id number] Output: Urine 250 300 Emesis 100 Other: Voiding Method Toilet Toilet Urinal Urinal # Voids 1 4 1 - Exam GENERAL DESCRIPTION: An elderly male lying in bed in no distress RESPIRATORY SYSTEM: Unlabored breathing , decreased breath sounds at bases HEART: S1 S2 regular rate and rhythm , ABDOMEN: Soft , no tenderness EXTREMITIES: No edema feet - Labs CBC & Chem 7: 04/28/22 05:44 04/28/22 05:44 Labs: Abnormal Lab Results - Last 24 Hours (Table) 04/26/22 04/26/22 04/26/22 Range/Units 20:05 20:05 20:05 WBC 0.3 L* (3.8-10.6) k/uL RBC 2.23 L (4.30-5.90) m/uL Hgb 8.0 L D (13.0-17.5) gm/dL Hct 22.9 L (39.0-53.0) % MCV 102.9 H (80.0-100.0) fL MCH 36.1 H (25.0-35.0) pg Plt Count 18 L* D (150-450) k/uL Plt Count Comment Metamyelocytes % (0-0) % Neutrophils # (Manual) (2.00-8.90) X 10*3/uL Lymphocytes # (Manual) (0.90-5.00) X 10*3/uL Monocytes # (Manual) (0.20-1.00) X 10*3/uL Eosinophils # (Manual) (0.04-0.35) X 10*3/uL Immature Plt Fraction (1.1-6.1) % Fibrinogen 572 H (200-500) mg/dL Sodium 135 L (137-145) mmol/L Chloride 108 H (98-107) mmol/L Carbon Dioxide 21 L (22-30) mmol/L Glucose 144 H (74-99) mg/dL POC Glucose (mg/dL) (75-99) mg/dL Calcium 8.2 L (8.4-10.2) mg/dL Total Protein 5.3 L (6.3-8.2) g/dL Albumin 3.0 L (3.5-5.0) g/dL 04/26/22 04/27/22 04/27/22 Range/Units 20:31 06:54 06:54 WBC 0.46 L* (3.8-10.6) k/uL RBC 2.15 L (4.30-5.90) m/uL Hgb 7.5 L (13.0-17.5) gm/dL Hct 21.6 L (39.0-53.0) % MCV 100.5 H (80.0-100.0) fL MCH 34.9 H (25.0-35.0) pg Plt Count 11 L* (150-450) k/uL Plt Count Comment A Metamyelocytes % 1 H (0-0) % Neutrophils # (Manual) 0.28 L* (2.00-8.90) X 10*3/uL Lymphocytes # (Manual) 0.15 L (0.90-5.00) X 10*3/uL Monocytes # (Manual) 0.02 L (0.20-1.00) X 10*3/uL Eosinophils # (Manual) 0 L (0.04-0.35) X 10*3/uL Immature Plt Fraction 15.8 H (1.1-6.1) % Fibrinogen (200-500) mg/dL Sodium (137-145) mmol/L Chloride 112 H (98-107) mmol/L Carbon Dioxide (22-30) mmol/L Glucose 131 H (74-99) mg/dL POC Glucose (mg/dL) 153 H (75-99) mg/dL Calcium 8.3 L (8.4-10.2) mg/dL Total Protein 5.1 L (6.3-8.2) g/dL Albumin 2.8 L (3.5-5.0) g/dL Microbiology - Last 24 Hours (Table) 04/24/22 11:00 Gram Stain - Final Sputum Sputum Culture - Final 04/23/22 13:22 Blood Culture - Preliminary Blood No Growth after 72 hours 04/23/22 13:22 Blood Culture - Preliminary Blood No Growth after 72 hours Assessment and Plan (1) Neutropenic fever Current Visit: Yes Status: Acute Code(s): D70.9 - NEUTROPENIA, UNSPECIFIED; R50.81 - FEVER PRESENTING WITH CONDITIONS CLASSIFIED ELSEWHERE SNOMED Code(s): 787745908 Plan: 1patient presented to hospital with fever and this patient found to have lung cancer on chemotherapy noticed to be leukopenic and neutropenic and a low-grade fever however her initial work-up did not show any obvious focus however the patient do have predominantly respiratory symptoms with a cough and toro sputum could be the component of pneumonia. 2blood and sputum culture has been negative. 3CT of the chest without any contrast did not show any evidence of any consolidation suspicious for pneumonia. 4patient fever has resolved, with a negative culture will discontinue vancomycin and continue cefepime for now Time with Patient: Less than 30
[2022-04-28] MEDS: FLUCONAZOLE 100 MG TAB PO SCH (08:46)
[2022-04-28] MEDS: PANTOPRAZOLE 40 MG/10 ML VIAL IVP SCH ×2 (08:46→20:48)
[2022-04-28] MEDS: CHOLECALCIFEROL 125 MCG (5000 IU) TABLET PO SCH (08:47)
[2022-04-28] MEDS: LORazepam 1 MG TAB PO SCH (08:47)
[2022-04-28] MEDS: ACYCLOVIR 200 MG CAP PO SCH ×2 (08:47→20:48)
[2022-04-28] MEDS: SERTRALINE 50 MG TAB PO SCH (08:47)
[2022-04-28] MEDS: carvediloL 3.125 MG TAB PO SCH (08:47)
[2022-04-28] MEDS: MAG HYDROX/AL HYDROX/SIMETH 30 ML, LIDOCAINE VISCOUS 2% 30 ML, diphenhydrAMINE ELIXIR 7... PO SCH ×12 (09:45→23:10)
--- NOTE | 2022-04-28 10:44 | CDI ---
Documentation Clarification Form Date: 04/28/2022 10:26:55 AM From: Quiana LuuCHRISTIANO banks, CCDS Admit Date: 04/23/2022 03:37:00 PM Patient Name: Rickey Fierro Visit Number: [id number] Discharge Date: ATTENTION: The Clinical Documentation Specialists (CDI) and [facility] Coding Staff appreciate your assistance in clarifying documentation. Please respond to the clarification below the line at the bottom and electronically sign. The CDI & [facility] Coding staff will review the response and follow-up if needed. Please note: Queries are made part of the Legal Health Record. If you have any questions, please contact the author of this message via ITS. Dr. Madhu Cabezas: The patient presented with the following clinical indicators: Admit with Neutropenic Fever, Temp 100.4, P 92, R 18 - 20; WBC 0.3, Neutrophils 0.08 with known Small cell lung cancer. Additional clarification regarding the etiology/cause of the clinical indicators is requested. History/Risk Factors per the 04/23 H/P: Lung Cancer on Chemotherapy and Radiation Therapy, COPD, Hypertension, CAD with history of GA, coronary stents & Pacemaker, GERD, Hyperlipidemia, Vit B12 Deficiency, Neuropathy in legs & feet, Low kidney function, Anxiety and current smoker. Clinical Indicators: Presented to the ED on 04/23 with Neutropenic Fever with history of lung cancer currently on chemo/radiation. Admit with Neutropenic Fever. Per the 04/23 Infectious Disease Consult and subsequent Progress Notes: Patient has predominantly respiratory symptoms with a cough & toro sputum, could be the component of pneumonia. 04/23 VS: T 100.4, 99.3; P 92, 88; R 18, 20; BP 126/67, PO 97 RA, BMI: 28.6 04/23 LAB: WBC 0.3, RBC 3.23, Hgb 11.1, Plt Count 40, Neutrophils 0.08, Lymphocytes 0.06, Monocytes 0.01, Eosinophils 0. 04/23 CXR: Chronic changes without new acute infiltrate. 04/24 CT Chest w/o contrast: No suspicious acute pulmonary process. Minimal compressive atelectasis is within the dependent lung bases. 04/24 CT Chest w/contrast: Increased subcarinal density could be adenopathy or related to esophageal mass, follow up recommended. Minimal infiltrates at the lung bases likely inflammatory. Improved atelectasis lung bases. Treatment 04/23: Telemetry, Blood cultures, IV Na Cl 1,000 mls @ 999 mls/hr q1H, IV Na Cl 1,000 mls @ 100 mls/hr q10H, IV Cefepime 100 mls @ 200 mls/hr x1, IV Zofran 4 mg x1, IV Vancomycin 250 mls @ 125 mls/hr x1, INH Ventolin q6H/prn, po Zofran q8H/prn, INH Symbicort BID. In your professional opinion, please clarify if these findings signify one of the following conditions: [ ] Neutropenic Sepsis POA [ ] Neutropenic Sepsis, Not POA [ ] Sepsis due to Pneumonia, POA [ ] Sepsis due to Pneumonia, not POA [ ] Other, please specify [1 ] Unable to determine (Template Last Reviewed: December 2020) MTDD
--- NOTE | 2022-04-28 10:56 | CDI ---
Documentation Clarification Form Date: 04/28/2022 10:45:00 AM From: Quiana Luu CCS, CCDS Admit Date: 04/23/2022 03:37:00 PM Patient Name: Rickey Fierro Visit Number: [id number] Discharge Date: ATTENTION: The Clinical Documentation Specialists (CDI) and [facility] Coding Staff appreciate your assistance in clarifying documentation. Please respond to the clarification below the line at the bottom and electronically sign. The CDI & [facility] Coding staff will review the response and follow-up if needed. Please note: Queries are made part of the Legal Health Record. If you have any questions, please contact the author of this message via ITS. Dr. Gilmer Sibley: Pneumonia is documented in the 04/23 Infectious Disease Consult and in subsequent Progress Notes: Patient presented to hospital with fever and this patient found to have lung cancer on chemotherapy noticed to be Leukopenic and Neutropenic and a low-grade fever however her initial work-up did not show any obvious focus however the patient does have predominantly respiratory symptoms with a cough and toro sputum could be the component of pneumonia. Plan: Obtain a CT of the chest without any contrast admission no evidence of any consolidation suspicious for pneumonia. Additional clarification regarding the documented pneumonia is requested. History/Risk Factors per the 04/23 H/P: Lung Cancer on Chemotherapy and Radiation Therapy, COPD, Hypertension, CAD with history of SD, coronary stents & Pacemaker, GERD, Hyperlipidemia, Vit B12 Deficiency, Neuropathy in legs & feet, Low kidney function, Anxiety and current smoker. Clinical Indicators: Presented to the ED on 04/23 with Neutropenic Fever with history of lung cancer currently on chemo/radiation. Admit with Neutropenic Fever. Per the 04/23 Infectious Disease Consult and subsequent Progress Notes: Patient has predominantly respiratory symptoms with a cough & toro sputum, could be the component of pneumonia. Per the 04/17 Oncology Progress Note: Patient continues to have lower chest/upper abdominal discomfort with nausea and vomiting when he tries to swallow. 04/23 VS: T 100.4, 99.3; P 92, 88; R 18, 20; BP 126/67, PO 97 RA, BMI: 28.6 04/23 LAB: WBC 0.3, RBC 3.23, Hgb 11.1, Plt Count 40, Neutrophils 0.08, Lymphocytes 0.06, Monocytes 0.01, Eosinophils 0. 04/23 CXR: Chronic changes without new acute infiltrate. 04/24 CT Chest w/o contrast: No suspicious acute pulmonary process. Minimal compressive atelectasis is within the dependent lung bases. 04/24 CT Chest w/contrast: Increased subcarinal density could be adenopathy or related to esophageal mass, follow up recommended. Minimal infiltrates at the lung bases likely inflammatory. Improved atelectasis lung bases. Treatment 04/23: Telemetry, Blood cultures, IV Na Cl 1,000 mls @ 999 mls/hr q1H, IV Na Cl 1,000 mls @ 100 mls/hr q10H, IV Cefepime 100 mls @ 200 mls/hr x1, IV Zofran 4 mg x1, IV Vancomycin 250 mls @ 125 mls/hr x1, INH Ventolin q6H/prn, po Zofran q8H/prn, INH Symbicort BID. Please clarify the following regarding the diagnosis of pneumonia and specify if present on admission or ruled out: [ ] Aspiration Pneumonia, Present on Admission [ ] Bacterial Pneumonia, specify causal organism (if known): [ ] Viral Pneumonia, specify casual organism (if known): [ ] Other Pneumonia, please specify: [ ] Other, please specify: [ x] Pneumonia ruled out [ ] Unable to determine (Template Last Revised: January 2021) MTDD
--- NOTE | 2022-04-28 12:55 | P.PN ---
Subjective Progress Note Date: 04/28/22 cbc reviewed His esophagus is improved today, likely related to his blood counts starting to recover. He was able to tolerate PO intake without difficulty yesterday Objective - Vital Signs Vital signs: Vital Signs Temp 98.1 F 04/28/22 04:54 Pulse 77 04/28/22 04:54 Resp 18 04/28/22 04:54 BP 100/51 04/28/22 04:54 Pulse Ox 92 L 04/28/22 04:54 FiO2 Intake & Output 04/27/22 04/28/22 04/28/22 18:59 06:59 18:59 Intake Total 1350 160 Output Total 300 Balance 1050 160 Weight 85.275 kg Intake: Intake, IV Titration 1350 Amount Cefepime 2 gm In Sodium 200 Chloride 0.9% 100 ml @ 25 mls/hr IVPB Q12H [facility] Rx# :[id number] Dextrose 5%-0.9% NaCl 1, 900 000 ml @ 75 mls/hr IV . [id number] [facility] Rx#:[id number] Vancomycin 1,500 mg In 250 Sodium Chloride 0.9% 250 ml @ 125 mls/hr IVPB Q16H [facility] Rx#:[id number] Oral 160 Output: Urine 300 Other: Voiding Method Toilet Urinal # Voids 2 1 - Exam - Constitutional General appearance: cooperative, no acute distress - EENT Eyes: EOMI, PERRLA ENT: hard of hearing, NA/AT - Neck Neck: normal ROM - Respiratory Respiratory: bilateral: rhonchi, wheezing - Cardiovascular Rhythm: regularly irregular - Gastrointestinal General gastrointestinal: soft - Integumentary Integumentary: pale - Neurologic Neurologic: CNII-XII intact - Musculoskeletal Musculoskeletal: generalized weakness - Psychiatric Psychiatric: A&O x's 3, appropriate affect, intact judgment & insight - Labs CBC & Chem 7: 04/28/22 05:44 04/28/22 05:44 Labs: Abnormal Lab Results - Last 24 Hours (Table) 04/27/22 04/28/22 04/28/22 Range/Units 06:54 05:44 05:44 WBC 0.46 L* 1.5 L (4.50-10.00) X 10*3/uL RBC 2.15 L 2.13 L (4.40-5.60) X 10*6/uL Hgb 7.5 L 7.4 L (13.0-17.0) g/dL Hct 21.6 L 21.8 L (39.6-50.0) % MCV 100.5 H 102.6 H (80.0-97.0) fL MCH 34.9 H (27.0-32.0) pg Plt Count 11 L* 14 L* (140-440) X 10*3/uL Plt Count Comment A Metamyelocytes % 1 H (0-0) % Neutrophils # (Manual) 0.28 L* (2.00-8.90) X 10*3/uL Lymphocytes # (Manual) 0.15 L (0.90-5.00) X 10*3/uL Monocytes # (Manual) 0.02 L (0.20-1.00) X 10*3/uL Eosinophils # (Manual) 0 L (0.04-0.35) X 10*3/uL Immature Plt Fraction 15.8 H (1.1-6.1) % Potassium 3.4 L (3.5-5.1) mmol/L Chloride 113 H (98-107) mmol/L Calcium 8.1 L (8.4-10.2) mg/dL ALT 68 H (4-49) U/L Total Protein 4.8 L (6.3-8.2) g/dL Albumin 2.6 L (3.5-5.0) g/dL Microbiology - Last 24 Hours (Table) 04/23/22 13:22 Blood Culture - Preliminary Blood No Growth after 96 hours 04/23/22 13:22 Blood Culture - Preliminary Blood No Growth after 96 hours 04/24/22 11:00 Gram Stain - Final Sputum Sputum Culture - Final Assessment and Plan (1) Neutropenic fever Narrative/Plan: Infectious work-up and broad spectrum Afebril within 24 hours COntinues on cefepine and vanco ID following RESOLVING Current Visit: Yes Status: Acute Code(s): D70.9 - NEUTROPENIA, UNSPECIFIED; R50.81 - FEVER PRESENTING WITH CONDITIONS CLASSIFIED ELSEWHERE SNOMED Code(s): 372594907 (2) History of recent fall Narrative/Plan: CT of Brain to assess for metastatic disease is negative Now with right ear pain We have asked ENT to evaluate and they have no knew recommendations Current Visit: No Status: Acute Code(s): Z91.81 - HISTORY OF FALLING SNOMED Code(s): 764947396 (3) Small cell lung cancer Narrative/Plan: Currently receiving chemo and radiation On hold until resolution of acute infection and cytopenias Have asked Dr. Kumar to further evaluate for restarting radiation Current Visit: No Status: Acute Code(s): C34.90 - MALIGNANT NEOPLASM OF UNSP PART OF UNSP BRONCHUS OR LUNG SNOMED Code(s): 758324272 (4) Dysphagia Narrative/Plan: unable to swallow mid-epigastric pain. Assuming compoenent of Thrush and radiation esophagitis. PPI Protein powder with Glutamine - will ask dieticien if we have (I believe Micah has) Elixir Carson and Kools Swallow evsl. This is improved today Current Visit: Yes Status: Acute Code(s): R13.10 - DYSPHAGIA, UNSPECIFIED SNOMED Code(s): 08627886 Plan: Dr. Urrutia: I have completed the full history and physical and developed the above impression and plan, agree with dictation, dictated as a ascribe.
--- NOTE | 2022-04-28 13:47 | P.PN ---
Subjective Patient was examined at bedside today not complaining of any fever, chills, nausea, vomiting or any phlegm production. Continue symptoms white count. Case discussed with RN present at bedside. Objective - Vital Signs Vital signs: Vital Signs Temp 98.4 F 04/28/22 11:20 Pulse 69 04/28/22 11:20 Resp 14 04/28/22 11:20 BP 92/53 04/28/22 11:20 Pulse Ox 94 L 04/28/22 11:20 FiO2 Intake & Output 04/27/22 04/28/22 04/28/22 18:59 06:59 18:59 Intake Total 1350 160 Output Total 300 Balance 1050 160 Weight 85.275 kg Intake: Intake, IV Titration 1350 Amount Cefepime 2 gm In Sodium 200 Chloride 0.9% 100 ml @ 25 mls/hr IVPB Q12H [facility] Rx# :[id number] Dextrose 5%-0.9% NaCl 1, 900 000 ml @ 75 mls/hr IV . [id number] [facility] Rx#:[id number] Vancomycin 1,500 mg In 250 Sodium Chloride 0.9% 250 ml @ 125 mls/hr IVPB Q16H [facility] Rx#:[id number] Oral 160 Output: Urine 300 Other: Voiding Method Toilet Urinal # Voids 2 1 - Exam Constitutional: no chills Cardiovascular: Patient reports no chest, no edema, no palpitations, no syncope, no orthopnea, no paroxysmal nocturnal dyspnea. Respiratory: Cough+, no SOB Gastrointestinal: Patient reports no nausea, no vomiting, no constipation, no diarrhea Genitourinary: Patient reports no dysuria, no urinary frequency, no hematuria. Musculoskeletal: Patient reports no unusual joint pain, no joint swelling or weakness. Patient reports no muscular pain. Psychiatric: Patient reports no changes in mood, no sleeping problems. Patie nt reports no changes in memory. Neurological: Patient reports no unusual paresthesias, no seizures, no paresis, no paralysis, no facila droop, no headache. Skin: Patient reports no rashes or unusual lesions. - Labs CBC & Chem 7: 04/28/22 05:44 04/28/22 05:44 Labs: Abnormal Lab Results - Last 24 Hours (Table) 04/28/22 04/28/22 Range/Units 05:44 05:44 WBC 1.5 L (3.8-10.6) k/uL RBC 2.13 L (4.30-5.90) m/uL Hgb 7.4 L (13.0-17.5) gm/dL Hct 21.8 L (39.0-53.0) % MCV 102.6 H (80.0-100.0) fL Plt Count 14 L* (150-450) k/uL Neutrophils # 1.2 L (1.3-7.7) k/uL Lymphocytes # 0.2 L (1.0-4.8) k/uL Potassium 3.4 L (3.5-5.1) mmol/L Chloride 113 H (98-107) mmol/L Calcium 8.1 L (8.4-10.2) mg/dL ALT 68 H (4-49) U/L Total Protein 4.8 L (6.3-8.2) g/dL Albumin 2.6 L (3.5-5.0) g/dL Microbiology - Last 24 Hours (Table) 04/23/22 13:22 Blood Culture - Preliminary Blood No Growth after 96 hours 04/23/22 13:22 Blood Culture - Preliminary Blood No Growth after 96 hours 04/24/22 11:00 Gram Stain - Final Sputum Sputum Culture - Final Assessment and Plan Assessment: Neutropenic fever - Blood cultures negative to date. Sputum cultures negative - Chest x-ray did not show any evidence of infiltrate, CT chest did not show any evidence of acute process - IV cefepime and IV vancomycin, acyclovir, per ID - Chest x-ray ordered negative Small cell lung cancer - Patient is status post 3 cycles of carboplatinum and etoposide and radiation treatment. - Patient follows with hematology oncology outpatient. Hyperbilirubinemia - Improved - Liver ultrasound within normal limits Pancytopenia -Slowly improving on filgrastim -Hematology oncology following. Pending further recommendations. Hypertension, CAD -Today with carvedilol GERD Protonix DVT prophylaxis with SCDs. No anticoagulation due to low platelets
--- NOTE | 2022-04-28 16:13 | P.PN ---
Subjective Progress Note Date: 04/28/22 Principal diagnosis: neutropenic fever/esophagitis Patient reports improvement in swallowing today compared to yesterday. He was able to keep down some broth last night. Still on clear liquids, but he wants to try to advance his diet. Only mild discomfort when drinking fluids today - feels the magic mouth wash is helping. No significant dyspnea, but having some cough. He was able to ambulate the halls earlier. Objective - Vital Signs Vital signs: Vital Signs Temp 98.4 F 04/28/22 11:20 Pulse 69 04/28/22 11:20 Resp 14 04/28/22 11:20 BP 92/53 04/28/22 11:20 Pulse Ox 94 L 04/28/22 11:20 FiO2 Intake & Output 04/27/22 04/28/22 04/28/22 18:59 06:59 18:59 Intake Total 1350 160 Output Total 300 Balance 1050 160 Weight 85.275 kg Intake: Intake, IV Titration 1350 Amount Cefepime 2 gm In Sodium 200 Chloride 0.9% 100 ml @ 25 mls/hr IVPB Q12H [facility] Rx# :[id number] Dextrose 5%-0.9% NaCl 1, 900 000 ml @ 75 mls/hr IV . [id number] [facility] Rx#:[id number] Vancomycin 1,500 mg In 250 Sodium Chloride 0.9% 250 ml @ 125 mls/hr IVPB Q16H [facility] Rx#:[id number] Oral 160 Output: Urine 300 Other: Voiding Method Toilet Urinal # Voids 2 1 - Constitutional General appearance: Present: no acute distress - EENT Eyes: Present: EOMI, PERRLA ENT: Present: hard of hearing - Neck Neck: Absent: lymphadenopathy - Respiratory Respiratory: right: wheezing, left: CTA - Cardiovascular Rhythm: regular - Gastrointestinal General gastrointestinal: Absent: distended, tenderness - Integumentary Integumentary: Absent: calor - Neurologic Neurologic: Present: CNII-XII intact - Psychiatric Psychiatric: Present: A&O x's 3, appropriate affect - Labs CBC & Chem 7: 04/28/22 05:44 04/28/22 05:44 Labs: Abnormal Lab Results - Last 24 Hours (Table) 04/28/22 04/28/22 Range/Units 05:44 05:44 WBC 1.5 L (3.8-10.6) k/uL RBC 2.13 L (4.30-5.90) m/uL Hgb 7.4 L (13.0-17.5) gm/dL Hct 21.8 L (39.0-53.0) % MCV 102.6 H (80.0-100.0) fL Plt Count 14 L* (150-450) k/uL Neutrophils # 1.2 L (1.3-7.7) k/uL Lymphocytes # 0.2 L (1.0-4.8) k/uL Potassium 3.4 L (3.5-5.1) mmol/L Chloride 113 H (98-107) mmol/L Calcium 8.1 L (8.4-10.2) mg/dL ALT 68 H (4-49) U/L Total Protein 4.8 L (6.3-8.2) g/dL Albumin 2.6 L (3.5-5.0) g/dL Microbiology - Last 24 Hours (Table) 04/23/22 13:22 Blood Culture - Preliminary Blood No Growth after 120 hours 04/23/22 13:22 Blood Culture - Preliminary Blood No Growth after 120 hours Assessment and Plan Assessment: The patient is an 81-year-old male with a history of recently diagnosed limited stage small cell lung cancer of the left lower lung. He initiated chemoradiation and has finished 22 of 33 planned fractions. He was hospitalized due to neutropenic fever and radiation esophagitis. Plan: 1. Neutropenic fever - on broad spectrum antibiotics; counts improving today a nd yesterday. Cultures negative. 2. Radiation esophagitis - Symptoms worse when neutropenic, seem to be improving with improvement in counts. Continue diflucan. Responding well to magic mouth wash solution. Recommend he start to advance diet - tolerating clears well. Has not needed narcotic pain medication today or yesterday. Will consider resuming RT tomorrow or tuesday if he continues to improve. Time with Patient: Less than 30
[2022-04-28] MEDS: ALBUTEROL NEBULIZED 2.5 MG/3 ML INHALATION PRN (17:13)
[2022-04-28] MEDS: FILGRASTIM-SNDZ 480 MCG/0.8 ML SYRINGE SQ SCH (17:51)
[2022-04-28] MEDS: ACETAMINOPHEN TAB 325 MG TAB PO PRN (17:56)
[2022-04-28] MEDS: DEXTROSE 5%-0.9% NACL 1,000 ML IV SCH (19:36)
[2022-04-28] MEDS: traZODone HCL 100 MG TAB PO SCH (20:47)
[2022-04-28] MEDS: ATORVASTATIN 40 MG TAB PO SCH (20:48)
--- NOTE | 2022-04-28 23:36 | P.PN ---
Subjective Progress Note Date: 04/28/22 Principal diagnosis: Febrile neutropenia Patient is 81-year-old male with a past medical history significant for lung cancer currently on chemotherapy patient was noticed to be febrile in the oncology clinic for the patient was admitted to the hospital for workup. On today's evaluation that is 04/28/2022, patient remains to be afebrile, patient is breathing comfortably on room, the patient denies any chest pain , the patient did have occasional dry cough , the patient denies abdominal pain or diarrhea Objective - Vital Signs Vital signs: Vital Signs Temp 98.4 F 04/28/22 11:20 Pulse 69 04/28/22 11:20 Resp 14 04/28/22 11:20 BP 92/53 04/28/22 11:20 Pulse Ox 94 L 04/28/22 11:20 FiO2 Intake & Output 04/27/22 04/28/22 04/28/22 18:59 06:59 18:59 Intake Total 1350 160 Output Total 300 Balance 1050 160 Weight 85.275 kg Intake: Intake, IV Titration 1350 Amount Cefepime 2 gm In Sodium 200 Chloride 0.9% 100 ml @ 25 mls/hr IVPB Q12H [facility] Rx# :[id number] Dextrose 5%-0.9% NaCl 1, 900 000 ml @ 75 mls/hr IV . [id number] [facility] Rx#:[id number] Vancomycin 1,500 mg In 250 Sodium Chloride 0.9% 250 ml @ 125 mls/hr IVPB Q16H [facility] Rx#:[id number] Oral 160 Output: Urine 300 Other: Voiding Method Toilet Urinal # Voids 2 1 - Exam GENERAL DESCRIPTION: An elderly male lying in bed in no distress RESPIRATORY SYSTEM: Unlabored breathing , decreased breath sounds at bases HEART: S1 S2 regular rate and rhythm , ABDOMEN: Soft , no tenderness EXTREMITIES: No edema feet - Labs CBC & Chem 7: 04/28/22 05:44 04/28/22 05:44 Labs: Abnormal Lab Results - Last 24 Hours (Table) 04/28/22 04/28/22 Range/Units 05:44 05:44 WBC 1.5 L (3.8-10.6) k/uL RBC 2.13 L (4.30-5.90) m/uL Hgb 7.4 L (13.0-17.5) gm/dL Hct 21.8 L (39.0-53.0) % MCV 102.6 H (80.0-100.0) fL Plt Count 14 L* (150-450) k/uL Neutrophils # 1.2 L (1.3-7.7) k/uL Lymphocytes # 0.2 L (1.0-4.8) k/uL Potassium 3.4 L (3.5-5.1) mmol/L Chloride 113 H (98-107) mmol/L Calcium 8.1 L (8.4-10.2) mg/dL ALT 68 H (4-49) U/L Total Protein 4.8 L (6.3-8.2) g/dL Albumin 2.6 L (3.5-5.0) g/dL Microbiology - Last 24 Hours (Table) 04/23/22 13:22 Blood Culture - Preliminary Blood No Growth after 96 hours 04/23/22 13:22 Blood Culture - Preliminary Blood No Growth after 96 hours 04/24/22 11:00 Gram Stain - Final Sputum Sputum Culture - Final Assessment and Plan (1) Neutropenic fever Current Visit: Yes Status: Acute Code(s): D70.9 - NEUTROPENIA, UNSPECIFIED; R50.81 - FEVER PRESENTING WITH CONDITIONS CLASSIFIED ELSEWHERE SNOMED Code(s): 132843713 Plan: 1patient presented to hospital with fever and this patient found to have lung cancer on chemotherapy noticed to be leukopenic and neutropenic and a low-grade fever however her initial work-up did not show any obvious focus however the patient do have predominantly respiratory symptoms with a cough and toro sputum could be the component of pneumonia. 2blood and sputum culture has been negative. 3CT of the chest without any contrast did not show any evidence of any consolidation suspicious for pneumonia. 4patient fever has resolved, and white count is trending up continue cefepime will transition to oral antibiotic on discharge Time with Patient: Less than 30
[2022-04-29] MEDS: DEXTROSE 5%-0.9% NACL 1,000 ML IV SCH ×3 (01:36→22:53)
[2022-04-29] MEDS: CEFEPIME 2 GM in SODIUM CHLORIDE 0.9% 100 ML IVPB SCH ×2 (01:37→15:46)
[2022-04-29] MEDS: SYMBICORT 160-4.5 MCG INHALER INHALATION SCH ×2 (07:14→18:56)
[2022-04-29] MEDS: ALBUTEROL NEBULIZED 2.5 MG/3 ML INHALATION PRN (07:14)
[2022-04-29 07:53] LABS: Basophils % (A) 0 %; Eosinophils % (A) 1 %; HGB 8.5 gm/dL (13.0-17.5); Lymphocytes # (A) 0.2 k/uL (1.0-4.8); Lymphocytes % (A) 5 %; MCHC 33.8 g/dL (31.0-37.0); MCV 103.5 fL (80.0-100.0); Macrocytosis Slight; Mean Platelet Volume 11.9; Monocytes # (A) 0.3 k/uL (0-1.0); Monocytes % (A) 7 %; Neutrophils # (A) 3.7 k/uL (1.3-7.7); Neutrophils % (A) 84 %; RBC 2.42 m/uL (4.30-5.90); RDW 15.1 % (11.5-15.5); WBC 4.4 k/uL (3.8-10.6)
[2022-04-29 07:56] LABS: Platelet Count 16 k/uL (150-450)
[2022-04-29 08:10] LABS: African American GFR (CKD) 76 (>60 ml/min/1.73 sqM); Anion Gap 5 mmol/L; Blood Urea Nitrogen 11 mg/dL (9-20); Calcium 8.2 mg/dL (8.4-10.2); Carbon Dioxide 25 mmol/L (22-30); Chloride 112 mmol/L (98-107); Glucose 90 mg/dL (74-99); Non-African American GFR(CKD) 66 (>60 ml/min/1.73 sqM); Potassium 3.2 mmol/L (3.5-5.1); Sodium 142 mmol/L (137-145)
[2022-04-29] MEDS: MAG HYDROX/AL HYDROX/SIMETH 30 ML, LIDOCAINE VISCOUS 2% 30 ML, diphenhydrAMINE ELIXIR 7... PO SCH ×12 (09:02→21:37)
[2022-04-29] MEDS: LORazepam 1 MG TAB PO SCH (09:03)
[2022-04-29] MEDS: FLUCONAZOLE 100 MG TAB PO SCH (09:03)
[2022-04-29] MEDS: PANTOPRAZOLE 40 MG/10 ML VIAL IVP SCH ×2 (09:03→21:37)
[2022-04-29] MEDS: carvediloL 3.125 MG TAB PO SCH (09:03)
[2022-04-29] MEDS: SERTRALINE 50 MG TAB PO SCH (09:03)
[2022-04-29] MEDS: CHOLECALCIFEROL 125 MCG (5000 IU) TABLET PO SCH (09:03)
[2022-04-29] MEDS: ACYCLOVIR 200 MG CAP PO SCH ×2 (09:03→21:36)
[2022-04-29] MEDS: ACETAMINOPHEN TAB 325 MG TAB PO PRN (09:12)
[2022-04-29] MEDS ORDERED: Potassium Replacement Protocol 1 EACH MISC MISCELLANE PRN (12:17)
--- NOTE | 2022-04-29 12:53 | P.PN ---
Subjective Patient was examined at bedside today not complaining of any shortness of breath, fever, chills, nausea or vomiting. Tolerating diet. Requesting it to be advanced. Case discussed with RN present at bedside all questions have been answered anticipated for radiation with oncology team today. Objective - Vital Signs Vital signs: Vital Signs Temp 97.5 F L 04/29/22 11:49 Pulse 68 04/29/22 11:49 Resp 14 04/29/22 11:49 BP 97/55 04/29/22 11:49 Pulse Ox 93 L 04/29/22 11:49 FiO2 Intake & Output 04/28/22 04/29/22 04/29/22 18:59 06:59 18:59 Intake Total 1275 1240 Output Total 950 Balance 1275 290 Intake: Intake, IV Titration 775 1000 Amount Cefepime 2 gm In Sodium 100 100 Chloride 0.9% 100 ml @ 25 mls/hr IVPB Q12H [facility] Rx# :[id number] Dextrose 5%-0.9% NaCl 1, 675 900 000 ml @ 75 mls/hr IV . [id number] [facility] Rx#:[id number] Oral 500 240 Output: Urine 950 Other: Voiding Method Toilet Urinal - Exam Constitutional: no chills Cardiovascular: Patient reports no chest, no edema, no palpitations, no syncope, no orthopnea, no paroxysmal nocturnal dyspnea. Respiratory: Cough+, no SOB Gastrointestinal: Patient reports no nausea, no vomiting, no constipation, no diarrhea Genitourinary: Patient reports no dysuria, no urinary frequency, no hematuria. Musculoskeletal: Patient reports no unusual joint pain, no joint swelling or weakness. Patient reports no muscular pain. Psychiatric: Patient reports no changes in mood, no sleeping problems. Patient reports no changes in memory. Neurological: Patient reports no unusual paresthesias, no seizures, no paresis, no paralysis, no facila droop, no headache. Skin: Patient reports no rashes or unusual lesions. - Labs CBC & Chem 7: 04/29/22 07:31 04/29/22 07:31 Labs: Abnormal Lab Results - Last 24 Hours (Table) 04/29/22 04/29/22 Range/Units 07:31 07:31 RBC 2.42 L (4.30-5.90) m/uL Hgb 8.5 L (13.0-17.5) gm/dL Hct 25.0 L (39.0-53.0) % MCV 103.5 H (80.0-100.0) fL Plt Count 16 L* (150-450) k/uL Lymphocytes # 0.2 L (1.0-4.8) k/uL Potassium 3.2 L (3.5-5.1) mmol/L Chloride 112 H (98-107) mmol/L Calcium 8.2 L (8.4-10.2) mg/dL Microbiology - Last 24 Hours (Table) 04/23/22 13:22 Blood Culture - Preliminary Blood No Growth after 120 hours 04/23/22 13:22 Blood Culture - Preliminary Blood No Growth after 120 hours Assessment and Plan Assessment: Neutropenic fever - Blood cultures negative to date. Sputum cultures negative - Chest x-ray did not show any evidence of infiltrate, CT chest did not show any evidence of acute process - IV cefepime and IV acyclovir, per ID - Chest x-ray ordered negative Small cell lung cancer - Patient is status post 3 cycles of carboplatinum and etoposide and radiation treatment. - Patient follows with hematology oncology outpatient. - Scheduled with hematology/oncology for radiation today Radiation esophagitis Advance diet as tolerated. Continues to tolerate clear liquids. Hyperbilirubinemia - Improved - Liver ultrasound within normal limits Pancytopenia -Slowly improving on filgrastim -Hematology oncology following. -CBC specifically white blood cell count and platelet improving. No signs of bleeding noted. Hypertension, CAD -Continue with home medication GERD Protonix DVT prophylaxis with SCDs. No anticoagulation due to low platelets Disposition: Anticipated to receive radiation today. Continue to monitor CBC daily. Diet to be advanced by consulting team.
[2022-04-29] MEDS: POTASSIUM CHLORIDE ER 20 MEQ TAB.ER PO SCH ×2 (13:48→15:47)
[2022-04-29] MEDS: traZODone HCL 100 MG TAB PO SCH (21:37)
[2022-04-29] MEDS: ATORVASTATIN 40 MG TAB PO SCH (21:37)
--- NOTE | 2022-04-29 21:41 | P.PN ---
Subjective Progress Note Date: 04/29/22 CBC is recovering and swallowing is improved. Objective - Vital Signs Vital signs: Vital Signs Temp 98.2 F 04/29/22 20:21 Pulse 75 04/29/22 20:21 Resp 16 04/29/22 20:21 BP 102/57 04/29/22 20:21 Pulse Ox 92 L 04/29/22 20:21 FiO2 Intake & Output 04/29/22 04/29/22 04/30/22 06:59 18:59 06:59 Intake Total 1240 Output Total 950 Balance 290 Intake: Intake, IV Titration 1000 Amount Cefepime 2 gm In Sodium 100 Chloride 0.9% 100 ml @ 25 mls/hr IVPB Q12H [facility] Rx# :[id number] Dextrose 5%-0.9% NaCl 1, 900 000 ml @ 75 mls/hr IV . [id number] [facility] Rx#:[id number] Oral 240 Output: Urine 950 Other: Voiding Method Toilet Urinal # Voids 2 - Exam - Constitutional General appearance: cooperative, no acute distress - EENT Eyes: EOMI, PERRLA ENT: hard of hearing, NA/AT - Neck Neck: normal ROM - Respiratory Respiratory: bilateral: rhonchi, wheezing - Cardiovascular Rhythm: regularly irregular - Gastrointestinal General gastrointestinal: soft - Integumentary Integumentary: pale - Neurologic Neurologic: CNII-XII intact - Musculoskeletal Musculoskeletal: generalized weakness - Psychiatric Psychiatric: A&O x's 3, appropriate affect, intact judgment & insight - Labs CBC & Chem 7: 04/29/22 07:31 04/29/22 07:31 Labs: Abnormal Lab Results - Last 24 Hours (Table) 04/29/22 04/29/22 Range/Units 07:31 07:31 RBC 2.42 L (4.30-5.90) m/uL Hgb 8.5 L (13.0-17.5) gm/dL Hct 25.0 L (39.0-53.0) % MCV 103.5 H (80.0-100.0) fL Plt Count 16 L* (150-450) k/uL Lymphocytes # 0.2 L (1.0-4.8) k/uL Potassium 3.2 L (3.5-5.1) mmol/L Chloride 112 H (98-107) mmol/L Calcium 8.2 L (8.4-10.2) mg/dL Microbiology - Last 24 Hours (Table) 04/23/22 13:22 Blood Culture - Final Blood No Growth after 144 hours 04/23/22 13:22 Blood Culture - Final Blood No Growth after 144 hours Assessment and Plan (1) Neutropenic fever Narrative/Plan: Infectious work-up and broad spectrum Afebril within 24 hours COntinues on cefepine and vanco ID following RESOLVING Current Visit: Yes Status: Acute Code(s): D70.9 - NEUTROPENIA, UNSPECIFIED; R50.81 - FEVER PRESENTING WITH CONDITIONS CLASSIFIED ELSEWHERE SNOMED Code(s): 009990056 (2) History of recent fall Narrative/Plan: CT of Brain to assess for metastatic disease is negative Now with right ear pain We have asked ENT to evaluate and they have no knew recommendations Current Visit: No Status: Acute Code(s): Z91.81 - HISTORY OF FALLING SNOMED Code(s): 694186600 (3) Small cell lung cancer Narrative/Plan: Currently receiving chemo and radiation On hold until resolution of acute infection and cytopenias Have asked Dr. Kumar to further evaluate for restarting radiation Current Visit: No Status: Acute Code(s): C34.90 - MALIGNANT NEOPLASM OF UNSP PART OF UNSP BRONCHUS OR LUNG SNOMED Code(s): 636863757 (4) Dysphagia Narrative/Plan: unable to swallow mid-epigastric pain. Assuming compoenent of Thrush and radiation esophagitis. PPI Protein powder with Glutamine - will ask dieticien if we have (I believe Micah has) Elixir [place] and Kools Swallow evsl. This is improved today Current Visit: Yes Status: Acute Code(s): R13.10 - DYSPHAGIA, UNSPECIFIED SNOMED Code(s): 99335570 Plan: Diet advanced if breakfast tolerated can further advance Granix Discontinued today Dr. Urrutia: I have completed the full history and physical and developed the above impression and plan, agree with dictation, dictated as a ascribe.
[2022-04-30] MEDS: CEFEPIME 2 GM in SODIUM CHLORIDE 0.9% 100 ML IVPB SCH ×2 (01:43→15:07)
[2022-04-30] MEDS: SYMBICORT 160-4.5 MCG INHALER INHALATION SCH ×2 (07:40→19:58)
--- NOTE | 2022-04-30 07:40 | P.PN ---
Subjective Progress Note Date: 04/29/22 Principal diagnosis: Febrile neutropenia Patient is 81-year-old male with a past medical history significant for lung cancer currently on chemotherapy patient was noticed to be febrile in the oncology clinic for the patient was admitted to the hospital for workup. On today's evaluation that is 04/29/2022, patient continues to be afebrile, patient is breathing comfortably on room air, the patient denies any chest pain , the patient did have occasional cough but not bringing up any sputum , the patient denies abdominal pain or diarrhea Objective - Vital Signs Vital signs: Vital Signs Temp 97.5 F L 04/29/22 11:49 Pulse 68 04/29/22 11:49 Resp 14 04/29/22 11:49 BP 97/55 04/29/22 11:49 Pulse Ox 93 L 04/29/22 11:49 FiO2 Intake & Output 04/28/22 04/29/22 04/29/22 18:59 06:59 18:59 Intake Total 1275 1240 Output Total 950 Balance 1275 290 Intake: Intake, IV Titration 775 1000 Amount Cefepime 2 gm In Sodium 100 100 Chloride 0.9% 100 ml @ 25 mls/hr IVPB Q12H [facility] Rx# :[id number] Dextrose 5%-0.9% NaCl 1, 675 900 000 ml @ 75 mls/hr IV . [id number] [facility] Rx#:[id number] Oral 500 240 Output: Urine 950 Other: Voiding Method Toilet Urinal - Exam GENERAL DESCRIPTION: An elderly male lying in bed in no distress RESPIRATORY SYSTEM: Unlabored breathing , decreased breath sounds at bases HEART: S1 S2 regular rate and rhythm , ABDOMEN: Soft , no tenderness EXTREMITIES: No edema feet - Labs CBC & Chem 7: 04/29/22 07:31 04/29/22 07:31 Labs: Abnormal Lab Results - Last 24 Hours (Table) 04/29/22 04/29/22 Range/Units 07:31 07:31 RBC 2.42 L (4.30-5.90) m/uL Hgb 8.5 L (13.0-17.5) gm/dL Hct 25.0 L (39.0-53.0) % MCV 103.5 H (80.0-100.0) fL Plt Count 16 L* (150-450) k/uL Lymphocytes # 0.2 L (1.0-4.8) k/uL Potassium 3.2 L (3.5-5.1) mmol/L Chloride 112 H (98-107) mmol/L Calcium 8.2 L (8.4-10.2) mg/dL Microbiology - Last 24 Hours (Table) 04/23/22 13:22 Blood Culture - Preliminary Blood No Growth after 120 hours 04/23/22 13:22 Blood Culture - Preliminary Blood No Growth after 120 hours Assessment and Plan (1) Neutropenic fever Current Visit: Yes Status: Acute Code(s): D70.9 - NEUTROPENIA, UNSPECIFIED; R50.81 - FEVER PRESENTING WITH CONDITIONS CLASSIFIED ELSEWHERE SNOMED Code(s): 898171331 Plan: 1patient presented to hospital with fever and this patient found to have lung cancer on chemotherapy noticed to be leukopenic and neutropenic and a low-grade fever however her initial work-up did not show any obvious focus however the patient do have predominantly respiratory symptoms with a cough and toro sputum could be the component of pneumonia. 2blood and sputum culture has been negative. 3CT of the chest without any contrast did not show any evidence of any consolidation suspicious for pneumonia. 4patient fever has resolved, and white count has normalized, patient continue cefepime with the plan to transition to oral antibiotic on discharge Time with Patient: Less than 30
[2022-04-30] MEDS: SERTRALINE 50 MG TAB PO SCH (08:12)
[2022-04-30] MEDS: FLUCONAZOLE 100 MG TAB PO SCH (08:12)
[2022-04-30] MEDS: MAG HYDROX/AL HYDROX/SIMETH 30 ML, LIDOCAINE VISCOUS 2% 30 ML, diphenhydrAMINE ELIXIR 7... PO SCH ×12 (08:12→22:17)
[2022-04-30] MEDS: PANTOPRAZOLE 40 MG/10 ML VIAL IVP SCH ×2 (08:12→20:23)
[2022-04-30] MEDS: carvediloL 3.125 MG TAB PO SCH (08:12)
[2022-04-30] MEDS: CHOLECALCIFEROL 125 MCG (5000 IU) TABLET PO SCH (08:12)
[2022-04-30] MEDS: LORazepam 1 MG TAB PO SCH (08:12)
[2022-04-30] MEDS: ACYCLOVIR 200 MG CAP PO SCH ×2 (08:12→20:22)
[2022-04-30 11:42] LABS: African American GFR (CKD) 72.1 (60.0-200.0); Anion Gap 8.8 mmol/L (10.00-18.00); BUN/Creat Ratio 8.64 Ratio (12.00-20.00); Blood Urea Nitrogen 9.5 mg/dL (9.0-27.0); Calcium 8.2 mg/dL (8.7-10.3); Carbon Dioxide 24.2 mmol/L (20.0-27.5); Globulin 1.5 g/dL (1.6-3.3); Magnesium 1.8 mg/dL (1.5-2.4); Non-African American GFR(CKD) 62.2 (60.0-200.0); Potassium 3.4 mmol/L (3.5-5.5); Total Bilirubin 0.3 mg/dL (0.30-1.20); Total Protein 4.5 g/dL (6.2-8.2)
[2022-04-30 13:23] LABS: Anisocytosis (M) 2+; Basophils # (M) 0 X 10*3/uL (0.00-0.10); Eosinophils # (M) 0 X 10*3/uL (0.04-0.35); HCT 21.6 % (39.6-50.0); HGB 7.3 g/dL (13.0-17.0); Immature Platelet Fraction 14.9 % (1.1-6.1); Lymphocytes # (M) 0.51 X 10*3/uL (0.90-5.00); MCH 34.9 pg (27.0-32.0); MCHC 33.8 g/dL (32.0-37.0); MCV 103.3 fL (80.0-97.0); Microcytosis (M) 2+; Monocytes # (M) 0.15 X 10*3/uL (0.20-1.00); Myelocytes % 1 % (0-0); NRBC Per 100 WBC 0.4 /100 WBCS (0.0-0.0); Neutrophils % (M) 86 %; Platelet Count 17 X 10*3/uL (140-440); RBC 2.09 X 10*6/uL (4.40-5.60); WBC 5.12 X 10*3/uL (4.50-10.00)
[2022-04-30] MEDS: POTASSIUM CHLORIDE ER 20 MEQ TAB.ER PO SCH ×2 (15:06→17:24)
--- NOTE | 2022-04-30 16:54 | P.PN ---
Subjective Progress Note Date: 04/30/22 Await CBC today and if tolerating advanced diet. Per nursing patient still not eating well. He would like to go home so will attempt to eat better overnight Objective - Vital Signs Vital signs: Vital Signs Temp 98.4 F 04/30/22 05:00 Pulse 72 04/30/22 05:00 Resp 16 04/30/22 05:00 BP 110/57 04/30/22 05:00 Pulse Ox 91 L 04/30/22 05:00 FiO2 Intake & Output 04/29/22 04/30/22 04/30/22 18:59 06:59 18:59 Output Total 400 Balance -400 Output: Urine 400 Other: Voiding Method Toilet Urinal # Voids 2 1 - Exam - Constitutional General appearance: cooperative, no acute distress - EENT Eyes: EOMI, PERRLA ENT: hard of hearing, NA/AT - Neck Neck: normal ROM - Respiratory Respiratory: bilateral: rhonchi, wheezing - Cardiovascular Rhythm: regularly irregular - Gastrointestinal General gastrointestinal: soft - Integumentary Integumentary: pale - Neurologic Neurologic: CNII-XII intact - Musculoskeletal Musculoskeletal: generalized weakness - Psychiatric Psychiatric: A&O x's 3, appropriate affect, intact judgment & insight - Labs CBC & Chem 7: 04/30/22 06:27 04/30/22 06:27 Labs: Abnormal Lab Results - Last 24 Hours (Table) 04/30/22 Range/Units 06:27 Potassium 3.4 L (3.5-5.5) mmol/L Chloride 111 H (96-109) mmol/L Anion Gap 8.80 L (10.00-18.00) mmol/L BUN/Creatinine Ratio 8.64 L (12.00-20.00) Ratio Calcium 8.2 L (8.7-10.3) mg/dL Total Protein 4.5 L (6.2-8.2) g/dL Albumin 3.0 L (3.8-4.9) g/dL Globulin 1.5 L (1.6-3.3) g/dL Microbiology - Last 24 Hours (Table) 04/23/22 13:22 Blood Culture - Final Blood No Growth after 144 hours 04/23/22 13:22 Blood Culture - Final Blood No Growth after 144 hours Assessment and Plan (1) Neutropenic fever Narrative/Plan: Infectious work-up and broad spectrum Afebril within 24 hours COntinues on cefepine and vanco ID following RESOLVING Current Visit: Yes Status: Acute Code(s): D70.9 - NEUTROPENIA, UNSPECIFIED; R50.81 - FEVER PRESENTING WITH CONDITIONS CLASSIFIED ELSEWHERE SNOMED Code(s): 316379519 (2) History of recent fall Narrative/Plan: CT of Brain to assess for metastatic disease is negative ENT did evaluate no significant findings Current Visit: No Status: Acute Code(s): Z91.81 - HISTORY OF FALLING SNOMED Code(s): 815923556 (3) Small cell lung cancer Narrative/Plan: Currently receiving chemo and radiation On hold until resolution of acute infection and cytopenias Dr. Kumar is following and will decide when to resume Current Visit: No Status: Acute Code(s): C34.90 - MALIGNANT NEOPLASM OF UNSP PART OF UNSP BRONCHUS OR LUNG SNOMED Code(s): 875477664 (4) Dysphagia Narrative/Plan: unable to swallow mid-epigastric pain. Assuming compoenent of Thrush and radiation esophagitis. PPI Protein powder with Glutamine - will ask dieticien if we have (I believe Micah has) Elixir [place] and Kools Swallow evsl. This is improved today but still not eating well. Increase additional supplemental drinks Current Visit: Yes Status: Acute Code(s): R13.10 - DYSPHAGIA, UNSPECIFIED SNOMED Code(s): 62416832 (5) Thrombocytopenia Narrative/Plan: Prolonged, but stable Continue hold Ac, nsaidsM asa await cbc TODAY Current Visit: Yes Status: Acute Code(s): D69.6 - THROMBOCYTOPENIA, UNSPECIFIED SNOMED Code(s): 640948143 Plan: Diet advanced today to regular and will monitor for improved PO intake. if increaseing PO intake can be discharge, discussed with primary team. e Dr. Urrutia: I have completed the full history and physical and developed the above impression and plan, agree with dictation, dictated as a ascribe.
--- NOTE | 2022-04-30 19:40 | P.PN ---
Subjective Progress Note Date: 04/30/22 (mellisa charting seen at 0830) Principal diagnosis: fevers Patient is an 81-year-old male with lung cancer on chemotherapy and radiation, COPD, hypertension, and coronary artery disease who presented to the ER with complaints of fevers. In the ER he underwent an extensive evaluation. He was found to be febrile with a temperature of 100.4 and he was neutropenic. He was admitted for febrile neutropenia. His Covid testing was negative, influenza negative, group B strep was negative. Chest x-ray showed chronic changes without acute infiltrates, urinalysis was negative. He was admitted for further monitoring. He was started on broad-spectrum antibiotics and was seen by infectious disease and oncology. His of blood and sputum cultures were negative. He was treated with GM-CSF stimulation. He was also noted to have mucositis and radiation esophagitis. He was unable to tolerate much oral intake and was started on Ovral different mouthwashes. He was seen by radiation oncology and radiation was resumed on 04/28/22. His white count improved. Imaging: Chest x-ray: No acute process Liver ultrasound: No focal liver deficit, gallbladder borderline thickened CT brain: No acute process CT chest: No acute process, minimal compressive atelectasis within in the dependent left lung. CT chest with contrast: Increased subcarinal density could be related to e sophageal mass, minimal infiltrates Acute abdominal series: Nonacute abdomen Patient seen and examined at bedside. He reports improvement in his swallowing, denies any chest pain, shortness breath, nausea, vomiting. Nursing informs me that he has not taken more than 1-2 bites and 24 hours and he still is requiring D5. Discussed with patient that he will need to be taking at least 3 ensures daily for discharge. General: non toxic, no distress, appears at stated age Derm: warm, dry Head: atraumatic, normocephalic, symmetric Eyes: EOMI, no lid lag, anicteric sclera Mouth: no lip lesion, mucus membranes dry Cardiovascular: S1S2 reg, no murmur, positive posterior tibial pulse bilateral, Lungs: CTA bilateral, no rhonchi, no rales , no accessory muscle use Abdominal: soft, nontender to palpation, no guarding, no appreciable organomegaly Ext: no gross muscle atrophy, no edema, no contractures Neuro: CN II-XI grossly intact, no focal neuro deficits Psych: Alert, oriented, appropriate affect Assessment/plan: Neutropenic fevers Pancytopenia, chemotherapy induced -White count has recovered -ID recreations appreciated -Oncology recommendations -Plan home on oral Cipro Small cell lung cancer -Receiving radiation -Radiation and medical oncology following Dysphagia secondary to thrush and radiation esophagitis -PPI -Cools solution -Diflucan Severe protein calorie malnutrition -Continue on D5 normal saline -Continue with Marinol for appetite stimulation -Supplements -Dietitian recommendations Chronic: Hypertension CAD GERD Likely home in a.m. if able to tolerate oral intake. Objective - Vital Signs Vital signs: Vital Signs Temp 97.8 F 04/30/22 12:48 Pulse 67 04/30/22 12:48 Resp 19 04/30/22 12:48 BP 117/52 04/30/22 12:48 Pulse Ox 92 L 04/30/22 12:48 FiO2 Intake & Output 04/30/22 04/30/22 05/01/22 06:59 18:59 06:59 Intake Total 900 Output Total 400 Balance -400 900 Weight 85.275 kg Intake: Intake, IV Titration 900 Amount Dextrose 5%-0.9% NaCl 1, 900 000 ml @ 75 mls/hr IV . [id number] [facility] Rx#:[id number] Output: Urine 400 Other: Voiding Method Toilet Urinal # Voids 1 - Labs CBC & Chem 7: 04/30/22 06:27 04/30/22 06:27 Labs: Abnormal Lab Results - Last 24 Hours (Table) 04/30/22 04/30/22 Range/Units 06:27 06:27 RBC 2.09 L (4.40-5.60) X 10*6/uL Hgb 7.3 L (13.0-17.0) g/dL Hct 21.6 L (39.6-50.0) % MCV 103.3 H (80.0-97.0) fL MCH 34.9 H (27.0-32.0) pg RDW 15.0 H (11.5-14.5) % Plt Count 17 L* (140-440) X 10*3/uL Plt Count Comment A Absolute Nucleated RBC 0.02 H (0.00-0.00) X 10*3/uL Myelocytes % 1 H (0-0) % Lymphocytes # (Manual) 0.51 L (0.90-5.00) X 10*3/uL Monocytes # (Manual) 0.15 L (0.20-1.00) X 10*3/uL Eosinophils # (Manual) 0 L (0.04-0.35) X 10*3/uL NRBC/100 WBC Diff 0.4 H (0.0-0.0) /100 WBCS Immature Plt Fraction 14.9 H (1.1-6.1) % Potassium 3.4 L (3.5-5.5) mmol/L Chloride 111 H (96-109) mmol/L Anion Gap 8.80 L (10.00-18.00) mmol/L BUN/Creatinine Ratio 8.64 L (12.00-20.00) Ratio Calcium 8.2 L (8.7-10.3) mg/dL Total Protein 4.5 L (6.2-8.2) g/dL Albumin 3.0 L (3.8-4.9) g/dL Globulin 1.5 L (1.6-3.3) g/dL
[2022-04-30 19:46] VITALS: RESP 16
[2022-04-30] MEDS: ATORVASTATIN 40 MG TAB PO SCH (20:23)
[2022-04-30] MEDS: traZODone HCL 100 MG TAB PO SCH (20:23)
[2022-04-30] MEDS: DEXTROSE 5%-0.9% NACL 1,000 ML IV SCH (20:25)
[2022-05-01] MEDS: CEFEPIME 2 GM in SODIUM CHLORIDE 0.9% 100 ML IVPB SCH (02:20)
[2022-05-01 05:22] VITALS: BP 116/53; PULSE 77; TEMP 98.3
[2022-05-01 07:33] LABS: Anisocytosis Slight; HCT 23.3 % (39.0-53.0); HGB 7.8 gm/dL (13.0-17.5); MCH 35.3 pg (25.0-35.0); MCHC 33.5 g/dL (31.0-37.0); MCV 105.4 fL (80.0-100.0); Macrocytosis Moderate; Mean Platelet Volume 11.4; RBC 2.21 m/uL (4.30-5.90); RDW 16.1 % (11.5-15.5); WBC 3.4 k/uL (3.8-10.6)
[2022-05-01 07:34] LABS: Platelet Count 25 k/uL (150-450)
[2022-05-01] MEDS: SYMBICORT 160-4.5 MCG INHALER INHALATION SCH (07:40)
[2022-05-01 07:43] LABS: African American GFR (CKD) 78 (>60 ml/min/1.73 sqM); Anion Gap 1 mmol/L; Blood Urea Nitrogen 6 mg/dL (9-20); Carbon Dioxide 27 mmol/L (22-30); Chloride 115 mmol/L (98-107); Glucose 95 mg/dL (74-99); Magnesium 1.3 mg/dL (1.6-2.3); Non-African American GFR(CKD) 68 (>60 ml/min/1.73 sqM); Phosphorus 2.9 mg/dL (2.5-4.5); Potassium 3.8 mmol/L (3.5-5.1); Sodium 143 mmol/L (137-145)
[2022-05-01] MEDS: SERTRALINE 50 MG TAB PO SCH (08:38)
[2022-05-01] MEDS: carvediloL 3.125 MG TAB PO SCH (08:38)
[2022-05-01] MEDS: LORazepam 1 MG TAB PO SCH (08:38)
[2022-05-01] MEDS: CHOLECALCIFEROL 125 MCG (5000 IU) TABLET PO SCH (08:39)
[2022-05-01] MEDS: PANTOPRAZOLE 40 MG/10 ML VIAL IVP SCH (08:39)
[2022-05-01] MEDS: FLUCONAZOLE 100 MG TAB PO SCH (08:39)
[2022-05-01] MEDS: ACYCLOVIR 200 MG CAP PO SCH (08:39)
[2022-05-01] MEDS: MAG HYDROX/AL HYDROX/SIMETH 30 ML, LIDOCAINE VISCOUS 2% 30 ML, diphenhydrAMINE ELIXIR 7... PO SCH ×4 (08:39)
[2022-05-01] MEDS: DEXTROSE 5%-0.9% NACL 1,000 ML IV SCH (08:40)
[2022-05-01] MEDS: MAGNESIUM SULFATE-D5W PMX 1 GM in DEXTROSE/WATER 1 100ML.BAG IVPB SCH ×2 (09:50→10:51)
--- NOTE | 2022-05-01 14:00 | P.DS ---
Providers Date of admission: 04/23/22 15:37 Expected date of discharge: 05/01/22 Attending physician: Mylene Krishnan MD Consults: 04/23/22 15:39 Consult Physician Routine Consulting Provider: Bienvenido Fortune Consult Reason/Comments: Neutropenic fever, receiving chemo Do you want consulting provider notified?: Yes Consult Physician Routine Consulting Provider: Gilmer Sibley Consult Reason/Comments: Neutropenic fever Do you want consulting provider notified?: Yes 04/25/22 14:55 Consult Physician Routine Consulting Provider: Mirza Gibbons Consult Reason/Comments: C/S recurrent fall, pain and dizzy Do you want consulting provider notified?: Yes 04/26/22 19:25 Consult Physician Routine Consulting Provider: Nathan Kumar Consult Reason/Comments: radiation esophagitis Do you want consulting provider notified?: Yes Primary care physician: Komal Preciado MD Hospital Course: Discharge Diagnosis: Neutropenic fevers Pancytopenia, chemotherapy induced Hypokalemia, Hypomagnesemia Small cell lung cancer Dysphagia secondary to thrush and radiation esophagitis Severe protein calorie malnutrition Hypertension CAD Hospital Course: Patient is an 81-year-old male with lung cancer on chemotherapy and radiation, COPD, hypertension, and coronary artery disease who presented to the ER with complaints of fevers. In the ER he underwent an extensive evaluation. He was found to be febrile with a temperature of 100.4 and he was neutropenic. He was admitted for febrile neutropenia. His Covid testing was negative, influenza negative, group B strep was negative. Chest x-ray showed chronic changes without acute infiltrates, urinalysis was negative. He was admitted for further monitoring. He was started on broad-spectrum antibiotics and was seen by infectious disease and oncology. His blood and sputum cultures were negative. He was treated with GM-CSF stimulation. He was also noted to have mucositis and radiation esophagitis. He was unable to tolerate much oral intake and was started on several different mouthwashes. He was seen by radiation oncology and radiation was resumed on 04/28/22. His white count improved. He was afebrile and toleting a full liquid diet. His thrush had improved. He was determined stable for discharge. Imaging: Chest x-ray: No acute process Liver ultrasound: No focal liver deficit, gallbladder borderline thickened CT brain: No acute process CT chest: No acute process, minimal compressive atelectasis within in the dependent left lung. CT chest with contrast: Increased subcarinal density could be related to esophageal mass, minimal infiltrates Acute abdominal series: Nonacute abdomen Follow-up: radiation on 05/03, Dr. fortune, Dr. Preciado, natalia to complete 10 days of ABX, but to thrush diflucan for 7 more days (total 14), cools solution for mouth pain (written RX sent unable to complete electronically) Patient seen and examined at bedside. Was able to eat and drink yesterday and took in several ensure (his picked him up a 6 pack for home) doing well, wants to be discharged. No chest pain, shortness of breath. Vital signs reviewed and stable. General: non toxic, no distress, appears at stated age Derm: warm, dry Head: atraumatic, normocephalic, symmetric Eyes: EOMI, no lid lag, anicteric sclera Mouth: no lip lesion, mucus membranes moist, ABSENTEE-SHAWNEE Cardiovascular: S1S2 reg, no murmur, positive posterior tibial pulse bilateral, Lungs: CTA bilateral, no rhonchi, no rales , no accessory muscle use Psych: Alert, oriented, appropriate affect A total of 33 minutes of time were spent preparing this complex discharge summary . Patient Condition at Discharge: Stable Plan - Discharge Summary Discharge Rx Participant: Yes New Discharge Prescriptions: New Fluconazole [Diflucan] 100 mg PO DAILY #7 tab dronabinoL [Marinol] 2.5 mg PO AC-BID #60 cap Nystatin 100,000 Unit/ml Susp [Mycostatin Oral Susp] 500,000 unit PO QID #150 ml HYDROcodone/APAP [[place] Elixir 7.5-325Mg/15Ml] 15 ml PO Q6HR PRN #240 ml PRN Reason: Pain Ciprofloxacin HCl [Cipro] 500 mg PO BID 3 Days #6 tab Continue Simvastatin [Zocor] 80 mg PO HS carvediloL [Coreg] 3.125 mg PO DAILY traZODone HCL [Desyrel] 200 mg PO HS Nitroglycerin Sl Tabs [Nitrostat] 0.4 mg SUBLINGUAL Q5M PRN PRN Reason: Chest Pain Sertraline HCl [Zoloft] 50 mg PO DAILY LORazepam [Ativan] 1 mg PO DAILY Mometasone/Formoterol [Dulera 200 Mcg-5 Mcg Inhaler] 1 puff INHALATION RT-BID Albuterol Nebulized [Ventolin Nebulized] 2.5 mg INHALATION RT-Q6H PRN PRN Reason: Shortness Of Breath ondansetron HCL [Zofran] 8 mg PO Q6H PRN PRN Reason: Nausea Acetaminophen Tab [Tylenol] 1,000 mg PO Q6HR PRN PRN Reason: Fever And/ Or Pain Pantoprazole [Protonix] 40 mg PO BID Cholecalciferol [Vitamin D3 (125 Mcg = 5000 Iu)] 125 mcg PO DAILY tablet LORazepam [Ativan] 2 mg PO HS Discontinued Ibuprofen [Motrin Ib] 800 mg PO Q8H PRN PRN Reason: Fever And/ Or Pain Dm/Acetaminophen/Doxylamine [[place] Nyquil Cold-Flu Liquid] 30 ml PO Q6H Discharge Medication List Simvastatin [Zocor] 80 mg PO HS 07/15/16 [History] carvediloL [Coreg] 3.125 mg PO DAILY 07/15/16 [History] traZODone HCL [Desyrel] 200 mg PO HS 07/15/16 [History] Nitroglycerin Sl Tabs [Nitrostat] 0.4 mg SUBLINGUAL Q5M PRN 11/26/19 [History] LORazepam [Ativan] 1 mg PO DAILY 04/18/20 [History] Sertraline HCl [Zoloft] 50 mg PO DAILY 04/18/20 [History] Acetaminophen Tab [Tylenol] 1,000 mg PO Q6HR PRN 03/11/22 [History] Albuterol Nebulized [Ventolin Nebulized] 2.5 mg INHALATION RT-Q6H PRN 03/11/22 [History] Mometasone/Formoterol [Dulera 200 Mcg-5 Mcg Inhaler] 1 puff INHALATION RT-BID 03/11/22 [History] Pantoprazole [Protonix] 40 mg PO BID 03/11/22 [History] ondansetron HCL [Zofran] 8 mg PO Q6H PRN 03/11/22 [History] Cholecalciferol [Vitamin D3 (125 Mcg = 5000 Iu)] 125 mcg PO DAILY tablet 03/14/22 [Rx] LORazepam [Ativan] 2 mg PO HS 04/23/22 [History] Ciprofloxacin HCl [Cipro] 500 mg PO BID 3 Days #6 tab 05/01/22 [Rx] Fluconazole [Diflucan] 100 mg PO DAILY #7 tab 05/01/22 [Rx] HYDROcodone/APAP [[place] Elixir 7.5-325Mg/15Ml] 15 ml PO Q6HR PRN #240 ml 05/01/22 [Rx] Nystatin 100,000 Unit/ml Susp [Mycostatin Oral Susp] 500,000 unit PO QID #150 ml 05/01/22 [Rx] dronabinoL [Marinol] 2.5 mg PO AC-BID #60 cap 05/01/22 [Rx] Follow up Appointment(s)/Referral(s): Bienvenido Fortune MD [STAFF PHYSICIAN] - 1 Week (--Oncology-- Office closed at time of discharge - patient to make his own appointment) Nathan Kumar MD [STAFF PHYSICIAN] - 05/03/22 (--Radiation Oncologist-- Radiation appointment ) Komal Preciado MD [Primary Care Provider] - 1-2 days (--Medical doctor-- Office closed at time of discharge - patient to make own appointment) Mirza Gibbons MD [STAFF PHYSICIAN] - 1 Week (--ENT Doctor-- Please schedule follow up after discharge, for inner ear vestibular testing outpatient with Dr. Gibbons - patient needs to schedule follow up appointment) Patient Instructions/Handouts: Ciprofloxacin (By mouth), Hydrocodone/Acetaminophen (By mouth), Nystatin (By mouth), Fluconazole (By mouth), Dronabinol (By mouth), Neutropenia (DC), Thrombocytopenia (DC), Dysphagia (GEN) Activity/Diet/Wound Care/Special Instructions: Activity: as tolerated Diet: soft/full diet Thanks for trusting us with your care, we wish you well on your journey to better health! Discharge Disposition: HOME SELF-CARE
--- NOTE | 2022-05-08 14:30 | P.PN ---
Subjective Progress Note Date: 04/30/22 Principal diagnosis: Febrile neutropenia Patient is 81-year-old male with a past medical history significant for lung cancer currently on chemotherapy patient was noticed to be febrile in the oncology clinic for the patient was admitted to the hospital for workup. On today's evaluation that is 04/30/2022, patient is afebrile, patient is breathing comfortably on room air, the patient denies chest pain , the patient did have occasional dry cough , the patient denies abdominal pain or diarrhea Objective - Vital Signs Vital signs: Vital Signs Temp 97.8 F 04/30/22 12:48 Pulse 67 04/30/22 12:48 Resp 19 04/30/22 12:48 BP 117/52 04/30/22 12:48 Pulse Ox 92 L 04/30/22 12:48 FiO2 Intake & Output 04/29/22 04/30/22 04/30/22 18:59 06:59 18:59 Output Total 400 Balance -400 Output: Urine 400 Other: Voiding Method Toilet Urinal # Voids 2 1 - Exam GENERAL DESCRIPTION: An elderly male lying in bed in no distress RESPIRATORY SYSTEM: Unlabored breathing , decreased breath sounds at bases HEART: S1 S2 regular rate and rhythm , ABDOMEN: Soft , no tenderness EXTREMITIES: No edema feet - Labs CBC & Chem 7: 05/01/22 06:45 05/01/22 06:45 Labs: Abnormal Lab Results - Last 24 Hours (Table) 04/30/22 Range/Units 06:27 Potassium 3.4 L (3.5-5.5) mmol/L Chloride 111 H (96-109) mmol/L Anion Gap 8.80 L (10.00-18.00) mmol/L BUN/Creatinine Ratio 8.64 L (12.00-20.00) Ratio Calcium 8.2 L (8.7-10.3) mg/dL Total Protein 4.5 L (6.2-8.2) g/dL Albumin 3.0 L (3.8-4.9) g/dL Globulin 1.5 L (1.6-3.3) g/dL Microbiology - Last 24 Hours (Table) 04/23/22 13:22 Blood Culture - Final Blood No Growth after 144 hours 04/23/22 13:22 Blood Culture - Final Blood No Growth after 144 hours Assessment and Plan (1) Neutropenic fever Status: Acute Code(s): D70.9 - NEUTROPENIA, UNSPECIFIED; R50.81 - FEVER PRESENTING WITH CONDITIONS CLASSIFIED ELSEWHERE SNOMED Code(s): 575733444 Plan: 1patient presented to hospital with fever and this patient found to have lung cancer on chemotherapy noticed to be leukopenic and neutropenic and a low-grade fever however her initial work-up did not show any obvious focus however the patient do have predominantly respiratory symptoms with a cough and toro sputum could be the component of pneumonia. 2blood and sputum culture has been negative. 3CT of the chest without any contrast did not show any evidence of any consolidation suspicious for pneumonia. 4patient fever has resolved, and white count has normalized, patient currently being treated cefepime with the plan to transition to oral antibiotic on discharge, continue supportive care Time with Patient: Less than 30
--- NOTE | 2022-05-08 14:31 | P.PN ---
Subjective Progress Note Date: 05/01/22 Principal diagnosis: Febrile neutropenia Patient is 81-year-old male with a past medical history significant for lung cancer currently on chemotherapy patient was noticed to be febrile in the oncology clinic for the patient was admitted to the hospital for workup. On today's evaluation that is 05/01/2022, patient remains to be afebrile, patient is breathing comfortably on room air, the patient denies chest pain , the patient did have occasional dry cough and no worsening, the patient denies abdominal pain or diarrhea, patient overall feeling better Objective - Vital Signs Vital signs: Vital Signs Temp 98.3 F 05/01/22 05:00 Pulse 77 05/01/22 05:00 Resp 16 05/01/22 05:00 BP 116/53 05/01/22 05:00 Pulse Ox 92 L 05/01/22 05:00 FiO2 Intake & Output 04/30/22 05/01/22 05/01/22 18:59 06:59 18:59 Intake Total 900 1770 240 Output Total 650 Balance 900 1120 240 Weight 85.275 kg Intake: Intake, IV Titration 900 700 Amount Cefepime 2 gm In Sodium 100 Chloride 0.9% 100 ml @ 25 mls/hr IVPB Q12H [facility] Rx# :[id number] Dextrose 5%-0.9% NaCl 1, 900 600 000 ml @ 75 mls/hr IV . [id number] [facility] Rx#:[id number] Oral 1070 240 Output: Urine 650 Other: Voiding Method Toilet Urinal # Voids 1 3 - Exam GENERAL DESCRIPTION: An elderly male lying in bed in no distress RESPIRATORY SYSTEM: Unlabored breathing , decreased breath sounds at bases HEART: S1 S2 regular rate and rhythm , ABDOMEN: Soft , no tenderness EXTREMITIES: No edema feet - Labs CBC & Chem 7: 05/01/22 06:45 05/01/22 06:45 Labs: Abnormal Lab Results - Last 24 Hours (Table) 05/01/22 05/01/22 Range/Units 06:45 06:45 WBC 3.4 L (3.8-10.6) k/uL RBC 2.21 L (4.30-5.90) m/uL Hgb 7.8 L (13.0-17.5) gm/dL Hct 23.3 L (39.0-53.0) % MCV 105.4 H (80.0-100.0) fL MCH 35.3 H (25.0-35.0) pg RDW 16.1 H (11.5-15.5) % Plt Count 25 L D (150-450) k/uL Chloride 115 H (98-107) mmol/L BUN 6 L (9-20) mg/dL Calcium 8.0 L (8.4-10.2) mg/dL Magnesium 1.3 L (1.6-2.3) mg/dL Assessment and Plan (1) Neutropenic fever Status: Acute Code(s): D70.9 - NEUTROPENIA, UNSPECIFIED; R50.81 - FEVER PRESENTING WITH CONDITIONS CLASSIFIED ELSEWHERE SNOMED Code(s): 327313652 Plan: 1patient presented to hospital with fever and this patient found to have lung cancer on chemotherapy noticed to be leukopenic and neutropenic and a low-grade fever however her initial work-up did not show any obvious focus however the patient do have predominantly respiratory symptoms with a cough and toro sputum could be the component of pneumonia. 2blood and sputum culture has been negative. 3CT of the chest without any contrast did not show any evidence of any consolidation suspicious for pneumonia. 4patient fever has resolved, and white count has normalized, patient clinically improved the cefepime finishing therapy with short course of oral Cipro on discharge and close out patient follow-up Time with Patient: Less than 30
== END 2022-05-01 14:10 | disposition home or self-care (01) | DRG 808 ==
LOC: EC 11:52 → 4SSUR 15:37 → 5NMEDONC 17:56
PROVIDERS: ADMIT Internal Medicine; ATTEND Internal Medicine
DX: D61.810 Antineoplastic chemotherapy induced pancytopenia (principal); E43 Unspecified severe protein-calorie malnutrition; B37.0 Candidal stomatitis; C77.1 Secondary and unspecified malignant neoplasm of intrathoracic lymph nodes; C34.32 Malignant neoplasm of lower lobe, left bronchus or lung; D70.1 Agranulocytosis secondary to cancer chemotherapy; E11.40 Type 2 diabetes mellitus with diabetic neuropathy, unspecified; J44.9 Chronic obstructive pulmonary disease, unspecified; R50.81 Fever presenting with conditions classified elsewhere; T45.1X5A Adverse effect of antineoplastic and immunosuppressive drugs, initial encounter; K21.00 Gastro-esophageal reflux disease with esophagitis, without bleeding; E87.6 Hypokalemia; E83.42 Hypomagnesemia; E80.6 Other disorders of bilirubin metabolism; I10 Essential (primary) hypertension; E53.8 Deficiency of other specified B group vitamins; E78.5 Hyperlipidemia, unspecified; F41.9 Anxiety disorder, unspecified; I25.10 Atherosclerotic heart disease of native coronary artery without angina pectoris; I25.2 Old myocardial infarction; H91.90 Unspecified hearing loss, unspecified ear; R29.6 Repeated falls; Z68.28 Body mass index [BMI] 28.0-28.9, adult; F17.210 Nicotine dependence, cigarettes, uncomplicated; Z71.6 Tobacco abuse counseling; Z79.51 Long term (current) use of inhaled steroids; Z79.899 Other long term (current) drug therapy; Z91.81 History of falling; Z95.5 Presence of coronary angioplasty implant and graft; Z95.0 Presence of cardiac pacemaker; Z71.3 Dietary counseling and surveillance; Y84.2 Radiological procedure and radiotherapy as the cause of abnormal reaction of the patient, or of later complication, without mention of misadventure at the time of the procedure; Y92.029 Unspecified place in mobile home as the place of occurrence of the external cause
CPT/HCPCS: 36415; 70470; 71045; 71046; 71250; 71260; 74022; 76705; 77386; 80048; 80053; 80074; 80202; 81003; 82565; 82784; 83605; 83735; 84100; 84145; 84443; 85025; 85027; 85384; 85610; 85730; 86140; 87040; 87070; 87081; 87205; 87430; 87502; 87635; 93005; 94640; 96365; 96366; 96367; 96375; 99285

== ENCOUNTER → 2022-05-27 | Outpatient (CLI) | payer MEDICARE ==
--- NOTE | 2022-05-27 09:04 | CT ---
EXAMINATION TYPE: CT brain wo/w con DATE OF EXAM: 05/27/2022 COMPARISON: CT dated 04/24/2022 HISTORY: Repeated falls CT DLP: 2144.6 mGycm Automated exposure control for dose reduction was used. TECHNIQUE: CT scan of the brain is performed without and with IV contrast administration. FINDINGS: Brain volume loss changes, likely age-related. Bilateral cerebral white matter hypodensities, likely representing chronic microvascular ischemic changes. Scattered arterial atherosclerotic calcification s. No acute intracranial hemorrhage. No gross acute cortical infarct. No midline shift, herniation or ve ntriculomegaly. Unremarkable basal cisterns, sella and CP angles. No gross space-occupying lesion, vasogenic edema or mass effect. No intracranial abnormal enhancement . Patent major intracranial vessels. Unremarkable orbits. Clear visualized paranasal sinuses and mastoid air cells. Osteopenia. Questionab le chronic healed fracture of the right coronoid process of the mandible. IMPRESSION: No acute intracranial abnormality or gross space-occupying lesion. Chronic and incidental findings as described above.
== END | disposition home or self-care (01) ==
LOC: RADCTMAIN 07:04
PROVIDERS: ATTEND Internal Medicine Hematology & Oncology
DX: R29.6 Repeated falls (principal); G93.89 Other specified disorders of brain
CPT/HCPCS: 82565; 84520; 70470; 36415; Q9967

== ENCOUNTER 2022-05-28 10:02 | Inpatient (IN) | payer MEDICARE ==
[2022-05-28 11:55] LABS: Anisocytosis Slight; Basophils % (A) 1 %; Eosinophils % (A) 1 %; HCT 30.9 % (39.0-53.0); Lymphocytes # (A) 0.2 k/uL (1.0-4.8); Lymphocytes % (A) 10 %; MCH 36.7 pg (25.0-35.0); MCHC 35.2 g/dL (31.0-37.0); MCV 104.2 fL (80.0-100.0); Macrocytosis Moderate; Monocytes # (A) 0.3 k/uL (0-1.0); Monocytes % (A) 14 %; Neutrophils # (A) 1.7 k/uL (1.3-7.7); Neutrophils % (A) 70 %; Poikilocytosis Moderate; RBC 2.97 m/uL (4.30-5.90); RDW 17.3 % (11.5-15.5); WBC 2.4 k/uL (3.8-10.6)
[2022-05-28 11:56] LABS: HGB 10.9 gm/dL (13.0-17.5); INR 1.1 (<1.2); Partial Thromboplastin Time 24.2 sec (22.0-30.0); Prothrombin Time 11.4 sec (9.0-12.0)
[2022-05-28 12:09] LABS: Platelet Count 63 k/uL (150-450)
[2022-05-28 12:10] LABS: Polychromasia Present
[2022-05-28 12:16] LABS: Albumin 3.3 g/dL (3.5-5.0); Calcium 8.8 mg/dL (8.4-10.2); Magnesium 1.4 mg/dL (1.6-2.3); Potassium 3.6 mmol/L (3.5-5.1); Total Protein 5.7 g/dL (6.3-8.2)
--- NOTE | 2022-05-28 12:29 | CT ---
EXAMINATION TYPE: CT brain cspine wo con DATE OF EXAM: 05/28/2022 COMPARISON: Brain 05/27/2022 HISTORY: 81-year-old male Legs gave out, fall, known lung CA CT DLP: 1512.3 mGycm Automated exposure control for dose reduction was used. Technique: Examination of the head was done in axial plane without intravenous contrast. Coronal and sagittal reconstructions performed. CT of the cervical spine was obtained in axial plane without intravenous injection of contrast mater ial. Coronal and sagittal reformatted images were obtained from the axial views for evaluation of f ractures, spinal alignment and canal. FINDINGS: Head: There is no evidence of acute intracranial hemorrhage, acute ischemic changes, mass, mass-effect, or extra-axial fluid collection. There is no effacement of cerebral sulci or basal subarachnoid cister ns. There is no hydrocephalus. There is no midline shift. Calderon-white matter distinction is preserv ed. Mild generalized supratentorial volume loss. Secondary mild prominence to the ventricular system is u nchanged. Undulating nasal septum. Mild mucosal thickening anterior ethmoid air cells. Mastoid air cells well p neumatized. Orbits and globes are intact. Cervical spine: Left anterior chest wall pacemaker generator. Emphysematous change in the visualized upper lungs. No craniocervical junction abnormality, predental space widening, or prevertebral soft tissue swellin g. Degenerative changes at the C1 dens articulation. Moderate to advanced disc/endplate degenerative change C5-C6. Multilevel hypertrophic facet and uncovertebral joint arthropathy, left more so than the right. Overall alignment is maintained. No acute fracture seen of the cervical spine. Likely mild spinal canal narrowing C5-C6 from disc osteophyte complex. Variable mild foraminal stenoses, more moderate on the left at C4-C5 and on both sides at C5-C6. Mode rate on the right at C6-C7. Sagittal and coronal reformatted images confirm above findings. COMBINED IMPRESSION: 1. Similar mild generalized cerebral atrophy. No acute intracranial abnormality seen. 2. No acute fracture or malalignment of the cervical spine. Moderate spondylotic change.
--- NOTE | 2022-05-28 12:30 | XR ---
EXAMINATION TYPE: XR chest 2V DATE OF EXAM: 05/28/2022 COMPARISON: 04/27/2022 TECHNIQUE: PA and lateral views submitted. HISTORY: Chest pain FINDINGS: Cardiac device seen with bilateral subsegmental consolidation. Arthropathy of the shoulders. No pleur al effusion or pneumothorax. Coarsened interstitium with degenerative changes. Correlate for mild MULTIPLE CUT OFF SAW OPERATOR D. IMPRESSION: 1. Mildly coarsened interstitium could be on the basis of reduced inspiration correlate clinically to exclude a mild interstitial pneumonitis, bronchitis or venous congestion.
--- NOTE | 2022-05-28 13:06 | ED ---
General Adult HPI - General Chief complaint: Weakness Stated complaint: falls Time Seen by Provider: 05/28/22 10:40 Source: patient, family, RN notes reviewed, old records reviewed Mode of arrival: wheelchair Limitations: no limitations - History of Present Illness Initial comments: This is an 81-year-old male who presents emergency Department with a past medical history significant for lung cancer. According to the patient he fell this morning his head and he complains of a little right-sided neck pain. Patient has not any blood thinners. Patient states she does have a very mild headache. Patient states she's been falling more and more lately. Patient's significant other states that the patient has not been eating or drinking well and thinks he is dehydrated. Patient denies any chest pain palpitations difficulty breathing shortest breath per patient denies any fever chills or cough patient denies abdominal pain patient denies nausea vomiting diarrhea. 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 - Related Data Home Medications Medication Instructions Recorded Confirmed Simvastatin [Zocor] 80 mg PO HS 07/15/16 04/23/22 carvediloL [Coreg] 3.125 mg PO DAILY 07/15/16 04/23/22 traZODone HCL [Desyrel] 200 mg PO HS 07/15/16 04/23/22 Nitroglycerin Sl Tabs [Nitrostat] 0.4 mg SUBLINGUAL Q5M PRN 11/26/19 04/23/22 LORazepam [Ativan] 1 mg PO DAILY 04/18/20 04/23/22 Sertraline HCl [Zoloft] 50 mg PO DAILY 04/18/20 04/23/22 Acetaminophen Tab [Tylenol] 1,000 mg PO Q6HR PRN 03/11/22 04/23/22 Albuterol Nebulized [Ventolin 2.5 mg INHALATION RT-Q6H PRN 03/11/22 04/23/22 Nebulized] Mometasone/Formoterol [Dulera 200 1 puff INHALATION RT-BID 03/11/22 04/23/22 Mcg-5 Mcg Inhaler] Pantoprazole [Protonix] 40 mg PO BID 03/11/22 04/23/22 ondansetron HCL [Zofran] 8 mg PO Q6H PRN 03/11/22 04/23/22 LORazepam [Ativan] 2 mg PO HS 04/23/22 04/23/22 Previous Rx's Medication Instructions Recorded Cholecalciferol [Vitamin D3 (125 125 mcg PO DAILY tablet 03/14/22 Mcg = 5000 Iu)] Ciprofloxacin HCl [Cipro] 500 mg PO BID 3 Days #6 tab 05/01/22 Fluconazole [Diflucan] 100 mg PO DAILY #7 tab 05/01/22 HYDROcodone/APAP [[place] Elixir 15 ml PO Q6HR PRN #240 ml 05/01/22 7.5-325Mg/15Ml] Nystatin 100,000 Unit/ml Susp 500,000 unit PO QID #150 ml 05/01/22 [Mycostatin Oral Susp] dronabinoL [Marinol] 2.5 mg PO AC-BID #60 cap 05/01/22 Allergies Allergy/AdvReac Type Severity Reaction Status Date / Time No Known Allergies Allergy Verified 05/28/22 10:11 Review of Systems ROS Statement: Those systems with pertinent positive or pertinent negative responses have been documented in the HPI. ROS Other: All systems not noted in ROS Statement are negative. Past Medical History Past Medical History: Cancer, COPD, GERD/Reflux, Hearing Disorder / Deafness, Hyperlipidemia, Hypertension, Myocardial Infarction ([place]) Additional Past Medical History / Comment(s): Vitamin B-12 deficiency, neurop athy legs and feet, very [place], low blood sugar at times, low kidney function, lung cancer Last Myocardial Infarction Date:: 2005 History of Any Multi-Drug Resistant Organisms: None Reported Past Surgical History: Heart Catheterization With Stent, Orthopedic Surgery, Pacemaker Additional Past Surgical History / Comment(s): Right shoulder scope, left knee scope, cardiac stents X3, Pacemaker replaced. Past Anesthesia/Blood Transfusion Reactions: No Reported Reaction Date of Last Stent Placement:: 11/2005 Type of Cardiac Device: Permanent Pacemaker Device Placement Date:: 11/2005 Past Psychological History: Anxiety Smoking Status: Current some day smoker, Light tobacco smoker Past Alcohol Use History: Occasional Past Drug Use History: None Reported - Past Family History Sister(s) Family Medical History: Cancer Mother Family Medical History: No Reported History General Exam - General Exam Comments Initial Comments: GENERAL: Patient is well-developed and well-nourished. Patient is nontoxic and well- hydrated and is in no acute distress. ENT: Neck is soft and supple. No significant lymphadenopathy is noted. Oropharynx is clear. Moist mucous membranes. Neck has full range of motion without eliciting any pain. EYES: The sclera were anicteric and conjunctiva were pink and moist. Extraocular movements were intact and pupils were equal round and reactive to light. Eyelids were unremarkable. PULMONARY: Unlabored respirations. Good breath sounds bilaterally. No audible rales rhonchi or wheezing was noted. CARDIOVASCULAR: There is a regular rate and rhythm without any murmurs gallops or rubs. ABDOMEN: Soft and nontender with normal bowel sounds. SKIN: Skin is clear with no lesions or rashes and otherwise unremarkable. NEUROLOGIC: Patient is alert and oriented x3. Cranial nerves II through XII are grossly intact. Motor and sensory are also intact. MUSCULOSKELETAL: Normal extremities with adequate strength and full range of motion. LYMPHATICS: No significant lymphadenopathy is noted PSYCHIATRIC: Normal psychiatric evaluation. Limitations: no limitations Course Vital Signs 05/28/22 05/28/22 05/28/22 10:08 11:48 13:16 Temperature 97.6 F 98.0 F Pulse Rate 90 Pulse Rate [ 85 76 Sitting] Pulse Rate [ 94 86 Standing] Pulse Rate [ 78 77 Supine] Respiratory 18 16 18 Rate Blood Pressure 95/63 Blood Pressure 79/54 115/62 [Left Arm Sitting] Blood Pressure 78/46 87/58 [Left Arm Standing] Blood Pressure 99/62 133/58 [Left Arm Supine] O2 Sat by Pulse 97 92 L Oximetry Medical Decision Making - Medical Decision Making Patient was orthostatic positive. Patient received a liter of fluid Patient remained orthostatic but improved slightly ordered another liter of fluid. Patient remained asymptomatic. I remove the foreign body out of his right ear which is part of his hearing aid CT of the brain and C-spine showed no acute abnormality. Chest x-ray shows no acute abnormality. After second liter of fluid patient remained orthostatic. I spoke with oncology and they wanted the patient admitted if he remained orthostatic. Patient did receive 2 g of magnesium - Lab Data Result diagrams: 05/28/22 11:32 05/28/22 11:32 Lab Results 05/28/22 05/28/22 05/28/22 Range/Units 11:32 11:32 11:32 WBC 2.4 L (3.8-10.6) k/uL RBC 2.97 L (4.30-5.90) m/uL Hgb 10.9 L D (13.0-17.5) gm/dL Hct 30.9 L (39.0-53.0) % MCV 104.2 H (80.0-100.0) fL MCH 36.7 H (25.0-35.0) pg MCHC 35.2 (31.0-37.0) g/dL RDW 17.3 H (11.5-15.5) % Plt Count 63 L D (150-450) k/uL MPV 10.0 Neutrophils % 70 % Lymphocytes % 10 % Monocytes % 14 % Eosinophils % 1 % Basophils % 1 % Neutrophils # 1.7 (1.3-7.7) k/uL Lymphocytes # 0.2 L (1.0-4.8) k/uL Monocytes # 0.3 (0-1.0) k/uL Eosinophils # 0.0 (0-0.7) k/uL Basophils # 0.0 (0-0.2) k/uL Manual Slide Review Performed Polychromasia Present Poikilocytosis Moderate Anisocytosis Slight Macrocytosis Moderate PT 11.4 (9.0-12.0) sec INR 1.1 (<1.2) APTT 24.2 (22.0-30.0) sec Sodium 138 (137-145) mmol/L Potassium 3.6 (3.5-5.1) mmol/L Chloride 104 (98-107) mmol/L Carbon Dioxide 29 (22-30) mmol/L Anion Gap 5 mmol/L BUN 8 L (9-20) mg/dL Creatinine 1.29 H (0.66-1.25) mg/dL Est GFR (CKD-EPI)AfAm 59 (>60 ml/min/1.73 sqM) Est GFR (CKD-EPI)NonAf 51 (>60 ml/min/1.73 sqM) Glucose 107 H (74-99) mg/dL Calcium 8.8 (8.4-10.2) mg/dL Magnesium 1.4 L (1.6-2.3) mg/dL Total Bilirubin 1.0 (0.2-1.3) mg/dL AST 21 (17-59) U/L ALT 15 (4-49) U/L Alkaline Phosphatase 85 (38-126) U/L Troponin I (0.000-0.034) ng/mL Total Protein 5.7 L (6.3-8.2) g/dL Albumin 3.3 L (3.5-5.0) g/dL 05/28/22 Range/Units 11:32 WBC (3.8-10.6) k/uL RBC (4.30-5.90) m/uL Hgb (13.0-17.5) gm/dL Hct (39.0-53.0) % MCV (80.0-100.0) fL MCH (25.0-35.0) pg MCHC (31.0-37.0) g/dL RDW (11.5-15.5) % Plt Count (150-450) k/uL MPV Neutrophils % % Lymphocytes % % Monocytes % % Eosinophils % % Basophils % % Neutrophils # (1.3-7.7) k/uL Lymphocytes # (1.0-4.8) k/uL Monocytes # (0-1.0) k/uL Eosinophils # (0-0.7) k/uL Basophils # (0-0.2) k/uL Manual Slide Review Polychromasia Poikilocytosis Anisocytosis Macrocytosis PT (9.0-12.0) sec INR (<1.2) APTT (22.0-30.0) sec Sodium (137-145) mmol/L Potassium (3.5-5.1) mmol/L Chloride (98-107) mmol/L Carbon Dioxide (22-30) mmol/L Anion Gap mmol/L BUN (9-20) mg/dL Creatinine (0.66-1.25) mg/dL Est GFR (CKD-EPI)AfAm (>60 ml/min/1.73 sqM) Est GFR (CKD-EPI)NonAf (>60 ml/min/1.73 sqM) Glucose (74-99) mg/dL Calcium (8.4-10.2) mg/dL Magnesium (1.6-2.3) mg/dL Total Bilirubin (0.2-1.3) mg/dL AST (17-59) U/L ALT (4-49) U/L Alkaline Phosphatase (38-126) U/L Troponin I 0.012 (0.000-0.034) ng/mL Total Protein (6.3-8.2) g/dL Albumin (3.5-5.0) g/dL Disposition Clinical Impression: Foreign body in ear, Fall, Orthostatic hypotension, Hypomagnesemia Disposition: ADMITTED IP TO THIS HOSP Referrals: Komal Preciado MD [Primary Care Provider] - 1-2 days Time of Disposition: 15:35
[2022-05-28] MEDS ORDERED: SODIUM CHLORIDE 0.9% 1,000 ML IV ONE ×2 (13:16→15:35)
[2022-05-28] MEDS ORDERED: SODIUM CHLORIDE 0.9% 1,000 ML IV STA (13:23)
[2022-05-28] MEDS: MAGNESIUM SULFATE-D5W PMX 1 GM in DEXTROSE/WATER 1 100ML.BAG IVPB SCH ×2 (13:58→15:42)
[2022-05-28] MEDS ORDERED: IPRATROPIUM-ALBUTEROL 3 ML NEB INHALATION PRN (16:19)
[2022-05-28] MEDS ORDERED: MORPHINE SULFATE 2 MG/ML SYRINGE IVP PRN (16:25)
--- NOTE | 2022-05-28 16:29 | P.HPIM ---
History of Present Illness H&P Date: 05/28/22 Chief Complaint: CC: Multiple falls Patient is a 81-year-old male with a past medical history of lung cancer who just finished chemotherapy and radiation about 2 weeks ago, COPD, hypertension, coronary artery disease status post stents who presented to the ED with a fall and hitting his head. Per at bedside patient has been falling multiple times over the past 2 weeks. They had an appointment with his oncologist last week who told them to bring the patient to the ED if he falls again. In the ED patient was found to be orthostatic positive. He was given about 2 L of fluid and remained orthostatic positive so oncology recommended to admit the patient. Patient also reports that he has been having dysphagia whenever he eats. He feels as if the food is getting stuck in the middle of his chest. On computed tomography scan from 04/25/2022 shows increased density breath, possibly adenopathy versus esophageal mass. Review of Systems 10 ROS reviewed and are negative except as noted in HPI Past Medical History Past Medical History: Cancer, COPD, GERD/Reflux, Hearing Disorder / Deafness, Hyperlipidemia, Hypertension, Myocardial Infarction ([place]) Additional Past Medical History / Comment(s): Vitamin B-12 deficiency, neuropathy legs and feet, very [place], low blood sugar at times, low kidney function, lung cancer Last Myocardial Infarction Date:: 2005 History of Any Multi-Drug Resistant Organisms: None Reported Past Surgical History: Heart Catheterization With Stent, Orthopedic Surgery, Pacemaker Additional Past Surgical History / Comment(s): Right shoulder scope, left knee scope, cardiac stents X3, Pacemaker replaced. Past Anesthesia/Blood Transfusion Reactions: No Reported Reaction Date of Last Stent Placement:: 11/2005 Type of Cardiac Device: Permanent Pacemaker Device Placement Date:: 11/2005 Past Psychological History: Anxiety Smoking Status: Current some day smoker, Light tobacco smoker Past Alcohol Use History: Occasional Past Drug Use History: None Reported - Past Family History Sister(s) Family Medical History: Cancer Mother Family Medical History: No Reported History Medications and Allergies Home Medications Medication Instructions Recorded Confirmed Type Simvastatin [Zocor] 80 mg PO HS 07/15/16 04/23/22 History carvediloL [Coreg] 3.125 mg PO DAILY 07/15/16 04/23/22 History traZODone HCL [Desyrel] 200 mg PO HS 07/15/16 04/23/22 History Nitroglycerin Sl Tabs [Nitrostat] 0.4 mg SUBLINGUAL Q5M PRN 11/26/19 04/23/22 History LORazepam [Ativan] 1 mg PO DAILY 04/18/20 04/23/22 History Sertraline HCl [Zoloft] 50 mg PO DAILY 04/18/20 04/23/22 History Acetaminophen Tab [Tylenol] 1,000 mg PO Q6HR PRN 03/11/22 04/23/22 History Albuterol Nebulized [Ventolin 2.5 mg INHALATION RT-Q6H PRN 03/11/22 04/23/22 History Nebulized] Mometasone/Formoterol [Dulera 200 1 puff INHALATION RT-BID 03/11/22 04/23/22 History Mcg-5 Mcg Inhaler] Pantoprazole [Protonix] 40 mg PO BID 03/11/22 04/23/22 History ondansetron HCL [Zofran] 8 mg PO Q6H PRN 03/11/22 04/23/22 History Cholecalciferol [Vitamin D3 (125 125 mcg PO DAILY tablet 03/14/22 04/23/22 Rx Mcg = 5000 Iu)] LORazepam [Ativan] 2 mg PO HS 04/23/22 04/23/22 History Ciprofloxacin HCl [Cipro] 500 mg PO BID 3 Days #6 tab 05/01/22 Rx Fluconazole [Diflucan] 100 mg PO DAILY #7 tab 05/01/22 Rx HYDROcodone/APAP [[place] Elixir 15 ml PO Q6HR PRN #240 ml 05/01/22 Rx 7.5-325Mg/15Ml] Nystatin 100,000 Unit/ml Susp 500,000 unit PO QID #150 ml 05/01/22 Rx [Mycostatin Oral Susp] dronabinoL [Marinol] 2.5 mg PO AC-BID #60 cap 05/01/22 Rx Allergies Allergy/AdvReac Type Severity Reaction Status Date / Time No Known Allergies Allergy Verified 05/28/22 10:11 Physical Exam Osteopathic Statement: *. No significant issues noted on an osteopathic structural exam other than those noted in the History and Physical/Consult. Vitals: Vital Signs Temp Pulse Pulse Pulse Pulse Resp BP 05/28/22 13:16 98.0 F 76 86 77 18 05/28/22 11:48 85 94 78 16 05/28/22 10:08 97.6 F 90 18 95/63 BP BP BP Pulse Ox 05/28/22 13:16 115/62 87/58 133/58 05/28/22 11:48 79/54 78/46 99/62 92 L 05/28/22 10:08 97 Intake and Output 05/28/22 05/28/22 05/28/22 06:59 14:59 22:59 Other: Weight 78.018 kg General: [Alert and oriented, appears chronically debilitated, no acute distress]. Eye: [PERRL, EOMI, normal conjunctiva]. HENT: [Normocephalic, clear tympanic membranes, hard of hearing, dry oral mucosa, no scleral icterus, no sinus tenderness]. Neck: [Supple, non-tender, no carotid bruits, no JVD, no lymphadenopathy]. Lungs: [Diminished but does bilaterally, non-labored respiration]. Heart: [Normal rate, regular rhythm, no murmur, gallop or edema]. Abdomen: [Soft, non-tender, non-distended, normal bowel sounds, no masses]. Musculoskeletal: [Normal range of motion and strength, no tenderness or swelling]. Skin: [Skin is warm, dry and pink, no rashes or lesions]. Neurologic: [Awake, alert, and oriented X3, CN II-XII intact]. Psychiatric: [Cooperative, appropriate mood and affect]. Results CBC & Chem 7: 05/28/22 11:32 05/28/22 11:32 Labs: Abnormal Lab Results - Last 24 Hours (Table) 05/28/22 05/28/22 Range/Units 11:32 11:32 WBC 2.4 L (3.8-10.6) k/uL RBC 2.97 L (4.30-5.90) m/uL Hgb 10.9 L D (13.0-17.5) gm/dL Hct 30.9 L (39.0-53.0) % MCV 104.2 H (80.0-100.0) fL MCH 36.7 H (25.0-35.0) pg RDW 17.3 H (11.5-15.5) % Plt Count 63 L D (150-450) k/uL Lymphocytes # 0.2 L (1.0-4.8) k/uL BUN 8 L (9-20) mg/dL Creatinine 1.29 H (0.66-1.25) mg/dL Glucose 107 H (74-99) mg/dL Magnesium 1.4 L (1.6-2.3) mg/dL Total Protein 5.7 L (6.3-8.2) g/dL Albumin 3.3 L (3.5-5.0) g/dL Assessment and Plan Assessment: #Multiple falls likely due to dizziness from orthostatic hypertension versus deconditioning due to his lung cancer and chemotherapy -PT OT consult -CT head negative for acute bleed #Orthostatic hypotension -Resume aggressive IV fluids -Check orthostatics every shift -Hold BP meds #Lung cancer status post chemotherapy and radiation completed 2 weeks ago #Odynophagia likely due to mass compressing esophagus -Oncology consult -We'll defer PEG tube to oncology #Pancytopenia secondary to chemotherapy -Appears to be improving from previous labs #COPD -Stable -DuoNeb when necessary #Coronary artery disease -Per at bedside patient was taken off of antiplatelets many years ago. She states that he had stents put in many years ago. CODE STATUS:DNR/DNI DPOA: DVT prophylaxis: mechanical. Avoid anticoagulation due to thrombocytopenia Discussed with: Patient, ER, rn Anticipated length of stay > than [address]: home versus snf facility A total of 50 minutes was spent on the care of this complex patient more than 50% of the time was spent in counseling and care coordination.
[2022-05-28] MEDS: SODIUM CHLORIDE 0.9% 1,000 ML IV SCH (23:30)
[2022-05-29] MEDS: SODIUM CHLORIDE 0.9% 1,000 ML IV SCH ×3 (01:22→20:02)
[2022-05-29 09:15] LABS: African American GFR (CKD) 72.1 (60.0-200.0); Anion Gap 11.7 mmol/L (10.00-18.00); BUN/Creat Ratio 5.09 Ratio (12.00-20.00); Blood Urea Nitrogen 5.6 mg/dL (9.0-27.0); Calcium 8.3 mg/dL (8.7-10.3); Carbon Dioxide 23.3 mmol/L (20.0-27.5); Magnesium 1.7 mg/dL (1.5-2.4); Non-African American GFR(CKD) 62.2 (60.0-200.0); Potassium 3.5 mmol/L (3.5-5.5)
[2022-05-29 09:45] LABS: HCT 27.5 % (39.6-50.0); HGB 8.9 g/dL (13.0-17.0); MCH 34.6 pg (27.0-32.0); MCHC 32.4 g/dL (32.0-37.0); Mean Platelet Volume 12.3 fL (9.5-12.2); NRBC Per 100 WBC 0 /100 WBCS (0.0-0.0); Platelet Count 65 X 10*3/uL (140-440); RBC 2.57 X 10*6/uL (4.40-5.60); RDW 17.9 % (11.5-14.5); WBC 3.37 X 10*3/uL (4.50-10.00)
[2022-05-29] MEDS ORDERED: ALBUTEROL NEBULIZED 2.5 MG/3 ML INHALATION PRN (10:15)
--- NOTE | 2022-05-29 10:19 | P.PN ---
Subjective Progress Note Date: 05/29/22 Principal diagnosis: Multiple falls at home Patient states that he feels good this morning. He is denying any weakness. I told patient that if he is able to drink up to 5 cups of water today to make an discharge him tomorrow. Objective - Vital Signs Vital signs: Vital Signs Temp 98.8 F 05/29/22 02:00 Pulse 71 05/29/22 02:00 Resp 16 05/29/22 02:00 BP 124/64 05/29/22 02:00 Pulse Ox 92 L 05/29/22 02:00 FiO2 Intake & Output 05/28/22 05/29/22 05/29/22 18:59 06:59 18:59 Weight 78.018 kg 78.018 kg Other: Voiding Method Urinal # Voids 3 - Exam General examination - Alert and Oriented 3 in NAD, appears chronically debilitated Heart - + S1S2 no murmurs Lungs - Clear to auscultation Abdomen soft NT ND +ve BS Extremities - No edema [employer] - Moving all 4 extremities spontaneously Psych - Calm and cooperative - Labs CBC & Chem 7: 05/29/22 05:51 05/29/22 05:51 Labs: Abnormal Lab Results - Last 24 Hours (Table) 05/28/22 05/28/22 05/29/22 Range/Units 11:32 11:32 05:51 WBC 2.4 L 3.37 L (3.8-10.6) k/uL RBC 2.97 L 2.57 L (4.30-5.90) m/uL Hgb 10.9 L D 8.9 L (13.0-17.5) gm/dL Hct 30.9 L 27.5 L (39.0-53.0) % MCV 104.2 H 107.0 H (80.0-100.0) fL MCH 36.7 H 34.6 H (25.0-35.0) pg RDW 17.3 H 17.9 H (11.5-15.5) % Plt Count 63 L D 65 L (150-450) k/uL MPV 12.3 H (9.5-12.2) fL Lymphocytes # 0.2 L (1.0-4.8) k/uL BUN 8 L (9-20) mg/dL Creatinine 1.29 H (0.66-1.25) mg/dL BUN/Creatinine Ratio (12.00-20.00) Ratio Glucose 107 H (74-99) mg/dL Calcium (8.7-10.3) mg/dL Magnesium 1.4 L (1.6-2.3) mg/dL Total Protein 5.7 L (6.3-8.2) g/dL Albumin 3.3 L (3.5-5.0) g/dL 05/29/22 Range/Units 05:51 WBC (3.8-10.6) k/uL RBC (4.30-5.90) m/uL Hgb (13.0-17.5) gm/dL Hct (39.0-53.0) % MCV (80.0-100.0) fL MCH (25.0-35.0) pg RDW (11.5-15.5) % Plt Count (150-450) k/uL MPV (9.5-12.2) fL Lymphocytes # (1.0-4.8) k/uL BUN 5.6 L (9-20) mg/dL Creatinine (0.66-1.25) mg/dL BUN/Creatinine Ratio 5.09 L (12.00-20.00) Ratio Glucose (74-99) mg/dL Calcium 8.3 L (8.7-10.3) mg/dL Magnesium (1.6-2.3) mg/dL Total Protein (6.3-8.2) g/dL Albumin (3.5-5.0) g/dL Assessment and Plan Assessment: #Multiple falls likely due to dizziness from orthostatic hypertension versus de conditioning due to his lung cancer and chemotherapy versus polypharmacy -PT OT consult -CT head negative for acute bleed -Patient is denying any anxiety or pain so discontinue all sedating medications that he was taking at home which include Ativan, [place], trazodone #Orthostatic hypotension -We'll decrease IV fluids and encourage oral intake -Patient's this morning is orthostatic positive however improving -Hold BP meds #Lung cancer status post chemotherapy and radiation completed 2 weeks ago #Odynophagia likely due to mass compressing esophagus -Oncology consult -The patient able to drink adequately then PEG tube can be placed outpatient. #Pancytopenia secondary to chemotherapy -CBC this morning is stable #COPD -Stable -DuoNeb when necessary #Coronary artery disease -Per at bedside patient was taken off of antiplatelets many years ago. She states that he had stents put in many years ago. CODE STATUS:DNR/DNI DPOA: DVT prophylaxis: mechanical. Avoid anticoagulation due to thrombocytopenia Discussed with: Patient, ER, rn Anticipated length of stay: The patient able to tolerate oral intake and orthostatics improved by tomorrow we'll plan on discharge Anticipated discharge place: home versus detention facility .
[2022-05-29 10:27] LABS: Basophils # (A) 0.06 X 10*3/uL (0.00-0.10); Basophils % (A) 1.8 %; Eosinophils # (A) 0.03 X 10*3/uL (0.04-0.35); Eosinophils % (A) 0.9 %; Immature Grans, Automated 1.8 %; Immature Platelet Fraction 7.2 % (1.1-6.1); Lymphocytes # (A) 0.34 X 10*3/uL (0.90-5.00); Lymphocytes % (A) 10.1 %; Monocytes # (A) 0.55 X 10*3/uL (0.20-1.00); Monocytes % (A) 16.3 %; Neutrophils # (A) 2.33 X 10*3/uL (1.80-7.70); Neutrophils % (A) 69.1 %; Rouleaux PRESENT
[2022-05-29 11:07] VITALS: BMI 26.1
[2022-05-29] MEDS: LEVOFLOXACIN 500 MG TAB PO SCH (11:40)
[2022-05-29] MEDS: CHOLECALCIFEROL 125 MCG (5000 IU) TABLET PO SCH (11:40)
--- NOTE | 2022-05-29 15:49 | P.CONS ---
History of Present Illness - Reason for Consult Consult date: 05/29/22 Lung cancer, orthostatic hypotension Requesting physician: Valentina Lopez - Chief Complaint Fall - History of Present Illness Patient is a very pleasant 81-year-old male with a history of lung cancer, status post chemotherapy with radiation that he finished 2 weeks ago who is here for fall and orthostatics. He did have head injury. Also has been having dysphagia and odynophagia. CT of the head was negative. Chest x-ray overall unremarkable. Blood work on presentation revealed WBC 2.4, hemoglobin 10.9, platelets 63, creatinine 1.29, MCV 104. Repeat labs from today after hydration with WBC 3.3, hemoglobin 8.9, platelets 65, creatinine 1.1. He was found to have orthostatic hypotension. He has had decreased oral intake due to his odynophagia and dysphasia, with food getting stuck in the middle of the chest. oncologic history: presented with peristent cough and dyspnea of about 2 months duration,CT scan of chest done in 12/2021 revealed LLL lung nodule and evidence of mediastinal and hilar nodes,subcarinal mass up to 4.3 cm,PET scan on 02/05/2022 revealed suspicious uptake in LLL mass (1.8cm),uptake in mediastinal,right hilar nodes. EBUS done on 02/04/2022,biopsy of mediastinal node was positive for small cell lung cancer. On 02/24/2022,brain CT scan was negative (could not have MRI). On 02/24/2022,he started carboplatin/etoposide. The plan to add concurrent radiation therapy with cycle#2 He developed neutropenic fever,required short hospital stay,fully recovered. He has exertional dyspnea ,his cough is better,,no hemoptysis,however,his nightmares resolved since he stopped the cough medicine [facility] codein. 04/22/22-patient is here today for follow-up. He is status post 3 cycles of carbo ho-chunk and etoposide for small cell lung cancer. He did require G-CSF with the last cycle for very low neutrophil count. He is unable to get stop because of concurrent radiation. Granddaughter is noticed in last 2 weeks patient has fallen, 3 tmes, not tripped over anything, no syncope or loss of consciousness, his legs get weak, he denies headaches, unilateral deficits, numbness or tingling. He also had one day where he had some diarrhea and some vomiting but that resolved pretty spontaneously stopped okay ever since. No other complaints on a 10 point review of systems. SUKI Brown had seen and assed patient in office on 04/22: Grade 3 neutropenia-ANC 314, grade 2 thrombocytopenia-platelets 47,000, grade 1 anemia-hemoglobin 11.1 CSF has been ordered. Will be given in the office for 2 days. Have sent a prescription so that patient can complete a course of therapy at home-pending co-pay verification CT of the head has been ordered for follow-up on patient falling several times in the last 2 weeks. He is unable to have an MRI due to pacemaker. Reviewed safety precautions with the patient. At this time he had no symptoms and afebrile hospitalized in 03/2022 for febrile neutropenia. Discharged and completed chemoRT in mid 04/2022. Review of Systems All systems: negative Constitutional: Reports as per HPI Past Medical History Past Medical History: Cancer, COPD, GERD/Reflux, Hearing Disorder / Deafness, Hyperlipidemia, Hypertension, Myocardial Infarction ([place]) Additional Past Medical History / Comment(s): Vitamin B-12 deficiency, neuropathy legs and feet, very [place], low blood sugar at times, low kidney function, lung cancer Last Myocardial Infarction Date:: 2005 History of Any Multi-Drug Resistant Organisms: None Reported Past Surgical History: Heart Catheterization With Stent, Orthopedic Surgery, Pacemaker Additional Past Surgical History / Comment(s): Right shoulder scope, left knee scope, cardiac stents X3, Pacemaker replaced. Past Anesthesia/Blood Transfusion Reactions: No Reported Reaction Date of Last Stent Placement:: 11/2005 Type of Cardiac Device: Permanent Pacemaker Device Placement Date:: 11/2005 Past Psychological History: Anxiety Smoking Status: Current some day smoker, Light tobacco smoker Past Alcohol Use History: Occasional Additional Past Alcohol Use History / Comment(s): Smokes a cigar every once in awhile, none since . Past Drug Use History: None Reported - Past Family History Sister(s) Family Medical History: Cancer Mother Family Medical History: No Reported History Medications and Allergies Home Medications Medication Instructions Recorded Confirmed Type Simvastatin [Zocor] 80 mg PO HS 07/15/16 05/28/22 History carvediloL [Coreg] 3.125 mg PO DAILY 07/15/16 05/28/22 History traZODone HCL [Desyrel] 200 mg PO HS 07/15/16 05/28/22 History Nitroglycerin Sl Tabs [Nitrostat] 0.4 mg SL Q5M PRN 11/26/19 05/28/22 History LORazepam [Ativan] 1 mg PO DAILY 04/18/20 05/28/22 History Sertraline HCl [Zoloft] 50 mg PO DAILY 04/18/20 05/28/22 History Acetaminophen Tab [Tylenol] 1,000 mg PO Q6HR PRN 03/11/22 05/28/22 History Albuterol Nebulized [Ventolin 2.5 mg INHALATION RT-Q6H PRN 03/11/22 05/28/22 History Nebulized] Mometasone/Formoterol [Dulera 200 1 puff INHALATION RT-BID 03/11/22 05/28/22 History Mcg-5 Mcg Inhaler] Pantoprazole [Protonix] 40 mg PO BID 03/11/22 05/28/22 History ondansetron HCL [Zofran] 8 mg PO Q6H PRN 03/11/22 05/28/22 History Cholecalciferol [Vitamin D3 (125 125 mcg PO DAILY tablet 03/14/22 05/28/22 Rx Mcg = 5000 Iu)] LORazepam [Ativan] 2 mg PO HS 04/23/22 05/28/22 History dronabinoL [Marinol] 2.5 mg PO AC-BID #60 cap 05/01/22 05/28/22 Rx HYDROcodone/APAP [[place] Elixir 15 ml PO Q4H PRN 05/28/22 05/28/22 History 7.5-325Mg/15Ml] Levofloxacin [Levaquin] 500 mg PO DAILY 05/28/22 05/28/22 History Allergies Allergy/AdvReac Type Severity Reaction Status Date / Time No Known Allergies Allergy Verified 05/28/22 10:11 Physical Exam Vitals: Vital Signs Temp Pulse Pulse Pulse Pulse Resp BP 05/29/22 02:00 98.8 F 74 81 71 16 05/28/22 21:33 97.8 F 72 16 05/28/22 20:19 97.8 F 82 20 110/50 05/28/22 19:00 80 20 126/52 05/28/22 18:00 97.6 F 84 20 115/56 05/28/22 16:00 97.8 F 79 18 112/60 05/28/22 13:16 98.0 F 76 86 77 18 05/28/22 11:48 85 94 78 16 BP BP BP Pulse Ox 05/29/22 02:00 115/62 96/56 124/64 92 L 05/28/22 21:33 161/63 92 L 05/28/22 20:19 05/28/22 19:00 97 05/28/22 18:00 96 05/28/22 16:00 95 05/28/22 13:16 115/62 87/58 133/58 05/28/22 11:48 79/54 78/46 99/62 92 L Intake and Output 05/28/22 05/29/22 05/29/22 22:59 06:59 14:59 Other: Voiding Method Urinal # Voids 3 Weight 78.018 kg 78.018 kg Gen.: No acute distress. HEENT: Mild conjunctival pallor but no scleral icterus. Mucosa moist. Neck: Supple Lungs: No respiratory distress. Heart: Regular rate. Abdomen: Soft. MSK: Appropriate strength in all 4 extremities. Neuro: Alert and oriented 3. Psych: Appropriate affect. Skin: No jaundice. Results CBC & Chem 7: 05/29/22 05:51 05/29/22 05:51 Labs: Abnormal Lab Results - Last 24 Hours (Table) 05/28/22 05/28/22 05/29/22 Range/Units 11:32 11:32 05:51 WBC 2.4 L 3.37 L (3.8-10.6) k/uL RBC 2.97 L 2.57 L (4.30-5.90) m/uL Hgb 10.9 L D 8.9 L (13.0-17.5) gm/dL Hct 30.9 L 27.5 L (39.0-53.0) % MCV 104.2 H 107.0 H (80.0-100.0) fL MCH 36.7 H 34.6 H (25.0-35.0) pg RDW 17.3 H 17.9 H (11.5-15.5) % Plt Count 63 L D 65 L (150-450) k/uL Plt Count Comment DECREASED A MPV 12.3 H (9.5-12.2) fL Immature Gran # 0.06 H (0.00-0.04) X 10*3/uL Lymphocytes # 0.2 L 0.34 L (1.0-4.8) k/uL Eosinophils # 0.03 L (0.04-0.35) X 10*3/uL Immature Plt Fraction 7.2 H (1.1-6.1) % BUN 8 L (9-20) mg/dL Creatinine 1.29 H (0.66-1.25) mg/dL BUN/Creatinine Ratio (12.00-20.00) Ratio Glucose 107 H (74-99) mg/dL Calcium (8.7-10.3) mg/dL Magnesium 1.4 L (1.6-2.3) mg/dL Total Protein 5.7 L (6.3-8.2) g/dL Albumin 3.3 L (3.5-5.0) g/dL 05/29/22 Range/Units 05:51 WBC (3.8-10.6) k/uL RBC (4.30-5.90) m/uL Hgb (13.0-17.5) gm/dL Hct (39.0-53.0) % MCV (80.0-100.0) fL MCH (25.0-35.0) pg RDW (11.5-15.5) % Plt Count (150-450) k/uL Plt Count Comment MPV (9.5-12.2) fL Immature Gran # (0.00-0.04) X 10*3/uL Lymphocytes # (1.0-4.8) k/uL Eosinophils # (0.04-0.35) X 10*3/uL Immature Plt Fraction (1.1-6.1) % BUN 5.6 L (9-20) mg/dL Creatinine (0.66-1.25) mg/dL BUN/Creatinine Ratio 5.09 L (12.00-20.00) Ratio Glucose (74-99) mg/dL Calcium 8.3 L (8.7-10.3) mg/dL Magnesium (1.6-2.3) mg/dL Total Protein (6.3-8.2) g/dL Albumin (3.5-5.0) g/dL Chest x-ray: report reviewed CT Scan - head: report reviewed Assessment and Plan Assessment: 1. Orthostatic hypotension due to dehydration 2. 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 Small cell lung cancer, limited stage, s/p chemoRT completed 2 weeks ago 4. Pancytopenia due to chemotherapy 5. WANDA due to dehydration Plan: Mr. Fierro is a very pleasant 81-year-old gentleman with history of lung cancer status post chemo RT 2 weeks ago who is here for recurrent falls due to dehydration. He's been having dysphasia with food getting stuck. Likely I suspect this is from radiation esophagitis. Will need supportive care. He could also have isauro esophagitis due to immunosuppression, however no oral thrush and using nystatin swish and swallow. Continue magic mouth wash swish and swallow, and mainly liquid diet for now. He is on PPI, will add carafate. He would benefit from GI evaluation for this if persistent. As for his orthostatic hypotension, likely due to dehydration. Agree with hydrating him. His cytopenias are due to recent chemotherapy. Plan on supportive transfusion. We'll rule out vitamin deficiencies with B12, folate, and iron panel as well. Continue supportive care. His symptoms should improve over the next 2-3 weeks as he recovers from chemotherapy and radiation. Discussed with patient and his daughter at bedside and they are agreeable to the plan. All of their questions were answered. I did reassure them that I suspect this is mostly related to his treatment and is not uncommon with chest irradiation, and that is should continue to slowly improve over the next couple weeks.
[2022-05-29] MEDS: SUCRALFATE 1 GM TAB PO SCH (17:57)
[2022-05-29] MEDS: PANTOPRAZOLE 40 MG TABLET PO SCH (20:01)
[2022-05-29] MEDS: SYMBICORT 160-4.5 MCG INHALER INHALATION SCH (20:45)
[2022-05-29] MEDS ORDERED: ATORVASTATIN 40 MG TAB PO SCH (21:00)
[2022-05-30 03:27] VITALS: PULSE 84; RESP 18
[2022-05-30 06:32] LABS: Anisocytosis Slight; Basophils % (A) 0 %; Eosinophils % (A) 1 %; HCT 27.8 % (39.0-53.0); HGB 9.4 gm/dL (13.0-17.5); Hypochromasia Slight; Lymphocytes # (A) 0.2 k/uL (1.0-4.8); Lymphocytes % (A) 7 %; MCH 36.2 pg (25.0-35.0); MCHC 33.8 g/dL (31.0-37.0); MCV 107.2 fL (80.0-100.0); Macrocytosis Marked; Mean Platelet Volume 10.1; Monocytes # (A) 0.4 k/uL (0-1.0); Monocytes % (A) 11 %; Neutrophils # (A) 2.9 k/uL (1.3-7.7); Neutrophils % (A) 78 %; Poikilocytosis Moderate; RBC 2.59 m/uL (4.30-5.90); RDW 17.6 % (11.5-15.5); WBC 3.7 k/uL (3.8-10.6)
[2022-05-30 06:33] LABS: Platelet Count 71 k/uL (150-450)
[2022-05-30 07:00] LABS: Anisocytosis (M) Present; Polychromasia Present
[2022-05-30] MEDS: SYMBICORT 160-4.5 MCG INHALER INHALATION SCH (07:26)
[2022-05-30] MEDS: LEVOFLOXACIN 500 MG TAB PO SCH (08:53)
[2022-05-30] MEDS: SUCRALFATE 1 GM TAB PO SCH ×2 (08:53→13:57)
[2022-05-30] MEDS: CHOLECALCIFEROL 125 MCG (5000 IU) TABLET PO SCH (08:53)
[2022-05-30] MEDS: PANTOPRAZOLE 40 MG TABLET PO SCH (08:53)
[2022-05-30] MEDS ORDERED: SERTRALINE 50 MG TAB PO SCH (09:00)
[2022-05-30] MEDS: SODIUM CHLORIDE 0.9% 1,000 ML IV SCH (11:03)
[2022-05-30 12:02] VITALS: BP 151/64; TEMP 98.2
--- NOTE | 2022-05-30 12:36 | P.DS ---
Providers Date of admission: 05/28/22 15:35 Expected date of discharge: 05/30/22 Attending physician: Valentina Lopez MD Consults: 05/28/22 15:35 Consult Physician Urgent Consulting Provider: Christa Newell Consult Reason/Comments: History of lung cancer, orthostatic hypotension Do you want consulting provider notified?: Yes Primary care physician: Komal Preciado MD Hospital Course: Discharge Diagnosis: #Multiple falls likely due to dizziness from orthostatic hypertension versus deconditioning due to his lung cancer and chemotherapy #Orthostatic hypotension #Lung cancer status post chemotherapy and radiation completed 2 weeks ago #Odynophagia likely due to radiation #Pancytopenia secondary to chemotherapy #COPD #Coronary artery disease Hospital Course: Patient is a 81-year-old male with a past medical history of lung cancer who just finished chemotherapy and radiation about 2 weeks ago, COPD, hypertension, coronary artery disease status post stents who presented to the ED with a fall and hitting his head. Per at bedside patient has been falling multiple times over the past 2 weeks. They had an appointment with his oncologist last week who told them to bring the patient to the ED if he falls again. In the ED patient was found to be orthostatic positive. He was given about 2 L of fluid and remained orthostatic positive so oncology recommended to admit the patient. Patient also reports that he has been having dysphagia whenever he eats. Patient was started on IV fluids. On the day of discharge his orthostatic improved. Patient states that he is able to at least bring up to 4 cups of water the day before discharge. Patient also seen by oncology who said his underlying aphasia likely due to radiation therapy to the chest. Per oncology this showed improve over time. At time of discharge patient was seen walking around his room independently. He was drinking adequately. Patient also counseled drinking water adequately. He was then deemed stable for discharge. Patient states that he feels safe going home and is also requesting to be discharged. Patient seen and examined at bedside.[] Vital signs reviewed and stable. General: [non toxic], [no distress], [appears at stated age] patient appears chronically debilitated Derm: [warm], [dry] Head: [atraumatic], [normocephalic], [symmetric] Eyes: [EOMI], [no lid lag], [anicteric sclera] Mouth: [no lip lesion], [mucus membranes moist] Cardiovascular: [S1S2 reg], [no murmur], [positive posterior tibial pulse bilateral], Lungs: [CTA bilateral], [no rhonchi, no rales] , [no accessory muscle use] Abdominal: [soft], [ nontender to palpation], [no guarding], [no appreciable organomegaly] Ext: [no gross muscle atrophy], [no edema], [no contractures] Neuro: [ CN II-XI grossly intact], [no focal neuro deficits] Psych: [Alert], [oriented], [appropriate affect] A total of [33] minutes of time were spent preparing this complex discharge summary . Patient Condition at Discharge: Poor Plan - Discharge Summary Discharge Rx Participant: Yes New Discharge Prescriptions: No Action Simvastatin [Zocor] 80 mg PO HS carvediloL [Coreg] 3.125 mg PO DAILY traZODone HCL [Desyrel] 200 mg PO HS Nitroglycerin Sl Tabs [Nitrostat] 0.4 mg SL Q5M PRN PRN Reason: Chest Pain Sertraline HCl [Zoloft] 50 mg PO DAILY LORazepam [Ativan] 1 mg PO DAILY Mometasone/Formoterol [Dulera 200 Mcg-5 Mcg Inhaler] 1 puff INHALATION RT-BID Albuterol Nebulized [Ventolin Nebulized] 2.5 mg INHALATION RT-Q6H PRN PRN Reason: Shortness Of Breath Levofloxacin [Levaquin] 500 mg PO DAILY HYDROcodone/APAP [[place] Elixir 7.5-325Mg/15Ml] 15 ml PO Q4H PRN PRN Reason: Pain ondansetron HCL [Zofran] 8 mg PO Q6H PRN PRN Reason: Nausea Acetaminophen Tab [Tylenol] 1,000 mg PO Q6HR PRN PRN Reason: Fever And/ Or Pain Pantoprazole [Protonix] 40 mg PO BID Cholecalciferol [Vitamin D3 (125 Mcg = 5000 Iu)] 125 mcg PO DAILY tablet LORazepam [Ativan] 2 mg PO HS dronabinoL [Marinol] 2.5 mg PO AC-BID #60 cap Discharge Medication List Simvastatin [Zocor] 80 mg PO HS 07/15/16 [History] carvediloL [Coreg] 3.125 mg PO DAILY 07/15/16 [History] traZODone HCL [Desyrel] 200 mg PO HS 07/15/16 [History] Nitroglycerin Sl Tabs [Nitrostat] 0.4 mg SL Q5M PRN 11/26/19 [History] LORazepam [Ativan] 1 mg PO DAILY 04/18/20 [History] Sertraline HCl [Zoloft] 50 mg PO DAILY 04/18/20 [History] Acetaminophen Tab [Tylenol] 1,000 mg PO Q6HR PRN 03/11/22 [History] Albuterol Nebulized [Ventolin Nebulized] 2.5 mg INHALATION RT-Q6H PRN 03/11/22 [History] Mometasone/Formoterol [Dulera 200 Mcg-5 Mcg Inhaler] 1 puff INHALATION RT-BID 03/11/22 [History] Pantoprazole [Protonix] 40 mg PO BID 03/11/22 [History] ondansetron HCL [Zofran] 8 mg PO Q6H PRN 03/11/22 [History] Cholecalciferol [Vitamin D3 (125 Mcg = 5000 Iu)] 125 mcg PO DAILY tablet 03/14/22 [Rx] LORazepam [Ativan] 2 mg PO HS 04/23/22 [History] dronabinoL [Marinol] 2.5 mg PO AC-BID #60 cap 05/01/22 [Rx] HYDROcodone/APAP [[place] Elixir 7.5-325Mg/15Ml] 15 ml PO Q4H PRN 05/28/22 [History] Levofloxacin [Levaquin] 500 mg PO DAILY 05/28/22 [History] Follow up Appointment(s)/Referral(s): Komal Preciado MD [Primary Care Provider] - 1-2 days
== END 2022-05-30 16:25 | disposition home or self-care (01) | DRG 312 ==
LOC: EC 10:02 → 4SSUR 15:35 → 5NMEDONC 19:00
PROVIDERS: ADMIT Internal Medicine; ATTEND Internal Medicine
PROC: 09C3XZZ Extirpation of Matter from Right External Auditory Canal, External Approach (ICD-10-PCS; principal; 2022-05-28)
DX: I95.1 Orthostatic hypotension (principal); D61.810 Antineoplastic chemotherapy induced pancytopenia; N17.9 Acute kidney failure, unspecified; R47.01 Aphasia; C34.32 Malignant neoplasm of lower lobe, left bronchus or lung; S09.90XA Unspecified injury of head, initial encounter; E86.0 Dehydration; J44.9 Chronic obstructive pulmonary disease, unspecified; Z66 Do not resuscitate; E53.8 Deficiency of other specified B group vitamins; E78.5 Hyperlipidemia, unspecified; K20.80 Other esophagitis without bleeding; E83.42 Hypomagnesemia; R29.6 Repeated falls; I10 Essential (primary) hypertension; R13.10 Dysphagia, unspecified; T45.1X5A Adverse effect of antineoplastic and immunosuppressive drugs, initial encounter; T16.1XXA Foreign body in right ear, initial encounter; I25.10 Atherosclerotic heart disease of native coronary artery without angina pectoris; G62.9 Polyneuropathy, unspecified; K21.9 Gastro-esophageal reflux disease without esophagitis; M54.2 Cervicalgia; F41.9 Anxiety disorder, unspecified; I25.2 Old myocardial infarction; H91.90 Unspecified hearing loss, unspecified ear; F17.290 Nicotine dependence, other tobacco product, uncomplicated; Z71.6 Tobacco abuse counseling; Z79.51 Long term (current) use of inhaled steroids; Z79.899 Other long term (current) drug therapy; Z91.81 History of falling; Z95.5 Presence of coronary angioplasty implant and graft; Z95.0 Presence of cardiac pacemaker; Z92.3 Personal history of irradiation; Z92.21 Personal history of antineoplastic chemotherapy; W18.30XA Fall on same level, unspecified, initial encounter; Y84.2 Radiological procedure and radiotherapy as the cause of abnormal reaction of the patient, or of later complication, without mention of misadventure at the time of the procedure
CPT/HCPCS: 36415; 70450; 70470; 71046; 72125; 80048; 80053; 82565; 82607; 82728; 82746; 83540; 83550; 83735; 84484; 84520; 85025; 85610; 85730; 93005; 94640; 96361; 96365; 96366; 99285

== ENCOUNTER → 2022-06-11 | Outpatient (CLI) | payer MEDICARE ==
--- NOTE | 2022-06-11 15:22 | CT ---
EXAMINATION TYPE: CT chest abdomen wo/w con CT DLP: 1504.7 mGycm, Automated exposure control for dose reduction was used. DATE OF EXAM: 06/11/2022 2:34 PM COMPARISON: CT 04/25/2022. CT/PET 02/05/2022 CLINICAL INDICATION:Male, 81 years old with history of C34.32 MALIGNANT NEOPLASM LUNG; Technique: Multiple axial images of the chest, and abdomen were obtained. Two-dimensional coronal and sagittal reconstructions were obtained. Contrast used:70 ML mL of Isovue 300 with IV Contrast, Oral contrast used: with Oral Contrast Findings: CHEST: LUNGS/ PLEURA: There is moderate centrilobular emphysema changes throughout the lungs. Similar nodula r opacity in the right posterior lung comparing to 04/25/2022. Spiculated nodule in the left lower lob e measures 10 mm which is similar to prior AIRWAY: Secretions are seen within the trachea. HEART: The heart is mildly enlarged for size there is moderate to severe coronary artery atherosclero sis. MEDIASTINUM: Conglomerate lymphadenopathy within the subcarinal region and right hilar region on PET scan has decreased in size on today's examination. Overall the lymph nodes within the mediastinum agus ears smaller when compared to 04/25/2022, right 10 R lymph node measures up to 2.1 cm, previously 2.8 cm. Esophageal circumferential wall thickening seen on prior has decreased on today's exam now measur ing 5 mm previously 7 mm.. VASCULATURE: No aortic aneurysm. Atherosclerosis of the arterial vasculature. MUSCULOSKELETAL: No acute osseous abnormalities. SOFT TISSUES/LYMPH NODES: Cardiac conduction device in the the left chest wall with leads terminating in the right ventricle and right atrium. LOWER NECK: No significant findings. ABDOMEN: ABDOMEN LIVER: Unremarkable GALLBLADDER AND BILE DUCTS: Unremarkable. PANCREAS: Unremarkable. SPLEEN: Unremarkable. ADRENAL GLANDS: Unremarkable. KIDNEYS AND URETERS: No evidence of hydronephrosis or renal calculus. The ureters are unremarkable. ABDOMEN & PELVIS STOMACH AND BOWEL: Stomach and duodenum are unremarkable. Scattered diverticula are noted throughout the colon. No evidence of bowel obstruction. PERITONEUM: No evidence of pneumoperitoneum or free fluid. VASCULATURE: No evidence of aortic aneurysm. Proposed MUSCULOSKELETAL: No acute osseous abnormalities, multilevel disc disease changes throughout the spine . LYMPH NODES: No gross evidence for lymphadenopathy. SOFT TISSUE/ABDOMINAL WALL: Fat filled umbilical hernia measuring 10 mm at the neck. IMPRESSION: 1. Findings suggestive of positive response to therapy with interval decrease in size of the mediast inal contents are lymph nodes when comparing to 04/25/2022. The left lower lobe pulmonary nodule measu ring 10 mm is unchanged from immediate prior. 2. Decrease in circumferential esophageal wall thickening when comparing to immediate prior suggesti ve of resolving postsurgical changes 3. Colonic diverticulosis. 4. No definitive evidence for metastatic disease within the abdomen.
== END | disposition home or self-care (01) ==
LOC: RADCTMAIN 12:54
PROVIDERS: ATTEND Radiology Radiation Oncology
DX: C34.32 Malignant neoplasm of lower lobe, left bronchus or lung (principal); K57.30 Diverticulosis of large intestine without perforation or abscess without bleeding; R91.1 Solitary pulmonary nodule
CPT/HCPCS: 82565; 84520; 71270; 74170; 36415; Q9967 ×2

== ENCOUNTER 2022-08-19 10:30 | Inpatient (IN) | payer MEDICARE ==
--- NOTE | 2022-08-19 11:07 | ED ---
General Adult HPI - General Chief complaint: Shortness of Breath Stated complaint: Cancer pt, SOB, headaches Time Seen by Provider: 08/19/22 10:40 Source: patient, family, RN notes reviewed, old records reviewed Mode of arrival: ambulatory Limitations: no limitations - History of Present Illness Initial comments: This is an 81-year-old male who presents emergency Department with a past medical history significant for lung cancer. Patient finished chemo and radiation in April or May. Patient comes in today complaining of headache for at least a week and patient also complains that he had a fever a few days ago but just finished up Levaquin after 7 days. Patient states he has occasional cough. Patient denies any chest pain patient denies any lightheadedness or dizziness. Patient denies nausea vomiting diarrhea patient denies any abdominal pain. Patient is complaining of shortness of breath as well family states his pulse ox was 88% on room air at home - Related Data Home Medications Medication Instructions Recorded Confirmed Simvastatin [Zocor] 80 mg PO HS 07/15/16 08/19/22 Nitroglycerin Sl Tabs [Nitrostat] 0.4 mg SL Q5M PRN 11/26/19 08/19/22 Sertraline HCl [Zoloft] 50 mg PO HS 04/18/20 08/19/22 Mometasone/Formoterol [Dulera 200 1 puff INHALATION RT-BID 03/11/22 08/19/22 Mcg-5 Mcg Inhaler] HYDROcodone/APAP [[place] Elixir 15 ml PO Q4H PRN 05/28/22 08/19/22 7.5-325Mg/15Ml] Albuterol Sulfate [Albuterol 2 puff PO RT-Q6H PRN 08/19/22 08/19/22 Sulfate Hfa] LORazepam [Ativan] 1 mg PO TID 08/19/22 08/19/22 Megestrol Acetate 400 mg PO DAILY 08/19/22 08/19/22 carvediloL [Coreg] 3.125 mg PO DIRECTED 08/19/22 08/19/22 traZODone HCL 100 mg PO HS 08/19/22 08/19/22 Allergies Allergy/AdvReac Type Severity Reaction Status Date / Time No Known Allergies Allergy Verified 08/19/22 14:07 Review of Systems ROS Statement: Those systems with pertinent positive or pertinent negative responses have been documented in the HPI. ROS Other: All systems not noted in ROS Statement are negative. Past Medical History Past Medical History: Cancer, COPD, GERD/Reflux, Hearing Disorder / Deafness, Hyperlipidemia, Hypertension, Myocardial Infarction ([place]) Additional Past Medical History / Comment(s): Vitamin B-12 deficiency, neuropathy legs and feet, very [place], low blood sugar at times, low kidney function, lung cancer Last Myocardial Infarction Date:: 2005 History of Any Multi-Drug Resistant Organisms: None Reported Past Surgical History: Heart Catheterization With Stent, Orthopedic Surgery, Pacemaker Additional Past Surgical History / Comment(s): Right shoulder scope, left knee scope, cardiac stents X3, Pacemaker replaced. Past Anesthesia/Blood Transfusion Reactions: No Reported Reaction Date of Last Stent Placement:: 11/2005 Type of Cardiac Device: Permanent Pacemaker Device Placement Date:: 11/2005 Past Psychological History: Anxiety Smoking Status: Current some day smoker, Light tobacco smoker Past Alcohol Use History: Occasional Past Drug Use History: None Reported - Past Family History Sister(s) Family Medical History: Cancer Mother Family Medical History: No Reported History General Exam - General Exam Comments Initial Comments: GENERAL: Patient is well-developed and well-nourished. Patient is nontoxic and well- hydrated and is in mild distress. ENT: Neck is soft and supple. No significant lymphadenopathy is noted. Oropharynx i s clear. Moist mucous membranes. Neck has full range of motion without eliciting any pain. EYES: The sclera were anicteric and conjunctiva were pink and moist. Extraocular movements were intact and pupils were equal round and reactive to light. Eyelids were unremarkable. PULMONARY: Unlabored respirations. Good breath sounds bilaterally. No audible rales rhonchi or wheezing was noted. CARDIOVASCULAR: There is a regular rate and rhythm without any murmurs gallops or rubs. ABDOMEN: Soft and nontender with normal bowel sounds. SKIN: Skin is clear with no lesions or rashes and otherwise unremarkable. NEUROLOGIC: Patient is alert and oriented x3. Cranial nerves II through XII are grossly intact. Motor and sensory are also intact. Normal speech, volume and content. Symmetrical smile. MUSCULOSKELETAL: Normal extremities with adequate strength and full range of motion. No lower extremity swelling or edema. No calf tenderness. LYMPHATICS: No significant lymphadenopathy is noted PSYCHIATRIC: Normal psychiatric evaluation. Limitations: no limitations Course Vital Signs 08/19/22 08/19/22 08/19/22 10:38 11:31 14:52 Temperature 97.7 F Pulse Rate 85 68 Respiratory 20 17 16 Rate Blood Pressure 113/70 120/67 O2 Sat by Pulse 94 L 90 L Oximetry Medical Decision Making - Medical Decision Making EKG shows a paced rhythm at 80 bpm CA interval 177 QRSs 178 QT interval 442 QTC is 478. Chest x-ray shows a opacification consistent with pneumonitis versus pneumonia. I spoke with Dr. Cornelius he agreed to take the patient admitted the patient and start the patient antibiotics and steroids per his request. Patient's family was already sitting up appointment with Dr. Cornelius and that is why he was called for this patient. I will consult Dr. Newell as well as pulmonology. - Lab Data Result diagrams: 08/19/22 11:14 08/19/22 11:14 Lab Results 08/19/22 08/19/22 08/19/22 Range/Units 11:14 11:14 11:14 WBC 6.6 (3.8-10.6) k/uL RBC 4.21 L (4.30-5.90) m/uL Hgb 13.9 (13.0-17.5) gm/dL Hct 42.7 (39.0-53.0) % MCV 101.4 H (80.0-100.0) fL MCH 33.1 (25.0-35.0) pg MCHC 32.7 (31.0-37.0) g/dL RDW 13.3 (11.5-15.5) % Plt Count 164 (150-450) k/uL MPV 8.4 Neutrophils % 80 % Lymphocytes % 7 % Monocytes % 7 % Eosinophils % 3 % Basophils % 1 % Neutrophils # 5.3 (1.3-7.7) k/uL Lymphocytes # 0.5 L (1.0-4.8) k/uL Monocytes # 0.5 (0-1.0) k/uL Eosinophils # 0.2 (0-0.7) k/uL Basophils # 0.0 (0-0.2) k/uL Sodium 138 (137-145) mmol/L Potassium 3.9 (3.5-5.1) mmol/L Chloride 103 (98-107) mmol/L Carbon Dioxide 24 (22-30) mmol/L Anion Gap 11 mmol/L BUN 16 (9-20) mg/dL Creatinine 1.18 (0.66-1.25) mg/dL Est GFR (CKD-EPI)AfAm 66 (>60 ml/min/1.73 sqM) Est GFR (CKD-EPI)NonAf 57 (>60 ml/min/1.73 sqM) Glucose 98 (74-99) mg/dL Calcium 9.3 (8.4-10.2) mg/dL Magnesium 1.4 L (1.6-2.3) mg/dL Total Bilirubin 0.8 (0.2-1.3) mg/dL AST 47 (17-59) U/L ALT 29 (4-49) U/L Alkaline Phosphatase 147 H (38-126) U/L Troponin I (0.000-0.034) ng/mL NT-Pro-B Natriuret Pep pg/mL Total Protein 6.1 L (6.3-8.2) g/dL Albumin 3.5 (3.5-5.0) g/dL Urine Color Yellow Urine Appearance Clear (Clear) Urine pH 5.5 (5.0-8.0) Ur Specific [place] 1.011 (1.001-1.035) Urine Protein Negative (Negative) Urine Glucose (UA) Negative (Negative) Urine Ketones Negative (Negative) Urine Blood Negative (Negative) Urine Nitrite Negative (Negative) Urine Bilirubin Negative (Negative) Urine Urobilinogen <2.0 (<2.0) mg/dL Ur Leukocyte Esterase Negative (Negative) Coronavirus (PCR) (Not Detectd) 08/19/22 08/19/22 08/19/22 Range/Units 11:14 11:14 11:46 WBC (3.8-10.6) k/uL RBC (4.30-5.90) m/uL Hgb (13.0-17.5) gm/dL Hct (39.0-53.0) % MCV (80.0-100.0) fL MCH (25.0-35.0) pg MCHC (31.0-37.0) g/dL RDW (11.5-15.5) % Plt Count (150-450) k/uL MPV Neutrophils % % Lymphocytes % % Monocytes % % Eosinophils % % Basophils % % Neutrophils # (1.3-7.7) k/uL Lymphocytes # (1.0-4.8) k/uL Monocytes # (0-1.0) k/uL Eosinophils # (0-0.7) k/uL Basophils # (0-0.2) k/uL Sodium (137-145) mmol/L Potassium (3.5-5.1) mmol/L Chloride (98-107) mmol/L Carbon Dioxide (22-30) mmol/L Anion Gap mmol/L BUN (9-20) mg/dL Creatinine (0.66-1.25) mg/dL Est GFR (CKD-EPI)AfAm (>60 ml/min/1.73 sqM) Est GFR (CKD-EPI)NonAf (>60 ml/min/1.73 sqM) Glucose (74-99) mg/dL Calcium (8.4-10.2) mg/dL Magnesium (1.6-2.3) mg/dL Total Bilirubin (0.2-1.3) mg/dL AST (17-59) U/L ALT (4-49) U/L Alkaline Phosphatase (38-126) U/L Troponin I 0.013 (0.000-0.034) ng/mL NT-Pro-B Natriuret Pep 271 pg/mL Total Protein (6.3-8.2) g/dL Albumin (3.5-5.0) g/dL Urine Color Urine Appearance (Clear) Urine pH (5.0-8.0) Ur Specific [place] (1.001-1.035) Urine Protein (Negative) Urine Glucose (UA) (Negative) Urine Ketones (Negative) Urine Blood (Negative) Urine Nitrite (Negative) Urine Bilirubin (Negative) Urine Urobilinogen (<2.0) mg/dL Ur Leukocyte Esterase (Negative) Coronavirus (PCR) Not Detected (Not Detectd) Disposition Clinical Impression: Pneumonitis, Pneumonia Disposition: ADMITTED IP TO THIS [facility] Referrals: None,Stated [Primary Care Provider] - 1-2 days Time of Disposition: 16:53
[2022-08-19 11:30] LABS: Basophils % (A) 1 %; Eosinophils # (A) 0.2 k/uL (0-0.7); Eosinophils % (A) 3 %; HCT 42.7 % (39.0-53.0); HGB 13.9 gm/dL (13.0-17.5); Lymphocytes # (A) 0.5 k/uL (1.0-4.8); Lymphocytes % (A) 7 %; MCH 33.1 pg (25.0-35.0); MCHC 32.7 g/dL (31.0-37.0); MCV 101.4 fL (80.0-100.0); Mean Platelet Volume 8.4; Monocytes # (A) 0.5 k/uL (0-1.0); Monocytes % (A) 7 %; Neutrophils # (A) 5.3 k/uL (1.3-7.7); Neutrophils % (A) 80 %; Platelet Count 164 k/uL (150-450); RBC 4.21 m/uL (4.30-5.90); RDW 13.3 % (11.5-15.5); WBC 6.6 k/uL (3.8-10.6)
[2022-08-19 11:44] LABS: Albumin 3.5 g/dL (3.5-5.0); Calcium 9.3 mg/dL (8.4-10.2); Magnesium 1.4 mg/dL (1.6-2.3); Potassium 3.9 mmol/L (3.5-5.1); Total Bilirubin 0.8 mg/dL (0.2-1.3); Total Protein 6.1 g/dL (6.3-8.2)
--- NOTE | 2022-08-19 12:27 | XR ---
EXAMINATION TYPE: XR chest 2V DATE OF EXAM: 08/19/2022 COMPARISON: 05/28/2022 HISTORY: 81-year-old male difficulty breathing, shortness of breath TECHNIQUE: AP and lateral views FINDINGS: Left anterior chest wall pacemaker generator. There may be a little right atrial lead and also right ventricular lead. Heart borderline in size. Diffuse gestational density has increased from prior. No sizable pleural effusion. Peribronchial cuffing. Mild patchy density left mid to lower lung and also at the right midlung. IMPRESSION: Borderline heart size. Increasing interstitial density. Correlate for bronchitis, atypical pneumonias , or developing CHF with pulmonary vascular congestion.
--- NOTE | 2022-08-19 12:31 | CT ---
EXAMINATION TYPE: CT brain wo con CT DLP: 1143.4 mGycm, Automated exposure control for dose reduction was used. DATE OF EXAM: 08/19/2022 12:20 PM COMPARISON: 05/28/2022. CLINICAL INDICATION:Male, 81 years old with history of Headaches, cancer, Headaches, hx lung ca TECHNIQUE: Brain: Axial CT images of the brain were obtained with coronal and sagittal reformats created and rev iewed. Contrast used: None. Oral contrast used: None. FINDINGS: Brain: Extra-axial spaces: No abnormal extra-axial fluid collections. Ventricular system: Within normal limits Cerebral parenchyma: No acute intraparenchymal hemorrhage or mass effect. The toro-white junction is well differentiated. Cerebellum: Unremarkable. Mass effect: No evidence of midline shift. Intracranial vasculature: Atherosclerotic calcifications of the intracranial vessels. Soft tissues: Normal. Calvarium/osseous structures: No depressed skull fracture. Paranasal sinuses and mastoid air cells: Mild scattered paranasal sinus disease. Visualized orbits: Bilateral aphakia IMPRESSION: No acute intracranial process.
[2022-08-19] MEDS ORDERED: MAGNESIUM SULFATE-D5W PMX 1 GM in DEXTROSE/WATER 1 100ML.BAG IVPB ONE (12:37)
[2022-08-19 15:39] LABS: Appearance,Urine Clear (Clear); Bilirubin,Urine Negative (Negative); Blood,Urine Negative (Negative); Color,Urine Yellow; Glucose,Urine (UA) Negative (Negative); Ketones,Urine Negative (Negative); Leukocyte Esterase,Urine Negative (Negative); Nitrite,Urine Negative (Negative); PH, Urine 5.5 (5.0-8.0); Protein,Urine Negative (Negative); Specific Gravity,Urine 1.011 (1.001-1.035); Urobilinogen,Urine <2.0 mg/dL (<2.0)
--- NOTE | 2022-08-19 15:46 | CT ---
EXAMINATION TYPE: CT chest angio for PE CT DLP: 380 mGycm, Automated exposure control for dose reduction was used. DATE OF EXAM: 08/19/2022 3:31 PM COMPARISON: CT chest 06/11/2022 CLINICAL INDICATION:Male, 81 years old with history of Dyspnea and hypoxia; Dyspnea, hypoxia, hx lung ca TECHNIQUE/CONTRAST: CTA scan of the thorax is performed with IV Contrast, patient injected with 100 mL of Isovue 370, pul monary embolism protocol. MIP images are created and reviewed. FINDINGS: Motion limits evaluation of lung parenchyma. Pulmonary Artery: There is no evidence for a central filling defect within the pulmonary vasculature to suggest acute pulmonary embolism. Limited evaluation of the segmental and subsegmental branches se condary to bolus timing and motion. The pulmonary artery is of normal size. Lungs/Pleura: Groundglass opacities are seen within the bilateral lower lobes and posterior aspect of the right upper and left upper lobes., more consolidation appearance in the left lower lobe. No evid ence of pneumothorax or large pleural effusion. Mild centrilobular emphysema changes are present. Airway: Large airways are patent. Heart: Heart is mildly enlarged for size. There is coronary artery atherosclerosis present. Vasculature: No evidence of aortic aneurysm. Multiple collaterals are seen within the left upper extr emity Mediastinum: No gross evidence of adenopathy. Musculoskeletal: No acute osseous abnormalities Soft Tissues: Cardiac conduction device with leads terminating in the right ventricle and right atriu m. Lower neck: No significant findings. Upper Abdomen: Right renal cyst. IMPRESSION: 1. No evidence of central pulmonary embolism. Limited evaluation of the segmental and subsegmental br anches. 2. Scattered predominantly lower lobe groundglass opacities and airspace consolidation concerning for aspiration pneumonia/pneumonitis and/or infectious/inflammatory process.. New from 06/11/2022. 3. Multiple left upper thorax collaterals correlate for thrombosis/stenosis at insertion of the cardi ac conduction device leads.
[2022-08-19] MEDS ORDERED: CEFEPIME 2 GM in SODIUM CHLORIDE 0.9% 100 ML IVPB STA (16:57)
[2022-08-19] MEDS ORDERED: PNEUMONIA PROTOCOL UTILIZED 1 EACH MISC PO PRN (16:57)
[2022-08-19] MEDS ORDERED: AZITHROMYCIN 500 MG in SODIUM CHLORIDE 0.9% 250 ML IVPB STA (16:57)
[2022-08-19] MEDS ORDERED: methylPREDNISolone SOD SUCCI 125 MG/2 ML VIAL IV STA (17:00)
[2022-08-19] MEDS: methylPREDNISolone SOD SUCCI 125 MG/2 ML VIAL IV SCH ×2 (18:12→23:28)
[2022-08-20] MEDS: methylPREDNISolone SOD SUCCI 125 MG/2 ML VIAL IV SCH ×4 (05:27→23:00)
[2022-08-20] MEDS: CEFEPIME 2 GM in SODIUM CHLORIDE 0.9% 100 ML IVPB SCH ×2 (05:28→18:19)
--- NOTE | 2022-08-20 08:40 | XR ---
EXAMINATION TYPE: XR chest 2V DATE OF EXAM: 08/20/2022 6:46 AM COMPARISON: Chest radiographs from 08/19/2022, CTA chest 08/19/2022 TECHNIQUE: XR chest 2V Frontal and lateral views of the chest. CLINICAL INDICATION:Male, 81 years old with history of pneumonia; FINDINGS: Lungs/Pleura: No pleural effusions or pneumothorax. Patchy right perihilar and left mid lung airspace disease is redemonstrated and not significantly changed. Finding of the hemidiaphragms. Pulmonary vascularity: Unremarkable. Heart/mediastinum: Cardiomediastinal silhouette is unremarkable. Two lead cardiac conduction device o verlying the left hemithorax with lead tips projecting over the right ventricle and right atrium. Musculoskeletal: No acute osseous pathology. IMPRESSION: 1. No significant change in patchy airspace disease in the right perihilar region and left midlung. Findings again concerning for pneumonia. Continued follow-up is recommended. 2. COPD changes suggested.
[2022-08-20] MEDS ORDERED: NITROGLYCERIN SL TABS 0.4 MG TAB SUBLINGUAL PRN (08:59)
[2022-08-20] MEDS ORDERED: HYDROcodone/APAP 15 ML SOLUTION PO PRN (08:59)
[2022-08-20] MEDS ORDERED: ALBUTEROL NEBULIZED 2.5 MG/3 ML INHALATION PRN (08:59)
[2022-08-20] MEDS ORDERED: AZITHROMYCIN 500 MG in SODIUM CHLORIDE 0.9% 250 ML IVPB SCH (09:00)
[2022-08-20] MEDS ORDERED: DEXTROSE 50% SYRINGE 50 ML IVP PRN ×2 (09:03)
--- NOTE | 2022-08-20 10:32 | P.HPIM ---
History of Present Illness H&P Date: 08/20/22 HISTORY OF PRESENT ILLNESS This is an 81-year-old male with past medical history of small cell lung cancer is status post carboplatin/etoposide in January 2022. He states he is not currently on chemotherapy. He is status post radiation for 4 weeks [address] follows with Dr. Newell and Dr. Kumar. 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 He also has a past medical history of myocardial infarction in 2005 status post PCI to the OM in 2005, RCA in 2005, FFR of the LAD in 2018 was nonischemic, hypertension, hyperlipidemia, left bundle branch block and permanent pacemaker implantation. Patient follows with Dr. Whitaker. He also has history of gastroesophageal reflux disease, COPD, remote history of tobacco use and dependence, deafness, peripheral neuropathy bilateral lower extremities. Patient states that he started having a cough about 3 weeks ago and continued to worsen followed by sputum production and fevers. He has completed a course of Levaquin for 7 days at home without improvement. He was sent into the hospital by Dr. Kumar. Dr. Love is his pulmonary physician. Patient presented to [facility] emergency center and found to be afebrile, heart rate 85, blood pressure 113/70, pulse ox 94% on room air. EKG is atrial paced rhythm. WBC 6.6, hemoglobin 13.9, platelet count 164. Electrolytes normal. BUN 16 creatinine 1.1. Magnesium 1.4. Alkaline phosphatase 147. ProBNP 271. Troponin 0.013. Chest x-ray reveals borderline heart size. Increasing interstitial density. Correlate for bronchitis, atypical occult pneumonias or developing heart failure with pulmonary vascular congestion. CAT scan of the brain revealed no acute intracranial process. CTA of the chest revealed no evidence of pulmonary embolism. Limited evaluation of the segmental and subsegmental branches. Scattered predominantly lower lobe groundglass opacities and air space consolidation concerning for aspiration pne umonia/pneumonitis or infectious inflammatory process. New from 06/11. Multiple left upper thorax collaterals correlate for thrombosis/stenosis at the insertion of the cardiac conduction device leads. Repeat chest x-ray reveals no significant change and patchy airspace disease in the right perihilar region and left mid lung. Findings concerning for pneumonia. Continue follow-up is recommended. COPD changes. Patient is being admitted to the Oncology floor, consults in place with oncology, pulmonary medicine. REVIEW OF SYSTEMS Constitutional: Reported fever, no chills, no night sweats. No weight change. No weakness, fatigue or lethargy. No daytime sleepiness. EENT: No headache. No blurred vision or double vision, no loss of vision. No loss of Hearing, no ringing in the ears, no dizziness. No nasal drainage or congestion. No epistaxis. No sore throat. Lungs: Reported shortness of breath, Reported cough, Reported sputum production. No wheezing. Cardiovascular: No chest pain, no lower extremity edema. No palpitations. No paroxysmal nocturnal dyspnea. No orthopnea. No lightheadedness or dizziness. No syncopal episodes. Abdominal: No abdominal pain. No nausea, vomiting. No diarrhea. No constipation. No bloody or tarry stools. No loss of appetite. Genitourinary: No dysuria, increased frequency, urgency. No urinary retention. Musculoskeletal: No myalgias. No muscle weakness, no gait dysfunction, no frequent falls. No back pain. No neck pain. Integumentary: No wounds, no lesions. No rash or pruritus. No unusual bruising. No change in hair or nails. Neurologic: No aphasia. No facial droop. No change in mentation. No head injury. No headache. No paralysis. No paresthesia. Psychiatric: No depression. No anxiety. No mood swings. Endocrine: No abnormal blood sugars. No weight change. No excessive sweating or thirst. No cold intolerance. MEDICAL HISTORY Small cell lung cancer Radiation esophagitis Myocardial infarction 2006/coronary artery disease Hypertension Hyperlipidemia Left bundle branch block Permanent pacemaker implantation Gastroesophageal reflux disease COPD Deafness Peripheral neuropathy bilateral lower extremities Vitamin B12 deficiency SURGICAL HISTORY Cardiac catheterization and stent placement of the OM and RCA Right shoulder arthroscopically Left knee arthroscopically Pacemaker implantation SOCIAL HISTORY The patient was a smoker one and half packs per day for 52 years. Occasional alcohol use, no illicit drug use. Patient has been utilizing a walker since November 2021. FAMILY HISTORY Patient has no contact with his father has no idea of his medical history. Mother at age 99 from old age. Patient has one brother at age 86 with no glen, r medical problems. He has one sister age 88 this recovering from a hip fracture. Patient has 4 children, 3 girls and one boy with no major medical problems. PHYSICAL EXAMINATION Gen: This is an 81-year-old male. He is resting in bed appears to be comfortable and in no acute distress. HEENT: Head is atraumatic, normocephalic. Pupils equal, round. Sclerae is anicteric. NECK: Supple. No JVD. No lymphadenopathy. No thyromegaly. LUNGS: Diminished breath sounds. No wheezes or rhonchi. No intercostal retractions. HEART: Regular rate and rhythm. Systolic ejection murmur at the base. Pacemaker anterior chest wall left side. ABDOMEN: Soft. Bowel sounds are present. No masses. No tenderness. EXTREMITIES: No pedal edema. No calf tenderness. NEUROLOGICAL: Patient is awake, alert and oriented x3. Cranial nerves 2 through 12 are grossly intact. ASSESSMENT AND PLAN 1. Pneumonia lower lobe possible radiation pneumonitis, failed outpatient treatment. Patient has been started on cefepime 2 g IV piggyback every 12 hours, discontinue azithromycin. Continue patient on albuterol every 6 hours as needed, Symbicort 2 puffs twice daily, Solu-Medrol 60 mg IV every 6 hours, consult with pulmonary medicine and oncology. Obtain sputum specimen for culture and sensitivity. 2. Small cell lung cancer. Consult oncology. Continue Megace 400 mg daily. 3. Coronary artery disease. Continue Coreg 3.125 mg twice daily. 4. Hypertension. Continue Coreg 3.125 mg twice daily. 5. Hyperlipidemia. Continue Lipitor 40 mg at bedtime. 6. Gastroesophageal reflux disease. Protonix 40 mg daily. 7. Peripheral neuropathy. 8. Remote history of tobacco use and dependence. 9. Recurrent depression and generalized anxiety disorder. Continue Zoloft 50 mg at bedtime, trazodone 100 mg at bedtime, Ativan 1 mg 3 times daily. 10. Deafness, stable. 11. DVT prophylaxis. Lovenox 40 mg subcu daily. Patient will be admitted to the hospital for a minimum of 2 night stay. DISCHARGE PLAN Most likely return home. PT and OT consults. Impression and plan of care have been directed as dictated by the signing physician. Barbie Quinones nurse practitioner acting as scribe for signing physician. Past Medical History Past Medical History: Cancer, COPD, GERD/Reflux, Hearing Disorder / Deafness, Hyperlipidemia, Hypertension, Myocardial Infarction ([place]) Additional Past Medical History / Comment(s): Vitamin B-12 deficiency, neuropathy legs and feet, very [place], low blood sugar at times, low kidney function, lung cancer Last Myocardial Infarction Date:: 2005 History of Any Multi-Drug Resistant Organisms: None Reported Past Surgical History: Heart Catheterization With Stent, Orthopedic Surgery, Pacemaker Additional Past Surgical History / Comment(s): Right shoulder scope, left knee scope, cardiac stents X3, Pacemaker replaced. Past Anesthesia/Blood Transfusion Reactions: No Reported Reaction Date of Last Stent Placement:: 11/2005 Type of Cardiac Device: Permanent Pacemaker Device Placement Date:: 11/2005 Past Psychological History: Anxiety Smoking Status: Former smoker Past Alcohol Use History: Occasional Additional Past Alcohol Use History / Comment(s): Smokes a cigar every once in awhile, none since . Past Drug Use History: None Reported - Past Family History Sister(s) Family Medical History: Cancer Mother Family Medical History: No Reported History Medications and Allergies Home Medications Medication Instructions Recorded Confirmed Type Simvastatin [Zocor] 80 mg PO HS 07/15/16 08/19/22 History Nitroglycerin Sl Tabs [Nitrostat] 0.4 mg SL Q5M PRN 11/26/19 08/19/22 History Sertraline HCl [Zoloft] 50 mg PO HS 04/18/20 08/19/22 History Mometasone/Formoterol [Dulera 200 1 puff INHALATION RT-BID 03/11/22 08/19/22 History Mcg-5 Mcg Inhaler] HYDROcodone/APAP [[place] Elixir 15 ml PO Q4H PRN 05/28/22 08/19/22 History 7.5-325Mg/15Ml] Albuterol Sulfate [Albuterol 2 puff PO RT-Q6H PRN 08/19/22 08/19/22 History Sulfate Hfa] LORazepam [Ativan] 1 mg PO TID 08/19/22 08/19/22 History Megestrol Acetate 400 mg PO DAILY 08/19/22 08/19/22 History carvediloL [Coreg] 3.125 mg PO DIRECTED 08/19/22 08/19/22 History traZODone HCL 100 mg PO HS 08/19/22 08/19/22 History Allergies Allergy/AdvReac Type Severity Reaction Status Date / Time No Known Allergies Allergy Verified 08/19/22 14:07 Physical Exam Vitals: Vital Signs Temp Pulse Pulse Resp BP BP Pulse Ox 08/20/22 07:57 94 L 08/20/22 04:23 97.6 F 65 16 135/79 94 L 08/19/22 21:52 82 101/58 92 L 08/19/22 21:30 98.2 F 76 18 105/67 94 L 08/19/22 18:12 79 16 111/65 93 L 08/19/22 14:52 68 16 120/67 90 L 08/19/22 11:31 17 08/19/22 10:38 97.7 F 85 20 113/70 94 L Intake and Output 08/19/22 08/20/22 08/20/22 22:59 06:59 14:59 Intake Total 700 Balance 700 Intake: Intake, IV Titration 100 Amount Cefepime 2 gm In Sodium 100 Chloride 0.9% 100 ml @ 25 mls/hr IVPB Q12H [facility] Rx# :[id number] Oral 600 Other: Voiding Method Toilet Urinal # Voids 3 Weight 79.379 kg Results CBC & Chem 7: 08/19/22 11:14 08/19/22 11:14 Labs: Abnormal Lab Results - Last 24 Hours (Table) 08/19/22 08/19/22 Range/Units 11:14 11:14 RBC 4.21 L (4.30-5.90) m/uL MCV 101.4 H (80.0-100.0) fL Lymphocytes # 0.5 L (1.0-4.8) k/uL Magnesium 1.4 L (1.6-2.3) mg/dL Alkaline Phosphatase 147 H (38-126) U/L Total Protein 6.1 L (6.3-8.2) g/dL Thrombosis Risk Factor Assmnt - Choose All That Apply Any of the Below Risk Factors Present?: Yes Each Factor Represents 1 point: Obesity (BMI >25) Other Risk Factors: Yes Each Risk Factor Represents 2 Points: Malignancy Each Risk Factor Represents 3 Points: Age 75 years or older Other congenital or acquired thrombophilia - If yes, enter type in comment: No Thrombosis Risk Factor Assessment Total Risk Factor Score: 6 Thrombosis Risk Factor Assessment Level: High Risk
[2022-08-20] MEDS: LORazepam 1 MG TAB PO SCH ×3 (11:12→22:56)
[2022-08-20] MEDS: carvediloL 3.125 MG TAB PO SCH ×2 (11:12→18:20)
[2022-08-20] MEDS: MEGESTROL 400 MG/10 ML CUP PO SCH (11:12)
[2022-08-20 13:48] LABS: Glucose,Whole Blood 123 mg/dL (70-110)
[2022-08-20] MEDS: INSULIN ASPART (NovoLOG) 100 UNIT/ML VIAL SQ SCH ×3 (14:01→20:47)
--- NOTE | 2022-08-20 14:58 | P.CONS ---
History of Present Illness - Reason for Consult Consult date: 08/20/22 dyspnea, headache Requesting physician: Janna Altman - Chief Complaint shortness of breath, headache - History of Present Illness The patient is an 81-year-old male with a history of recently diagnosed limited stage small cell lung cancer of the left lower lung. He underwent concurrent chemoradiation finishing 66 Gy on 05/13/2022 starting on cycle 2 of chemotherapy. He was enrolled on G DEB-005. He now presents to the hospital with dyspnea and headaches. The patient presented to the emergency room on August 19 complaining of dyspnea and ongoing headache. Had pulse ox in the high 80s. He reports he was having low-grade fevers at home, and was treated with a course of Levaquin. He underwent a CT scan of the head without contrast which was unremarkable. A CTA of the chest revealed no evidence of PE, but there was scattered groundglass opacities especially in the lower lobes bilaterally. This was felt to be worrisome for aspiration pneumonia versus pneumonitis. The patient reports that he is still feeling dyspneic with exertion. He can feel short of breath with a short walk to the bathroom. Surprisingly, he does not report significant cough or chest pain. He reports no difficulty with swallowing. He reports no coughing or choking when drinking liquids. The patient reports he has had ongoing headaches for the past 2-3 weeks. He states that these typically resolve with Advil. He denies nausea. He has not had any focal weakness, numbness or tingling. He reports no recent falls. Review of Systems Constitutional: Reports fever, Denies anorexia, Denies chills Eyes: denies decreased vision Ears: deny: decreased hearing Cardiovascular: Reports decreased exercise tolerance, Reports dyspnea on exertion, Denies chest pain Respiratory: Reports dyspnea, Denies hemoptysis, Denies pain Gastrointestinal: Denies abdominal pain Genitourinary: Denies dysuria Musculoskeletal: Denies frequent falls, Denies gait dysfunction Integumentary: Denies rash Neurological: Denies aphasia, Denies confusion Psychiatric: Denies anxiety Past Medical History Past Medical History: Cancer, COPD, GERD/Reflux, Hearing Disorder / Deafness, Hyperlipidemia, Hypertension, Myocardial Infarction ([place]) Additional Past Medical History / Comment(s): Vitamin B-12 deficiency, neuropathy legs and feet, very [place], low blood sugar at times, low kidney function, lung cancer Last Myocardial Infarction Date:: 2005 History of Any Multi-Drug Resistant Organisms: None Reported Past Surgical History: Heart Catheterization With Stent, Orthopedic Surgery, Pacemaker Additional Past Surgical History / Comment(s): Right shoulder scope, left knee scope, cardiac stents X3, Pacemaker replaced. Past Anesthesia/Blood Transfusion Reactions: No Reported Reaction Date of Last Stent Placement:: 11/2005 Type of Cardiac Device: Permanent Pacemaker Device Placement Date:: 11/2005 Past Psychological History: Anxiety Smoking Status: Former smoker Past Alcohol Use History: Occasional Additional Past Alcohol Use History / Comment(s): Smokes a cigar every once in awhile, none since . Past Drug Use History: None Reported - Past Family History Sister(s) Family Medical History: Cancer Mother Family Medical History: No Reported History Medications and Allergies Home Medications Medication Instructions Recorded Confirmed Type Simvastatin [Zocor] 80 mg PO HS 07/15/16 08/19/22 History Nitroglycerin Sl Tabs [Nitrostat] 0.4 mg SL Q5M PRN 11/26/19 08/19/22 History Sertraline HCl [Zoloft] 50 mg PO HS 04/18/20 08/19/22 History Mometasone/Formoterol [Dulera 200 1 puff INHALATION RT-BID 03/11/22 08/19/22 History Mcg-5 Mcg Inhaler] HYDROcodone/APAP [[place] Elixir 15 ml PO Q4H PRN 05/28/22 08/19/22 History 7.5-325Mg/15Ml] Albuterol Sulfate [Albuterol 2 puff PO RT-Q6H PRN 08/19/22 08/19/22 History Sulfate Hfa] LORazepam [Ativan] 1 mg PO TID 08/19/22 08/19/22 History Megestrol Acetate 400 mg PO DAILY 08/19/22 08/19/22 History carvediloL [Coreg] 3.125 mg PO DIRECTED 08/19/22 08/19/22 History traZODone HCL 100 mg PO HS 08/19/22 08/19/22 History Allergies Allergy/AdvReac Type Severity Reaction Status Date / Time No Known Allergies Allergy Verified 08/19/22 14:07 Physical Exam Vitals: Vital Signs Temp Pulse Pulse Resp BP BP Pulse Ox 08/20/22 11:57 97.4 F L 98 16 130/72 91 L 08/20/22 07:57 94 L 08/20/22 04:23 97.6 F 65 16 135/79 94 L 08/19/22 21:52 82 101/58 92 L 08/19/22 21:30 98.2 F 76 18 105/67 94 L 08/19/22 18:12 79 16 111/65 93 L 08/19/22 14:52 68 16 120/67 90 L Intake and Output 08/19/22 08/20/22 08/20/22 22:59 06:59 14:59 Intake Total 700 Balance 700 Intake: Intake, IV Titration 100 Amount Cefepime 2 gm In Sodium 100 Chloride 0.9% 100 ml @ 25 mls/hr IVPB Q12H [facility] Rx# :[id number] Oral 600 Other: Voiding Method Toilet Toilet Urinal Urinal # Voids 3 Weight 79.379 kg - Constitutional General appearance: no acute distress - EENT Eyes: EOMI, PERRLA ENT: hearing grossly normal - Neck Neck: no lymphadenopathy - Respiratory Respiratory: bilateral: CTA - Cardiovascular Rhythm: regular - Gastrointestinal General gastrointestinal: no distended, no tenderness - Integumentary Integumentary: no rash - Neurologic Neurologic: CNII-XII intact - Musculoskeletal Musculoskeletal: strength equal bilaterally - Psychiatric Psychiatric: A&O x's 3, appropriate affect, intact judgment & insight Results CBC & Chem 7: 08/19/22 11:14 08/19/22 11:14 Labs: Abnormal Lab Results - Last 24 Hours (Table) 08/20/22 Range/Units 13:43 POC Glucose (mg/dL) 123 H (70-110) mg/dL Microbiology - Last 24 Hours (Table) 08/19/22 11:30 Blood Culture - Preliminary Blood No Growth after 24 hours 08/19/22 11:20 Blood Culture - Preliminary Blood No Growth after [address] scan - chest: report reviewed, image reviewed CT Scan - head: report reviewed, image reviewed Assessment and Plan Assessment: The patient is an 81-year-old male with a history of recently diagnosed limited stage small cell lung cancer of the left lower lung. He underwent concurrent chemoradiation finishing 66 Gy on 05/13/2022 starting on cycle 2 of chemotherapy. He was enrolled on G DEB-005. He now presents to the hospital with dyspnea and headaches. Plan: 1. Pneumonitis: After reviewing the patient's imaging, I am concerned he may have radiation pneumonitis (Grade 3, 02 required). He does not report signs or symptoms of aspiration. The pneumonitis largely involves the lower lobes, which does correspond to the radiotherapy field. I recommend the patient initiate prednisone, starting with 60 mg a day for 3 days, which should then be titrated slowly over the following 4 weeks. 2. Headaches: It is possible the patient's underlying headaches are secondary to hypoxia. However, considering his underlying small cell lung cancer, we do need to rule out brain metastases. The patient has a pacemaker, therefore I would recommend a contrast-enhanced CT scan of the head if he is not a candidate for an MRI. Time: I spent 45 minutes with this patient, of which greater than 50% of that time was spent counseling and coordinating care I appreciate the opportunity to participate in the care of this patient. Time with Patient: Greater than 30
--- NOTE | 2022-08-20 15:19 | P.CONS ---
History of Present Illness - Reason for Consult Consult date: 08/20/22 small cell - History of Present Illness This is a very nice patient who presented with peristent cough and dyspnea of about 2 months duration,CT scan of chest done in 12/2021 revealed LLL lung nodule and evidence of mediastinal and hilar nodes,subcarinal mass up to 4.3 cm,PET scan on 02/05/2022 revealed suspicious uptake in LLL mass (1.8cm),uptake in mediastinal,right hilar nodes. EBUS done on 02/04/2022,biopsy of mediastinal node was positive for small cell lung cancer. On 02/24/2022,brain CT scan was negative (could not have MRI). On 02/24/2022,he started carboplatin/etoposide. Concurrent radiation therapy added with cycle#2. He completed treatment on 05/13/2022 which he tolerated it with difficulties ,multiple admissions for neutropenic fever,dehydration. Repeat CT scan of chest/abdomen/pelvis revealed significant improvement in his disease. He was feeling better at last visit in June in office, better,more active,eating better,gained some weight He has now been admitted and being treated for pneumonitis/pneumonia. he admits to recurrent falls and leaning to one side Review of Systems All systems: negative Constitutional: Reports as per HPI Past Medical History Past Medical History: Cancer, COPD, GERD/Reflux, Hearing Disorder / Deafness, Hyperlipidemia, Hypertension, Myocardial Infarction ([place]) Additional Past Medical History / Comment(s): Vitamin B-12 deficiency, neuropathy legs and feet, very [place], low blood sugar at times, low kidney function, lung cancer Last Myocardial Infarction Date:: 2005 History of Any Multi-Drug Resistant Organisms: None Reported Past Surgical History: Heart Catheterization With Stent, Orthopedic Surgery, Pacemaker Additional Past Surgical History / Comment(s): Right shoulder scope, left knee scope, cardiac stents X3, Pacemaker replaced. Past Anesthesia/Blood Transfusion Reactions: No Reported Reaction Date of Last Stent Placement:: 11/2005 Type of Cardiac Device: Permanent Pacemaker Device Placement Date:: 11/2005 Past Psychological History: Anxiety Smoking Status: Former smoker Past Alcohol Use History: Occasional Additional Past Alcohol Use History / Comment(s): Smokes a cigar every once in awhile, none since . Past Drug Use History: None Reported - Past Family History Sister(s) Family Medical History: Cancer Mother Family Medical History: No Reported History Medications and Allergies Home Medications Medication Instructions Recorded Confirmed Type Simvastatin [Zocor] 80 mg PO HS 07/15/16 08/19/22 History Nitroglycerin Sl Tabs [Nitrostat] 0.4 mg SL Q5M PRN 11/26/19 08/19/22 History Sertraline HCl [Zoloft] 50 mg PO HS 04/18/20 08/19/22 History Mometasone/Formoterol [Dulera 200 1 puff INHALATION RT-BID 03/11/22 08/19/22 History Mcg-5 Mcg Inhaler] HYDROcodone/APAP [[place] Elixir 15 ml PO Q4H PRN 05/28/22 08/19/22 History 7.5-325Mg/15Ml] Albuterol Sulfate [Albuterol 2 puff PO RT-Q6H PRN 08/19/22 08/19/22 History Sulfate Hfa] LORazepam [Ativan] 1 mg PO TID 08/19/22 08/19/22 History Megestrol Acetate 400 mg PO DAILY 08/19/22 08/19/22 History carvediloL [Coreg] 3.125 mg PO DIRECTED 08/19/22 08/19/22 History traZODone HCL 100 mg PO HS 08/19/22 08/19/22 History Allergies Allergy/AdvReac Type Severity Reaction Status Date / Time No Known Allergies Allergy Verified 08/19/22 14:07 Physical Exam Vitals: Vital Signs Temp Pulse Pulse Resp BP BP Pulse Ox 08/20/22 07:57 94 L 08/20/22 04:23 97.6 F 65 16 135/79 94 L 08/19/22 21:52 82 101/58 92 L 08/19/22 21:30 98.2 F 76 18 105/67 94 L 08/19/22 18:12 79 16 111/65 93 L 08/19/22 14:52 68 16 120/67 90 L Intake and Output 08/19/22 08/20/22 08/20/22 22:59 06:59 14:59 Intake Total 700 Balance 700 Intake: Intake, IV Titration 100 Amount Cefepime 2 gm In Sodium 100 Chloride 0.9% 100 ml @ 25 mls/hr IVPB Q12H [facility] Rx# :[id number] Oral 600 Other: Voiding Method Toilet Toilet Urinal Urinal # Voids 3 Weight 79.379 kg - Constitutional General appearance: cooperative - EENT ENT: hard of hearing - Neck Neck: normal ROM - Respiratory Respiratory: bilateral: rhonchi - Cardiovascular Rhythm: regularly irregular - Gastrointestinal General gastrointestinal: soft - Integumentary Integumentary: pale - Musculoskeletal Musculoskeletal: generalized weakness - Psychiatric Psychiatric: A&O x's 3 Results CBC & Chem 7: 08/19/22 11:14 08/19/22 11:14 CT scan - chest: report reviewed Assessment and Plan (1) Neurologic abnormality Narrative/Plan: Further evaluation for metastatic disease to brain WIll also ask Dr. Kumar to evaluate [place] on dex (which he is on for pneumonitis) Current Visit: Yes Status: Acute Code(s): R29.818 - OTHER SYMPTOMS AND SIGNS INVOLVING THE NERVOUS SYSTEM SNOMED Code(s): 027513764 (2) Pneumonia Current Visit: Yes Status: Acute Code(s): J18.9 - PNEUMONIA, UNSPECIFIED ORGANISM SNOMED Code(s): 246440806 (3) Pneumonitis Narrative/Plan: Pulmonary is following Current Visit: Yes Status: Acute Code(s): J18.9 - PNEUMONIA, UNSPECIFIED ORGANISM SNOMED Code(s): 103878455 (4) Small cell lung cancer Narrative/Plan: He has been completed with chemo/radiation and was to have restaging recently Current Visit: No Status: Acute Code(s): C34.90 - MALIGNANT NEOPLASM OF UNSP PART OF UNSP BRONCHUS OR LUNG SNOMED Code(s): 737031851 Plan: The patient is an 81-year-old male with a history of recently diagnosed limited stage small cell lung cancer of the left lower lung. He underwent concurrent chemoradiation finishing 66 Gy on 05/13/2022 starting on cycle 2 of chemotherapy. He was enrolled on NR[facility] DEB-005. He now presents to the hospital with dyspnea and headaches. Dr. Urrutia: I have completed the full history and physical and developed the above impression and plan, agree with dictation, dictated as a ascribe
--- NOTE | 2022-08-20 16:02 | P.CNPUL ---
History of Present Illness Consult date: 08/20/22 Reason for consult: dyspnea History of present illness: 81-year-old male patient was hospitalized for shortness of breath. The patient was diagnosed having limited stage small cell lung cancer back in February 2022. The patient underwent concurrent chemo and radiation therapy and he completed radiation on 05/13/2022 and subsequently completed his chemotherapy. Note that the patient was showing adequate response and a follow-up CAT scan of the chest abdomen and pelvis that was done on 06/11/2022 showed possible response to therapy with interval decrease in the size of the mediastinal lymphadenopathy compared to the earlier CAT scan is and the left lower lobe pulmonary nodule was measuring 10 mm in size, smaller yet not completely recovered. No other acute abnormalities were noted. During this current admission, the patient reported to have some dyspnea. No significant cough or sputum production. No fever chills or night sweats. No aspiration. He is a poor historian. At times without that he was confused and based on that a CAT scan of the brain was done and the findings are essentially negative. CT angios the chest was also done and the patient was found to have no evidence of any filling defects. There was groundglass bilateral pulmonary opacities in the posterior aspect of the right upper lobe and the left upper lobe and some areas of consolidation left lower lobe. There was background COPD. The mediastinum showed no significant lymphadenopathy. Based on that, the patient was admitted to the hospital and t he patient was started on antibiotics. A pulmonary consultation was requested. The lites are thousand 6.6 with a hemoglobin 13.9 and a platelet count of 164. Electrolytes all normal. ProBNP level is 271. Magnesium level is at 1.4. LFTs are normal. UA is negative. The patient was infected with: COVID 19 back in February 2022 and the patient tested negative for: COVID19. Review of Systems Constitutional: Denies chills, Denies fever Eyes: denies as per HPI, denies blurred vision, denies bulging eye, denies decreased vision, denies diplopia, denies discharge, denies dry eye, denies irritation, denies itching, denies pain, denies photophobia, denies loss of peripheral vision, denies loss of vision, denies tunnel vision/blind spots Ears: bilateral: decreased hearing, deny: ear discharge, earache, tinnitus Ears, nose, mouth and throat: Reports as per HPI Breasts: absent: as per HPI, gynecomastia Cardiovascular: Reports decreased exercise tolerance, Reports dyspnea on exertion Respiratory: Reports dyspnea Gastrointestinal: Reports as per HPI Genitourinary: Reports as per HPI Musculoskeletal: Reports as per HPI Musculoskeletal: absent: ankle pain, ankle stiffness, ankle swelling, as per HPI, elbow pain, elbow stiffness, elbow swelling, foot pain, foot stiffness, foot swelling, hand pain, hand stiffness, hand swelling, hip pain, hip stiffness, hip swelling, knee pain, knee stiffness, knee swelling, shoulder pain, shoulder stiffness, shoulder swelling, wrist pain, wrist stiffness, wrist swelling Integumentary: Reports as per HPI Neurological: Reports as per HPI Psychiatric: Reports as per HPI Endocrine: Reports as per HPI Hematologic/Lymphatic: Reports as per HPI Allergic/Immunologic: Reports as per HPI Past Medical History Past Medical History: Cancer, COPD, GERD/Reflux, Hearing Disorder / Deafness, Hyperlipidemia, Hypertension, Myocardial Infarction ([place]) Additional Past Medical History / Comment(s): Vitamin B-12 deficiency, neuropathy legs and feet, very [employer], low blood sugar at times, low kidney function, lung cancer Last Myocardial Infarction Date:: 2005 History of Any Multi-Drug Resistant Organisms: None Reported Past Surgical History: Heart Catheterization With Stent, Orthopedic Surgery, Pacemaker Additional Past Surgical History / Comment(s): Right shoulder scope, left knee scope, cardiac stents X3, Pacemaker replaced. Past Anesthesia/Blood Transfusion Reactions: No Reported Reaction Date of Last Stent Placement:: 11/2005 Type of Cardiac Device: Permanent Pacemaker Device Placement Date:: 11/2005 Past Psychological History: Anxiety Smoking Status: Former smoker Past Alcohol Use History: Occasional Additional Past Alcohol Use History / Comment(s): Smokes a cigar every once in awhile, none since . Past Drug Use History: None Reported - Past Family History Sister(s) Family Medical History: Cancer Mother Family Medical History: No Reported History Medications and Allergies Home Medications Medication Instructions Recorded Confirmed Type Simvastatin [Zocor] 80 mg PO HS 07/15/16 08/19/22 History Nitroglycerin Sl Tabs [Nitrostat] 0.4 mg SL Q5M PRN 11/26/19 08/19/22 History Sertraline HCl [Zoloft] 50 mg PO HS 04/18/20 08/19/22 History Mometasone/Formoterol [Dulera 200 1 puff INHALATION RT-BID 03/11/22 08/19/22 History Mcg-5 Mcg Inhaler] HYDROcodone/APAP [Eldridge Elixir 15 ml PO Q4H PRN 05/28/22 08/19/22 History 7.5-325Mg/15Ml] Albuterol Sulfate [Albuterol 2 puff PO RT-Q6H PRN 08/19/22 08/19/22 History Sulfate Hfa] LORazepam [Ativan] 1 mg PO TID 08/19/22 08/19/22 History Megestrol Acetate 400 mg PO DAILY 08/19/22 08/19/22 History carvediloL [Coreg] 3.125 mg PO DIRECTED 08/19/22 08/19/22 History traZODone HCL 100 mg PO HS 08/19/22 08/19/22 History Allergies Allergy/AdvReac Type Severity Reaction Status Date / Time No Known Allergies Allergy Verified 08/19/22 14:07 Physical Exam Vitals: Vital Signs Temp Pulse Pulse Resp BP BP Pulse Ox 08/20/22 11:57 97.4 F L 98 16 130/72 91 L 08/20/22 07:57 94 L 08/20/22 04:23 97.6 F 65 16 135/79 94 L 08/19/22 21:52 82 101/58 92 L 08/19/22 21:30 98.2 F 76 18 105/67 94 L 08/19/22 18:12 79 16 111/65 93 L Intake and Output 08/20/22 08/20/22 08/20/22 06:59 14:59 22:59 Intake Total 700 Balance 700 Intake: Intake, IV Titration 100 Amount Cefepime 2 gm In Sodium 100 Chloride 0.9% 100 ml @ 25 mls/hr IVPB Q12H [facility] Rx# :[id number] Oral 600 Other: Voiding Method Toilet Urinal # Voids 3 The patient appeared well nourished and normally developed. Vital signs as documented. Head exam is unremarkable. No scleral icterus or corneal arcus noted. Neck is without jugular venous distension, thyromegaly, or carotid bruits. Carotid upstrokes are brisk bilaterally. Lungs are clear to auscultation and percussion. Cardiac exam reveals the PMI to be normally sized and situated. Rhythm is regular. First and second heart sounds normal. No murmurs, rubs or gallops. Abdominal exam reveals normal bowel sounds, no masses, no organomegaly and no aortic enlargement. Extremities are nonedematous and both femoral and pedal pulses are normal.Examination of the skin revealed no evidence of significant rashes, suspicious appearing nevi or other concerning lesions.Neurologically, the patient is awake and alert and the patient does not have any focal neurological deficit. Cranial nerves are essentially intact. Results - Laboratory Findings CBC and BMP: 08/19/22 11:14 08/19/22 11:14 Abnormal lab findings: Abnormal Labs 08/19/22 08/19/22 08/20/22 11:14 11:14 13:43 RBC 4.21 L MCV 101.4 H Lymphocytes # 0.5 L POC Glucose (mg/dL) 123 H Magnesium 1.4 L Alkaline Phosphatase 147 H Total Protein 6.1 L - Diagnostic Findings Chest x-ray: image reviewed CT scan - chest: image reviewed Assessment and Plan Plan: Limited stage small cell lung cancer post-chemoradiation therapy with good radiographic and clinical response. Bilateral areas of groundglass pulmonary infiltrates and areas of consolidation left lower lobe, consider radiation pneumonitis. Infectious etiologies are felt to be less likely. The routine vital screening needs to be done to rule out any viral pneumonias. Drug-induced effects are felt to be less likely. Atypical pneumonia is felt to be less likely. Shortness of breath secondary to above Hypertension Hyperlipidemia Impaired Hearing Coronary artery disease with previous coronary stent insertion and the patient has a pacemaker in place. The patient has undergone previous PCI and stenting. He does have an underlying component of nonischemic cardiomyopathy. COPD Previous history of smoking Peripheral neuropathy involving the lower extremities Plan Empiric antibiotic coverage for now Continue IV Solu-Medrol May transition this patient to a prednisone burst taper within next 24-48 hours Obtain influenza nasal swab by PCR Blood cultures We'll continue to follow. Consult medical oncology and radiation oncology.
[2022-08-20] MEDS ORDERED: RX INFO: IV CONTRAST WAS GIVEN 1 EACH MISC MISCELLANE PRN (16:46)
[2022-08-20 17:45] LABS: Glucose,Whole Blood 245 mg/dL (70-110)
[2022-08-20 18:18] LABS: AST 312 U/L (17-59); African American GFR (CKD) 66 (>60 ml/min/1.73 sqM); Albumin 3.3 g/dL (3.5-5.0); Albumin/Globulin Ratio 1.3; Alkaline Phosphatase 113 U/L (38-126); Anion Gap 15 mmol/L; Blood Urea Nitrogen 24 mg/dL (9-20); Calcium 9.4 mg/dL (8.4-10.2); Carbon Dioxide 20 mmol/L (22-30); Chloride 104 mmol/L (98-107); Globulin 2.5 g/dL; Glucose 236 mg/dL (74-99); Non-African American GFR(CKD) 57 (>60 ml/min/1.73 sqM); Potassium 4.1 mmol/L (3.5-5.1); Sodium 139 mmol/L (137-145); Total Bilirubin 0.4 mg/dL (0.2-1.3); Total Protein 5.8 g/dL (6.3-8.2)
[2022-08-20 18:24] LABS: ALT 50 U/L (4-49)
[2022-08-20 20:21] LABS: Glucose,Whole Blood 205 mg/dL (70-110)
[2022-08-20] MEDS: SERTRALINE 50 MG TAB PO SCH (20:47)
[2022-08-20] MEDS: ATORVASTATIN 40 MG TAB PO SCH (20:47)
[2022-08-20] MEDS: traZODone HCL 100 MG TAB PO SCH (20:47)
[2022-08-20] MEDS: SYMBICORT 160-4.5 MCG INHALER INHALATION SCH (20:50)
--- NOTE | 2022-08-20 20:53 | CT ---
EXAMINATION TYPE: CT brain w con DATE OF EXAM: 08/20/2022 COMPARISON: 08/19/2022 HISTORY: headaches. hx of lung ca CT DLP: 1333.3 mGycm Automated exposure control for dose reduction was used. CONTRAST: CT scan of the head is performed with IV Contrast, patient injected with 80 mL of Isovue 300. FINDINGS: There is no abnormal enhancing mass or midline shift identified. The ventricles and sulci demonstrat e mild generalized atrophic change. The globes are intact and the visualized sinuses are clear. IMPRESSION: Negative contrast enhanced head CT exam.
[2022-08-21] MEDS: methylPREDNISolone SOD SUCCI 125 MG/2 ML VIAL IV SCH ×2 (05:31→12:19)
[2022-08-21] MEDS: CEFEPIME 2 GM in SODIUM CHLORIDE 0.9% 100 ML IVPB SCH (05:32)
[2022-08-21 07:20] LABS: Glucose,Whole Blood 149 mg/dL (70-110)
[2022-08-21] MEDS: INSULIN ASPART (NovoLOG) 100 UNIT/ML VIAL SQ SCH ×4 (07:36→20:54)
[2022-08-21] MEDS: SYMBICORT 160-4.5 MCG INHALER INHALATION SCH ×2 (08:00→19:54)
[2022-08-21] MEDS: PANTOPRAZOLE 40 MG TABLET PO SCH (09:03)
[2022-08-21] MEDS: LORazepam 1 MG TAB PO SCH ×3 (09:03→20:59)
[2022-08-21] MEDS: MEGESTROL 400 MG/10 ML CUP PO SCH (09:03)
[2022-08-21] MEDS: carvediloL 3.125 MG TAB PO SCH ×2 (09:03→17:45)
[2022-08-21] MEDS: ENOXAPARIN 40 MG/0.4 ML SYRINGE SQ SCH (09:03)
[2022-08-21 09:09] LABS: HCT 36.3 % (39.6-50.0); HGB 12.4 g/dL (13.0-17.0); MCH 33.7 pg (27.0-32.0); MCHC 34.2 g/dL (32.0-37.0); MCV 98.6 fL (80.0-97.0); NRBC Per 100 WBC 0 /100 WBCS (0.0-0.0); Platelet Count 166 X 10*3/uL (140-440); RBC 3.68 X 10*6/uL (4.40-5.60); WBC 20.98 X 10*3/uL (4.50-10.00)
[2022-08-21 09:28] LABS: African American GFR (CKD) 72.1 (60.0-200.0); Albumin 3.2 g/dL (3.8-4.9); Albumin/Globulin Ratio 1.39 (1.60-3.17); Anion Gap 12.6 mmol/L (10.00-18.00); BUN/Creat Ratio 21.55 Ratio (12.00-20.00); Blood Urea Nitrogen 23.7 mg/dL (9.0-27.0); Calcium 9.3 mg/dL (8.7-10.3); Carbon Dioxide 21.4 mmol/L (20.0-27.5); Globulin 2.3 g/dL (1.6-3.3); Non-African American GFR(CKD) 62.2 (60.0-200.0); Potassium 4.7 mmol/L (3.5-5.5); Total Bilirubin 0.2 mg/dL (0.30-1.20); Total Protein 5.5 g/dL (6.2-8.2)
[2022-08-21 11:57] LABS: Glucose,Whole Blood 320 mg/dL (70-110)
--- NOTE | 2022-08-21 13:19 | P.PN ---
Subjective Progress Note Date: 08/21/22 Principal diagnosis: Limited stage small cell lung cancer -CT of the brain with contrast performed yesterday evening with no evidence of intracranial metastasis -No acute events overnight -Denies any cough or dyspnea currently, but noted having dyspnea on exertion with assistance yesterday afternoon Objective - Vital Signs Vital signs: Vital Signs Temp 97.6 F 08/21/22 11:26 Pulse 82 08/21/22 11:26 Resp 16 08/21/22 11:26 BP 112/63 08/21/22 11:26 Pulse Ox 93 L 08/21/22 11:26 FiO2 Intake & Output 08/20/22 08/21/22 08/21/22 18:59 06:59 18:59 Intake Total 400 Balance 400 Intake: Oral 400 Other: Voiding Method Toilet Toilet Toilet Urinal Urinal Urinal # Voids 4 - Constitutional General appearance: Present: average body habitus, cooperative, no acute distress - EENT Eyes: Present: EOMI ENT: Present: hard of hearing - Respiratory Details: Bibasilar inspiratory crackles - Cardiovascular Rhythm: regular - Integumentary Integumentary: Absent: rash - Neurologic Neurologic: Present: CNII-XII intact - Labs CBC & Chem 7: 08/21/22 05:05 08/21/22 05:05 Labs: Abnormal Lab Results - Last 24 Hours (Table) 08/20/22 08/20/22 08/20/22 Range/Units 13:43 17:41 17:43 WBC (4.50-10.00) X 10*3/uL RBC (4.40-5.60) X 10*6/uL Hgb (13.0-17.0) g/dL Hct (39.6-50.0) % MCV (80.0-97.0) fL MCH (27.0-32.0) pg Carbon Dioxide 20 L (22-30) mmol/L BUN 24 H (9-20) mg/dL BUN/Creatinine Ratio (12.00-20.00) Ratio Glucose 236 H (74-99) mg/dL POC Glucose (mg/dL) 123 H 245 H (70-110) mg/dL Total Bilirubin (0.30-1.20) mg/dL AST 312 H (17-59) U/L ALT 50 H (4-49) U/L Total Protein 5.8 L (6.3-8.2) g/dL Albumin 3.3 L (3.5-5.0) g/dL Albumin/Globulin Ratio (1.60-3.17) g/dL 08/20/22 08/21/22 08/21/22 Range/Units 20:20 05:05 05:05 WBC 20.98 H (4.50-10.00) X 10*3/uL RBC 3.68 L (4.40-5.60) X 10*6/uL Hgb 12.4 L (13.0-17.0) g/dL Hct 36.3 L (39.6-50.0) % MCV 98.6 H (80.0-97.0) fL MCH 33.7 H (27.0-32.0) pg Carbon Dioxide (22-30) mmol/L BUN (9-20) mg/dL BUN/Creatinine Ratio 21.55 H (12.00-20.00) Ratio Glucose 154 H (74-99) mg/dL POC Glucose (mg/dL) 205 H (70-110) mg/dL Total Bilirubin 0.20 L (0.30-1.20) mg/dL AST 431 H (17-59) U/L ALT 77 H (4-49) U/L Total Protein 5.5 L (6.3-8.2) g/dL Albumin 3.2 L (3.5-5.0) g/dL Albumin/Globulin Ratio 1.39 L (1.60-3.17) g/dL 08/21/22 08/21/22 Range/Units 07:19 11:55 WBC (4.50-10.00) X 10*3/uL RBC (4.40-5.60) X 10*6/uL Hgb (13.0-17.0) g/dL Hct (39.6-50.0) % MCV (80.0-97.0) fL MCH (27.0-32.0) pg Carbon Dioxide (22-30) mmol/L BUN (9-20) mg/dL BUN/Creatinine Ratio (12.00-20.00) Ratio Glucose (74-99) mg/dL POC Glucose (mg/dL) 149 H 320 H (70-110) mg/dL Total Bilirubin (0.30-1.20) mg/dL AST (17-59) U/L ALT (4-49) U/L Total Protein (6.3-8.2) g/dL Albumin (3.5-5.0) g/dL Albumin/Globulin Ratio (1.60-3.17) g/dL Microbiology - Last 24 Hours (Table) 08/19/22 17:10 Blood Culture - Preliminary Blood No Growth after 24 hours 08/19/22 17:25 Blood Culture - Preliminary Blood No Growth after 24 hours 08/19/22 11:30 Blood Culture - Preliminary Blood No Growth after 24 hours 08/19/22 11:20 Blood Culture - Preliminary Blood No Growth after 24 hours - Imaging and Cardiology CT scan - chest: report reviewed, image reviewed CT Scan - head: report reviewed Assessment and Plan Assessment: Mr. Fierro is an 81-year-old gentleman with a past medical history of limited stage small cell lung cancer status post 4 cycles of concurrent chemoradiation therapy with evidence of partial response on CT chest/abdomen on 06/11/2022 presenting with increased dyspnea on exertion found to have bilateral lower lobe groundglass opacities concerning for potential radiation pneumonitis Plan: #Bilateral groundglass opacities -Consistent with bibasilar infiltrate crackles heard on exam -Case reviewed by medical oncology, pulmonology, radiation oncology with a consensus that this is likely secondary to radiation pneumonitis -He is currently on Solu-Medrol 60 mg IV every 6 hours -Continue Solu-Medrol and IV cefepime at the present time -If infectious workup is negative at 48 hours and remains afebrile, it is likely that he does not have an infectious etiology and in fact this is radiation pneumonitis -Recommendations for oral prednisone 60 mg daily with slow taper per radiation oncology team, appreciate their assistance #Hepatocellular Transaminitis -Noted to have elevation in AST and ALT on labs from 08/20 and 08/21 -Alkaline phosphatase and total bilirubin are normal -CT abdomen and chest from 06/11/2022 noted no evidence of malignancy in the liver -Continue to trend daily -If AST and ALT remain elevated, acute hepatitis panel can be considered
--- NOTE | 2022-08-21 14:15 | P.PN ---
Subjective Progress Note Date: 08/21/22 81-year-old male patient was hospitalized for shortness of breath. The patient was diagnosed having limited stage small cell lung cancer back in February 2022. The patient underwent concurrent chemo and radiation therapy and he completed radiation on 05/13/2022 and subsequently completed his chemotherapy. Note that the patient was showing adequate response and a follow-up CAT scan of the chest abdomen and pelvis that was done on 06/11/2022 showed possible response to therapy with interval decrease in the size of the mediastinal lymphadenopathy compared to the earlier CAT scan is and the left lower lobe pulmonary nodule was measuring 10 mm in size, smaller yet not completely recovered. No other acute abnormalities were noted. During this current admission, the patient reported to have some dyspnea. No significant cough or sputum production. No fever chills or night sweats. No aspiration. He is a poor historian. At times without that he was confused and based on that a CAT scan of the brain was done and the findings are essentially negative. CT angios the chest was also done and the patient was found to have no evidence of any filling defects. There was groundglass bilateral pulmonary opacities in the posterior aspect of the right upper lobe and the left upper lobe and some areas of consolidation left lower lobe. There was background COPD. The mediastinum showed no significant lymphadenopathy. Based on that, the patient was admitted to the hospital and the patient was started on antibiotics. A pulmonary consultation was requested. The lites are thousand 6.6 with a hemoglobin 13.9 and a platelet count of 164. Electrolytes all normal. ProBNP level is 271. Magnesium level is at 1.4. LFTs are normal. UA is negative. The patient was infected with: COVID 19 back in February 2022 and the patient tested negative for: COVID19. 08/21/2022 the patient remains on room air oxygen. No respiratory difficulties. He remains on steroids. Overnight, no acute events and the CAT scan of the brain showed no evidence of any metastases. No fever. The cultures of been ne gative however, the patient developed an acute leukocytosis white cell count of 20.9. This could be steroid induced. Objective - Vital Signs Vital signs: Vital Signs Temp 97.6 F 08/21/22 11:26 Pulse 82 08/21/22 11:26 Resp 16 08/21/22 11:26 BP 112/63 08/21/22 11:26 Pulse Ox 93 L 08/21/22 11:26 FiO2 Intake & Output 08/20/22 08/21/22 08/21/22 18:59 06:59 18:59 Intake Total 400 Balance 400 Intake: Oral 400 Other: Voiding Method Toilet Toilet Toilet Urinal Urinal Urinal # Voids 4 - Exam The patient appeared well nourished and normally developed. Vital signs as documented. Head exam is unremarkable. No scleral icterus or corneal arcus noted. Neck is without jugular venous distension, thyromegaly, or carotid bruits. Carotid upstrokes are brisk bilaterally. Lungs are clear to auscultation and percussion. Cardiac exam reveals the PMI to be normally sized and situated. Rhythm is regular. First and second heart sounds normal. No murmurs, rubs or gallops. Abdominal exam reveals normal bowel sounds, no masses, no organomegaly and no aortic enlargement. Extremities are nonedematous and both femoral and pedal pulses are normal.Examination of the skin revealed no evidence of significant rashes, suspicious appearing nevi or other concerning lesions.Neurologically, the patient is awake and alert and the patient does not have any focal neurological deficit. Cranial nerves are essentially intact. - Labs CBC & Chem 7: 08/21/22 05:05 08/21/22 05:05 Labs: Abnormal Lab Results - Last 24 Hours (Table) 08/20/22 08/20/22 08/20/22 Range/Units 17:41 17:43 20:20 WBC (4.50-10.00) X 10*3/uL RBC (4.40-5.60) X 10*6/uL Hgb (13.0-17.0) g/dL Hct (39.6-50.0) % MCV (80.0-97.0) fL MCH (27.0-32.0) pg Carbon Dioxide 20 L (22-30) mmol/L BUN 24 H (9-20) mg/dL BUN/Creatinine Ratio (12.00-20.00) Ratio Glucose 236 H (74-99) mg/dL POC Glucose (mg/dL) 245 H 205 H (70-110) mg/dL Total Bilirubin (0.30-1.20) mg/dL AST 312 H (17-59) U/L ALT 50 H (4-49) U/L Total Protein 5.8 L (6.3-8.2) g/dL Albumin 3.3 L (3.5-5.0) g/dL Albumin/Globulin Ratio (1.60-3.17) g/dL 08/21/22 08/21/22 08/21/22 Range/Units 05:05 05:05 07:19 WBC 20.98 H (4.50-10.00) X 10*3/uL RBC 3.68 L (4.40-5.60) X 10*6/uL Hgb 12.4 L (13.0-17.0) g/dL Hct 36.3 L (39.6-50.0) % MCV 98.6 H (80.0-97.0) fL MCH 33.7 H (27.0-32.0) pg Carbon Dioxide (22-30) mmol/L BUN (9-20) mg/dL BUN/Creatinine Ratio 21.55 H (12.00-20.00) Ratio Glucose 154 H (74-99) mg/dL POC Glucose (mg/dL) 149 H (70-110) mg/dL Total Bilirubin 0.20 L (0.30-1.20) mg/dL AST 431 H (17-59) U/L ALT 77 H (4-49) U/L Total Protein 5.5 L (6.3-8.2) g/dL Albumin 3.2 L (3.5-5.0) g/dL Albumin/Globulin Ratio 1.39 L (1.60-3.17) g/dL 08/21/22 Range/Units 11:55 WBC (4.50-10.00) X 10*3/uL RBC (4.40-5.60) X 10*6/uL Hgb (13.0-17.0) g/dL Hct (39.6-50.0) % MCV (80.0-97.0) fL MCH (27.0-32.0) pg Carbon Dioxide (22-30) mmol/L BUN (9-20) mg/dL BUN/Creatinine Ratio (12.00-20.00) Ratio Glucose (74-99) mg/dL POC Glucose (mg/dL) 320 H (70-110) mg/dL Total Bilirubin (0.30-1.20) mg/dL AST (17-59) U/L ALT (4-49) U/L Total Protein (6.3-8.2) g/dL Albumin (3.5-5.0) g/dL Albumin/Globulin Ratio (1.60-3.17) g/dL Microbiology - Last 24 Hours (Table) 08/19/22 11:30 Blood Culture - Preliminary Blood No Growth after 48 hours 08/19/22 11:20 Blood Culture - Preliminary Blood No Growth after 48 hours 08/19/22 17:10 Blood Culture - Preliminary Blood No Growth after 24 hours 08/19/22 17:25 Blood Culture - Preliminary Blood No Growth after 24 hours Assessment and Plan Plan: Limited stage small cell lung cancer post-chemoradiation therapy with good radiographic and clinical response. Bilateral areas of groundglass pulmonary infiltrates and areas of consolidation left lower lobe, consider radiation pneumonitis. Infectious etiologies are felt to be less likely. The routine vital screening needs to be done to rule out any viral pneumonias. Drug-induced effects are felt to be less likely. Atypical pneumonia is felt to be less likely. The patient is scheduled oxygen with a pulse of 93% Acute leukocytosis, likely steroid-induced, afebrile Shortness of breath secondary to above Hypertension Hyperlipidemia Impaired Hearing Coronary artery disease with previous coronary stent insertion and the patient has a pacemaker in place. The patient has undergone previous PCI and stenting. He does have an underlying component of nonischemic cardiomyopathy. COPD Previous history of smoking Peripheral neuropathy involving the lower extremities Plan Monitor the white cell count May discontinue the antibiotics Basis this patient to oral prednisone May transition this patient to a prednisone burst taper within next 24-48 hours Obtain influenza nasal swab by PCR, negative Blood cultures, negative We'll continue to follow. Consult medical oncology and radiation oncology.
[2022-08-21] MEDS: predniSONE 20 MG TAB PO SCH (15:53)
[2022-08-21 17:02] LABS: Glucose,Whole Blood 151 mg/dL (70-110)
[2022-08-21 20:25] LABS: Glucose,Whole Blood 191 mg/dL (70-110)
[2022-08-21] MEDS: ATORVASTATIN 40 MG TAB PO SCH (20:54)
[2022-08-21] MEDS: SERTRALINE 50 MG TAB PO SCH (20:54)
[2022-08-21] MEDS: traZODone HCL 100 MG TAB PO SCH (20:54)
[2022-08-22 04:08] VITALS: RESP 16
[2022-08-22 07:22] LABS: Glucose,Whole Blood 143 mg/dL (70-110)
[2022-08-22] MEDS: INSULIN ASPART (NovoLOG) 100 UNIT/ML VIAL SQ SCH ×4 (07:28→21:29)
[2022-08-22] MEDS: SYMBICORT 160-4.5 MCG INHALER INHALATION SCH ×2 (07:41→19:38)
[2022-08-22] MEDS: MEGESTROL 400 MG/10 ML CUP PO SCH (08:37)
[2022-08-22] MEDS: carvediloL 3.125 MG TAB PO SCH ×2 (08:37→17:28)
[2022-08-22] MEDS: ENOXAPARIN 40 MG/0.4 ML SYRINGE SQ SCH (08:37)
[2022-08-22] MEDS: PANTOPRAZOLE 40 MG TABLET PO SCH (08:37)
[2022-08-22] MEDS: predniSONE 20 MG TAB PO SCH (08:37)
[2022-08-22] MEDS: LORazepam 1 MG TAB PO SCH ×3 (08:37→21:29)
[2022-08-22 10:18] LABS: Basophils # (A) 0.02 X 10*3/uL (0.00-0.10); Basophils % (A) 0.1 %; Eosinophils # (A) 0 X 10*3/uL (0.04-0.35); Eosinophils % (A) 0 %; HCT 34.2 % (39.6-50.0); HGB 11.3 g/dL (13.0-17.0); Immature Grans, Automated 0.9 %; Lymphocytes # (A) 0.35 X 10*3/uL (0.90-5.00); Lymphocytes % (A) 1.9 %; MCH 33.1 pg (27.0-32.0); MCV 100.3 fL (80.0-97.0); Monocytes # (A) 0.62 X 10*3/uL (0.20-1.00); Monocytes % (A) 3.3 %; NRBC Per 100 WBC 0 /100 WBCS (0.0-0.0); Neutrophils # (A) 17.66 X 10*3/uL (1.80-7.70); Neutrophils % (A) 93.8 %; Platelet Count 165 X 10*3/uL (140-440); RBC 3.41 X 10*6/uL (4.40-5.60); RDW 13.2 % (11.5-14.5); WBC 18.82 X 10*3/uL (4.50-10.00)
[2022-08-22 11:22] LABS: African American GFR (CKD) 72.1 (60.0-200.0); Albumin/Globulin Ratio 1.5 (1.60-3.17); Anion Gap 9.6 mmol/L (10.00-18.00); BUN/Creat Ratio 28.82 Ratio (12.00-20.00); Blood Urea Nitrogen 31.7 mg/dL (9.0-27.0); Calcium 8.9 mg/dL (8.7-10.3); Carbon Dioxide 23.4 mmol/L (20.0-27.5); Non-African American GFR(CKD) 62.2 (60.0-200.0); Potassium 4.1 mmol/L (3.5-5.5); Total Bilirubin 0.2 mg/dL (0.30-1.20)
[2022-08-22 11:32] LABS: Glucose,Whole Blood 162 mg/dL (70-110)
--- NOTE | 2022-08-22 12:30 | P.PN ---
Subjective Progress Note Date: 08/22/22 HISTORY OF PRESENT ILLNESS This is an 81-year-old male with past medical history of small cell lung cancer is status post carboplatin/etoposide in January 2022. He states he is not curre ntly on chemotherapy. He is status post radiation for 4 weeks and follows with Dr. Newell and Dr. Kumar. 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 He also has a past medical history of myocardial infarction in 2005 status post PCI to the OM in 2005, RCA in 2005, FFR of the LAD in 2018 was nonischemic, hypertension, hyperlipidemia, left bundle branch block and permanent pacemaker implantation. Patient follows with Dr. Whitaker. He also has history of gastroesophageal reflux disease, COPD, remote history of tobacco use and dependence, deafness, peripheral neuropathy bilateral lower extremities. Patient states that he started having a cough about 3 weeks ago and continued to worsen followed by sputum production and fevers. He has completed a course of Levaquin for 7 days at home without improvement. He was sent into the hospital by Dr. Kumar. Dr. Love is his pulmonary physician. Patient presented to [facility] emergency center and found to be afebrile, heart rate 85, blood pressure 113/70, pulse ox 94% on room air. EKG is atrial paced rhythm. WBC 6.6, hemoglobin 13.9, platelet count 164. Electrolytes normal. BUN 16 creatinine 1.1. Magnesium 1.4. Alkaline phosphatase 147. ProBNP 271. Troponin 0.013. Chest x-ray reveals borderline heart size. Increasing interstitial density. Correlate for bronchitis, atypical occult pneumonias or developing heart failure with pulmonary vascular congestion. CAT scan of the brain revealed no acute intracranial process. CTA of the chest revealed no evidence of pulmonary embolism. Limited evaluation of the segmental and subsegmental branches. Scattered predominantly lower lobe groundglass opacities and air space consolidation concerning for aspiration pneumonia/pneumonitis or infectious inflammatory process. New from 06/11. Multiple left upper thorax collaterals correlate for thrombosis/stenosis at the insertion of the cardiac conduction device leads. Repeat chest x-ray reveals no significant change and patchy airspace disease in the right perihilar region and left mid lung. Findings concerning for pneumonia. Continue follow-up is recommended. COPD changes. Patient is being admitted to the Oncology floor, consults in place with oncology, pulmonary medicine. 08/21: Patient is laying down in bed and is feeling better today, he was seen in consultation by oncology as well as by pulmonary medicine, continue current treatment plan, continue IV Solu Medrol, continue IV antibiotic, obtain sputum culture, obtain blood cultures, continue oxygen support, this is likely radiation pneumonitis. 08/22: Patient is doing better today, he is flushed due to steroid use, he denies any chest pain, he denies any shortness breath, he has less coughing, is nena erating treatment very well, sputum cultures were sent today, awaiting the final result of that, continue IV antibiotic, decrease steroid, follow-up with the patient. REVIEW OF SYSTEMS Constitutional: Reported fever, no chills, no night sweats. No weight change. No weakness, fatigue or lethargy. No daytime sleepiness. EENT: No headache. No blurred vision or double vision, no loss of vision. No loss of Hearing, no ringing in the ears, no dizziness. No nasal drainage or congestion. No epistaxis. No sore throat. Lungs: Reported shortness of breath, Reported cough, Reported sputum production. No wheezing. Cardiovascular: No chest pain, no lower extremity edema. No palpitations. No paroxysmal nocturnal dyspnea. No orthopnea. No lightheadedness or dizziness. No syncopal episodes. Abdominal: No abdominal pain. No nausea, vomiting. No diarrhea. No constipa tion. No bloody or tarry stools. No loss of appetite. Genitourinary: No dysuria, increased frequency, urgency. No urinary retention. Musculoskeletal: No myalgias. No muscle weakness, no gait dysfunction, no frequent falls. No back pain. No neck pain. Integumentary: No wounds, no lesions. No rash or pruritus. No unusual bruising. No change in hair or nails. Neurologic: No aphasia. No facial droop. No change in mentation. No head injury. No headache. No paralysis. No paresthesia. Psychiatric: No depression. No anxiety. No mood swings. Endocrine: No abnormal blood sugars. No weight change. No excessive sweating or thirst. No cold intolerance. PHYSICAL EXAMINATION Gen: This is an 81-year-old male. He is resting in bed appears to be comfortable and in no acute distress. HEENT: Head is atraumatic, normocephalic. Pupils equal, round. Sclerae is anicteric. NECK: Supple. No JVD. No lymphadenopathy. No thyromegaly. LUNGS: Diminished breath sounds. No wheezes or rhonchi. No intercostal retractions. HEART: Regular rate and rhythm. Systolic ejection murmur at the base. Pacemaker anterior chest wall left side. ABDOMEN: Soft. Bowel sounds are present. No masses. No tenderness. EXTREMITIES: No pedal edema. No calf tenderness. NEUROLOGICAL: Patient is awake, alert and oriented x3. Cranial nerves 2 through 12 are grossly intact. ASSESSMENT AND PLAN 1. Pneumonia lower lobe possible radiation pneumonitis, failed outpatient treatment. Patient has been started on cefepime 2 g IV piggyback every 12 hours. Continue patient on albuterol every 6 hours as needed, Symbicort 2 puffs twice every day, continue prednisone 40 mg orally once every day, monitor the patient very closely. Await the final result of the sputum culture. 2. Small cell lung cancer. Consult oncology. Continue Megace 400 mg daily. 3. Coronary artery disease. Continue Coreg 3.125 mg twice daily, continue patient on Lipitor 40 mg once every day, continue aspirin 81 mg once every day. 4. Hypertension. Continue Coreg 3.125 mg twice daily, monitor the patient blood pressure rate closely. 5. Hyperlipidemia. Continue Lipitor 40 mg at bedtime monitor the patient lipid panel, keep LDL 55-70., 6. Gastroesophageal reflux disease. Protonix 40 mg daily. 7. Peripheral neuropathy. 8. Remote history of tobacco use and dependence. 9. Recurrent depression and generalized anxiety disorder. Continue Zoloft 50 mg at bedtime, trazodone 100 mg at bedtime, Ativan 1 mg 3 times daily. 10. Deafness, stable. 11. DVT prophylaxis. Lovenox 40 mg subcu daily. 12. GI prophylaxis. Continue PPI. 13. Home in the next 1 or 2 days. Objective - Vital Signs Vital signs: Vital Signs Temp 97.7 F 08/22/22 11:29 Pulse 70 08/22/22 11:29 Resp 16 08/22/22 11:29 BP 131/64 08/22/22 11:29 Pulse Ox 98 08/22/22 11:29 FiO2 Intake & Output 08/21/22 08/22/22 08/22/22 18:59 06:59 18:59 Intake Total 600 Balance 600 Intake: Oral 600 Other: Voiding Method Toilet Toilet Toilet Urinal Urinal Urinal # Voids 2 2 - Labs CBC & Chem 7: 08/22/22 06:27 08/22/22 06:27 Labs: Abnormal Lab Results - Last 24 Hours (Table) 08/21/22 08/21/22 08/22/22 Range/Units 16:57 20:19 06:27 WBC 18.82 H (4.50-10.00) X 10*3/uL RBC 3.41 L (4.40-5.60) X 10*6/uL Hgb 11.3 L (13.0-17.0) g/dL Hct 34.2 L (39.6-50.0) % MCV 100.3 H (80.0-97.0) fL MCH 33.1 H (27.0-32.0) pg Immature Gran # 0.17 H (0.00-0.04) X 10*3/uL Neutrophils # 17.66 H (1.80-7.70) X 10*3/uL Lymphocytes # 0.35 L (0.90-5.00) X 10*3/uL Eosinophils # 0 L (0.04-0.35) X 10*3/uL Anion Gap (10.00-18.00) mmol/L BUN (9.0-27.0) mg/dL BUN/Creatinine Ratio (12.00-20.00) Ratio Glucose (70-110) mg/dL POC Glucose (mg/dL) 151 H 191 H (70-110) mg/dL Total Bilirubin (0.30-1.20) mg/dL AST (14-35) U/L ALT (10-49) U/L Total Protein (6.2-8.2) g/dL Albumin (3.8-4.9) g/dL Albumin/Globulin Ratio (1.60-3.17) g/dL 08/22/22 08/22/22 08/22/22 Range/Units 06:27 07:15 11:30 WBC (4.50-10.00) X 10*3/uL RBC (4.40-5.60) X 10*6/uL Hgb (13.0-17.0) g/dL Hct (39.6-50.0) % MCV (80.0-97.0) fL MCH (27.0-32.0) pg Immature Gran # (0.00-0.04) X 10*3/uL Neutrophils # (1.80-7.70) X 10*3/uL Lymphocytes # (0.90-5.00) X 10*3/uL Eosinophils # (0.04-0.35) X 10*3/uL Anion Gap 9.60 L (10.00-18.00) mmol/L BUN 31.7 H (9.0-27.0) mg/dL BUN/Creatinine Ratio 28.82 H (12.00-20.00) Ratio Glucose 142 H (70-110) mg/dL POC Glucose (mg/dL) 143 H 162 H (70-110) mg/dL Total Bilirubin 0.20 L (0.30-1.20) mg/dL AST 325 H (14-35) U/L ALT 118 H (10-49) U/L Total Protein 5.0 L (6.2-8.2) g/dL Albumin 3.0 L (3.8-4.9) g/dL Albumin/Globulin Ratio 1.50 L (1.60-3.17) g/dL Microbiology - Last 24 Hours (Table) 08/19/22 17:10 Blood Culture - Preliminary Blood No Growth after 48 hours 08/19/22 17:25 Blood Culture - Preliminary Blood No Growth after 48 hours 08/19/22 11:30 Blood Culture - Preliminary Blood No Growth after 48 hours 08/19/22 11:20 Blood Culture - Preliminary Blood No Growth after 48 hours
--- NOTE | 2022-08-22 13:09 | P.PN ---
Subjective Progress Note Date: 08/22/22 81-year-old male patient was hospitalized for shortness of breath. The patient was diagnosed having limited stage small cell lung cancer back in February 2022. The patient underwent concurrent chemo and radiation therapy and he completed radiation on 05/13/2022 and subsequently completed his chemotherapy. Note that the patient was showing adequate response and a follow-up CAT scan of the chest abdomen and pelvis that was done on 06/11/2022 showed possible response to therapy with interval decrease in the size of the mediastinal lymphadenopathy compared to the earlier CAT scan is and the left lower lobe pulmonary nodule was measuring 10 mm in size, smaller yet not completely recovered. No other acute abnormalities were noted. During this current admission, the patient reported to have some dyspnea. No significant cough or sputum production. No fever chills or night sweats. No aspiration. He is a poor historian. At times without that he was confused and based on that a CAT scan of the brain was done and the findings are essentially negative. CT angios the chest was also done and the patient was found to have no evidence of any filling defects. There was groundglass bilateral pulmonary opacities in the posterior aspect of the right upper lobe and the left upper lobe and some areas of consolidation left lower lobe. There was background COPD. The mediastinum showed no significant lymphadenopathy. Based on that, the patient was admitted to the hospital and the patient was started on antibiotics. A pulmonary consultation was requested. The lites are thousand 6.6 with a hemoglobin 13.9 and a platelet count of 164. Electrolytes all normal. ProBNP level is 271. Magnesium level is at 1.4. LFTs are normal. UA is negative. The patient was infected with: COVID 19 back in February 2022 and the patient tested negative for: COVID19. 08/21/2022 the patient remains on room air oxygen. No respiratory difficulties. He remains on steroids. Overnight, no acute events and the CAT scan of the brain showed no evidence of any metastases. No fever. The cultures of been ne gative however, the patient developed an acute leukocytosis white cell count of 20.9. This could be steroid induced. 9 35,022, no complaints on oral steroids for radiation pneumonitis. No respiratory distress. No agitation. No new onset respiratory difficulties. The white cell count is not elevated at 18.2, slightly full compared to yesterday. IV Solu Medrol was discontinued and the patient was started on prednisone burst taper. No signs of any acute bacterial infection, the viral panel came back negative, on 2 L the patient is at 98% Objective - Vital Signs Vital signs: Vital Signs Temp 97.7 F 08/22/22 11:29 Pulse 70 08/22/22 11:29 Resp 16 08/22/22 11:29 BP 131/64 08/22/22 11:29 Pulse Ox 98 08/22/22 11:29 FiO2 Intake & Output 08/21/22 08/22/22 08/22/22 18:59 06:59 18:59 Intake Total 600 Balance 600 Intake: Oral 600 Other: Voiding Method Toilet Toilet Toilet Urinal Urinal Urinal # Voids 2 2 - Exam The patient appeared well nourished and normally developed. Vital signs as documented. Head exam is unremarkable. No scleral icterus or corneal arcus noted. Neck is without jugular venous distension, thyromegaly, or carotid bruits. Carotid upstrokes are brisk bilaterally. Lungs are clear to auscultation and percussion. Cardiac exam reveals the PMI to be normally sized and situated. Rhythm is regular. First and second heart sounds normal. No murmurs, rubs or gallops. Abdominal exam reveals normal bowel sounds, no masses, no organomegaly and no aortic enlargement. Extremities are nonedematous and both femoral and pedal pulses are normal.Examination of the skin revealed no evidence of significant rashes, suspicious appearing nevi or other concerning lesions.Neurologically, the patient is awake and alert and the patient does not have any focal neurological deficit. Cranial nerves are essentially intact. - Labs CBC & Chem 7: 08/22/22 06:27 08/22/22 06:27 Labs: Abnormal Lab Results - Last 24 Hours (Table) 08/21/22 08/21/22 08/22/22 Range/Units 16:57 20:19 06:27 WBC 18.82 H (4.50-10.00) X 10*3/uL RBC 3.41 L (4.40-5.60) X 10*6/uL Hgb 11.3 L (13.0-17.0) g/dL Hct 34.2 L (39.6-50.0) % MCV 100.3 H (80.0-97.0) fL MCH 33.1 H (27.0-32.0) pg Immature Gran # 0.17 H (0.00-0.04) X 10*3/uL Neutrophils # 17.66 H (1.80-7.70) X 10*3/uL Lymphocytes # 0.35 L (0.90-5.00) X 10*3/uL Eosinophils # 0 L (0.04-0.35) X 10*3/uL Anion Gap (10.00-18.00) mmol/L BUN (9.0-27.0) mg/dL BUN/Creatinine Ratio (12.00-20.00) Ratio Glucose (70-110) mg/dL POC Glucose (mg/dL) 151 H 191 H (70-110) mg/dL Total Bilirubin (0.30-1.20) mg/dL AST (14-35) U/L ALT (10-49) U/L Total Protein (6.2-8.2) g/dL Albumin (3.8-4.9) g/dL Albumin/Globulin Ratio (1.60-3.17) g/dL 08/22/22 08/22/22 08/22/22 Range/Units 06:27 07:15 11:30 WBC (4.50-10.00) X 10*3/uL RBC (4.40-5.60) X 10*6/uL Hgb (13.0-17.0) g/dL Hct (39.6-50.0) % MCV (80.0-97.0) fL MCH (27.0-32.0) pg Immature Gran # (0.00-0.04) X 10*3/uL Neutrophils # (1.80-7.70) X 10*3/uL Lymphocytes # (0.90-5.00) X 10*3/uL Eosinophils # (0.04-0.35) X 10*3/uL Anion Gap 9.60 L (10.00-18.00) mmol/L BUN 31.7 H (9.0-27.0) mg/dL BUN/Creatinine Ratio 28.82 H (12.00-20.00) Ratio Glucose 142 H (70-110) mg/dL POC Glucose (mg/dL) 143 H 162 H (70-110) mg/dL Total Bilirubin 0.20 L (0.30-1.20) mg/dL AST 325 H (14-35) U/L ALT 118 H (10-49) U/L Total Protein 5.0 L (6.2-8.2) g/dL Albumin 3.0 L (3.8-4.9) g/dL Albumin/Globulin Ratio 1.50 L (1.60-3.17) g/dL Microbiology - Last 24 Hours (Table) 08/19/22 17:10 Blood Culture - Preliminary Blood No Growth after 48 hours 08/19/22 17:25 Blood Culture - Preliminary Blood No Growth after 48 hours 08/19/22 11:30 Blood Culture - Preliminary Blood No Growth after 48 hours 08/19/22 11:20 Blood Culture - Preliminary Blood No Growth after 48 hours Assessment and Plan Plan: Limited stage small cell lung cancer post-chemoradiation therapy with good radiographic and clinical response. Bilateral areas of groundglass pulmonary infiltrates and areas of consolidation left lower lobe, consider radiation pneumonitis. Infectious etiologies are felt to be less likely. The routine vital screening needs to be done to rule out any viral pneumonias. Drug-induced effects are felt to be less likely. Atypical pneumonia is felt to be less likely. The patient is scheduled oxygen with a pulse of 93% Acute leukocytosis, likely steroid-induced, afebrile Shortness of breath secondary to above Hypertension Hyperlipidemia Impaired Hearing Coronary artery disease with previous coronary stent insertion and the patient has a pacemaker in place. The patient has undergone previous PCI and stenting. He does have an underlying component of nonischemic cardiomyopathy. COPD Previous history of smoking Peripheral neuropathy involving the lower extremities Plan Monitor the white cell count, continues to be slightly elevated Continue oral prednisone Obtain influenza nasal swab by PCR, negative Blood cultures, negative We'll continue to follow. Consult medical oncology and radiation oncology.
--- NOTE | 2022-08-22 15:31 | P.PN ---
Subjective Progress Note Date: 08/22/22 Principal diagnosis: Limited stage small cell lung cancer -No acute events overnight -Reported improved breathing with ambulation yesterday with a walker -Denies any cough or dyspnea at rest Objective - Vital Signs Vital signs: Vital Signs Temp 97.7 F 08/22/22 11:29 Pulse 70 08/22/22 11:29 Resp 16 08/22/22 11:29 BP 131/64 08/22/22 11:29 Pulse Ox 98 08/22/22 11:29 FiO2 Intake & Output 08/21/22 08/22/22 08/22/22 18:59 06:59 18:59 Intake Total 600 Balance 600 Intake: Oral 600 Other: Voiding Method Toilet Toilet Toilet Urinal Urinal Urinal # Voids 2 2 - Constitutional General appearance: Present: average body habitus, cooperative, no acute distress - Respiratory Respiratory: bilateral: other (Respiratory crackles heard at the bilateral lung bases which are the same) - Cardiovascular Rhythm: regular - Gastrointestinal General gastrointestinal: Present: distended, soft. Absent: tenderness - Neurologic Neurologic: Present: CNII-XII intact. Absent: focal deficits - Labs CBC & Chem 7: 08/22/22 06:27 08/22/22 06:27 Labs: Abnormal Lab Results - Last 24 Hours (Table) 08/21/22 08/21/22 08/22/22 Range/Units 16:57 20:19 06:27 WBC 18.82 H (4.50-10.00) X 10*3/uL RBC 3.41 L (4.40-5.60) X 10*6/uL Hgb 11.3 L (13.0-17.0) g/dL Hct 34.2 L (39.6-50.0) % MCV 100.3 H (80.0-97.0) fL MCH 33.1 H (27.0-32.0) pg Immature Gran # 0.17 H (0.00-0.04) X 10*3/uL Neutrophils # 17.66 H (1.80-7.70) X 10*3/uL Lymphocytes # 0.35 L (0.90-5.00) X 10*3/uL Eosinophils # 0 L (0.04-0.35) X 10*3/uL Anion Gap (10.00-18.00) mmol/L BUN (9.0-27.0) mg/dL BUN/Creatinine Ratio (12.00-20.00) Ratio Glucose (70-110) mg/dL POC Glucose (mg/dL) 151 H 191 H (70-110) mg/dL Total Bilirubin (0.30-1.20) mg/dL AST (14-35) U/L ALT (10-49) U/L Total Protein (6.2-8.2) g/dL Albumin (3.8-4.9) g/dL Albumin/Globulin Ratio (1.60-3.17) g/dL 08/22/22 08/22/22 08/22/22 Range/Units 06:27 07:15 11:30 WBC (4.50-10.00) X 10*3/uL RBC (4.40-5.60) X 10*6/uL Hgb (13.0-17.0) g/dL Hct (39.6-50.0) % MCV (80.0-97.0) fL MCH (27.0-32.0) pg Immature Gran # (0.00-0.04) X 10*3/uL Neutrophils # (1.80-7.70) X 10*3/uL Lymphocytes # (0.90-5.00) X 10*3/uL Eosinophils # (0.04-0.35) X 10*3/uL Anion Gap 9.60 L (10.00-18.00) mmol/L BUN 31.7 H (9.0-27.0) mg/dL BUN/Creatinine Ratio 28.82 H (12.00-20.00) Ratio Glucose 142 H (70-110) mg/dL POC Glucose (mg/dL) 143 H 162 H (70-110) mg/dL Total Bilirubin 0.20 L (0.30-1.20) mg/dL AST 325 H (14-35) U/L ALT 118 H (10-49) U/L Total Protein 5.0 L (6.2-8.2) g/dL Albumin 3.0 L (3.8-4.9) g/dL Albumin/Globulin Ratio 1.50 L (1.60-3.17) g/dL Microbiology - Last 24 Hours (Table) 08/19/22 11:20 Blood Culture - Preliminary Blood No Growth after 72 hours 08/19/22 11:30 Blood Culture - Preliminary Blood No Growth after 72 hours 08/19/22 17:10 Blood Culture - Preliminary Blood No Growth after 48 hours 08/19/22 17:25 Blood Culture - Preliminary Blood No Growth after 48 hours Assessment and Plan Assessment: Mr. Fierro is an 81-year-old gentleman with a past medical history of limited stage small cell lung cancer status post 4 cycles of concurrent chemoradiation therapy with evidence of partial response on CT chest/abdomen on 06/11/2022 presenting with increased dyspnea on exertion found to have bilateral lower lobe groundglass opacities concerning for potential radiation pneumonitis Plan: #Bilateral groundglass opacities -Consistent with bibasilar infiltrate crackles heard on exam -Case reviewed by medical oncology, pulmonology, radiation oncology with a consensus that this is likely secondary to radiation pneumonitis -He has been transitioned to prednisone 40 mg daily per pulmonology -Per radiation oncology recommendations, this should be at 60 mg with gradual taper every 3 days. We concur with this approach to prevent recurrent flare of his pneumonitis #Hepatocellular Transaminitis -Noted to have elevation in AST and ALT on labs from 08/20 and 08/21 -Alkaline phosphatase and total bilirubin are normal -Noted decrease in AST on today's labs with elevation in ALT -CT abdomen and chest from 06/11/2022 noted no evidence of malignancy in the liver -Acute hepatitis panel ordered with labs for tomorrow
[2022-08-22 16:56] LABS: Glucose,Whole Blood 199 mg/dL (70-110)
[2022-08-22 20:49] LABS: Glucose,Whole Blood 175 mg/dL (70-110)
[2022-08-22] MEDS: traZODone HCL 100 MG TAB PO SCH (21:29)
[2022-08-22] MEDS: SERTRALINE 50 MG TAB PO SCH (21:29)
[2022-08-22] MEDS: ATORVASTATIN 40 MG TAB PO SCH (21:29)
[2022-08-23 04:29] VITALS: BP 137/69; TEMP 98.1
[2022-08-23 07:06] LABS: Glucose,Whole Blood 155 mg/dL (70-110)
[2022-08-23] MEDS: SYMBICORT 160-4.5 MCG INHALER INHALATION SCH (07:19)
[2022-08-23] MEDS: ENOXAPARIN 40 MG/0.4 ML SYRINGE SQ SCH (08:22)
[2022-08-23] MEDS: LORazepam 1 MG TAB PO SCH (08:22)
[2022-08-23] MEDS: carvediloL 3.125 MG TAB PO SCH (08:22)
[2022-08-23] MEDS: MEGESTROL 400 MG/10 ML CUP PO SCH (08:22)
[2022-08-23] MEDS: PANTOPRAZOLE 40 MG TABLET PO SCH (08:22)
[2022-08-23] MEDS: INSULIN ASPART (NovoLOG) 100 UNIT/ML VIAL SQ SCH (08:22)
--- NOTE | 2022-08-23 08:37 | P.DS ---
Providers Date of admission: 08/19/22 16:58 Expected date of discharge: 08/23/22 Attending physician: Aston Cornelius Consults: 08/19/22 16:57 Consult Physician Routine Consulting Provider: Ethel Love Consult Reason/Comments: Pneumonitis, pneumonia Do you want consulting provider notified?: Yes 08/20/22 09:02 Consult Physician Routine Consulting Provider: Janna Altman Consult Reason/Comments: lung ca Do you want consulting provider notified?: Yes 08/20/22 11:17 Consult Physician Routine Consulting Provider: Nathan Kumar Consult Reason/Comments: Pneumonitis Do you want consulting provider notified?: Yes Primary care physician: Stated None Hospital Course: HISTORY OF PRESENT ILLNESS This is an 81-year-old male with past medical history of small cell lung cancer is status post carboplatin/etoposide in January 2022. He states he is not currently on chemotherapy. He is status post radiation for 4 weeks [address] follows with Dr. Newell and Dr. Kumar. 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 He also has a past medical history of myocardial infarction in 2005 status post PCI to the OM in 2005, RCA in 2005, FFR of the LAD in 2018 was nonischemic, hypertension, hyperlipidemia, left bundle branch block and permanent pacemaker implantation. Patient follows with Dr. Whitaker. He also has history of gastroesophageal reflux disease, COPD, remote history of tobacco use and dependence, deafness, peripheral neuropathy bilateral lower extremities. Patient states that he started having a cough about 3 weeks ago and continued to worsen followed by sputum production and fevers. He has completed a course of Levaquin for 7 days at home without improvement. He was sent into the hospital by Dr. Kumar. Dr. Love is his pulmonary physician. Patient presented to [facility] emergency center and found to be afebrile, heart rate 85, blood pressure 113/70, pulse ox 94% on room air. EKG is atrial paced rhythm. WBC 6.6, hemoglobin 13.9, platelet count 164. Electrolytes normal. BUN 16 creatinine 1.1. Magnesium 1.4. Alkaline phosphatase 147. ProBNP 271. Troponin 0.013. Chest x-ray reveals borderline heart size. Increasing interstitial density. Correlate for bronchitis, atypical occult pneumonias or developing heart failure with pulmonary vascular congestion. CAT scan of the brain revealed no acute intracranial process. CTA of the chest revealed no evidence of pulmonary embolism. Limited evaluation of the segmental and subsegmental branches. Scattered predominantly lower lobe groundglass opacities and air space consolidation concerning for aspiration pneumonia/pneumonitis or infectious inflammatory process. New from 06/11. Multiple left upper thorax collaterals correlate for thrombosis/stenosis at the insertion of the cardiac conduction device leads. Repeat chest x-ray reveals no significant change and patchy airspace disease in the right perihilar region and left mid lung. Findings concerning for pneumonia. Continue follow-up is recommended. COPD changes. Patient is being admitted to the Oncology floor, consults in place with oncology, pulmonary medicine. 08/21: Patient is laying down in bed and is feeling better today, he was seen in consultation by oncology as well as by pulmonary medicine, continue current treatment plan, continue IV Solu Medrol, continue IV antibiotic, obtain sputum culture, obtain blood cultures, continue oxygen support, this is likely radiation pneumonitis. 08/22: Patient is doing better today, he is flushed due to steroid use, he denies any chest pain, he denies any shortness breath, he has less coughing, is tolerating treatment very well, sputum cultures were sent today, awaiting the final result of that, continue IV antibiotic, decrease steroid, follow-up with the patient. Patient denies any new concerns today. No shortness of breath, no difficulty eating or swallowing, no nausea or vomiting or abdominal pain. He is afebrile, heart rate 70, blood pressure 137/69, pulse ox 95% on 2 L nasal cannula. Home oxygen assessment will be done prior to discharge. Capillary blood glucose running between 155 and 199. Patient will be discharged today in stable condition. DISCHARGE DIAGNOSES 1. Pneumonia lower lobe probable radiation pneumonitis, failed outpatient treatment. 2. Small cell lung cancer. 3. Coronary artery disease. 4. Hypertension. 5. Hyperlipidemia. 6. Gastroesophageal reflux disease. 7. Peripheral neuropathy. 8. Remote history of tobacco use and dependence. 9. Recurrent depression and generalized anxiety disorder. 10. Deafness, stable. DISCHARGE PLAN Home without home care Greater than 35 minutes was utilized and coordinating patient's discharge. Impression and plan of care have been directed as dictated by the signing physician. Barbie Quinones nurse practitioner acting as scribe for signing physician. Patient Condition at Discharge: Good Plan - Discharge Summary Discharge Rx Participant: No New Discharge Prescriptions: New Moxifloxacin HCl [Avelox] 400 mg PO DAILY #10 tab Pantoprazole [Protonix] 40 mg PO AC-BRKFST #30 tab predniSONE [Deltasone] 60 mg PO DAILY #32 tab Continue Simvastatin [Zocor] 80 mg PO HS Nitroglycerin Sl Tabs [Nitrostat] 0.4 mg SL Q5M PRN PRN Reason: Chest Pain Sertraline HCl [Zoloft] 50 mg PO HS Mometasone/Formoterol [Dulera 200 Mcg-5 Mcg Inhaler] 1 puff INHALATION RT-BID HYDROcodone/APAP [Tiller Elixir 7.5-325Mg/15Ml] 15 ml PO Q4H PRN PRN Reason: Pain traZODone HCL 100 mg PO HS Albuterol Sulfate [Albuterol Sulfate Hfa] 2 puff PO RT-Q6H PRN PRN Reason: Shortness Of Breath carvediloL [Coreg] 3.125 mg PO DIRECTED Megestrol Acetate 400 mg PO DAILY LORazepam [Ativan] 1 mg PO TID Discharge Medication List Simvastatin [Zocor] 80 mg PO HS 07/15/16 [History] Nitroglycerin Sl Tabs [Nitrostat] 0.4 mg SL Q5M PRN 11/26/19 [History] Sertraline HCl [Zoloft] 50 mg PO HS 04/18/20 [History] Mometasone/Formoterol [Dulera 200 Mcg-5 Mcg Inhaler] 1 puff INHALATION RT-BID 03/11/22 [History] HYDROcodone/APAP [Tiller Elixir 7.5-325Mg/15Ml] 15 ml PO Q4H PRN 05/28/22 [History] Albuterol Sulfate [Albuterol Sulfate Hfa] 2 puff PO RT-Q6H PRN 08/19/22 [History] LORazepam [Ativan] 1 mg PO TID 08/19/22 [History] Megestrol Acetate 400 mg PO DAILY 08/19/22 [History] carvediloL [Coreg] 3.125 mg PO DIRECTED 08/19/22 [History] traZODone HCL 100 mg PO HS 08/19/22 [History] Moxifloxacin HCl [Avelox] 400 mg PO DAILY #10 tab 08/23/22 [Rx] Pantoprazole [Protonix] 40 mg PO AC-BRKFST #30 tab 08/23/22 [Rx] predniSONE [Deltasone] 60 mg PO DAILY #32 tab 08/23/22 [Rx] Follow up Appointment(s)/Referral(s): Aston Cornelius MD [STAFF PHYSICIAN] - 08/26/22 1:00 pm Christa Newell MD [STAFF PHYSICIAN] - 1 Week Discharge Disposition: HOME SELF-CARE
[2022-08-23 08:39] LABS: Basophils # (A) 0.01 X 10*3/uL (0.00-0.10); Basophils % (A) 0.1 %; Eosinophils # (A) 0 X 10*3/uL (0.04-0.35); Eosinophils % (A) 0 %; HCT 33.7 % (39.6-50.0); HGB 11.3 g/dL (13.0-17.0); Immature Grans, Automated 1.1 %; Lymphocytes # (A) 0.36 X 10*3/uL (0.90-5.00); Lymphocytes % (A) 2.7 %; MCHC 33.5 g/dL (32.0-37.0); MCV 98.5 fL (80.0-97.0); Mean Platelet Volume 10.9 fL (9.5-12.2); Monocytes # (A) 0.78 X 10*3/uL (0.20-1.00); Monocytes % (A) 5.9 %; NRBC Per 100 WBC 0 /100 WBCS (0.0-0.0); Neutrophils # (A) 11.98 X 10*3/uL (1.80-7.70); Neutrophils % (A) 90.2 %; Platelet Count 149 X 10*3/uL (140-440); RBC 3.42 X 10*6/uL (4.40-5.60); WBC 13.27 X 10*3/uL (4.50-10.00)
[2022-08-23 08:56] LABS: ALT 156 U/L (10-49); AST 245 U/L (14-35); African American GFR (CKD) 72.1 (60.0-200.0); Albumin 3.2 g/dL (3.8-4.9); Alkaline Phosphatase 86 U/L (41-126); BUN/Creat Ratio 24.18 Ratio (12.00-20.00); Blood Urea Nitrogen 26.6 mg/dL (9.0-27.0); Calcium 8.9 mg/dL (8.7-10.3); Carbon Dioxide 25.3 mmol/L (20.0-27.5); Chloride 108 mmol/L (96-109); Glucose 174 mg/dL (70-110); Non-African American GFR(CKD) 62.2 (60.0-200.0); Potassium 4.3 mmol/L (3.5-5.5); Sodium 142 mmol/L (135-145); Total Bilirubin <0.15 mg/dL (0.30-1.20); Total Protein 5.2 g/dL (6.2-8.2)
[2022-08-23] MEDS ORDERED: predniSONE 20 MG TAB PO SCH (09:00)
[2022-08-23 09:06] LABS: Hepatitis A Antibody IgM Nonreactive (Nonreactive); Hepatitis B Core IgM Nonreactive (Nonreactive); Hepatitis B Surface Antigen Nonreactive (Nonreactive); Hepatitis C IgG Antibody Nonreactive (Nonreactive)
--- NOTE | 2022-08-23 10:04 | P.PN ---
Subjective Progress Note Date: 08/23/22 Principal diagnosis: Acute radiation pneumonitis 81-year-old male patient was hospitalized for shortness of breath. The patient was diagnosed having limited stage small cell lung cancer back in February 2022. The patient underwent concurrent chemo and radiation therapy and he completed radiation on 05/13/2022 and subsequently completed his chemotherapy. Note that the patient was showing adequate response and a follow-up CAT scan of the chest abdomen and pelvis that was done on 06/11/2022 showed possible response to therapy with interval decrease in the size of the mediastinal lymphadenopathy compared to the earlier CAT scan is and the left lower lobe pulmonary nodule was measuring 10 mm in size, smaller yet not completely recovered. No other acute abnormalities were noted. During this current admission, the patient reported to have some dyspnea. No significant cough or sputum production. No fever chills or night sweats. No aspiration. He is a poor historian. At times without that he was confused and based on that a CAT scan of the brain was done and the findings are essentially negative. CT angios the chest was also done and the patient was found to have no evidence of any filling defects. There was groundglass bilateral pulmonary opacities in the posterior aspect of the right upper lobe and the left upper lobe and some areas of consolidation left lower lobe. There was background COPD. The mediastinum showed no significant lymphadenopathy. Based on that, the patient was admitted to the hospital and the patient was started on antibiotics. A pulmonary consultation was requested. The lites are thousand 6.6 with a hemoglobin 13.9 and a platelet count of 164. Electrolytes all normal. ProBNP level is 271. Magnesium level is at 1.4. LFTs are normal. UA is negative. The patient was infected with: COVID 19 back in February 2022 and the patient tested negative for: COVID19. 08/21/2022 the patient remains on room air oxygen. No respiratory difficulties. He remains on steroids. Overnight, no acute events and the CAT scan of the brain showed no evidence of any metastases. No fever. The cultures of been negative however, the patient developed an acute leukocytosis white cell count of 20.9. This could be steroid induced. 9 25,022, no complaints on oral steroids for radiation pneumonitis. No respiratory distress. No agitation. No new onset respiratory difficulties. The white cell count is not elevated at 18.2, slightly full compared to yesterday. IV Solu Medrol was discontinued and the patient was started on prednisone burst taper. No signs of any acute bacterial infection, the viral panel came back negative, on 2 L the patient is at 98% Reevaluated today on 08/23/22, patient is feeling better, breathing easier, he has no cough, no shortness of breath, he is on 2 L nasal cannula. Patient is on prednisone for what seems to be a radiation pneumonitis picture. Patient will lead to be on prednisone for few more weeks. And this will need to be tapered on outpatient basis. WBC count is improving his electrolytes are normal, liver enzymes are a bit elevated. Objective - Vital Signs Vital signs: Vital Signs Temp 98.1 F 08/23/22 04:28 Pulse 70 08/23/22 04:28 Resp 16 08/23/22 04:28 BP 137/69 08/23/22 04:28 Pulse Ox 95 08/23/22 04:28 FiO2 Intake & Output 08/22/22 08/23/22 08/23/22 18:59 06:59 18:59 Intake Total 600 Balance 600 Intake: Oral 600 Other: Voiding Method Toilet Toilet Urinal Urinal # Voids 2 3 - Exam Physical Exam HEENT:: Revealed an 81-year-old white male in no distress Head: Atraumatic normocephalic. HEENT: [No neck masses.] [No thyromegaly.] [No JVD.]Neck supple no neck masses, PERRLA, EOMI, anicteric. Chest: [Clear throughout, no crackles, no rhonchi, no wheezes.] Cardiac Exam: [Normal S1 and S2, no S3 gallop, no murmur.] Abdomen: [Soft, nontender, no megaly, no rebound, no guarding, normal bowel s ounds.] Extremities: [No clubbing, no edema, no cyanosis.] Neurological Exam: [No focal neurologic deficit.]Alert oriented 3 Psychiatric: Normal mood, affect and normal mental status examination. Skin: No rashes. - Labs CBC & Chem 7: 08/23/22 05:31 08/23/22 05:31 Labs: Abnormal Lab Results - Last 24 Hours (Table) 08/22/22 08/22/22 08/22/22 Range/Units 06:27 06:27 11:30 WBC 18.82 H (4.50-10.00) X 10*3/uL RBC 3.41 L (4.40-5.60) X 10*6/uL Hgb 11.3 L (13.0-17.0) g/dL Hct 34.2 L (39.6-50.0) % MCV 100.3 H (80.0-97.0) fL MCH 33.1 H (27.0-32.0) pg Immature Gran # 0.17 H (0.00-0.04) X 10*3/uL Neutrophils # 17.66 H (1.80-7.70) X 10*3/uL Lymphocytes # 0.35 L (0.90-5.00) X 10*3/uL Eosinophils # 0 L (0.04-0.35) X 10*3/uL Anion Gap 9.60 L (10.00-18.00) mmol/L BUN 31.7 H (9.0-27.0) mg/dL BUN/Creatinine Ratio 28.82 H (12.00-20.00) Ratio Glucose 142 H (70-110) mg/dL POC Glucose (mg/dL) 162 H (70-110) mg/dL Total Bilirubin 0.20 L (0.30-1.20) mg/dL AST 325 H (14-35) U/L ALT 118 H (10-49) U/L Total Protein 5.0 L (6.2-8.2) g/dL Albumin 3.0 L (3.8-4.9) g/dL Albumin/Globulin Ratio 1.50 L (1.60-3.17) g/dL 08/22/22 08/22/22 08/23/22 Range/Units 16:52 20:34 05:31 WBC 13.27 H (4.50-10.00) X 10*3/uL RBC 3.42 L (4.40-5.60) X 10*6/uL Hgb 11.3 L (13.0-17.0) g/dL Hct 33.7 L (39.6-50.0) % MCV 98.5 H (80.0-97.0) fL MCH 33.0 H (27.0-32.0) pg Immature Gran # 0.14 H (0.00-0.04) X 10*3/uL Neutrophils # 11.98 H (1.80-7.70) X 10*3/uL Lymphocytes # 0.36 L (0.90-5.00) X 10*3/uL Eosinophils # 0 L (0.04-0.35) X 10*3/uL Anion Gap (10.00-18.00) mmol/L BUN (9.0-27.0) mg/dL BUN/Creatinine Ratio (12.00-20.00) Ratio Glucose (70-110) mg/dL POC Glucose (mg/dL) 199 H 175 H (70-110) mg/dL Total Bilirubin (0.30-1.20) mg/dL AST (14-35) U/L ALT (10-49) U/L Total Protein (6.2-8.2) g/dL Albumin (3.8-4.9) g/dL Albumin/Globulin Ratio (1.60-3.17) g/dL 08/23/22 08/23/22 Range/Units 05:31 07:05 WBC (4.50-10.00) X 10*3/uL RBC (4.40-5.60) X 10*6/uL Hgb (13.0-17.0) g/dL Hct (39.6-50.0) % MCV (80.0-97.0) fL MCH (27.0-32.0) pg Immature Gran # (0.00-0.04) X 10*3/uL Neutrophils # (1.80-7.70) X 10*3/uL Lymphocytes # (0.90-5.00) X 10*3/uL Eosinophils # (0.04-0.35) X 10*3/uL Anion Gap 8.70 L (10.00-18.00) mmol/L BUN (9.0-27.0) mg/dL BUN/Creatinine Ratio 24.18 H (12.00-20.00) Ratio Glucose 174 H (70-110) mg/dL POC Glucose (mg/dL) 155 H (70-110) mg/dL Total Bilirubin <0.15 L (0.30-1.20) mg/dL AST 245 H (14-35) U/L ALT 156 H (10-49) U/L Total Protein 5.2 L (6.2-8.2) g/dL Albumin 3.2 L (3.8-4.9) g/dL Albumin/Globulin Ratio (1.60-3.17) g/dL Microbiology - Last 24 Hours (Table) 08/22/22 12:12 Gram Stain - Preliminary Sputum Sputum Culture - Preliminary 08/19/22 17:25 Blood Culture - Preliminary Blood No Growth after 72 hours 08/19/22 17:10 Blood Culture - Preliminary Blood No Growth after 72 hours 08/19/22 11:20 Blood Culture - Preliminary Blood No Growth after 72 hours 08/19/22 11:30 Blood Culture - Preliminary Blood No Growth after 72 hours Assessment and Plan Assessment: Impression: Small cell lung cancer status post chemoradiation Acute radiation pneumonitis Shortness of breath secondary to above Benign essential hypertension Hard of hearing Coronary artery disease and previous stent placement as well as pacemaker implantation History of nonischemic cardiomyopathy History of underlying COPD presently inactive Previous smoking history/ex-smoker Recommendation: Continue prednisone at 40 mg and the be addressed on an outpatient basis, slow tapering. Continue bronchodilators. Including Symbicort and DuoNeb. Consider discharge planning and follow-up on outpatient basis with Dr. Love Time with Patient: Less than 30
[2022-08-23 10:43] VITALS: PULSE 92
== END 2022-08-23 11:51 | disposition home or self-care (01) | DRG 206 ==
LOC: EC 10:30 → 5NMEDONC 16:58
PROVIDERS: ADMIT Internal Medicine; ATTEND Internal Medicine
DX: J70.0 Acute pulmonary manifestations due to radiation (principal); I42.8 Other cardiomyopathies; J44.0 Chronic obstructive pulmonary disease with (acute) lower respiratory infection; C34.90 Malignant neoplasm of unspecified part of unspecified bronchus or lung; F33.9 Major depressive disorder, recurrent, unspecified; Z20.822 Contact with and (suspected) exposure to COVID-19; F17.210 Nicotine dependence, cigarettes, uncomplicated; T38.0X5A Adverse effect of glucocorticoids and synthetic analogues, initial encounter; I10 Essential (primary) hypertension; E78.5 Hyperlipidemia, unspecified; F41.1 Generalized anxiety disorder; G62.9 Polyneuropathy, unspecified; H91.90 Unspecified hearing loss, unspecified ear; R59.1 Generalized enlarged lymph nodes; E53.8 Deficiency of other specified B group vitamins; D70.9 Neutropenia, unspecified; I25.10 Atherosclerotic heart disease of native coronary artery without angina pectoris; I25.2 Old myocardial infarction; K21.00 Gastro-esophageal reflux disease with esophagitis, without bleeding; R29.6 Repeated falls; Y84.2 Radiological procedure and radiotherapy as the cause of abnormal reaction of the patient, or of later complication, without mention of misadventure at the time of the procedure; Z79.51 Long term (current) use of inhaled steroids; Z79.82 Long term (current) use of aspirin; Z79.899 Other long term (current) drug therapy; Z85.118 Personal history of other malignant neoplasm of bronchus and lung; Z92.21 Personal history of antineoplastic chemotherapy; Z92.3 Personal history of irradiation; Z95.5 Presence of coronary angioplasty implant and graft
CPT/HCPCS: 36415; 70450; 70460; 71046; 71275; 80053; 80074; 81003; 83036; 83735; 83880; 84484; 85025; 85027; 87040; 87070; 87205; 87502; 87634; 87635; 93005; 94640; 94760; 96365; 96366; 96367; 96375; 96376; 99285

== ENCOUNTER → 2022-10-27 | Outpatient (CLI) | payer MEDICARE ==
--- NOTE | 2022-10-27 11:36 | CT ---
EXAMINATION TYPE: CT brain w con DATE OF EXAM: 10/27/2022 COMPARISON: 08/20/2022 HISTORY: Lung cancer CT DLP: 1230 mGycm Automated exposure control for dose reduction was used. CONTRAST: CT scan of the head is performed with IV Contrast, patient injected with 70 mL of Isovue 300. FINDINGS: There is a new ring-enhancing lesion right frontal lobe measuring 9.3 mm. Additional new ring-enhanci ng lesions noted within the left occipital lobe measuring 1.2 cm and posterior to the left lateral ve ntricle measuring 1.5 cm. Additional solid appearing lesion within the high left frontal subcortical region measuring 6.6 mm. 7 mm ring-enhancing lesion right occipital lobe. No definite infratentorial lesions evident. Ventricles are midline. No evidence for intracranial hemorrhage or extra-axial colle ction. IMPRESSION: Multiple new lesions compatible with metastatic disease. Consider MRI correlation.
--- NOTE | 2022-10-27 12:48 | CT ---
EXAMINATION TYPE: CT ChestAbdPelvis w con DATE OF EXAM: 10/27/2022 COMPARISON: 06/11/2022 and 08/19/2022 HISTORY: 81-year-old male C3 4.92, Lung cancer TECHNIQUE: Contiguous axial scanning of the chest, abdomen, and pelvis performed with IV Contrast, pa tient injected with 70 mL of Isovue 300. Delayed images through the kidneys were obtained. Coronal/sa gittal reconstructions performed. CT DLP: 2044 mGycm Automated exposure control for dose reduction was used. FINDINGS: CHEST: The heart is upper limits of normal in size with trace anterior pericardial thickening/fluid. Three-v essel coronary artery calcifications are a marker for coronary artery disease. Left anterior chest wa ll pacemaker generator with right atrial and right ventricular leads. Ectatic upper descending thoracic aorta 3.3 cm. Mild atherosclerotic arch calcifications. Conventiona l arch vessels branching anatomy. There is redemonstrated right perihilar soft tissue thickening. Adjacent trace right pleural effusion is now present. Patchy bilateral lower lobe areas of groundglass and opacities appears to be persist ent from 08/19/2022. Some focal opacity medial aspect of the superior segment right lower lobe in the posterior perihilar region has increased compared to 08/19/2022 and is new from 06/11/2022, refer to ax ial image 26. Background of mild to moderate upper lung predominant centrilobular emphysema. ABDOMEN: Tiny hiatal hernia. No focal liver lesion or biliary ductal dilatation. Portal venous system is patent. Gallbladder, adrenal glands, left kidney, and pancreas within normal limits. The spleen is upper limi ts of normal in size at 13.0 cm. There is a small 1.1 cm cortical cyst lateral right kidney redemonstrated. No dilated small bowel, free fluid, or free air. No mesenteric or retroperitoneal lymphadenopathy. Moderate atherosclerotic calcifications infrarenal abdominal aorta and iliac arteries with fusiform d ilatation of the infrarenal abdominal aorta up to 2.6 cm. Small fatty umbilical hernia measuring 1.2 cm wide. Oral contrast progressed to the hepatic flexure of the colon. There is mild to moderate stool burden. There is fairly extensive sigmoid diverticulosis. Some wall thickening of the proximal to mid sigmoi d colon probably due to chronic diverticulitis. No surrounding inflammatory changes seen. PELVIS: Circumferential bladder wall thickening. Marked prostatomegaly at 5.3 cm wide. No abnormal fluid maite ection in the pelvis or pelvic lymphadenopathy. BONES: Osteopenia. [id number] degenerative change in both hips. Degenerative change right greater than left SI joints. There is moderate degenerative disc disease from the midthoracic spine down through the lumbar spine. Hypertrophic facet arthropathy lumbar spine. No osseous destructive process seen. IMPRESSION: 1. MILD RIGHT PERIHILAR SOFT TISSUE THICKENING SUGGESTS CHRONIC POSTTREATMENT CHANGE. BILATERAL LOWER LOBE AREAS OF FOCAL OPACITIES AND GROUNDGLASS CHANGE IS OVERALL SIMILAR TO 08/19/2022 (NEW FROM 2021) AND THERE IS A NEW TRACE RIGHT PLEURAL EFFUSION. CORRELATE FOR PERSISTENT INTERSTITIAL PNEUMONI TIS SUCH [employer]IATE, ASPIRATION PNEUMONITIS, OR ATYPICAL/COVID PNEUMONIA. 2. SOME FOCAL OPACITY AT THE POSTERIOR RIGHT PERIHILAR REGION HAS PROGRESSED FROM 08/19/2022; SHORT IN TERVAL FOLLOW-UP TO EXCLUDE EARLY DISEASE PROGRESSION HERE. 3. INCIDENTAL: COPD, CAD, TINY HIATAL HERNIA, SMALL FATTY HIM TO LOOK FOR HERNIA, AND EXTENSIVE SIGMO ID DIVERTICULOSIS, POSSIBLE CHRONIC DIVERTICULITIS GIVEN WALL THICKENING. MARKED PROSTATOMEGALY OF 5. 3 CM WIDE; CORRELATE FOR BPH.
== END | disposition home or self-care (01) ==
LOC: RADCTMAIN 09:04
PROVIDERS: ATTEND Internal Medicine Hematology & Oncology
DX: C34.32 Malignant neoplasm of lower lobe, left bronchus or lung (principal); J90 Pleural effusion, not elsewhere classified; J44.9 Chronic obstructive pulmonary disease, unspecified; K44.9 Diaphragmatic hernia without obstruction or gangrene; K57.30 Diverticulosis of large intestine without perforation or abscess without bleeding; N40.0 Benign prostatic hyperplasia without lower urinary tract symptoms; G93.89 Other specified disorders of brain; R91.8 Other nonspecific abnormal finding of lung field
CPT/HCPCS: 82565; 84520; 70460; 71260; 74177; 36415; Q9967 ×2

== ENCOUNTER 2022-12-06 15:23 | Observation (INO) | payer MEDICARE ==
--- NOTE | 2022-12-06 15:51 | ED ---
General Adult HPI - General Chief complaint: Chest Pain Stated complaint: Chest pain Source: patient, family Mode of arrival: wheelchair Limitations: no limitations - History of Present Illness Initial comments: Dictation was produced using Tr[employer] dictation software. please excuse any grammatical, word or spelling errors. Chief Complaint: 82-year-old male presents emergency department for chest pain History of Present Illness: Is an 82-year-old male he has multiple comorbidities. 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 He was at the oncology office when he began complaining of chest pain. He had a witness episode of chest pain, acute distress and clamminess. Patient is a poor historian. at the bedside states that over the last 2 weeks he is loss 20 pounds. Furthermore yesterday he is suffered from multiple falls. Patient is a poor historian. Acutely is concerned of his altered mentation. Patient is a poor historian. The ROS documented in this emergency department record has been reviewed and confirmed by me. Those systems with pertinent positive or negative responses have been documented in the HPI. All other systems are other negative and/or noncontributory. PHYSICAL EXAM: General Impression: Alert and oriented x1/4, confused, not in acute distress HEENT: Normocephalic atraumatic, extra-ocular movements intact, pupils equal and reactive to light bilaterally, mucous membranes moist. Cardiovascular: Heart regular rate and rhythm Chest: Able to complete full sentences, no retractions, no tachypnea Abdomen: abdomen soft, non-tender, non-distended, no organomegaly Musculoskeletal: Pulses present and equal in all extremities, no peripheral edema Motor: no focal deficits noted Neurological: CN II-XII grossly intact, no focal motor or sensory deficits noted Skin: Intact with no visualized rashes Psych: Normal affect and mood ED course: 82-year-old male brought to the emergency department by after having a witness episode of chest pain and clamminess at the oncology outpatient clinic. Patient is a poor historian. He has been suffering from altered mentation over the last several days. Patient is a history of squamous cell carcinoma to the long with known metastatic lesions to the brain. Vital signs upon arrival are within acceptable limits. EKG shows ventricular pacemaker. Patient has a sgarbossa criteria of 2. Chart review was performed. Card catheterization from January 2019 shows diffuse coronary artery disease. Cardiology consultation note from January 2021 was also reviewed. Discharge summary from July of last year showing that patient was admitted for pneumonia versus radiation pneumonitis. Nursing notes and chart review was performed EKG interpreted by me: Ventricular rate 66, ventricular paced rhythm, IL interval 192, QRS 190, QTc 504 EKG appears to be similar to EKG from 2021.. No IL prolongation, no QTC prolongation, no ST or T-wave changes noted. Overall, this EKG is unremarkable Patient care is signed out to Dr. Baker at 4:00 PM Was pt. sent in by a medical professional or institution (, PA, APPLICATION INTEGRATION ARCHITECT, urgent care, hospital, or [facility]...) When possible be specific @ -Sent from oncology office, Dr. Kumar Did you speak to anyone other than the patient for history (EMS, parent, family, police, friend...)? What history was obtained from this source @ - Did you review nursing and triage notes (agree or disagree)? Why? @ -I reviewed and agree with nursing and triage notes Were old charts reviewed (outside hosp., previous admission, EMS record, old EKG, old radiological studies, urgent care reports/EKG's, [facility] records)? Report findings @ -See above. Differential Diagnosis (chest pain, altered mental status, abdominal pain women, abdominal pain men, vaginal bleeding, weakness, fever, dyspnea, syncope, headache, dizziness, GI bleed, back pain, seizure, CVA, palpatations, mental health)? @ -Differential Chest Pain: Stable Angina, Unstable Angina, STEMI, NSTEMI Aortic Dissection, Pneumothorax, Musculoskeletal, Esophageal Spasm GERD, Cholecystitis, Pancreatitis, Zoster, this is not meant to be an all-inclusive list. EKG interpreted by me (3pts min.). @ -As above X-rays interpreted by me (1pt min.). @ -Pending CT interpreted by me (1pt min.). @ -None done U/S interpreted by me (1pt. min.). @ -None done What testing was considered but not performed or refused? (CT, X-rays, U/S, labs)? Why? @ -None What meds were considered but not given or refused? Why? @ -None Did you discuss the management of the patient with other professionals (professionals i.e. , PA, APPLICATION INTEGRATION ARCHITECT, lab, RT, psych nurse, health and social care teacher, debt recovery officer, teacher, air support control officer, catalytic case operator)? Give summary @ -No Was smoking cessation discussed for >3mins.? @ -No Was critical care preformed (if so, how long)? @ -No Were there social determinants of health that impacted care today? How? (Homelessness, low income, unemployed, alcoholism, drug addiction, transportation, low edu. Level, literacy, decrease access to med. care, long term, rehab)? @ -No Was there de-escalation of care discussed even if they declined (Discuss DNR or withdrawal of care, Hospice)? DNR status @ -Yes, CODE STATUS was discussed with who requests that patient be no code What co-morbidities impacted this encounter? (DM, HTN, Smoking, COPD, CAD, Cancer, CVA, ARF, Chemo, Hep., AIDS, mental health diagnosis, sleep apnea, morbid obesity)? @ -Metastatic cancerous lesions to the brain with recent cancer treatment Was patient admitted / discharged? Hospital course, mention meds given and route , prescriptions, significant lab abnormalities, going to OR and other pertinent info. @ -See above Undiagnosed new problem with uncertain prognosis? @ -No Drug Therapy requiring intensive monitoring for toxicity (Heparin, Nitro, Insulin, Cardizem)? @ -No Were any procedures done? @ -No Diagnosis/symptom? @ -Chest pain, failure to thrive, altered mental status Acute, or Chronic, or Acute on Chronic? @ -Acute Uncomplicated (without systemic symptoms) or Complicated (systemic symptoms)? @ -complicated Side effects of treatment? @ -No Exacerbation, Progression, or Severe Exacerbation? @ -Progression Poses a threat to life or bodily function? How? (Chest pain, [place], [place], pneumonia, PE, COPD, DKA, ARF, appy, cholecystitis, CVA, Diverticulitis, Homicidal, Suicidal, threat to staff... and all critical care pts) @ -Yes - Related Data Home Medications Medication Instructions Recorded Confirmed Simvastatin [Zocor] 80 mg PO HS 07/15/16 12/06/22 Sertraline HCl [Zoloft] 50 mg PO HS 04/18/20 12/06/22 LORazepam [Ativan] 1 mg PO BID 08/19/22 12/06/22 carvediloL [Coreg] 3.125 mg PO DIRECTED 08/19/22 12/06/22 traZODone HCL 100 mg PO HS 08/19/22 12/06/22 Albuterol Sulfate [Proair 1 puff INHALATION RT-Q4H 12/06/22 12/06/22 Respiclick] Fluconazole [Diflucan] 100 mg PO DAILY 12/06/22 12/06/22 Levalbuterol Hfa Inhaler [Xopenex 2 puff INHALATION RT-TID PRN 12/06/22 12/06/22 Hfa Inhaler] Pantoprazole [Protonix] 40 mg PO BID 12/06/22 12/06/22 dexAMETHasone [Decadron] See Taper PO DIRECTED 12/06/22 12/06/22 lidocaine HCL [lidocaine HCL 10 - 15 ml MM ACHS 12/06/22 12/06/22 Viscous] Allergies Allergy/AdvReac Type Severity Reaction Status Date / Time No Known Allergies Allergy Verified 12/06/22 13:11 Review of Systems ROS Statement: Those systems with pertinent positive or pertinent negative responses have been documented in the HPI. ROS Other: All systems not noted in ROS Statement are negative. Past Medical History Past Medical History: Cancer, COPD, GERD/Reflux, Hearing Disorder / Deafness, Hyperlipidemia, Hypertension, Myocardial Infarction ([place]) Additional Past Medical History / Comment(s): Vitamin B-12 deficiency, neuropathy legs and feet, very [place], low blood sugar at times, low kidney function, lung cancer Last Myocardial Infarction Date:: 2005 History of Any Multi-Drug Resistant Organisms: None Reported Past Surgical History: Heart Catheterization With Stent, Orthopedic Surgery, Pacemaker Additional Past Surgical History / Comment(s): Right shoulder scope, left knee scope, cardiac stents X3, Pacemaker replaced. Past Anesthesia/Blood Transfusion Reactions: No Reported Reaction Date of Last Stent Placement:: 11/2005 Type of Cardiac Device: Permanent Pacemaker Device Placement Date:: 11/2005 Past Psychological History: Anxiety Smoking Status: Former smoker - Past Family History Sister(s) Family Medical History: Cancer Mother Family Medical History: No Reported History General Exam Limitations: no limitations Course Vital Signs 12/06/22 12/06/22 12/06/22 15:23 15:42 17:26 Temperature 97 F L Pulse Rate 79 69 66 Respiratory 16 18 20 Rate Blood Pressure 115/75 159/80 143/65 O2 Sat by Pulse 98 98 97 Oximetry 12/06/22 12/07/22 12/07/22 18:26 07:18 07:41 Temperature 97.9 F Pulse Rate 66 59 L Respiratory 16 19 Rate Blood Pressure 125/58 136/84 O2 Sat by Pulse 96 96 97 Oximetry Medical Decision Making - Lab Data Result diagrams: 12/06/22 15:52 12/06/22 15:52 Lab Results 12/06/22 12/06/22 12/06/22 Range/Units 15:52 15:52 15:52 WBC 8.5 (3.8-10.6) k/uL RBC 4.26 L (4.30-5.90) m/uL Hgb 15.0 (13.0-17.5) gm/dL Hct 42.1 (39.0-53.0) % MCV 98.7 (80.0-100.0) fL MCH 35.2 H (25.0-35.0) pg MCHC 35.7 (31.0-37.0) g/dL RDW 14.4 (11.5-15.5) % Plt Count 95 L D (150-450) k/uL MPV 8.9 Neutrophils % 90 % Lymphocytes % 2 % Monocytes % 7 % Eosinophils % 0 % Basophils % 0 % Neutrophils # 7.6 (1.3-7.7) k/uL Lymphocytes # 0.2 L (1.0-4.8) k/uL Monocytes # 0.6 (0-1.0) k/uL Eosinophils # 0.0 (0-0.7) k/uL Basophils # 0.0 (0-0.2) k/uL PT 11.4 (9.0-12.0) sec INR 1.1 (<1.2) APTT 19.9 L (22.0-30.0) sec Sodium 138 (137-145) mmol/L Potassium 3.7 (3.5-5.1) mmol/L Chloride 106 (98-107) mmol/L Carbon Dioxide 24 (22-30) mmol/L Anion Gap 8 mmol/L BUN 28 H (9-20) mg/dL Creatinine 1.19 (0.66-1.25) mg/dL Est GFR (CKD-EPI)AfAm 65 (>60 ml/min/1.73 sqM) Est GFR (CKD-EPI)NonAf 56 (>60 ml/min/1.73 sqM) Glucose 126 H (74-99) mg/dL Lactic Ac Sepsis Rflx Plasma Lactic Acid Lucas (0.7-2.0) mmol/L Calcium 8.9 (8.4-10.2) mg/dL Magnesium 1.8 (1.6-2.3) mg/dL Total Bilirubin 0.7 (0.2-1.3) mg/dL AST 43 (17-59) U/L ALT 26 (4-49) U/L Alkaline Phosphatase 98 (38-126) U/L Troponin I (0.000-0.034) ng/mL Total Protein 6.2 L (6.3-8.2) g/dL Albumin 3.8 (3.5-5.0) g/dL 12/06/22 12/06/22 12/06/22 Range/Units 15:52 15:52 17:14 WBC (3.8-10.6) k/uL RBC (4.30-5.90) m/uL Hgb (13.0-17.5) gm/dL Hct (39.0-53.0) % MCV (80.0-100.0) fL MCH (25.0-35.0) pg MCHC (31.0-37.0) g/dL RDW (11.5-15.5) % Plt Count (150-450) k/uL MPV Neutrophils % % Lymphocytes % % Monocytes % % Eosinophils % % Basophils % % Neutrophils # (1.3-7.7) k/uL Lymphocytes # (1.0-4.8) k/uL Monocytes # (0-1.0) k/uL Eosinophils # (0-0.7) k/uL Basophils # (0-0.2) k/uL PT (9.0-12.0) sec INR (<1.2) APTT (22.0-30.0) sec Sodium (137-145) mmol/L Potassium (3.5-5.1) mmol/L Chloride (98-107) mmol/L Carbon Dioxide (22-30) mmol/L Anion Gap mmol/L BUN (9-20) mg/dL Creatinine (0.66-1.25) mg/dL Est GFR (CKD-EPI)AfAm (>60 ml/min/1.73 sqM) Est GFR (CKD-EPI)NonAf (>60 ml/min/1.73 sqM) Glucose (74-99) mg/dL Lactic Ac Sepsis Rflx Y Plasma Lactic Acid Lucas 3.4 H* (0.7-2.0) mmol/L Calcium (8.4-10.2) mg/dL Magnesium (1.6-2.3) mg/dL Total Bilirubin (0.2-1.3) mg/dL AST (17-59) U/L ALT (4-49) U/L Alkaline Phosphatase (38-126) U/L Troponin I 0.014 (0.000-0.034) ng/mL Total Protein (6.3-8.2) g/dL Albumin (3.5-5.0) g/dL Disposition Clinical Impression: Chest pain Disposition: ADMITTED IP TO THIS HOSP
[2022-12-06 16:32] LABS: Basophils % (A) 0 %; Eosinophils % (A) 0 %; HCT 42.1 % (39.0-53.0); Lymphocytes # (A) 0.2 k/uL (1.0-4.8); Lymphocytes % (A) 2 %; MCH 35.2 pg (25.0-35.0); MCHC 35.7 g/dL (31.0-37.0); MCV 98.7 fL (80.0-100.0); Mean Platelet Volume 8.9; Monocytes # (A) 0.6 k/uL (0-1.0); Monocytes % (A) 7 %; Neutrophils # (A) 7.6 k/uL (1.3-7.7); Neutrophils % (A) 90 %; RBC 4.26 m/uL (4.30-5.90); RDW 14.4 % (11.5-15.5); WBC 8.5 k/uL (3.8-10.6)
[2022-12-06 16:33] LABS: Platelet Count 95 k/uL (150-450)
[2022-12-06 16:49] LABS: Albumin 3.8 g/dL (3.5-5.0); Calcium 8.9 mg/dL (8.4-10.2); Magnesium 1.8 mg/dL (1.6-2.3); Potassium 3.7 mmol/L (3.5-5.1); Total Bilirubin 0.7 mg/dL (0.2-1.3); Total Protein 6.2 g/dL (6.3-8.2)
[2022-12-06 16:55] LABS: INR 1.1 (<1.2); Prothrombin Time 11.4 sec (9.0-12.0)
--- NOTE | 2022-12-06 16:57 | XR ---
EXAMINATION TYPE: XR chest 2V DATE OF EXAM: 12/06/2022 COMPARISON: 08/20/2022 HISTORY: Chest pain TECHNIQUE: 2 views FINDINGS: There is no heart failure nor confluent pneumonic infiltrate. There is some mild interstiti al infiltrate left lower lobe behind the heart. Costophrenic angles are clear. There is left axillary pacemaker. There are chest leads. No pleural effusion. IMPRESSION: There is some mild left lower lobe infiltrate which is partly cleared compared to old exa m. No heart failure.
[2022-12-06 16:59] LABS: Partial Thromboplastin Time 19.9 sec (22.0-30.0)
--- NOTE | 2022-12-06 17:00 | CT ---
EXAMINATION TYPE: CT brain wo con DATE OF EXAM: 12/06/2022 COMPARISON: 10/27/2022 HISTORY: AMS CT DLP: 1106.4 mGycm Automated exposure control for dose reduction was used. Images of the brain obtained without contrast. There is cerebral cortical atrophy. There is no mass effect or midline shift. No sign of intracranial hemorrhage. Calvarium is intact. There is some mucosal thickening in the right mastoid sinuses. IMPRESSION: Cerebral atrophy. No acute intracranial abnormality. There is some right-sided mastoiditis which appe ars new compared to old exam.
[2022-12-06] MEDS ORDERED: SODIUM CHLORIDE 0.9% 500 ML 500 ML IV STA (19:19)
[2022-12-06] MEDS ORDERED: SODIUM CHLORIDE 0.9% 1,000 ML IV STA (19:19)
[2022-12-06] MEDS ORDERED: NITROGLYCERIN SL TABS 0.4 MG TAB SUBLINGUAL PRN (19:32)
[2022-12-06] MEDS ORDERED: NON FORMULARY DRUG (Levalbuterol Hfa Inhaler 200 PUFF/9 GM Gm) INHALATION PRN (19:35)
[2022-12-06] MEDS ORDERED: carvediloL 3.125 MG TAB PO SCH (19:45)
[2022-12-06] MEDS ORDERED: ALBUTEROL NEBULIZED 2.5 MG/3 ML INHALATION PRN (20:03)
[2022-12-06] MEDS ORDERED: traZODone HCL 100 MG TAB PO SCH (21:00)
[2022-12-06] MEDS ORDERED: ATORVASTATIN 40 MG TAB PO SCH (21:00)
[2022-12-06] MEDS: PANTOPRAZOLE 40 MG TABLET PO SCH (22:56)
[2022-12-06] MEDS: HEPARIN SODIUM,PORCINE/PF 5,000 UNIT/0.5 ML SYRINGE SQ SCH (22:56)
[2022-12-06] MEDS: LORazepam 1 MG TAB PO SCH (22:56)
[2022-12-07] MEDS ORDERED: MORPHINE SULFATE 4 MG/ML SYRINGE IV STA (00:06)
[2022-12-07] MEDS ORDERED: ASPIRIN 325 MG TAB PO SCH (09:00)
[2022-12-07 09:10] VITALS: RESP 16
[2022-12-07] MEDS: PANTOPRAZOLE 40 MG TABLET PO SCH (09:21)
[2022-12-07] MEDS: LORazepam 1 MG TAB PO SCH (09:21)
[2022-12-07] MEDS: HEPARIN SODIUM,PORCINE/PF 5,000 UNIT/0.5 ML SYRINGE SQ SCH (09:21)
[2022-12-07 09:24] LABS: Chol/HDL Ratio 2.68 Ratio; LDL Cholesterol,Calculated 33.2 mg/dL (0.0-131.0)
[2022-12-07 11:28] VITALS: BMI 23.6
[2022-12-07] MEDS ORDERED: SODIUM CHLORIDE 0.9% 1,000 ML IV SCH (11:30)
[2022-12-07] MEDS ORDERED: ALBUTEROL NEBULIZED 2.5 MG/3 ML INHALATION SCH (12:00)
--- NOTE | 2022-12-07 12:20 | P.HPIM ---
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 He follows with Dr. Newell and Dr. Kumar. He also has a past medical history of myocardial infarction in 2006 status post PCI to the OM in 2005, RCA in 2005, FFR of the LAD in 2018 was nonischemic, hypertension, hyperlipidemia, left bundle branch block and permanent pacemaker implantation. Patient follows with Dr. Whitaker. He also has history of gastroesophageal reflux disease, COPD, remote history of tobacco use and dependence, deafness, peripheral neuropathy bilateral lower extremities. Dr. Love is his pulmonary physician. Patient presented to [facility] emergency center from oncology with complaints of chest pain while he was at his appointment. He also had clamminess. Patient was unable to provide any history. Patient's related to the ER that the patient has lost 20 pounds over the past 2 weeks and he has mental status changes worsening over the past few days. Patient has had a fall out of bed on the Obs unit with no noted injuries. Patient presented to [facility] emergency center and found to be afebrile, heart rate 85, blood pressure 101/69, pulse ox 96% on room air. EKG is ventricular paced rhythm. WBC 8.5, hemoglobin 15, platelet count 95. INR 1.1. Potassium 3.7, BUN 28 creatinine 1.19. Lactic acid initially 3.4 now at 1.4. Magnesium 1.8. Liver function tests normal. Troponin 0.014, 0.020.023, 0.027. Triglycerides 106, cholesterol 87, LDL 33, HDL 32. TSH performed on 12/01 3.72. Chest x-ray reveals mild left lower lobe infiltrate which is partly cleared com pared to old exam. No heart failure. CAT scan of the brain revealed cerebral atrophy. No acute intracranial abnormality. Right-sided mastoiditis. Patient has been placed on observation unit and consult with cardiology. Patient has been evaluated by cardiology and cleared for discharge following negative troponins and no acute EKG changes.. REVIEW OF SYSTEMS Constitutional: No reported fever, no chills, no night sweats. No weight change. Generalized weakness and fatigue. EENT: No headache. Chronic loss of Hearing. No nasal drainage or congestion. No epistaxis. No sore throat. Lungs: No shortness of breath, no cough, no sputum production. No wheezing. Cardiovascular: Reported chest pain-resolved, no lower extremity edema. No palpitations. No paroxysmal nocturnal dyspnea. No orthopnea. No lightheadedness or dizziness. No syncopal episodes. Abdominal: No abdominal pain. No nausea, vomiting. No diarrhea. No constipation. No bloody or tarry stools. Reported loss of appetite. Genitourinary: No dysuria, increased frequency, urgency. No urinary retention. Musculoskeletal: No myalgias. Generalized muscle weakness, noted gait dysfunction, no frequent falls. No back pain. No neck pain. Integumentary: No wounds, no lesions. No rash or pruritus. Neurologic: No aphasia. No facial droop. Noted change in mentation. No head injury. No headache. No paralysis. No paresthesia. Psychiatric: No depression. No anxiety. Reported mood swings. Endocrine: No abnormal blood sugars. +significant weight loss. No excessive sweating or thirst. No cold intolerance. MEDICAL HISTORY Small cell lung cancer with metastatic disease to the brain Radiation esophagitis Myocardial infarction 2005/coronary artery disease Hypertension Hyperlipidemia Left bundle branch block Permanent pacemaker implantation Gastroesophageal reflux disease COPD Deafness Peripheral neuropathy bilateral lower extremities Vitamin B12 deficiency SURGICAL HISTORY Cardiac catheterization and stent placement of the OM and RCA Right shoulder arthroscopically Left knee arthroscopically Pacemaker implantation Bilateral cataract removal and intraocular lens implants Transbronchial needle aspiration of mediastinal lymph node 01/2022 SOCIAL HISTORY The patient was a smoker one and half packs per day for 52 years. Occasional alcohol use, no illicit drug use. Patient has been utilizing a walker since November 2021. FAMILY HISTORY Patient has no contact with his father has no idea of his medical history. Mother at age 99 from old age. Patient has one brother at age 86 with no glen, r medical problems. He has one sister age 88 this recovering from a hip fracture. Patient has 4 children, 3 girls and one boy with no major medical problems. PHYSICAL EXAMINATION Gen: This is an 82-year-old male. He is resting in bed appears to be comfortable and in no acute distress. HEENT: Head is atraumatic, normocephalic. Pupils equal, round. Sclerae is anicteric. NECK: Supple. No JVD. No lymphadenopathy. No thyromegaly. LUNGS: Diminished breath sounds. No wheezes or rhonchi. No intercostal retractions. HEART: Regular rate and rhythm. Systolic ejection murmur at the base. Pacemaker anterior chest wall left side. ABDOMEN: Soft. Bowel sounds are present. No masses. No tenderness. EXTREMITIES: No pedal edema. No calf tenderness. NEUROLOGICAL: Patient is awake, alert and oriented to person. Cranial nerves 2 through 12 are grossly intact. ASSESSMENT AND PLAN 1. Chest pain with sweats, resolved. Cardiology consult is appreciated. Acute coronary syndrome has been ruled out and patient cleared for discharge. 2. Small cell lung cancer with metastatic disease to the brain with metabolic encephalopathy secondary to metastatic disease. Patient follows with oncology on an outpatient basis. Continue Decadron. 3. Coronary artery disease. Continue simvastatin. 4. Hypertension. Patient has been taken off Coreg. 5. Hyperlipidemia. Continue statin 6. Gastroesophageal reflux disease. Protonix 40 mg twice daily. 7. Peripheral neuropathy. 8. Remote history of tobacco use and dependence. 9. Recurrent depression and generalized anxiety disorder. Continue Zoloft 50 mg at bedtime, trazodone 100 mg at bedtime. 10. Deafness, stable. Patient placed on the observation unit. Patient will be discharged home today in stable condition. No changes made to his home medication list. DISCHARGE PLAN Home Greater than 35 minutes was utilized and coordinating patient's discharge. Impression and plan of care have been directed as dictated by the signing physician. Barbie Quinones nurse practitioner acting as scribe for signing physician. Past Medical History Past Medical History: Cancer, COPD, GERD/Reflux, Hearing Disorder / Deafness, Hyperlipidemia, Hypertension, Myocardial Infarction ([place]) Additional Past Medical History / Comment(s): Vitamin B-12 deficiency, neuropathy legs and feet, very [place], low blood sugar at times, low kidney function, lung cancer with new brain mets Last Myocardial Infarction Date:: 2005 History of Any Multi-Drug Resistant Organisms: None Reported Past Surgical History: Heart Catheterization With Stent, Orthopedic Surgery, Pacemaker Additional Past Surgical History / Comment(s): Right shoulder scope, left knee scope, cardiac stents X3, Pacemaker replaced. Past Anesthesia/Blood Transfusion Reactions: No Reported Reaction Date of Last Stent Placement:: 11/2005 Type of Cardiac Device: Permanent Pacemaker Device Placement Date:: 11/2005, new battery since Past Psychological History: Anxiety Smoking Status: Former smoker Past Alcohol Use History: None Reported, Occasional Additional Past Alcohol Use History / Comment(s): Smokes a cigar every once in awhile, none since . Past Drug Use History: None Reported - Past Family History Sister(s) Family Medical History: Cancer Mother Family Medical History: No Reported History Medications and Allergies Home Medications Medication Instructions Recorded Confirmed Type Simvastatin [Zocor] 80 mg PO HS 07/15/16 12/06/22 History Sertraline HCl [Zoloft] 50 mg PO HS 04/18/20 12/06/22 History LORazepam [Ativan] 1 mg PO BID 08/19/22 12/06/22 History carvediloL [Coreg] 3.125 mg PO DIRECTED 08/19/22 12/06/22 History traZODone HCL 100 mg PO HS 08/19/22 12/06/22 History Albuterol Sulfate [Proair 1 puff INHALATION RT-Q4H 12/06/22 12/06/22 History Respiclick] Fluconazole [Diflucan] 100 mg PO DAILY 12/06/22 12/06/22 History Levalbuterol Hfa Inhaler [Xopenex 2 puff INHALATION RT-TID PRN 12/06/22 12/06/22 History Hfa Inhaler] Pantoprazole [Protonix] 40 mg PO BID 12/06/22 12/06/22 History dexAMETHasone [Decadron] See Taper PO DIRECTED 12/06/22 12/06/22 History lidocaine HCL [Lidocaine HCl 10 - 15 ml MM ACHS 12/06/22 12/06/22 History Viscous] Allergies Allergy/AdvReac Type Severity Reaction Status Date / Time No Known Allergies Allergy Verified 12/06/22 13:11 Physical Exam Vitals: Vital Signs Temp Pulse Resp BP Pulse Ox 12/07/22 07:41 97.9 F 59 L 19 136/84 97 12/07/22 07:18 96 12/06/22 18:26 66 16 125/58 96 12/06/22 17:26 66 20 143/65 97 12/06/22 15:42 69 18 159/80 98 12/06/22 15:23 97 F L 79 16 115/75 98 Intake and Output 12/06/22 12/07/22 12/07/22 22:59 06:59 14:59 Other: Weight 70.307 kg Results CBC & Chem 7: 12/06/22 15:52 12/06/22 15:52 Labs: Abnormal Lab Results - Last 24 Hours (Table) 12/06/22 12/06/22 12/06/22 Range/Units 15:52 15:52 15:52 RBC 4.26 L (4.30-5.90) m/uL MCH 35.2 H (25.0-35.0) pg Plt Count 95 L D (150-450) k/uL Lymphocytes # 0.2 L (1.0-4.8) k/uL APTT 19.9 L (22.0-30.0) sec BUN 28 H (9-20) mg/dL Glucose 126 H (74-99) mg/dL Plasma Lactic Acid Lucas (0.7-2.0) mmol/L Total Protein 6.2 L (6.3-8.2) g/dL 12/06/22 12/06/22 12/06/22 Range/Units 15:52 19:47 22:24 RBC (4.30-5.90) m/uL MCH (25.0-35.0) pg Plt Count (150-450) k/uL Lymphocytes # (1.0-4.8) k/uL APTT (22.0-30.0) sec BUN (9-20) mg/dL Glucose (74-99) mg/dL Plasma Lactic Acid Lucas 3.4 H* 2.4 H* 2.6 H* (0.7-2.0) mmol/L Total Protein (6.3-8.2) g/dL 12/07/22 Range/Units 01:10 RBC (4.30-5.90) m/uL MCH (25.0-35.0) pg Plt Count (150-450) k/uL Lymphocytes # (1.0-4.8) k/uL APTT (22.0-30.0) sec BUN (9-20) mg/dL Glucose (74-99) mg/dL Plasma Lactic Acid Lucas 3.2 H* (0.7-2.0) mmol/L Total Protein (6.3-8.2) g/dL
--- NOTE | 2022-12-07 13:02 | P.CRDCN ---
History of Present Illness Consult date: 12/07/22 Consult reason: chest pain History of present illness: HISTORY OF PRESENTING ILLNESS This is an 82-year-old male past medical history significant for coronary artery disease s/p PCI to the proximal OM 2005, mid RCA 2005. FFR of the LAD in 2018 was nonischemic, hypertension, dyslipidemia, left bundle branch block and permanent pacemaker implantation. He follows in the office with Dr. Whitaker. 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 Newell and Dr. Kumar. Patient was at his oncology appointment and developed chest pain along with clamminess and seemed to be in distress. Patient's told the emergency center that the patient has recently lost 20 pounds over the past 2 weeks and he has mental status changes worsening over the past few days. Patient is unable to give reliable history. He is denying any chest pain at the time of this evaluation. EKG is ventricular paced rhythm. WBC 8.5, hemoglobin 15, platelet count 95. INR 1.1. Potassium 3.7, BUN 28 creatinine 1.19. Lactic acid initially 3.4 now at 1.4. Magnesium 1.8. Liver function tests normal. Troponin 0.014, 0.020.023, 0.027. Triglycerides 106, cholesterol 87, LDL 33, HDL 32. TSH performed on 12/01 3.72. Chest x-ray reveals mild left lower lobe infiltrate which is partly cleared compared to old exam. No heart failure. CAT scan of the brain revealed cerebral atrophy. No acute intracranial abnormality. Right-sided mastoiditis. Current cardiac medications include simvastatin 80 mg daily. REVIEW OF SYSTEMS At the time of my exam: CONSTITUTIONAL: Denies fever or chills. CARDIOVASCULAR: Denies chest pain, shortness of breath, orthopnea, PND or palpitations. RESPIRATORY: Denies cough. GASTROINTESTINAL: Denies abdominal pain. MUSCULOSKELETAL: Denies myalgias. NEUROLOGIC: Denies numbness, tingling, headacbe or weakness. ENDOCRINE: Denies fatigue, reported weight loss. PHYSICAL EXAMINATION CONSTITUTIONAL: No apparent distress. HEENT: Head is normocephalic. Pupils are equal, round. Sclerae anicteric. Mucous membranes of the mouth are moist. No JVD. No carotid bruit. CHEST EXAMINATION: No chest wall tenderness is noted on palpation or with deep breathing. Diminished bilaterally with faint crackes. No wheezes or rhonchi. HEART EXAMINATION: Regular rate and rhythm. S1, S2 heard. Systolic ejection murmur at the base, no gallops or rub. ABDOMEN: Soft, nontender. Positive bowel sounds. EXTREMITIES: 2+ peripheral pulses, no lower extremity edema and no calf tenderness. NEUROLOGIC EXAMINATION: Patient is awake, alert and oriented x3. ASSESSMENT Chest pain, atypical. Acute coronary syndrome ruled out. Small cell lung cancer with metastatic disease to the brain with metabolic encephalopathy Coronary artery disease s/p PCI Hypertension Dyslipidemia Sleep apnea Permanent pacemaker implantation COPD PLAN An acute coronary event has been ruled out. Patient is cleared for discharge from cardiology. Patient may follow-up with Dr. Whitaker. Thank you kindly for this consultation. Nurse Practitioner note has been reviewed, I agree with a documented findings and plan of care. Patient was seen and examined. Past Medical History Past Medical History: Cancer, COPD, GERD/Reflux, Hearing Disorder / Deafness, Hyperlipidemia, Hypertension, Myocardial Infarction ([place]) Additional Past Medical History / Comment(s): Vitamin B-12 deficiency, neuropathy legs and feet, very [place], low blood sugar at times, low kidney function, lung cancer with new brain mets Last Myocardial Infarction Date:: 2005 History of Any Multi-Drug Resistant Organisms: None Reported Past Surgical History: Heart Catheterization With Stent, Orthopedic Surgery, Pacemaker Additional Past Surgical History / Comment(s): Right shoulder scope, left knee scope, cardiac stents X3, Pacemaker replaced. Past Anesthesia/Blood Transfusion Reactions: No Reported Reaction Date of Last Stent Placement:: 11/2005 Type of Cardiac Device: Permanent Pacemaker Device Placement Date:: 11/2005, new battery since Past Psychological History: Anxiety Smoking Status: Former smoker Past Alcohol Use History: None Reported, Occasional Additional Past Alcohol Use History / Comment(s): Smokes a cigar every once in awhile, none since . Past Drug Use History: None Reported - Past Family History Sister(s) Family Medical History: Cancer Mother Family Medical History: No Reported History Medications and Allergies Home Medications Medication Instructions Recorded Confirmed Type Simvastatin [Zocor] 80 mg PO HS 07/15/16 12/06/22 History Sertraline HCl [Zoloft] 50 mg PO HS 04/18/20 12/06/22 History LORazepam [Ativan] 1 mg PO BID 08/19/22 12/06/22 History carvediloL [Coreg] 3.125 mg PO DIRECTED 08/19/22 12/06/22 History traZODone HCL 100 mg PO HS 08/19/22 12/06/22 History Albuterol Sulfate [Proair 1 puff INHALATION RT-Q4H 12/06/22 12/06/22 History Respiclick] Fluconazole [Diflucan] 100 mg PO DAILY 12/06/22 12/06/22 History Levalbuterol Hfa Inhaler [Xopenex 2 puff INHALATION RT-TID PRN 12/06/22 12/06/22 History Hfa Inhaler] Pantoprazole [Protonix] 40 mg PO BID 12/06/22 12/06/22 History dexAMETHasone [Decadron] See Taper PO DIRECTED 12/06/22 12/06/22 History lidocaine HCL [lidocaine HCL 10 - 15 ml MM ACHS 12/06/22 12/06/22 History Viscous] Allergies Allergy/AdvReac Type Severity Reaction Status Date / Time No Known Allergies Allergy Verified 12/06/22 13:11 Physical Exam Vitals: Vital Signs Temp Pulse Resp BP Pulse Ox 12/07/22 07:41 97.9 F 59 L 19 136/84 97 12/07/22 07:18 96 12/06/22 18:26 66 16 125/58 96 12/06/22 17:26 66 20 143/65 97 12/06/22 15:42 69 18 159/80 98 12/06/22 15:23 97 F L 79 16 115/75 98 Intake and Output 12/06/22 12/07/22 12/07/22 22:59 06:59 14:59 Other: Weight 70.307 kg Results 12/06/22 15:52 12/06/22 15:52 Cardiac Enzymes 12/06/22 12/06/22 12/06/22 Range/Units 15:52 15:52 19:47 AST 43 (17-59) U/L Troponin I 0.014 0.020 (0.000-0.034) ng/mL 12/06/22 Range/Units 22:24 AST (17-59) U/L Troponin I 0.023 (0.000-0.034) ng/mL Coagulation 12/06/22 Range/Units 15:52 PT 11.4 (9.0-12.0) sec APTT 19.9 L (22.0-30.0) sec CBC 12/06/22 Range/Units 15:52 WBC 8.5 (3.8-10.6) k/uL RBC 4.26 L (4.30-5.90) m/uL Hgb 15.0 (13.0-17.5) gm/dL Hct 42.1 (39.0-53.0) % Plt Count 95 L D (150-450) k/uL Comprehensive Metabolic Panel 12/06/22 Range/Units 15:52 Sodium 138 (137-145) mmol/L Potassium 3.7 (3.5-5.1) mmol/L Chloride 106 (98-107) mmol/L Carbon Dioxide 24 (22-30) mmol/L BUN 28 H (9-20) mg/dL Creatinine 1.19 (0.66-1.25) mg/dL Glucose 126 H (74-99) mg/dL Calcium 8.9 (8.4-10.2) mg/dL AST 43 (17-59) U/L ALT 26 (4-49) U/L Alkaline Phosphatase 98 (38-126) U/L Total Protein 6.2 L (6.3-8.2) g/dL Albumin 3.8 (3.5-5.0) g/dL Current Medications Generic Name Dose Route Start Last Admin Trade Name Freq PRN Reason Stop Dose Admin Albuterol Sulfate 2.5 mg 12/06/22 20:03 Albuterol Nebulized 2.5 Mg/3 Ml INHALATION RT-TID PRN Shortness Of Breath Aspirin 325 mg 12/07/22 09:00 Aspirin 325 Mg Tab PO DAILY MITA Atorvastatin Calcium 40 mg 12/06/22 21:00 12/06/22 22:56 Atorvastatin 40 Mg Tab PO 40 mg HS MITA Administration Heparin Sodium (Porcine) 5,000 unit 12/06/22 21:00 12/06/22 22:56 Heparin Sodium,Porcine/Pf 5,000 Unit/0.5 Ml Syringe SQ 5,000 unit Q12HR MITA Administration Sodium Chloride 1,000 mls @ 75 mls/hr 12/06/22 19:19 12/06/22 22:56 Saline 0.9% IV 12/07/22 08:38 75 mls/hr .[id number] STA Administration Lorazepam 1 mg 12/06/22 21:00 12/06/22 22:56 Lorazepam 1 Mg Tab PO 1 mg BID MITA Administration Nitroglycerin 0.4 mg 12/06/22 19:32 Nitroglycerin Sl Tabs 0.4 Mg Tab SUBLINGUAL Q5M PRN Chest Pain Pantoprazole Sodium 40 mg 12/06/22 21:00 12/06/22 22:56 Pantoprazole 40 Mg Tablet PO 40 mg BID@0730,1730 MITA Administration Trazodone HCl 100 mg 12/06/22 21:00 12/06/22 22:56 Trazodone Hcl 100 Mg Tab PO 100 mg HS MITA Administration Intake and Output 12/06/22 12/07/22 12/07/22 22:59 06:59 14:59 Other: Weight 70.307 kg 12/06/22 15:52 12/06/22 15:52
[2022-12-07 14:19] VITALS: BP 134/63; PULSE 67; TEMP 97.8
[2022-12-07] MEDS ORDERED: SERTRALINE 50 MG TAB PO SCH (21:00)
[2022-12-08] MEDS ORDERED: ASPIRIN 81 MG PO SCH (09:00)
== END 2022-12-07 15:32 | disposition home or self-care (01) ==
LOC: EC 15:23 → 6NMEDSUR 19:32
PROVIDERS: ADMIT Internal Medicine; ATTEND Internal Medicine
DX: R07.89 Other chest pain (principal); C34.90 Malignant neoplasm of unspecified part of unspecified bronchus or lung; C79.31 Secondary malignant neoplasm of brain; G93.41 Metabolic encephalopathy; J44.9 Chronic obstructive pulmonary disease, unspecified; I25.10 Atherosclerotic heart disease of native coronary artery without angina pectoris; E78.5 Hyperlipidemia, unspecified; I10 Essential (primary) hypertension; H91.90 Unspecified hearing loss, unspecified ear; I44.7 Left bundle-branch block, unspecified; I25.2 Old myocardial infarction; G62.9 Polyneuropathy, unspecified; E53.8 Deficiency of other specified B group vitamins; K21.9 Gastro-esophageal reflux disease without esophagitis; F41.1 Generalized anxiety disorder; R91.8 Other nonspecific abnormal finding of lung field; H70.91 Unspecified mastoiditis, right ear; G47.30 Sleep apnea, unspecified; W06.XXXA Fall from bed, initial encounter; F33.9 Major depressive disorder, recurrent, unspecified; R61 Generalized hyperhidrosis; R29.6 Repeated falls; Z79.2 Long term (current) use of antibiotics; Z79.899 Other long term (current) drug therapy; Z95.5 Presence of coronary angioplasty implant and graft; Z95.0 Presence of cardiac pacemaker; Z98.890 Other specified postprocedural states; Z87.891 Personal history of nicotine dependence; Z92.21 Personal history of antineoplastic chemotherapy; Z92.3 Personal history of irradiation; Z80.9 Family history of malignant neoplasm, unspecified
CPT/HCPCS: 96372 ×2; 96361 ×2; 96365; 96366; 96375; 99285; 36415; 94640; 94760; 93005; 80061; 80053; 83605 ×2; 83735; 84484 ×2; 85025; 85610; 85730; 87040; 71046; 70450; G0378 ×2; J2270; J0696; J1644 ×2